=== PATIENT | female | born 1975 | race Hispanic/Latino ===

== ENCOUNTER 2018-03-05 01:47 | Emergency (ER) | payer SELFPAY ==
[2018-03-05] MEDS ORDERED: ONDANSETRON 4 MG/2 ML VIAL ONE (02:27)
[2018-03-05] MEDS ORDERED: NA CHLORIDE 0.9% 1,000 ML ONE (02:32)
[2018-03-05 02:44] LABS: Absolute Lymphocytes (CBC) 1.5 K/uL (0.7-4.9); Absolute Monocytes 0.5 K/uL (0.1-1.3); Absolute Neutrophil 4.4 K/uL (1.8-8.0); Basophils % 0.5 % (0-1.3); Eosinophils % 2.9 % (0-4.4); Hematocrit 39.2 % (36.0-45.0); Lymphocytes % 22.5 % (15.3-44.8); MCH 32.5 pg (27.0-35.0); MCV 94.4 fL (80-100); MPV 9.2 fL (7.6-11.3); RBC Red Blood Cell Count 4.16 M/uL (3.86-4.86)
[2018-03-05 03:16] LABS: Albumin 3.6 g/dL (3.4-5.0); Bilirubin Direct 0.3 mg/dL (0-0.2); Bilirubin Total 0.7 mg/dL (0.2-1.0); Protein, Total 7.5 g/dL (6.4-8.2)
[2018-03-05 03:18] LABS: Urine Blood NEGATIVE (NEG); Urine Glucose NEGATIVE (NEG); Urine Protein NEGATIVE (NEG); Urine pH 5.5 (5.0-7.0)
[2018-03-05 03:23] LABS: Potassium 2.9 mmol/L (3.5-5.1)
[2018-03-05] MEDS ORDERED: POTASSIUM CL SA 10 MEQ TAB PO ONE (04:06)
[2018-03-05] MEDS ORDERED: KCL 20 MEQ/100 mL IVPB 20 MEQ/100 ML BAG IV ONE (04:07)
[2018-03-05] MEDS ORDERED: NA CHLORIDE 0.9% 500 ML ONE (04:13)
[2018-03-05] MEDS ORDERED: KETOROLAC 30 MG/ML INJ ONE (04:15)
[2018-03-05] MEDS ORDERED: MORPHINE 4 MG/ML SYR ONE (04:42)
--- NOTE | 2018-03-05 06:23 | ER ---
Nurse's Notes [facility] Name: Jerrell Rm Age: 43 yrs Sex: Female : 1975 Arrival Date: 03/05/2018 Time: 01:50 Bed 20 Private MD: Diagnosis: Nondisplaced fracture of cuboid bone of right foot Presentation: 03/05 02:01 Presenting complaint: Patient states: right foot pain from great toe up to ankle. pt ak1 also admits to alcohol tonight, pt states she has pancreatitis and has not eaten since due to vomiting. Transition of care: patient was not received from another setting of care. Onset of symptoms was March 05, 2018. Risk Assessment: Do you want to hurt yourself or someone else? Patient reports no desire to harm self or others. Initial Sepsis Screen: Does the patient meet any 2 criteria? No. Patient's initial sepsis screen is negative. Does the patient have a suspected source of infection? No. Patient's initial sepsis screen is negative. Care prior to arrival: None. 02:01 Method Of Arrival: Wheelchair ak1 02:01 Acuity: EDD 4 ak1 Triage Assessment: 03:29 General: Appears in no apparent distress. Behavior is crying, Smells of alcohol. Pain: ak1 Complains of pain in right foot and epigastric area. EENT: No signs and/or symptoms were reported regarding the EENT system. Neuro: No deficits noted. Cardiovascular: No deficits noted. Respiratory: No deficits noted. GI: Abdomen is round non-distended, Bowel sounds present X 4 quads. Abd is soft X 4 quads Reports intolerance of food, nausea, vomiting, since . : No signs and/or symptoms were reported regarding the genitourinary system. Derm: No signs and/or symptoms reported regarding the dermatologic system. Musculoskeletal: Reports pain in dorsum of right foot, right first toe and Right first toenail. Injury Description: dropped pain scraper on foot. 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 - Social history:: Smoking status: Patient/guardian denies using tobacco, Patient uses alcohol. - Ebola Screening: : No symptoms or risks identified at this time. Screenin:10 Abuse screen: Denies threats or abuse. Denies injuries from another. Nutritional ak1 screening: No deficits noted. Tuberculosis screening: No symptoms or risk factors identified. Fall Risk None identified. Assessment: 03:28 Reassessment: Patient appears in no apparent distress at this time. No changes from ak1 previously documented assessment. see triage assessment. 05:21 Reassessment: pt crying. pt stating that the IV potassium jimenez, pt NS increased and IV ak1 potassium rate decreased. pt placed in a short leg posterior splint with morphine given IV for pain. 06:51 Reassessment: Patient and/or family updated on plan of care and expected duration. Pain bb level reassessed. Patient is alert, oriented x 3, equal unlabored respirations, skin warm/dry/pink. splint to right lower leg in place, able to move toes, pt states she has used crutches in the past, pt verbalized understanding of and agrees to plan of care discharge instructions given pt assisted to exit via wheelchair accompanied by spouse. Vital Signs: 02:01 BP 109 / 76; Pulse 98; Resp 20; Temp 99; Pulse Ox 97% on R/A; Weight 77.11 kg (R); ak1 Height 5 ft. 6 in. (167.64 cm) (R); Pain 10/10; 05:51 BP 112 / 73; Pulse 77; Resp 18; Pulse Ox 97% on R/A; ak1 02:01 Body Mass Index 27.44 (77.11 kg, 167.64 cm) ak1 ED Course: 01:50 Patient arrived in ED. do 01:57 Heber Hawkins MD is Attending Physician. tw4 02:00 Yesica Judd, RN is Primary Nurse. ak1 02:03 Triage completed. ak1 02:09 Arm band placed on Patient placed in an exam room, on a stretcher, on pulse oximetry, ak1 Patient notified of wait time. 02:10 Patient has correct armband on for positive identification. Bed in low position. Call ak1 light in reach. Side rails up X 1. Pulse ox on. NIBP on. 02:45 Missed attempt(s): 20 gauge in right antecubital area. Bleeding controlled, band aid oe applied, catheter tip intact. 02:50 Inserted saline lock: 22 gauge in left hand, using aseptic technique. Blood collected. oe 03:24 Notified ED physician of a critical lab result(s). Potassium level of 2.9. jb4 03:38 X-ray completed. Portable x-ray completed in exam room. Patient tolerated procedure kw well. 03:38 XRAY Foot RIGHT 3 View In Process Unspecified. EDMS 06:26 Orthoglass splint: Posterior short lleg splint applied on right leg. oe 06:56 No provider procedures requiring assistance completed. IV discontinued, intact, bb bleeding controlled, No redness/swelling at site. Pressure dressing applied. Administered Medications: 02:48 Drug: NS 0.9% 1000 ml Route: IV; Rate: 1 bolus; Site: left hand; ak1 02:48 Drug: Zofran 4 mg Route: IVP; Site: left hand; ak1 04:28 Follow up: Response: No adverse reaction ak1 04:00 Drug: Potassium Chloride 20 mEq Route: IV; Rate: calculated rate; Site: left hand; ak1 04:25 Drug: Potassium Chloride 40 mEq Route: PO; ak1 04:29 Follow up: Response: No adverse reaction ak1 04:54 Drug: morphine 4 mg Route: IVP; Site: left hand; ak1 05:20 Follow up: Response: No adverse reaction ak1 Outcome: 06:23 Discharge ordered by . tw4 06:56 Discharged to home via wheelchair, with crutches, with family. bb 06:56 Condition: stable 06:56 Discharge instructions given to patient, Instructed on discharge instructions, follow up and referral plans. medication usage, safety practices, crutch walking, Demonstrated understanding of instructions, follow-up care, medications, crutch walking, splint care. 06:57 Patient left the ED. bb Signatures: Dispatcher [employer] EDMS Heather Campbell RN RN bb Whitley, Kimberlee kw Krenek, Amber RN RN ak1 Tashia Parry James, RN RN jb4 Gonzalo Chopra Terrence, MD MD tw4 Corrections: (The following items were deleted from the chart) 04:04 04:03 Missed attempt(s): 20 gauge in right antecubital area. Bleeding controlled, band oe aid applied, catheter tip intact. oe 04:06 04:03 Missed attempt(s): 20 gauge in right antecubital area. Bleeding controlled, band oe aid applied, catheter tip intact. oe 04:07 04:04 Inserted oe oe
--- NOTE | 2018-03-05 06:24 | EDPHYS ---
Physician Documentation [facility] Name: Jerrell Rm Age: 43 yrs Sex: Female : 1975 Arrival Date: 03/05/2018 Time: 01:50 Bed 20 Private MD: ED Physician Heber Hawkins HPI: 03/05 02:26 This 43 yrs old Female presents to ER via Wheelchair with complaints of Foot tw4 Injury, Possible Pancreatitis, Vomiting, Abdominal Swelling. 02:26 The patient presents with pain. The complaints affect the right foot. Context: The tw4 problem was sustained at home. Onset: The symptoms/episode began/occurred today. Modifying factors: The symptoms are alleviated by nothing, the symptoms are aggravated by nothing. Severity of symptoms: At their worst the symptoms were moderate, in the emergency department the symptoms are unchanged. The patient has not experienced similar symptoms in the past. 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 - Social history:: Smoking status: Patient/guardian denies using tobacco, Patient uses alcohol. - Ebola Screening: : No symptoms or risks identified at this time. ROS: 02:26 MS/extremity: Positive for injury or acute deformity, decreased range of motion, tw4 Negative for deformity. 02:26 Constitutional: Negative for fever, chills, and weight loss, Eyes: Negative for injury, pain, redness, and discharge, Cardiovascular: Negative for chest pain, palpitations, and edema, Respiratory: Negative for shortness of breath, cough, wheezing, and pleuritic chest pain. 02:26 Abdomen/GI: Positive for abdominal pain, nausea and vomiting, nausea, vomiting, and diarrhea, nausea, vomiting. Exam: 02:26 Constitutional: This is a well developed, well nourished patient who is awake, alert, tw4 and in no acute distress. Head/Face: Normocephalic, atraumatic. Chest/axilla: Normal chest wall appearance and motion. Nontender with no deformity. No lesions are appreciated. Cardiovascular: Regular rate and rhythm with a normal S1 and S2. No gallops, murmurs, or rubs. Normal PMI, no JVD. No pulse deficits. Respiratory: Lungs have equal breath sounds bilaterally, clear to auscultation and percussion. No rales, rhonchi or wheezes noted. No increased work of breathing, no retractions or nasal flaring. 02:26 Abdomen/GI: Inspection: abdomen appears normal, Bowel sounds: normal, Palpation: mild abdominal tenderness, in the epigastric area. Vital Signs: 02:01 BP 109 / 76; Pulse 98; Resp 20; Temp 99; Pulse Ox 97% on R/A; Weight 77.11 kg (R); ak1 Height 5 ft. 6 in. (167.64 cm) (R); Pain 10/10; 05:51 BP 112 / 73; Pulse 77; Resp 18; Pulse Ox 97% on R/A; ak1 02:01 Body Mass Index 27.44 (77.11 kg, 167.64 cm) ak1 MDM: 01:57 Patient medically screened. tw03/05 01:57 Order name: Basic Metabolic Panel tw4 03/05 01:57 Order name: CBC with Diff; Complete Time: 03:21 tw4 03/05 03:22 Interpretation: Normal except: MCV 94.4. 03/05 01:57 Order name: Creatinine for Radiology; Complete Time: 03:21 tw4 03/05 01:57 Order name: Hepatic Function; Complete Time: 03:44 tw4 03/05 03:44 Interpretation: Normal except: AST 66; ALT 125; BILID 0.3; GLOB 3.9; A/G 0.9. 03/05 01:57 Order name: Lipase; Complete Time: 03:44 tw4 03/05 03:44 Interpretation: Normal except: LIP 494. tw4 03/05 01:58 Order name: Basic Metabolic Panel; Complete Time: 03:44 EDID 03/05 02:55 Order name: XRAY Foot RIGHT 3 View ak1 03/05 02:56 Order name: Urine Dipstick--Ancillary (enter results); Complete Time: 03:21 cc 03/05 02:56 Order name: Urine --Ancillary (enter results); Complete Time: 03:21 cc 03/05 04:33 Order name: ETOH Level tw4 03/05 01:57 Order name: IV Saline Lock; Complete Time: 02:40 tw4 03/05 01:57 Order name: Labs collected and sent; Complete Time: 02:40 tw4 03/05 02:56 Order name: Urine Dipstick-Ancillary (obtain specimen); Complete Time: 02:56 cc 03/05 02:56 Order name: Urine Test (obtain specimen); Complete Time: 02:56 cc 03/05 04:33 Order name: Splint; Complete Time: 05:20 tw4 03/05 06:39 Order name: Crutches; Complete Time: 06:51 tw4 Administered Medications: 02:48 Drug: NS 0.9% 1000 ml Route: IV; Rate: 1 bolus; Site: left hand; ak1 02:48 Drug: Zofran 4 mg Route: IVP; Site: left hand; ak1 04:28 Follow up: Response: No adverse reaction ak1 04:00 Drug: Potassium Chloride 20 mEq Route: IV; Rate: calculated rate; Site: left hand; ak1 04:25 Drug: Potassium Chloride 40 mEq Route: PO; ak1 04:29 Follow up: Response: No adverse reaction ak1 04:54 Drug: morphine 4 mg Route: IVP; Site: left hand; ak1 05:20 Follow up: Response: No adverse reaction ak1 Disposition: 03/05/18 06:23 Discharged to Home. Impression: Nondisplaced fracture of cuboid bone of right foot. - Condition is Stable. - Discharge Instructions: Cuneiform Fracture, Chronic Pancreatitis, Foot Pain. - Prescriptions for Ibuprofen 800 mg Oral Tablet - take 1 tablet by ORAL route every 8 hours As needed take with food; 30 tablet. Tylenol- Codeine #3 300-30 mg Oral Tablet - take 2 tablet by ORAL route every 6 hours As needed; 6 tablet. - Medication Reconciliation Form, Thank You Letter, Antibiotic Education, Prescription Opioid Use form. - Follow up: Private Physician; When: Upon discharge from the Emergency Department; Reason: Further diagnostic work-up, Recheck today's complaints, Re-evaluation by your physician. - Problem is new. - Symptoms have improved. Signatures: Dispatcher [employer] EDMS Heather Campbell, RN RN Ayanna Gil Amber RN RN ak1 Heber Hawkins MD MD tw4 Corrections: (The following items were deleted from the chart) 06:57 06:23 03/05/2018 06:23 Discharged to Home. Impression: Nondisplaced fracture of cuboid bb bone of right foot. Condition is Stable. Forms are Medication Reconciliation Form, Thank You Letter, Antibiotic Education, Prescription Opioid Use. Follow up: Private Physician; When: Upon discharge from the Emergency Department; Reason: Further diagnostic work-up, Recheck today's complaints, Re-evaluation by your physician. Problem is new. Symptoms have improved. tw4
--- NOTE | 2018-03-05 08:46 | RAD REPORT ---
EXAM DESCRIPTION: RAD - Foot Right 3 View - 03/05/2018 3:38 am CLINICAL HISTORY: PAIN COMPARISON: No comparisons FINDINGS: No bone or joint abnormality is detected.
== END 2018-03-05 06:57 | disposition home or self-care (01) ==
LOC: ER 01:47
DX: S92.214A Nondisplaced fracture of cuboid bone of right foot, initial encounter for closed fracture (principal); W19.XXXA Unspecified fall, initial encounter; Y93.9 Activity, unspecified; Y92.009 Unspecified place in unspecified non-institutional (private) residence as the place of occurrence of the external cause; Z88.5 Allergy status to narcotic agent; Z88.8 Allergy status to other drugs, medicaments and biological substances; F41.9 Anxiety disorder, unspecified
CPT/HCPCS: 36415; 80048; 80076; 80320; 81003; 81025; 83690; 85025; 96374; 96375; 99284; J2405; J7030

== ENCOUNTER 2018-04-09 23:35 | Emergency (ER) | payer SELFPAY ==
--- NOTE | 2018-04-10 00:34 | EDPHYS ---
Physician Documentation [facility] Name: Jerrell Rm Age: 43 yrs Sex: Female : 1975 Arrival Date: 04/09/2018 Time: 23:37 Bed 26 Private MD: ED Physician Alirio Lr HPI: 04/10 00:09 This 43 yrs old Female presents to ER via Wheelchair with complaints of Foot snw Injury. 00:09 The patient presents with pain, that is acute. The complaints affect the dorsum of snw right foot. Context: The problem was sustained at home, resulted from the patient falling, while walking, the patient is able to ambulate. Onset: The symptoms/episode began/occurred injured foot recently and has an appt with ortho. Pt states she fell today and her foot hurts even more. Associated signs and symptoms: The patient has no apparent associated signs or symptoms. Treatment prior to arrival includes: [place], Pt states it did not help much. Severity of symptoms: At their worst the symptoms were moderate. The patient has experienced a previous episode. The patient has been recently seen by a physician: The patient has been recently seen at the [facility] Emergency Department, for similar complaints was given a prescription for pain medications. 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 - Social history:: Smoking status: Patient/guardian denies using tobacco, Patient uses alcohol, occasionally. Patient/guardian denies using street drugs. - Ebola Screening: : No symptoms or risks identified at this time. ROS: 04/10 00:09 Constitutional: Negative for fever, chills, and weight loss, Eyes: Negative for injury, snw pain, redness, and discharge, ENT: Negative for injury, pain, and discharge, Neck: Negative for injury, pain, and swelling, Cardiovascular: Negative for chest pain, palpitations, and edema, Respiratory: Negative for shortness of breath, cough, wheezing, and pleuritic chest pain, Abdomen/GI: Negative for abdominal pain, nausea, vomiting, diarrhea, and constipation, Back: Negative for injury and pain, : Negative for injury, bleeding, discharge, and swelling, Skin: Negative for injury, rash, and discoloration, Neuro: Negative for headache, weakness, numbness, tingling, and seizure, Psych: Negative for depression, anxiety, suicide ideation, homicidal ideation, and hallucinations. MS/extremity: Positive for injury or acute deformity, decreased range of motion, pain, tenderness, of the dorsum of right foot. Exam: 00:08 Constitutional: This is a well developed, well nourished patient who is awake, alert, snw and in no acute distress. Head/Face: Normocephalic, atraumatic. Eyes: Pupils equal round and reactive to light, extra-ocular motions intact. Lids and lashes normal. Conjunctiva and sclera are non-icteric and not injected. Cornea within normal limits. Periorbital areas with no swelling, redness, or edema. ENT: Nares patent. No nasal discharge, no septal abnormalities noted. Tympanic membranes are normal and external auditory canals are clear. Oropharynx with no redness, swelling, or masses, exudates, or evidence of obstruction, uvula midline. Mucous membranes moist. Neck: Trachea midline, no thyromegaly or masses palpated, and no cervical lymphadenopathy. Supple, full range of motion without nuchal rigidity, or vertebral point tenderness. No Meningismus. Chest/axilla: Normal chest wall appearance and motion. Nontender with no deformity. No lesions are appreciated. Cardiovascular: Regular rate and rhythm with a normal S1 and S2. No gallops, murmurs, or rubs. Normal PMI, no JVD. No pulse deficits. Respiratory: Lungs have equal breath sounds bilaterally, clear to auscultation and percussion. No rales, rhonchi or wheezes noted. No increased work of breathing, no retractions or nasal flaring. Abdomen/GI: Soft, non-tender, with normal bowel sounds. No distension or tympany. No guarding or rebound. No evidence of tenderness throughout. Back: No spinal tenderness. No costovertebral tenderness. Full range of motion. Skin: Warm, dry with normal turgor. Normal color with no rashes, no lesions, and no evidence of cellulitis. Neuro: Awake and alert, GCS 15, oriented to person, place, time, and situation. Cranial nerves II-XII grossly intact. Motor strength 5/5 in all extremities. Sensory grossly intact. Cerebellar exam normal. Normal gait. Psych: Awake, alert, with orientation to person, place and time. Behavior, mood, and affect are within normal limits. 00:08 Musculoskeletal/extremity: ROM: limited passive range of motion due to pain, in the dorsum of right foot, Circulation is intact in all extremities. Sensation intact. Vital Signs: 04/09 23:49 BP 116 / 80; Pulse 91; Resp 16 S; Temp 97.3(O); Pulse Ox 99% on R/A; Weight 74.39 kg bb (R); Height 5 ft. 6 in. (167.64 cm) (R); Pain 7/10; 23:49 Body Mass Index 26.47 (74.39 kg, 167.64 cm) bb MDM: 23:48 Patient medically screened. snw 04/10 00:34 Data reviewed: vital signs, nurses notes. Data interpreted: Pulse oximetry: on room air snw is 99 %. Interpretation: normal. Counseling: I had a detailed discussion with the patient and/or guardian regarding: the historical points, exam findings, and any diagnostic results supporting the discharge/admit diagnosis, the presence of at least one elevated blood pressure reading (>120/80) during this emergency department visit, radiology results, the need for outpatient follow up, to return to the emergency department if symptoms worsen or persist or if there are any questions or concerns that arise at home. Special discussion: I have referred the patient to see his PCP for further evaluation of high blood pressure. Based on the history and exam findings, there is no indication for further emergent testing or inpatient evaluation. I discussed with the patient/guardian the need to see the orthopedic surgeon for further evaluation of the symptoms. 04/10 00:20 Order name: Foot Right 3 View EDMS 04/10 00:33 Order name: Servando wrap-joint; Complete Time: 01:00 snw 04/10 00:33 Order name: Post-op Orthopedic Shoe; Complete Time: 00:59 snw Administered Medications: 00:45 Drug: TORadol 60 mg Route: IM; Site: right gluteus; rr5 01:00 Follow up: Response: Medication administered at discharge. rr5 Disposition: 05:14 Co-signature as Attending Physician, Alirio Lr MD. rn Disposition: 04/10/18 00:34 Discharged to Home. Impression: Pain in right foot. - Condition is Stable. - Discharge Instructions: Elastic Bandage and RICE, Foot Contusion, Musculoskeletal Pain, Cryotherapy, Heat Therapy. - Prescriptions for Diclofenac Sodium 75 mg Oral Tablet Sustained Release - take 1 tablet by ORAL route 2 times per day; 30 tablet. - Medication Reconciliation Form, Thank You Letter, Antibiotic Education, Prescription Opioid Use form. - Follow up: Private Physician; When: 2 - 3 days; Reason: Recheck today's complaints, Continuance of care, Re-evaluation by your physician. Follow up: Emergency Department; When: As needed; Reason: Worsening of condition. Signatures: Dispatcher [employer] [facility] Hayde Carmichael, TRACK MOVING MACHINE OPERATOR-C TRACK MOVING MACHINE OPERATOR-Csnw Heather Campbell RN RN Alirio Rosas MD MD rn Roque, Raymond, RN RN rr5 Corrections: (The following items were deleted from the chart) 00:20 00:05 Foot Left 3 View+RAD.RAD.BRZ ordered. [facility] 01:04 00:34 04/10/2018 00:34 Discharged to Home. Impression: Pain in right foot. Condition is rr5 Stable. Forms are Medication Reconciliation Form, Thank You Letter, Antibiotic Education, Prescription Opioid Use. Follow up: Private Physician; When: 2 - 3 days; Reason: Recheck today's complaints, Continuance of care, Re-evaluation by your physician. Follow up: Emergency Department; When: As needed; Reason: Worsening of condition. snw
--- NOTE | 2018-04-10 00:34 | ER ---
Nurse's Notes [facility] Name: Jerrell Rm Age: 43 yrs Sex: Female : 1975 Arrival Date: 04/09/2018 Time: 23:37 Bed 26 Private MD: Diagnosis: Pain in right foot Presentation: 04/09 23:46 Presenting complaint: Patient states: pt states she was here recently with right foot bb injury and has appt with ortho on Monday but she fell again tonight reinjuring the right foot she took a hydrocodone at approx 1630 and it "barely helped with the pain". Transition of care: patient was not received from another setting of care. Onset of symptoms was April 09, 2018. Risk Assessment: Do you want to hurt yourself or someone else? Patient reports no desire to harm self or others. Initial Sepsis Screen: Does the patient meet any 2 criteria? No. Patient's initial sepsis screen is negative. Does the patient have a suspected source of infection? No. Patient's initial sepsis screen is negative. Care prior to arrival: None. 23:46 Method Of Arrival: Wheelchair bb 23:46 Acuity: EDD 4 bb Triage Assessment: 04/10 00:05 Injury Description: swelling right big toe. 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 - Social history:: Smoking status: Patient/guardian denies using tobacco, Patient uses alcohol, occasionally. Patient/guardian denies using street drugs. - Ebola Screening: : No symptoms or risks identified at this time. Screenin:30 Abuse screen: Denies threats or abuse. Denies injuries from another. Nutritional rr5 screening: No deficits noted. Tuberculosis screening: No symptoms or risk factors identified. Fall Risk None identified. Assessment: 23:30 General: Appears in no apparent distress. comfortable, Behavior is calm, cooperative, rr5 appropriate for age. Pain: Complains of pain in right big toe Pain radiates to going up to right foot Pain currently is 6 out of 10 on a pain scale. Quality of pain is described as aching, Pain began suddenly, Is continuous, Aggravated by increased activity. 23:30 Neuro: Level of Consciousness is awake, alert, obeys commands, Oriented to person, rr5 place, time, situation. Cardiovascular: Capillary refill < 3 seconds Patient's skin is warm and dry. Respiratory: Airway is patent. GI: No signs and/or symptoms were reported involving the gastrointestinal system. : No signs and/or symptoms were reported regarding the genitourinary system. EENT: No signs and/or symptoms were reported regarding the EENT system. Derm: No signs and/or symptoms reported regarding the dermatologic system. Derm: No signs and/or symptoms reported regarding the dermatologic system. Musculoskeletal: Circulation, motion, and sensation intact. Capillary refill Range of motion: intact in all extremities, Swelling present in right big toe. 04/10 00:31 Reassessment: Patient appears in no apparent distress at this time. No changes from rr5 previously documented assessment. awaiting for xray report. Vital Signs: 04/09 23:49 BP 116 / 80; Pulse 91; Resp 16 S; Temp 97.3(O); Pulse Ox 99% on R/A; Weight 74.39 kg bb (R); Height 5 ft. 6 in. (167.64 cm) (R); Pain 7/10; 23:49 Body Mass Index 26.47 (74.39 kg, 167.64 cm) bb ED Course: 23:30 Patient has correct armband on for positive identification. Bed in low position. Call rr5 light in reach. 23:37 Patient arrived in ED. al2 23:43 Hayde Carmichael FNP-C is [facility]. snw 23:43 Alirio Lr MD is Attending Physician. snw 23:48 Triage completed. bb 23:49 Arm band placed on Patient placed in an exam room, on a stretcher, on pulse oximetry. bb 04/10 00:06 Gabino Amador, RN is Primary Nurse. rr5 00:26 X-ray completed. Portable x-ray completed in exam room. Patient tolerated procedure kw well. 00:30 Foot Right 3 View In Process Unspecified. EDMS 00:55 Servando wrap to right ankle and right foot Ortho shoe applied to right foot. rr5 00:55 Patient did not have IV access during this emergency room visit. rr5 00:55 No provider procedures requiring assistance completed. rr5 Administered Medications: 00:45 Drug: TORadol 60 mg Route: IM; Site: right gluteus; rr5 01:00 Follow up: Response: Medication administered at discharge. rr5 Outcome: 00:34 Discharge ordered by MD. snw 00:55 Discharged to home via wheelchair. rr5 00:55 Condition: stable 00:55 Discharge instructions given to patient, family, Instructed on discharge instructions, follow up and referral plans. medication usage, Demonstrated understanding of instructions, follow-up care, medications, Prescriptions given X 1. 01:04 Patient left the ED. rr5 Signatures: Dispatcher [employer] EDAL Hayde Carmichael, IT INTERN-C IT INTERN-Csnw Heather Campbell, RN RN bb Alicia Mendez Angelica al2 Roque, Raymond, RN RN rr5
[2018-04-10] MEDS ORDERED: KETOROLAC 30 MG/ML INJ ONE (00:52)
--- NOTE | 2018-04-10 08:25 | RAD REPORT ---
EXAM DESCRIPTION: RAD - Foot Right 3 View - 04/10/2018 12:30 am CLINICAL HISTORY: Right foot pain status post injury FINDINGS: No fracture or dislocation is seen
== END 2018-04-10 01:04 | disposition home or self-care (01) ==
LOC: ER 23:35
DX: M79.671 Pain in right foot (principal); W18.39XA Other fall on same level, initial encounter; Y93.01 Activity, walking, marching and hiking; I42.9 Cardiomyopathy, unspecified; Z79.899 Other long term (current) drug therapy; Z95.810 Presence of automatic (implantable) cardiac defibrillator
CPT/HCPCS: 96372; 99284

== ENCOUNTER 2018-06-04 05:43 | Inpatient (IN) | payer OTHER, SELFPAY ==
[2018-06-04] MEDS ORDERED: LORazepam 2 MG/ML VIAL ONE (07:02)
[2018-06-04 07:03] LABS: Urine Blood TRACE (NEG); Urine Glucose NEGATIVE (NEG); Urine Protein NEGATIVE (NEG); Urine Specific Gravity 1.015 (1.005-1.030); Urine pH 6.5 (5.0-7.0)
[2018-06-04 07:07] LABS: Urine Bacteria 20-50 /HPF (<20); Urine Culture Reflex Order NOT NEEDED; Urine RBC <5 /HPF (NONE SEEN)
[2018-06-04] MEDS ORDERED: ASPIRIN 81 MG CHEWABLE TABLET ONE (07:26)
[2018-06-04] MEDS ORDERED: MAGNESIUM SULFATE 1 gm IVPB 1 GM/100 ML BAG IV ONE (07:26)
--- NOTE | 2018-06-04 07:30 | EDPHYS ---
Physician Documentation [facility] Name: Jerrell Rm Age: 43 yrs Sex: Female : 1975 Arrival Date: 06/04/2018 Time: 05:44 Bed 18 Private MD: ED Physician Valdo Ch HPI: 06/04 06:24 This 43 yrs old Female presents to ER via Ambulatory with complaints of snw Weakness, Dizziness, Probable Seizure. 06:24 The patient presents to the emergency department with episodes of confusion upon snw awakening. Onset: The symptoms/episode began/occurred suddenly, intermittent. Associated signs and symptoms: Pertinent positives: altered mental status, nausea. Severity of symptoms: At their worst the symptoms were moderate in the emergency department the symptoms have improved. Current symptoms: anxiety. The patient has not experienced similar symptoms in the past. It is unknown whether or not the patient has recently seen a physician. hx of anxiety, cardiomyopathy, CHF, pancreatitis. 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:55 LMP 2018, had uterus surgery last period was last year rr5 Historical: - Allergies: 06:05 Heparin; rr5 06:05 Codeine; rr5 - Home Meds: 06:05 Coreg 25 mg Oral tab 1 tab 2 times per day [Active]; Lasix 40 mg Oral tab 1 tab 2 times rr5 per day [Active]; spironolactone 25 mg Oral tab 1 tab once daily [Active]; Pancrease Oral [Active]; - PMHx: 06:05 Anxiety; cardiomyopathy; open heart surgery; Pancreatitis; CHF; rr5 - PSHx: 06:05 gallblader surgery; uterus surgery; pacemaker defibrilator; rr5 - Immunization history:: Adult Immunizations up to date, Pneumococcal vaccine is up to date, Flu vaccine is up to date. - Social history:: Smoking status: . - Ebola Screening: : Patient denies travel to an Ebola-affected area in the 21 days before illness onset. ROS: 06:21 Constitutional: Negative for fever, chills, and weight loss, Eyes: Negative for injury, snw pain, redness, and discharge, ENT: Negative for injury, pain, and discharge, Neck: Negative for injury, pain, and swelling, Cardiovascular: Negative for chest pain, palpitations, and edema, Respiratory: Negative for shortness of breath, cough, wheezing, and pleuritic chest pain, Abdomen/GI: Negative for abdominal pain, nausea, vomiting, diarrhea, and constipation, Back: Negative for injury and pain, : Negative for injury, bleeding, discharge, and swelling, MS/Extremity: Negative for injury and deformity, Skin: Negative for injury, rash, and discoloration. 06:21 Neuro: Positive for shakiness, anxiety, lapses in memory of events of the night when awoken from sleep with flushed feeling, shakiness, pt states Spouse was yelling for her to wake up, she does not remember what happened nor has it ever happened in the past. Exam: 06:21 Head/Face: Normocephalic, atraumatic. Eyes: Pupils equal round and reactive to light, snw extra-ocular motions intact. Lids and lashes normal. Conjunctiva and sclera are non-icteric and not injected. Cornea within normal limits. Periorbital areas with no swelling, redness, or edema. ENT: Nares patent. No nasal discharge, no septal abnormalities noted. Tympanic membranes are normal and external auditory canals are clear. Oropharynx with no redness, swelling, or masses, exudates, or evidence of obstruction, uvula midline. Mucous membranes moist. Neck: Trachea midline, no thyromegaly or masses palpated, and no cervical lymphadenopathy. Supple, full range of motion without nuchal rigidity, or vertebral point tenderness. No Meningismus. Chest/axilla: Normal chest wall appearance and motion. Nontender with no deformity. No lesions are appreciated. Cardiovascular: Regular rate and rhythm with a normal S1 and S2. No gallops, murmurs, or rubs. Normal PMI, no JVD. No pulse deficits. Respiratory: Lungs have equal breath sounds bilaterally, clear to auscultation and percussion. No rales, rhonchi or wheezes noted. No increased work of breathing, no retractions or nasal flaring. Abdomen/GI: Soft, non-tender, with normal bowel sounds. No distension or tympany. No guarding or rebound. No evidence of tenderness throughout. Back: No spinal tenderness. No costovertebral tenderness. Full range of motion. Skin: Warm, dry with normal turgor. Normal color with no rashes, no lesions, and no evidence of cellulitis. MS/ Extremity: Pulses equal, no cyanosis. Neurovascular intact. Full, normal range of motion. Neuro: Awake and alert, GCS 15, oriented to person, place, time, and situation. Cranial nerves II-XII grossly intact. Motor strength 5/5 in all extremities. Sensory grossly intact. Cerebellar exam normal. Normal gait. 06:21 Constitutional: The patient appears alert, awake, anxious, tearful 06:21 Psych: Behavior/mood is pleasant, cooperative, anxious, Affect is tearful. Oriented to person, place, time, Judgement / Insight is normal. Vital Signs: 05:55 BP 124 / 100; Pulse 71; Resp 16; Temp 97.7; Pulse Ox 100% ; Weight 72.57 kg; Height 5 rr5 ft. 6 in. (167.64 cm); Pain 6/10; 06:30 BP 111 / 70; Pulse 69; Resp 16; Pulse Ox 99% ; rr5 07:00 BP 108 / 71; Pulse 63; Resp 18; Pulse Ox 99% ; rr5 05:55 Body Mass Index 25.82 (72.57 kg, 167.64 cm) rr5 MDM: 06:02 Patient medically screened. snw 07:20 Data reviewed: vital signs, nurses notes. Data interpreted: provider network analyst: called to w room for re-assessment and monitor assessment - bigeminy on the monitor. Previous rhythm however shows run of V-tach. Awaiting labs/electrolytes. Aspirin given, pacer pads placed, Magnesium 1 gm iv ordered. Pt allergic to Heparin (HIT). Counseling: I had a detailed discussion with the patient and/or guardian regarding: the historical points, exam findings, and any diagnostic results supporting the discharge/admit diagnosis, the presence of at least one elevated blood pressure reading (>120/80) during this emergency department visit, lab results, radiology results, the need for further work-up and treatment in the hospital. Response to treatment: There is no appreciated change of the patient's symptoms at this time. 07:20 Physician consultation: Wai Charles MD was called at 07:25, was contacted at 07:25, [facility] regarding admission, to the ICU, Pt noted to have defibrillator on CXR. Pt then states she had recent interrogation of that defibrillator and ECHO at [facility]. Pt denies defib firing. 07:48 ED course: Pt with defibrillator already, reports just had interrogated as well as ECHO rn at [facility], no changes in meds, + short runs of Vtach, self-resolving, no defibrillation, will admit for further eval and interrogation. . 06/04 06:05 Order name: Urine Culture snw 06/04 06:05 Order name: Urine Microscopic Only; Complete Time: 07:09 snw 06/04 06:29 Order name: Basic Metabolic Panel snw 06/04 06:29 Order name: CBC with Diff; Complete Time: 07:40 snw 06/04 06:29 Order name: LFT's; Complete Time: 08:00 snw 06/04 06:29 Order name: Magnesium; Complete Time: 08:00 snw 06/04 06:29 Order name: NT PRO-BNP snw 06/04 06:29 Order name: PT-INR; Complete Time: 07:40 snw 06/04 06:29 Order name: Troponin (emerg Dept Use Only); Complete Time: 08:00 snw 06/04 06:29 Order name: Blood Culture Adult (2) snw 06/04 06:29 Order name: Basic Metabolic Panel; Complete Time: 08:00 EDMS 06/04 06:29 Order name: NT PRO-BNP; Complete Time: 08:00 EDMS 06/04 07:01 Order name: Urine Dipstick--Ancillary (enter results); Complete Time: 07:09 eb 06/04 07:01 Order name: Urine --Ancillary (enter results); Complete Time: 07:09 eb 06/04 06:05 Order name: CT Head Brain wo Cont; Complete Time: 09:24 snw 06/04 06:05 Order name: Urine Test (obtain specimen); Complete Time: 07:15 snw 06/04 06:05 Order name: Urine Dipstick-Ancillary (obtain specimen); Complete Time: 07:15 snw 06/04 06:29 Order name: XRAY Chest (1 view); Complete Time: 09:31 snw 06/04 06:29 Order name: EKG; Complete Time: 06:30 snw 06/04 06:29 Order name: Cardiac monitoring; Complete Time: 07:15 snw 06/04 06:29 Order name: EKG - Nurse/Tech; Complete Time: 07:15 snw 06/04 07:09 Order name: Holter Monitor (ORDER); Complete Time: 07:10 snw 06/04 07:52 Order name: Echo with Doppler EDMS 06/04 06:29 Order name: IV Saline Lock; Complete Time: 07:15 snw 06/04 06:29 Order name: Labs collected and sent; Complete Time: 07:15 snw 06/04 06:29 Order name: O2 Per Protocol; Complete Time: 07:15 snw 06/04 06:29 Order name: O2 Sat Monitoring; Complete Time: 07:15 snw Administered Medications: 07:00 Drug: Ativan 1 mg Route: IVP; Site: right forearm; rr5 08:18 Follow up: Response: No adverse reaction tw2 07:20 Drug: Aspirin Chewable Tablet 324 mg Route: PO; tw2 08:17 Follow up: Response: No adverse reaction tw2 07:22 Drug: Magnesium Sulfate 1 grams Route: IVPB; Infused Over: 1 hrs; Site: right tw2 antecubital; 08:25 Follow up: IV Status: Completed infusion tw2 08:30 Drug: Potassium Chloride 20 mEq Route: IV; Rate: calculated rate; Site: right tw2 antecubital; 09:58 Follow up: IV Status: Infusion continued upon admission tw2 08:30 Drug: NS 0.9% 1000 ml Route: IV; Rate: 75 ml/hr; Site: right antecubital; tw2 09:58 Follow up: IV Status: Infusion continued upon admission tw2 08:35 Drug: Phenergan 25 mg Route: PO; tw2 09:58 Follow up: Response: No adverse reaction tw2 09:30 Drug: Potassium Effervescent Tablet 50 mEq Route: PO; tw2 09:58 Follow up: Response: No adverse reaction tw2 Disposition: 06/04/18 07:29 Hospitalization ordered by Wai Charles for Inpatient Admission. Preliminary diagnosis is Ventricular tachycardia - intermittent. - Bed requested for Intensive Care Unit. - Status is Inpatient Admission. tw2 - Condition is Stable. - Problem is new. - Symptoms are unchanged. UTI on Admission? No Signatures: Dispatcher [employer] EDBrittany Suazo RN RN dw Therrien, Shelly, NADIA-C CLINICAL DENTAL TECHNICIAN-Csnw Alirio Lr MD MD rn Wise, Tara, RN RN tw2 Jessica Gtaica Raymond, RN RN rr5 Corrections: (The following items were deleted from the chart) 08:04 07:29 Hospitalization Ordered by Wai Charles MD for Inpatient Admission. Preliminary eb diagnosis is Ventricular tachycardia - intermittent. Bed requested for Intensive Care Unit. Status is Inpatient Admission. Condition is Stable. Problem is new. Symptoms are unchanged. UTI on Admission? No. snw 09:40 08:04 06/04/2018 07:29 Hospitalization Ordered by Wai Charles MD for Inpatient dw Admission. Preliminary diagnosis is Ventricular tachycardia - intermittent. Bed requested for [facility] ER HOLD. Status is Inpatient Admission. Condition is Stable. Problem is new. Symptoms are unchanged. UTI on Admission? No. eb 10:38 09:40 06/04/2018 07:29 Hospitalization Ordered by Wai Charles MD for Inpatient tw2 Admission. Preliminary diagnosis is Ventricular tachycardia - intermittent. Bed requested for Intensive Care Unit. Status is Inpatient Admission. Condition is Stable. Problem is new. Symptoms are unchanged. UTI on Admission? No. dw
--- NOTE | 2018-06-04 07:30 | ER ---
Nurse's Notes [facility] Name: Jerrell Rm Age: 43 yrs Sex: Female : 1975 Arrival Date: 06/04/2018 Time: 05:44 Bed 18 Private MD: Diagnosis: Ventricular tachycardia-intermittent Presentation: 06/04 05:55 Presenting complaint: Patient states: suddenly when I woke up around 0300H today I felt rr5 light headed and feeling hot then had a jerky movement after that i cannot remember what happened. happened 3 episodes timings are (0300, 0420, 0520). Transition of care: patient was not received from another setting of care. Onset of symptoms was June 04, 2018 at 03:00. Risk Assessment: Do you want to hurt yourself or someone else? Patient reports no desire to harm self or others. Initial Sepsis Screen: Does the patient meet any 2 criteria? No. Patient's initial sepsis screen is negative. Does the patient have a suspected source of infection? No. Patient's initial sepsis screen is negative. Note as per the witness jerky movement all over the body lasted less than 5 seconds. Care prior to arrival: Medication(s) given: xanax. 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, had uterus surgery last period was last year rr5 Historical: - Allergies: 06:05 Heparin; rr5 06:05 Codeine; rr5 - Home Meds: 06:05 Coreg 25 mg Oral tab 1 tab 2 times per day [Active]; Lasix 40 mg Oral tab 1 tab 2 times rr5 per day [Active]; spironolactone 25 mg Oral tab 1 tab once daily [Active]; Pancrease Oral [Active]; - PMHx: 06:05 Anxiety; cardiomyopathy; open heart surgery; Pancreatitis; CHF; rr5 - PSHx: 06:05 gallblader surgery; uterus surgery; pacemaker defibrilator; rr5 - Immunization history:: Adult Immunizations up to date, Pneumococcal vaccine is up to date, Flu vaccine is up to date. - Social history:: Smoking status: . - Ebola Screening: : Patient denies travel to an Ebola-affected area in the 21 days before illness onset. Screenin:00 Abuse screen: Denies threats or abuse. Denies injuries from another. Nutritional rr5 screening: No deficits noted. Tuberculosis screening: No symptoms or risk factors identified. Fall Risk Secondary diagnosis (15 points) post jerky movement. IV access (20 points). Total Ng Fall Scale indicates Low Risk Score (25-44 pts). Fall prevention measures have been instituted. Side Rails Up X 2 Frequent Obs/Assesments occuring Family Present and informed to notify staff if they need to leave bedside As available Patient and Family Educated on Fall Prevention Program and strategies. Assessment: 05:55 General: Appears in no apparent distress. comfortable, Behavior is calm, cooperative, rr5 appropriate for age. Pain: Complains of pain in body Pain does not radiate. Pain currently is 6 out of 10 on a pain scale. Quality of pain is described as aching, Pain began gradually, Is intermittent. Neuro: Level of Consciousness is awake, alert, obeys commands, Oriented to person, place, time, situation, Appropriate for age Purchasing Administrative Assistant are equal bilaterally Moves all extremities. Speech is normal. Cardiovascular: Capillary refill < 3 seconds Patient's skin is warm and dry. Rhythm is with pacemaker defibrilator. Respiratory: Airway is patent Respiratory effort is even, unlabored, Respiratory pattern is regular, symmetrical. GI: No signs and/or symptoms were reported involving the gastrointestinal system. : No signs and/or symptoms were reported regarding the genitourinary system. EENT: No signs and/or symptoms were reported regarding the EENT system. Derm: Skin is intact, Skin temperature is warm. Musculoskeletal: Capillary refill < 3 seconds, Range of motion: intact in all extremities. 06:45 Reassessment: Patient appears in no apparent distress at this time. Patient and/or rr5 family updated on plan of care and expected duration. Pain level reassessed. send back from CT scan patient stated she feels like she not okay. 07:27 Reassessment: Patient placed on DEFIB pads as requested by provider. 10:37 Reassessment: report given to KRISTINA Waters icu. tw2 Vital Signs: 05:55 BP 124 / 100; Pulse 71; Resp 16; Temp 97.7; Pulse Ox 100% ; Weight 72.57 kg; Height 5 rr5 ft. 6 in. (167.64 cm); Pain 6/10; 06:30 BP 111 / 70; Pulse 69; Resp 16; Pulse Ox 99% ; rr5 07:00 BP 108 / 71; Pulse 63; Resp 18; Pulse Ox 99% ; rr5 05:55 Body Mass Index 25.82 (72.57 kg, 167.64 cm) rr5 ED Course: 05:44 Patient arrived in ED. ds1 05:54 Gabino Amador, RN is Primary Nurse. rr5 06:00 Arm band placed on. rr5 06:00 Patient has correct armband on for positive identification. Placed in gown. Bed in low rr5 position. Call light in reach. Side rails up X2. 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 Pulse ox on. NIBP on. 06:01 Triage completed. rr5 06:01 [facility]C [facility] snw 06:02 Valdo Ch MD is Attending Physician. snw 06:[address] via stretcher. kw1 06:26 CT completed. Patient tolerated procedure well. Patient moved back from CT. kw1 06:27 CT Head Brain wo Cont In Process Unspecified. EDMS 06:45 Inserted saline lock: 20 gauge in right forearm, using aseptic technique. Blood rr5 collected. 06:58 X-ray completed. Portable x-ray completed in exam room. Patient tolerated procedure jb2 well. 07:15 Primary Nurse role handed off by Gabino Amador, KRISTINA tw2 07:15 Arlet Richardson, KRISTINA is Primary Nurse. tw2 07:15 XRAY Chest (1 view) In Process Unspecified. EDMS 07:28 Wai Charles MD is Hospitalizing Provider. snw 09:57 No provider procedures requiring assistance completed. Patient admitted, IV remains in tw2 place. Administered Medications: 07:00 Drug: Ativan 1 mg Route: IVP; Site: right forearm; rr5 08:18 Follow up: Response: No adverse reaction tw2 07:20 Drug: Aspirin Chewable Tablet 324 mg Route: PO; tw2 08:17 Follow up: Response: No adverse reaction tw2 07:22 Drug: Magnesium Sulfate 1 grams Route: IVPB; Infused Over: 1 hrs; Site: right tw2 antecubital; 08:25 Follow up: IV Status: Completed infusion tw2 08:30 Drug: Potassium Chloride 20 mEq Route: IV; Rate: calculated rate; Site: right tw2 antecubital; 09:58 Follow up: IV Status: Infusion continued upon admission tw2 08:30 Drug: NS 0.9% 1000 ml Route: IV; Rate: 75 ml/hr; Site: right antecubital; tw2 09:58 Follow up: IV Status: Infusion continued upon admission tw2 08:35 Drug: Phenergan 25 mg Route: PO; :58 Follow up: Response: No adverse reaction tw2 09:30 Drug: Potassium Effervescent Tablet 50 mEq Route: PO; 09:58 Follow up: Response: No adverse reaction tw Outcome: 07:29 Decision to Hospitalize by Provider. snw 09:57 [facility] tw07 07:57 Condition: stable 09:57 Instructed on the need for admit. 10:38 Patient left the ED. Signatures: Dispatcher [employer] EDMS Hayde Carmichael, CUSTOMER CONSULTANT-C CUSTOMER CONSULTANT-CsnHarry Negron jbSharmila Rivera ds1 Melinda Kc, KRISTINA RN Arlet Richardson RN RN tw2 Ceci Ha kw1 Gabino Amador, RN RN rr5 Corrections: (The following items were deleted from the chart) 06:11 06:00 Fall Risk Secondary diagnosis (15 points) post jerky movement. IV access (20 rr5 points). rr5
[2018-06-04 07:31] LABS: Absolute Lymphocytes (CBC) 1.3 K/uL (0.7-4.9); Absolute Monocytes 0.6 K/uL (0.1-1.3); Absolute Neutrophil 4.5 K/uL (1.8-8.0); Basophils % 0.7 % (0-1.3); Eosinophils % 5.2 % (0-4.4); Hematocrit 39.9 % (36.0-45.0); Lymphocytes % 19.7 % (15.3-44.8); MPV 10.3 fL (7.6-11.3); Monocytes % 8.4 % (3.3-12.3); RBC Red Blood Cell Count 4.24 M/uL (3.86-4.86)
[2018-06-04 07:35] LABS: Protime INR 0.95
[2018-06-04 07:55] LABS: Albumin 3.5 g/dL (3.4-5.0); Bilirubin Direct 0.2 mg/dL (0-0.2); Bilirubin Total 0.6 mg/dL (0.2-1.0); Magnesium 2.1 mg/dL (1.8-2.4); Troponin (Emerg Dept Use Only) 0.02 ng/mL (0.0-0.045)
[2018-06-04 07:58] LABS: Potassium 2.6 mmol/L (3.5-5.1)
[2018-06-04] MEDS ORDERED: POTASSIUM 25 MEQ EFFERV TAB ONE (08:29)
[2018-06-04] MEDS ORDERED: KCL 20 MEQ/100 mL IVPB 20 MEQ/100 ML BAG IV ONE (08:30)
[2018-06-04] MEDS ORDERED: NA CHLORIDE 0.9% 1,000 ML ONE (08:30)
[2018-06-04] MEDS ORDERED: PROMETHAZINE 25 MG TABLET ONE (08:43)
--- NOTE | 2018-06-04 09:16 | RAD REPORT ---
EXAM DESCRIPTION: CT - Head Brain Wo Cont - 06/04/2018 6:25 am CLINICAL HISTORY: Alteration of awareness/confusion COMPARISON: 2017 TECHNIQUE: Computed axial tomography of the head was obtained. IV contrast was not requested. All CT scans are performed using dose optimization technique as appropriate and may include automated exposure control or mA/KV adjustment according to patient size. FINDINGS: An intracranial bleed is not seen . The ventricles are normal in caliber. No extra-axial fluid collection is noted. Fluid within the sinuses/ mastoids is not seen. IMPRESSION: No acute intracranial abnormality is seen. If patient's symptoms persist MRI of the bra in would be recommended.
--- NOTE | 2018-06-04 09:28 | RAD REPORT ---
EXAM DESCRIPTION: [place] Single View06/04/2018 7:15 am CLINICAL HISTORY: Chest pain COMPARISON: None FINDINGS: The lungs appear clear of acute infiltrate. The heart is mildly enlarged. Pacemaker leads are in place. IMPRESSION: No acute abnormalities displayed
[2018-06-04] MEDS ORDERED: ACETAMINOPHEN 500 MG TAB PO PRN (10:14)
[2018-06-04] MEDS ORDERED: ALPRAZOLAM 0.5 MG TABLET PO ONE (10:54)
[2018-06-04] MEDS ORDERED: NA CHLORIDE 0.9% 1,000 ML IV SCH (11:00)
[2018-06-04] MEDS: LIPASE/PROTEASE/AMYLASE CAP PO SCH ×2 (11:45→17:35)
[2018-06-04] MEDS: FUROSEMIDE 20 MG TABLET PO SCH ×2 (11:46→17:35)
[2018-06-04] MEDS: CARVEDILOL 25 MG TAB PO SCH ×2 (11:47→17:36)
[2018-06-04] MEDS ORDERED: PNEUMOCOCCAL VACCINE 0.5 ML IMVAC ONE (12:00)
--- NOTE | 2018-06-04 12:45 | ECHO ---
HEIGHT: 5 ft 6 in WEIGHT: 159 lb 13.362 oz DATE OF STUDY: 06/04/[address]: Wai Charles MD 2-DIMENSIONAL: YES M.MODE: YES DOPPLER: YES COLOR FLOW: YES TDS: YES PORTABLE: YES DEFINITY: NO BUBBLE STUDY: NO DIAGNOSIS: VENTRICULAR TACHYCARDIA/ EPISODE CARDIAC HISTORY: CATHERIZATION: YES SURGERY: NO PROSTHETIC VALVE: NO PACEMAKER: YES MEASUREMENTS (cm) DIASTOLIC (NORMALS) SYSTOLIC (NORMALS) IVSd 1.1 (0.6-1.2) LA Diam 4.3 (1.9-4.0) LVEF 18% LVIDd 6.3 (3.5-5.7) LVIDs 5.8 (2.0-3.5) %FS 8% LVPWd 1.0 (0.6-1.2) Ao Diam 3.1 (2.0-3.7) 2 DIMENSIONAL ASSESSMENT: RIGHT ATRIUM: DILATED LEFT ATRIUM: DILATED RIGHT VENTRICLE: DILATED LEFT VENTRICLE: DILATED TRICUSPID VALVE: NORMAL MITRAL VALVE: NORMAL PULMONIC VALVE: NORMAL AORTIC VALVE: NORMAL PERICARDIAL EFFUSION: NONE AORTIC ROOT: NORMAL LEFT VENTRICULAR WALL MOTION: SEVERE GLOBAL HYPOKINESIS. DOPPLER/COLOR FLOW: MILD MITRAL AND TRICUSPID REGURGITATION. ESTIMATED RIGHT VENTRICULAR SYSTOLIC PRESSURE 33mmHg (NORMAL). COMMENTS: SEVERELY DEPRESSED LEFT VENTRICULAR EJECTION FRACTION. FOUR CHAMBER DILATATION. MILD MITRAL AND TRICUSPID REGURGITATION. TECHNOLOGIST: KEMI DUKES
[2018-06-04 12:47] LABS: Absolute Lymphocytes (CBC) 1.6 K/uL (0.7-4.9); Absolute Monocytes 0.4 K/uL (0.1-1.3); Basophils % 0.7 % (0-1.3); Eosinophils % 5.9 % (0-4.4); Lymphocytes % 30.2 % (15.3-44.8); MPV 9.8 fL (7.6-11.3); Monocytes % 6.9 % (3.3-12.3); RBC Red Blood Cell Count 4.23 M/uL (3.86-4.86)
--- NOTE | 2018-06-04 12:52 | EKG ---
Test Date: 2018-06-04 Test Time: 07:47:54 Classification Officer: GLO MEASUREMENT RESULTS: Intervals: Rate: 76 OH: 160 QRSD: 108 QT: 534 QTc: 600 [place]: P: 47 OH: 160 QRS: 18 T: 92 INTERPRETIVE STATEMENTS: Sinus rthythm with frequent premature ventricular complexes in bigeminy Low voltage QRS Possible Inferior infarct, age undetermined Cannot rule out Anterior infarct, age undetermined T wave abnormality, consider lateral ischemia Prolonged QT Abnormal ECG Compared to ECG 06/04/2018 07:07:43 Myocardial infarct finding still present T-wave abnormality still present Electronically Signed On 06-04-18 12:52:40 RN CAMP by Nick Quintero
--- NOTE | 2018-06-04 12:53 | EKG ---
Test Date: 2018-06-04 Test Time: 07:07:43 Intern Product Marketing Manager: GLO MEASUREMENT RESULTS: Intervals: Rate: 62 UT: 160 QRSD: 108 QT: 508 QTc: 515 [place]: P: 47 UT: 160 QRS: 30 T: -28 INTERPRETIVE STATEMENTS: Sinus rhythm with occasional premature ventricular complexes Low voltage QRS Cannot rule out Inferior infarct, age undetermined Cannot rule out Anterior infarct, age undetermined T wave abnormality, consider lateral ischemia Prolonged QT Abnormal ECG Compared to ECG 12/15/2016 06:59:59 Ventricular premature complex(es) now present Low QRS voltage now present T-wave abnormality now present Possible ischemia now present Prolonged QT interval now present Myocardial infarct finding still present Electronically Signed On 06-04-18 12:52:56 FLYER BUILDER by Nick Quintero
[2018-06-04 13:18] LABS: Albumin 3.3 g/dL (3.4-5.0); Bilirubin Total 0.7 mg/dL (0.2-1.0); Magnesium 2.3 mg/dL (1.8-2.4); Potassium 3.2 mmol/L (3.5-5.1); Protein, Total 6.9 g/dL (6.4-8.2); Thyroid Stimulating Hormone 2.97 uIU/mL (0.360-3.740)
[2018-06-04] MEDS ORDERED: POTASSIUM CL SA 10 MEQ TAB PO ONE ×2 (13:19→19:00)
[2018-06-04] MEDS: AMIODARONE HCL 200 MG TAB PO SCH ×2 (13:39→20:31)
[2018-06-04] MEDS: MORPHINE 4 MG/ML SYR IV PRN ×3 (14:16→22:14)
[2018-06-04] MEDS ORDERED: LORazepam 2 MG/ML VIAL IV ONE (15:55)
--- NOTE | 2018-06-04 17:49 | P.HP ---
Certification for Inpatient Patient admitted to: Inpatient With expected LOS: >2 Midnights Practitioner: I am a practitioner with admitting privileges, knowledge of patient current condition, hospital course, and medical plan of care. Services: Services provided to patient in accordance with Admission requirements found in Title 42 Section 412.3 of the Code of Federal Regulations Patient History Date of Service: 06/04/18 Reason for admission: Palpitations History of Present Illness: This is a 43-year-old female with history of idiopathic viral cardiomyopathy in [id number] admitted for palpitations, restlessness, anxious feeling and dizziness. Patient has a history of idiopathic viral cardiomyopathy in 2003- 2004 with ejection fraction of 10%, was on the transplant list, status post of VAD which improved ejection fraction of 55%. She then had a pacemaker/ defibrillator put in at [facility] in 2003. All of this was complicated by leading to chronic pancreatitis requiring pancreatic enzyme supplementation. Prior to this admission, patient woke up around 3:00 a.m. with sweating, hot flashes, shaking, episodes. She had about 3-4 episodes that lasted around a min or so. This was all witnessed by her boyfriend. She stated that she took a quarter of the Xanax, this did not help symptoms. She then called the EMS, came to the ER. In the ER, patient was going for a head CT because of their neurological symptoms when she was noted to start having the symptoms again. The ER doctor was called in, it was noted on her tele that she was in V-tach episodes. In the ER, her potassium was noted to be 2.6, it was repleted. At the time of my exam, patient was alert oriented x3, in moderate distress secondary to feeling anxious regarding her condition. She was still tachycardic and was still intermittently having PVCs and VTACh episodes. She was admitted to the ICU for further care Allergies heparin Allergy (Severe, Verified 06/04/18 11:09) HIT Home Medications: Carvedilol [Coreg] 25 mg PO BID 06/04/18 Furosemide [Lasix*] 60 mg PO DAILY 06/04/18 Furosemide [Lasix] 20 mg PO DAILY 06/04/18 Lipase/Protease/Amylase [Praveena Hernandez 2,600 Unit Cap] 1 each PO TID 06/04/18 Multivitamin/Iron/Folic Acid [Centrum Adults Tablet] 1 each PO DAILY 06/04/18 Spironolactone [Aldactone] 25 mg PO DAILY 06/04/18 - Past Medical/Surgical History Has patient received pneumonia vaccine in the past: Yes Diabetic: No -: Cardiomyopathy -: CHF -: Anxiety -: 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 moist/pink, EOMI, Sclerae nonicteric Neck: Supple, 2+ carotid pulse no bruit, No LAD, Without JVD or thyroid abnormality Respiratory: Clear to auscultation bilaterally, Normal air movement Cardiovascular: Irregular heart rate/rhythm Gastrointestinal: Normal bowel sounds, No tenderness Musculoskeletal: No tenderness Integumentary: No rashes Neurological: Normal gait, Normal speech, Normal strength at 5/5 x4 extr, Normal tone, Normal affect - Studies Laboratory Data (last 24 hrs) 06/04/18 07:00: PT 11.2, INR 0.95 06/04/18 07:00: WBC 6.8, Hgb 14.0, Hct 39.9, Plt Count 163 06/04/18 07:00: Sodium 140, Potassium 2.6 L*, BUN 12, Creatinine 0.90, Glucose 122 H, Magnesium 2.1, Total Bilirubin 0.6, AST 98 H, ALT 120 H, Alkaline Phosphatase 77 BMP on recheck: Sodium 139, potassium 3.2, chloride 103, bicarb 29, BUN 11, creatinine 0.83 Troponins negative x2 Imagings Data: 06/04/2017: Echocardiogram Ejection fraction 18% COMMENTS: SEVERELY DEPRESSED LEFT VENTRICULAR EJECTION FRACTION. FOUR CHAMBER DILATATION. MILD MITRAL AND TRICUSPID REGURGITATION. 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 Recommends transferring patient for further local care with information and data architect analyst, possible ablation, etc. Echocardiogram ordered, findings as above. Pacemaker interrogated by [facility] Plan: Patient needs to be transferred to another facility for higher level of care. - Advance Directives Does patient have a Living Will: No Does patient have a Durable POA for Healthcare: No Critical Care: Yes Time Spent Managing Pts Care (In Minutes): 55
[2018-06-04 18:28] LABS: Potassium 3.4 mmol/L (3.5-5.1)
--- NOTE | 2018-06-04 18:52 | CON ---
History Of Present Illness: For 14 years or since 2004, the patient has been aware that she has a ca rdiomyopathy. All of her workup was done in [place]. We do not have any records from then. The patient has lived in our area for about a year and a half, but has not sought any medical care from physicians that work at our hospital or from the Cardiology Services available here. I think she may have seen a facility service associate at [facility] in [place], but we do not have any records from them either. The patient came to the hospital because of near-syncopal spells. Her boyfriend seemed to think that whe n he yelled she would wake up from them, but she was having seizure-like activity, near fainting, and then would wake up suddenly. She did not notice being shocked. She has a defibrillator. Her defib rillator is a [facility] vp platforms and our rhythm strips indicate that it is pace-terminating at rial fibrillation. We do not have a pacemaker interrogation yet. The patient is known to have girish l coronary arteries. She does not have diabetes or hypertension. No problems with drinking too much alcohol. At one point, she was on a transplant list in [place], but no longer is because her ej ection fraction improved. She has been getting medications from the outpatient clinic in [place]. Medications: Outpatient medications have been Lasix, carvedilol, spironolactone, multivitamin with i oliva, and vcsvyx-bhlyyidw-safkdki. Past Medical History: She has a history of cardiomyopathy and pancreatitis. Allergies: SHE IS ALLERGIC TO HEPARIN. Social History: Denies tobacco use, illegal drug use. Alcohol use, minimal 1 or 2 drinks a year. Physical Examination: General: She is 5 feet 6 inches, 159 pounds. HEENT: Within normal limits. Lungs: Do not reveal crackles or wheezes. Heart: Exam reveals a laterally displaced, muffled apical impulse. I do not appreciate any murmur. Abdomen: Soft. Extremities: No edema. Distal pulses palpable. Diagnostic Studies: Her electrocardiogram shows sinus rhythm, PVCs, poor R-wave progression consiste nt with anterior NE. Her last EKG showed bigeminy on the rhythm strip in ICU where she is. She is i n sinus rhythm. Her chest x-ray does not show any infiltrate. An echocardiogram reveals ejection fr action 18%. We do not see any pacemaker leads on the study, I am not sure why. All 4 chambers are s everely dilated. There is mild mitral and tricuspid regurgitation, normal right ventricular systolic pressure estimated. Impression: The patient has ventricular tachycardia causing her spells. She of course needs to main tain a normal potassium level. Potassium has been given. It will be measured again, but so far we d o not have a followup. The presenting potassium when she was having her ventricular tachycardia is 2 .6. Her N-terminal proBNP is 7. The patient probably needs to be loaded on amiodarone. We need to interrogate her device to see if it is really handling this appropriately. I will discuss the ramiro corona's situation with Dr. Najera as well. EVELIO/AYAH Voice ID: [id number] Report ID: [id number]
[2018-06-04] MEDS: LISINOPRIL 5 MG TAB PO SCH (20:32)
[2018-06-05] MEDS: MORPHINE 4 MG/ML SYR IV PRN ×5 (02:03→21:25)
[2018-06-05 05:28] LABS: Magnesium 2.1 mg/dL (1.8-2.4); Phosphorus 3.3 mg/dL (2.5-4.9); Potassium 3.7 mmol/L (3.5-5.1)
[2018-06-05] MEDS ORDERED: POTASSIUM CL SA 10 MEQ TAB PO ONE (05:45)
[2018-06-05] MEDS: CARVEDILOL 25 MG TAB PO SCH ×2 (06:00→18:05)
[2018-06-05] MEDS ORDERED: MORPHINE 4 MG/ML SYR IV ONE (08:15)
[2018-06-05] MEDS: PROMETHAZINE 25 MG/ML VIAL IV PRN ×3 (08:21→21:25)
[2018-06-05] MEDS: FUROSEMIDE 20 MG TABLET PO SCH ×2 (08:29→18:05)
[2018-06-05] MEDS: SPIRONOLACTONE 25 MG TABLET PO SCH (08:30)
[2018-06-05] MEDS: LIPASE/PROTEASE/AMYLASE CAP PO SCH ×3 (08:30→18:05)
[2018-06-05] MEDS: AMIODARONE HCL 200 MG TAB PO SCH ×3 (08:30→21:24)
[2018-06-05] MEDS ORDERED: ENOXAPARIN 40 MG/0.4 ML SQ SCH (09:00)
--- NOTE | 2018-06-05 18:07 | PN ---
Date of Progress Note: 06/05/2018 Subjective: Patient was seen and examined. Chart reviewed and case discussed with RN and Dr. Brenda fernandes. The patient has been complaining of nausea and pain all over. She does have history of chronic p ancreatitis. Medications: List reviewed. Physical Examination: Vital Signs: Heart rate is 73, respirations 20, blood pressure 118/97, O2 99%. Temperature 97. General: Awake, alert, oriented x3, in some moderate distress. Ill-appearing female. CV: S1, S2. Regular rate and rhythm. Peripheral pulses present. Respiratory: Clear to auscultation bilaterally. No wheezing. No stridor. Gastrointestinal: Abdomen is soft. Mild tenderness to palpation. No guarding or rigidity. No rebo und tenderness. Bowel sounds positive. Extremities: No clubbing, cyanosis, or edema. No calf tenderness. Neuro: Cranial nerves 2 through 12 intact grossly. No focal neurological deficit. Speech is normal . Laboratory Data: Sodium 142, potassium 3.7, chloride 107, CO2 27, BUN 14, creatinine 0.78, glucose 9 9, calcium 8.1, phosphorus 3.3, magnesium 2.1. Blood culture shows no growth. Assessment And Plan: A 43-year-old female with; 1.Ventricular tachycardia. 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 EF 18%. 3.Acute on chronic pancreatitis. 4.Status post pacemaker placement, interrogated by [facility]. 5.Cardiac defibrillator in place. 6.Generalized anxiety disorder. Plan: We will continue to monitor the patient in the ICU setting. Appreciate Cardiology input. The patient is awaiting transfer to [facility] for higher level of care for EP, possible ablation. We will adjust pain medications. We will monitor for worsening pancreatitis. SA/MODL Voice ID: [id number] Report ID: [id number]
[2018-06-05] MEDS: LISINOPRIL 5 MG TAB PO SCH (21:24)
[2018-06-06] MEDS: MORPHINE 4 MG/ML SYR IV PRN ×4 (02:47→17:44)
[2018-06-06] MEDS: PROMETHAZINE 25 MG/ML VIAL IV PRN ×3 (04:42→20:05)
[2018-06-06 05:29] LABS: Absolute Lymphocytes (CBC) 2.8 K/uL (0.7-4.9); Absolute Monocytes 0.7 K/uL (0.1-1.3); Absolute Neutrophil 4.4 K/uL (1.8-8.0); Basophils % 1.3 % (0-1.3); Eosinophils % 4.1 % (0-4.4); Hematocrit 37.3 % (36.0-45.0); Lymphocytes % 33.3 % (15.3-44.8); MPV 11.4 fL (7.6-11.3); Monocytes % 8.1 % (3.3-12.3); RBC Red Blood Cell Count 3.91 M/uL (3.86-4.86)
[2018-06-06 05:44] LABS: Albumin 3.1 g/dL (3.4-5.0); Bilirubin Total 0.5 mg/dL (0.2-1.0); Magnesium 1.9 mg/dL (1.8-2.4); Phosphorus 3.1 mg/dL (2.5-4.9); Potassium 3.8 mmol/L (3.5-5.1); Protein, Total 6.4 g/dL (6.4-8.2)
[2018-06-06] MEDS: CARVEDILOL 25 MG TAB PO SCH ×2 (06:00→17:11)
[2018-06-06] MEDS: AMIODARONE HCL 200 MG TAB PO SCH ×2 (08:30→20:11)
[2018-06-06] MEDS: LIPASE/PROTEASE/AMYLASE CAP PO SCH ×3 (08:30→17:12)
[2018-06-06] MEDS: SPIRONOLACTONE 25 MG TABLET PO SCH (08:30)
[2018-06-06] MEDS: FUROSEMIDE 20 MG TABLET PO SCH ×2 (08:31→17:11)
[2018-06-06] MEDS ORDERED: POTASSIUM CL SA 10 MEQ TAB PO ONE (09:00)
[2018-06-06] MEDS: DOCUSATE NA 100 MG CAP PO SCH ×2 (09:23→21:00)
--- NOTE | 2018-06-06 14:50 | PN ---
Ms. Rm has had no VT since potassium and magnesium are corrected and since she has been on amiod arone. Amiodarone causes some nausea, so we will cut down the dose, perhaps after a week, 200 three times a day could be done for several weeks and then 200 once a day. It might be adequate to control her arrhythmia. Ultimately, I think the main thing she needs is to be seen again by a cardiac trans plant team. Her EF would qualify her for that. We need to get her seen by the Disability Services. I think she probably needs an sports attorney to help her manage the government difficulties. She has a ca rdiac condition which would qualify her for disability. I have no doubt in any event with a lower do se of amiodarone, perhaps later today or tomorrow we can move her out of ICU, let her start walking a nd maybe discharge her on a lower dose of amiodarone per outpatient followup. RUSSEL Voice ID: [id number] Report ID: [id number]
--- NOTE | 2018-06-06 17:35 | PN ---
Date of Progress Note: 06/06/2018 Subjective: The patient is seen and examined. Chart reviewed, and case discussed with RN and Dr. Michael tracy. The patient is doing well overall. No further episodes of ventricular tachycardia. She does report pain around her abdomen. Medications: List reviewed. Physical Examination: Vital Signs: Temperature 97, heart rate 68, blood pressure 92/73, respirations 14, O2 of 96% on room air. General: Awake, alert, oriented x3. Some mild distress due to pain. CV: S1, S2. Regular rate and rhythm. Peripheral pulses present. Respiratory: Moving air well bilaterally. No wheezing or stridor. Gastrointestinal: Abdomen is soft. Mild tenderness to palpation. No rebound or guarding. Bowel so unds are positive. Extremities: No clubbing, cyanosis, or edema. Neuro: Cranial nerves 2 through 12 intact grossly. No focal neurological deficit. Laboratory Data: Sodium 139, potassium 3.8, chloride 104, CO2 of 28, BUN 18, creatinine 0.93, glucos e 100, calcium 8, phosphorus 3.1, magnesium 1.9. AST 73, ALT 102, albumin 3.1, lipase 220. WBC 8.3, H and H 12.8 and 37.3, platelets 161. Assessment: A 43-year-old female with: 1.Ventricular tachycardia. No further episodes. We will continue amiodarone, decreased dose. Appr eciate Dr. Quintero' input. 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 The patient will benefit from g etting on transplant list or LVAD. The patient would need to apply for disability first. 3.Lnvcz-gm-eazumaf pancreatitis, resolving. The pain is significantly improved. Lipase is normal. 4.Status post pacemaker placement, interrogated by [facility]. 5.Status post cardiac defibrillator. 6.Generalized anxiety disorder. Plan: We will step down from ICU. Cardiology does not recommend transfer at this point. Was accept ed by at [facility] ICU. The patient likely to be discharged once more stable in the next 24 to 48 hours. SA/MODL Voice ID: [id number] Report ID: [id number]
[2018-06-06] MEDS: LISINOPRIL 5 MG TAB PO SCH (20:11)
[2018-06-07] MEDS: MORPHINE 4 MG/ML SYR IV PRN ×5 (00:01→17:41)
[2018-06-07] MEDS: PROMETHAZINE 25 MG/ML VIAL IV PRN ×3 (02:13→17:32)
[2018-06-07] MEDS: CARVEDILOL 25 MG TAB PO SCH ×2 (05:51→17:42)
[2018-06-07 06:39] LABS: Potassium 3.6 mmol/L (3.5-5.1)
[2018-06-07] MEDS ORDERED: POTASSIUM CL SA 10 MEQ TAB PO ONE (07:30)
[2018-06-07] MEDS: LIPASE/PROTEASE/AMYLASE CAP PO SCH ×3 (08:50→17:32)
[2018-06-07] MEDS: FUROSEMIDE 20 MG TABLET PO SCH ×2 (08:53→17:41)
[2018-06-07] MEDS: AMIODARONE HCL 200 MG TAB PO SCH (08:54)
[2018-06-07] MEDS: SPIRONOLACTONE 25 MG TABLET PO SCH (08:54)
[2018-06-07] MEDS: DOCUSATE NA 100 MG CAP PO SCH (09:03)
--- NOTE | 2018-06-07 17:30 | RAD REPORT ---
EXAM DESCRIPTION: - UPPER EXTREMITY VENOUS UNILATE - 06/07/2018 5:24 pm CLINICAL HISTORY: Left arm pain and swelling COMPARISON: None. TECHNIQUE: Real-time sonographic evaluation of the left upper extremity deep venous systems was perf ormed. FINDINGS: Normal compressibility, flow augmentation, phasic flow and spontaneous flow are identified in the left upper extremity deep venous system. No intraluminal filling defects seen. Internal jugul ar and subclavian veins are normal as well. IMPRESSION: No DVT in the left upper extremity.
--- NOTE | 2018-06-07 18:56 | RAD REPORT ---
EXAM DESCRIPTION: RAD - Abdomen Acute Series - 06/07/2018 6:49 pm CLINICAL HISTORY: Abdominal pain COMPARISON: Chest exam June 04 FINDINGS: No focal lung parenchymal process. Lung markings are similar to comparison. Heart size is borderline to mildly enlarged. Finding is similar to comparison. No vascular engorgement. No pleural effusion, pneumothorax or other acute cardiopulmonary process seen. Defibrillator is in place. Sterno braydon wires are in place. Bowel gas pattern is nonspecific. No bowel obstruction, free air or other acute findings. Round densi ties in the right lower quadrant are believed to be part of bowel content. Appendicolith is not likel y. Cholecystectomy clips are present. Stool volume is moderate. No distention of the rectum. No other suspicious for significant findings. IMPRESSION: No acute chest finding. Heart size is upper normal to slightly enlarged but not clearly different. Moderate stool volume with no obstruction, free air or emergent finding.
--- NOTE | 2018-06-08 00:20 | PN ---
Date of Progress Note: 06/05/2018 Ms. Rm was admitted by Dr. Kaiser on 06/04/[address] Quintero saw the patient on 06/04/2018. She had ventricular tachycardia. She has a defibrillator. AICD check was no rmal. Ejection fraction is 18% by echo. The case was going to be discussed with Dr. Najera as far a s the EP is concerned. We will continue to monitor her on amiodarone 400 b.i.d. for now. She has no t had any further VT. She needs to be considered for heart transplantation considering her age and h er ejection fraction. We will continue to follow her while she is here. It may be reasonable to sen d her to the Transplant Service or Congestive Heart Failure Service up at [facility] for furt her care. This certainly can be done as an outpatient as well if she improves enough. We will keep an eye on her magnesium and her potassium for now. SAMANTHA/AYAH Voice ID: [id number] Report ID: [id number]
--- NOTE | 2018-06-08 03:51 | DS ---
Date of Discharge: 06/07/2018 Consultants: Dr. Quintero and Dr. Kraus with Cardiology. Admitting Diagnoses: 1.Ventricular tachycardia. 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 3.Chronic pancreatitis. 4.Status post pacemaker and defibrillator. Discharge Diagnoses: 1.Ventricular tachycardia, on amiodarone. 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 3.Frqcc-un-pszxoce pancreatitis, resolved. 4.Status post pacemaker and defibrillator. 5.Generalized anxiety disorder. Hospital Course: The patient is an unfortunate 43-year-old female who has a history of idiopathic vi ral cardiomyopathy in [id number], was on the transplant list status post LVAD. However, her ejection fraction improved to 55%. She had a pacemaker/defibrillator placed in 2003 and also has complication s from chronic pancreatitis, who is no longer on disability due to improved EF, comes in with palpita tions. The patient was found to have ventricular tachycardia. The patient was admitted to the [facility]. She was started on amiodarone and beta-blockers. The patient did have severe hypocalcemia, whi ch may be contributing to her arrhythmias. This was corrected. The patient was also seen by Cardiol nayely. The patient was initially referred for transfer to tertiary care facility by admitting physicia n. However, Dr. Quintero did not recommend transfer as the patient will first need to be on disability in order to get on to the transplant list and the CHF service. The patient states that she is in th e process of applying for disability. Her repeat echocardiogram showed an ejection fraction of 18%. Her medications were adjusted. Lipase level was checked to rule out qaxtn-yj-qdlkxwf pancreatitis, was normal. However, clinically the patient behaved as she had pancreatitis due to abdominal pain an d nausea and vomiting. The patient's condition slowly improved. She did not have any further episod es of ventricular tachycardia. She was cleared for discharge from Cardiology standpoint. The patien t was then sent home in a stable condition. Activity: As tolerated. Medications: As per medication reconciliation list. The patient will be on 400 mg of amiodarone twi ce a day for 1 week and then switched to 200 mg daily. Followup: Follow up with primary care physician in 2 to 3 days. Follow up with product development chemist, Dr. Gerard de jesus, in 2 weeks. Return to ER for worsening condition. Diet: Low fat, bland diet. Physical Examination: General: Awake, alert, oriented x3. No acute distress. CV: S1, S2. No murmurs. Respiratory: Moving air well bilaterally. Abdomen: Soft, nontender, nondistended. Positive bowel sounds. Extremities: No clubbing, cyanosis, or edema. Neurologic: Nonfocal. Total time spent discharging the patient was 45 minutes. /AYAH Voice ID: [id number] Report ID: [id number]
== END 2018-06-07 21:25 | disposition home or self-care (01) | DRG 308 ==
LOC: ER 05:43 → ERHOLD 07:48 → 3RD-ICU 10:04 → 4TH 06-06 17:50
PROVIDERS: ADMIT Family Medicine; ATTEND Family Medicine
DX: I47.2 Ventricular tachycardia (principal); I40.0 Infective myocarditis; K85.90 Acute pancreatitis without necrosis or infection, unspecified; I42.0 Dilated cardiomyopathy; K86.1 Other chronic pancreatitis; F41.1 Generalized anxiety disorder; Z95.810 Presence of automatic (implantable) cardiac defibrillator
CPT/HCPCS: 36415; 70450; 71045; 74022; 80048; 80053; 80076; 81003; 81015; 81025; 83690; 83735; 83880; 84100; 84132; 84439; 84443; 84484; 85025; 85610; 87040; 87086; 87088; 93005; 93306; 93971; 96365; 96366; 96367; 96375; 99285; J2550; J3475; J7030

== ENCOUNTER 2018-08-03 03:55 | Emergency (ER) | payer OTHER, SELFPAY ==
--- OUTSIDE RECORDS SUMMARY | 2018-08-03 03:57 | XMS REPORT ---
:1975 [facility] Address [address] [place] [address] Dr. Israel [address] [place] [id number] Care Team Providers Name Role Phone Unavailable Unavailable Unavailable Problems This patient has no known problems. Allergies, Adverse Reactions, Alerts This patient has no known allergies or adverse reactions. Medications This patient has no known medications.
[2018-08-03] MEDS ORDERED: NA CHLORIDE 0.9% 1,000 ML ONE (05:09)
[2018-08-03] MEDS ORDERED: PROMETHAZINE 25 MG/ML VIAL ONE (05:14)
[2018-08-03 05:26] LABS: Protime INR 0.94
[2018-08-03 05:55] LABS: ALT/SGPT 61 U/L (12-78); AST/SGOT 39 U/L (15-37); Albumin 3.5 g/dL (3.4-5.0); Alkaline Phosphatase 86 U/L (45-117); BUN Blood Urea Nitrogen 14 mg/dL (7-18); Bicarbonate 20 mmol/L (21-32); Bilirubin Direct 0.1 mg/dL (0-0.2); Bilirubin Total 0.3 mg/dL (0.2-1.0); Glucose Level 110 mg/dL (74-106); Magnesium 1.6 mg/dL (1.8-2.4); NT PRO-BNP 1140 pg/mL (<125); Potassium 3.5 mmol/L (3.5-5.1); Protein, Total 7.2 g/dL (6.4-8.2); Sodium Level 143 mmol/L (136-145); Troponin (Emerg Dept Use Only) < 0.02 ng/mL (0.0-0.045)
[2018-08-03 06:03] LABS: Absolute Monocytes 0.6 K/uL (0.1-1.3); Absolute Neutrophil 3.3 K/uL (1.8-8.0); Basophils % 0.9 % (0-1.3); Eosinophils % 5.9 % (0-4.4); Hematocrit 38.4 % (36.0-45.0); Lymphocytes % 31.7 % (15.3-44.8); MPV 9.3 fL (7.6-11.3); RBC Red Blood Cell Count 3.99 M/uL (3.86-4.86)
--- NOTE | 2018-08-03 06:26 | ER ---
Nurse's Notes [facility] Name: Jerrell Rm Age: 43 yrs Sex: Female : 1975 Arrival Date: 08/03/2018 Time: 03:58 Bed 3 Private MD: Diagnosis: Alcohol use, unspecified with intoxication, unspecified Presentation: 08/03 04:02 Presenting complaint: EMS states: "We were called for pt that was going in and out of jd3 consciousness with headache and left arm pain that comes up to the left side of her neck. she initially only responded to pain, but after we put a NPA was placed she started to wake up a little.". Transition of care: patient was not received from another setting of care. Onset of symptoms was August 03, 2018. Risk Assessment: Do you want to hurt yourself or someone else? Patient reports no desire to harm self or others. Initial Sepsis Screen: Does the patient meet any 2 criteria? No. Patient's initial sepsis screen is negative. Does the patient have a suspected source of infection? No. Patient's initial sepsis screen is negative. Care prior to arrival: NPA placed then removed IV initiated. 20 GA, in the right hand, Glucose check: 138 Oxygen administered. via nasal cannula. 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 - Social history:: Smoking status: Patient/guardian denies using tobacco, Patient/guardian denies using alcohol, street drugs, The patient lives with family. - Ebola Screening: : Patient negative for fever greater than or equal to 101.5 degrees Fahrenheit, and additional compatible Ebola Virus Disease symptoms. - Family history:: not pertinent. Screenin:28 Abuse screen: Denies threats or abuse. Nutritional screening: No deficits noted. jd3 Tuberculosis screening: No symptoms or risk factors identified. Fall Risk IV access (20 points). Ambulatory Aid- Crutches/Cane/Walker (15 pts). Gait- Weak (10 pts.). Mental Status- Overestimates/Forgets Limitations (15 pts.). Total Ng Fall Scale indicates High Risk Score (45 or more points). Fall prevention measures have been instituted. Side Rails Up X 2 1:1 Attendant Assigned Frequent Obs/Assessments Occuring Family Present and informed to notify staff if the need to leave the bedside. Assessment: 04:23 General: Appears uncomfortable, Behavior is anxious, drowsy, Smells of alcohol. Pain: jd3 Complains of pain in head, left shoulder and neck Quality of pain is described as sharp. Neuro: Level of Consciousness is awake, obeys commands, confused, lethargic, Oriented to person, place, Reports numbness in left arm. Cardiovascular: Heart tones S1 S2 present Capillary refill < 3 seconds Patient's skin is warm and dry. Rhythm is irregular. Respiratory: Airway is patent Respiratory effort is even, unlabored, Respiratory pattern is regular, symmetrical, Breath sounds are clear bilaterally. GI: No signs and/or symptoms were reported involving the gastrointestinal system. : No signs and/or symptoms were reported regarding the genitourinary system. EENT: No signs and/or symptoms were reported regarding the EENT system. Derm: Skin is intact, Skin is dry, Skin is normal, Skin temperature is warm. Musculoskeletal: Circulation, motion, and sensation intact. Range of motion: intact in all extremities. 04:25 Reassessment: notified provider of symptoms of numbness to left arm and headache pain jd3 that radiates through neck and left arm. orders received. 05:30 Reassessment: Patient appears in no apparent distress at this time. No changes from jd3 previously documented assessment. Patient and/or family updated on plan of care and expected duration. Pain level reassessed. Patient is alert, oriented x 3, equal unlabored respirations, skin warm/dry/pink. 06:12 Reassessment: Patient appears in no apparent distress at this time. No changes from jd3 previously documented assessment. Patient and/or family updated on plan of care and expected duration. Pain level reassessed. Patient is alert, oriented x 3, equal unlabored respirations, skin warm/dry/pink. 06:54 Reassessment: Patient appears in no apparent distress at this time. Patient and/or jd3 family updated on plan of care and expected duration. Pain level reassessed. Patient is alert, oriented x 3, equal unlabored respirations, skin warm/dry/pink. pt report anxiety, provider notified. new orders received. 07:15 Reassessment: Patient appears in no apparent distress at this time. Patient is alert, sg oriented x 3, equal unlabored respirations, skin warm/dry/pink. Reassessment: pt reports increased anxiety, reports hx of anxiety for which she takes xanax, pt states the pain has decreased but the anxiety remains the same at this time, pt noted to be standing at the bedside, pt encouraged to have a seat or lay down for pt safety and risk of falls, pt stated understanding. General: Behavior is agitated, anxious, fussy, restless, Smells of alcohol. Neuro: Level of Consciousness is awake, alert, obeys commands. Derm: Skin is dry, Skin is normal, Skin temperature is warm. 07:18 Reassessment: pt encouraged to contact family/friend for transport home, pt has been sg ordered for discharge, pt stated understanding. 07:52 Reassessment: awaiting pt transport to home. sg 10:40 Reassessment: Patient appears in no apparent distress at this time. pt significant sg other contacted, no answer, will attempt to call the number listed for the father, pt has made no other attempts to contact family or friend for transport to home. Vital Signs: 04:09 BP 117 / 80; Pulse 80; Resp 14 S; Temp 98.6(O); Pulse Ox 96% on R/A; Weight 72.57 kg jd3 (R); Height 5 ft. 6 in. (167.64 cm) (R); Pain 9/10; 05:00 BP 126 / 86; Pulse 70; Resp 14 S; Pulse Ox 97% on R/A; jd3 06:12 BP 116 / 97; Pulse 84; Resp 17 S; Pulse Ox 96% on R/A; jd3 06:55 BP 128 / 68; Pulse 67; Resp 22 S; Pulse Ox 97% on R/A; jd3 04:09 Body Mass Index 25.82 (72.57 kg, 167.64 cm) jd3 ED Course: 03:58 Patient arrived in ED. am2 04:02 Johnathan Diaz, RN is Primary Nurse. jd3 04:03 Bonita Gordon MD is Attending Physician. ma2 04:06 Triage completed. jd3 04:23 Arm band placed on. EKG completed in triage. Results shown to MD. jd3 04:30 Patient has correct armband on for positive identification. Bed in low position. Call j light in reach. Side rails up X2. Adult w/ patient. 04:44 X-ray completed. Portable x-ray completed in exam room. Patient tolerated procedure kw well. 04:54 XRAY Chest (1 view) In Process Unspecified. EDMS 05:10 Maintain EMS IV. Dressing intact. Good blood return noted. Site clean \\T\\ dry. Gauge \\T\\ po 3 site: 22 G right hand. 05:32 Lab(s) recollected, by me, sent to lab. aa1 07:19 Primary Nurse role handed off by Johnathan Diaz RN sg 07:19 Kevin Gannon, RN is Primary Nurse. sg 10:40 called [phone] for a Harry the spouse of the patient with no answer. eb 10:41 called [phone] for Speedy the father of the patient/ he says he lives in [facility] and will try and figure something out and call us back. 11:35 No provider procedures requiring assistance completed. IV discontinued, intact, sg bleeding controlled, No redness/swelling at site. Pressure dressing applied. Administered Medications: 05:09 Drug: NS 0.9% 1000 ml Route: IV; Rate: 1 bolus; Site: right hand; jd3 06:53 Follow up: Response: No adverse reaction; IV Status: Completed infusion jd3 05:09 Drug: Phenergan 25 mg Route: IVP; Site: right hand; jd3 06:54 Follow up: Response: No adverse reaction jd3 06:30 Drug: TORadol 30 mg Route: IVP; Site: right hand; jd3 06:54 Follow up: Response: Pain is decreased jd3 06:30 Drug: Flexeril 10 mg Route: PO; jd3 06:54 Follow up: Response: Pain is decreased jd3 06:53 Drug: Ativan 2 mg Route: PO; jd3 07:43 Follow up: Response: No adverse reaction sg Outcome: 06:25 Discharge ordered by . james 11:35 Discharged to home ambulatory, with friend. sg 11:35 Condition: improved 11:35 Discharge instructions given to patient, Instructed on discharge instructions, follow up and referral plans. medication usage, safety practices, Demonstrated understanding of instructions, follow-up care, medications, Prescriptions given X 2. 11:37 Patient left the ED. sg Signatures: Dispatcher [employer] EDMS Kevin Gannon RN RN sg Rupa Nagel RN RN aa1 Alicia Mendez Amanda am2 Davies, Jonathon, RN RN jd3 Alzahri, Mohammad, MD MD ma2 Botello, Elizabeth eb Corrections: (The following items were deleted from the chart) 04:30 04:02 Care prior to arrival: None. jd3 jd3 04:35 04:02 Care prior to arrival: NPA placed then removed IV initiated. 20 GA, in the left jd3 hand, Glucose check: 138 Oxygen administered. via nasal cannula, jd3 04:36 04:23 Neuro: Level of Consciousness is awake, obeys commands, confused, lethargic, jd3 Oriented to person, place, Reports numbness in left hand jd3 06:14 06:12 BP 126 / 86; Pulse 70bpm; Resp 14bpm; Spontaneous; Pulse Ox 97% RA; jd3 jd3 06:33 05:30 Reassessment: Patient appears in no apparent distress at this time. No changes jd3 from previously documented assessment. Patient and/or family updated on plan of care and expected duration. Pain level reassessed. jd3 06:33 06:12 Reassessment: Patient appears in no apparent distress at this time. No changes jd3 from previously documented assessment. Patient and/or family updated on plan of care and expected duration. Pain level reassessed. jd3
--- NOTE | 2018-08-03 06:26 | EDPHYS ---
Physician Documentation [facility] Name: Jerrell Rm Age: 43 yrs Sex: Female : 1975 Arrival Date: 08/03/2018 Time: 03:58 Bed 3 Private MD: ED Physician Bonita Gordon HPI: 08/03 04:09 This 43 yrs old Female presents to ER via EMS with complaints of ams. ma2 04:09 The patient presents with decreased responsiveness. Onset: The symptoms/episode ma2 began/occurred gradually, 5 hour(s) ago. Associated signs and symptoms: Pertinent negatives: ataxia, chest pain, diaphoresis, diarrhea. Current symptoms: In the emergency department the patient's symptoms have improved. has been drinking alcohol and friends called for decreased responsiveness, when ems arrived she started to walking up, on my exam she is aox4, more alert denies drugs . [facility] TECHNICIAN: 04:09 LMP N/A - Irregular menses jd3 Historical: - Allergies: 04:09 Codeine; jd3 04:09 Heparin; jd3 - Home Meds: 04:09 Coreg 25 mg Oral tab 1 tab 2 times per day [Active]; Lasix 40 mg Oral tab 1 tab 2 times jd3 per day [Active]; Pancrease Oral [Active]; spironolactone 25 mg Oral tab 1 tab once daily [Active]; - PMHx: 04:09 Anxiety; cardiomyopathy; CHF; Pancreatitis; open heart surgery; jd3 - PSHx: 04:09 uterus surgery; pacemaker defibrilator; Cholecystectomy; jd3 - Immunization history:: Adult Immunizations up to date. - Social history:: Smoking status: Patient/guardian denies using tobacco, Patient/guardian denies using alcohol, street drugs, The patient lives with family. - Ebola Screening: : Patient negative for fever greater than or equal to 101.5 degrees Fahrenheit, and additional compatible Ebola Virus Disease symptoms. - Family history:: not pertinent. ROS: 04:09 Constitutional: Negative for fever, chills, and weight loss, Abdomen/GI: Negative for ma2 abdominal pain, nausea, diarrhea, and constipation, : Negative for injury, bleeding, discharge, and swelling. 04:09 All other systems are negative. Exam: 04:09 Constitutional: This is a well developed, well nourished patient who is awake, alert, ma2 and in no acute distress. Chest/axilla: Normal chest wall appearance and motion. Nontender with no deformity. No lesions are appreciated. Cardiovascular: Regular rate and rhythm with a normal S1 and S2. No gallops, murmurs, or rubs. Normal PMI, no JVD. No pulse deficits. Respiratory: Lungs have equal breath sounds bilaterally, clear to auscultation and percussion. No rales, rhonchi or wheezes noted. No increased work of breathing, no retractions or nasal flaring. Abdomen/GI: Soft, non-tender, with normal bowel sounds. No distension or tympany. No guarding or rebound. No evidence of tenderness throughout. MS/ Extremity: Pulses equal, no cyanosis. Neurovascular intact. Full, normal range of motion. Neuro: Awake and alert, GCS 15, oriented to person, place, time, and situation. Cranial nerves II-XII grossly intact. Motor strength 5/5 in all extremities. Sensory grossly intact. Cerebellar exam normal. Normal gait. Vital Signs: 04:09 BP 117 / 80; Pulse 80; Resp 14 S; Temp 98.6(O); Pulse Ox 96% on R/A; Weight 72.57 kg jd3 (R); Height 5 ft. 6 in. (167.64 cm) (R); Pain 9/10; 05:00 BP 126 / 86; Pulse 70; Resp 14 S; Pulse Ox 97% on R/A; jd3 06:12 BP 116 / 97; Pulse 84; Resp 17 S; Pulse Ox 96% on R/A; jd3 06:55 BP 128 / 68; Pulse 67; Resp 22 S; Pulse Ox 97% on R/A; jd3 04:09 Body Mass Index 25.82 (72.57 kg, 167.64 cm) jd3 MDM: 04:03 Patient medically screened. ma2 04:09 Differential Diagnosis: electrolyte abnormality, alcohol intoxication, hypoglycemia, ma2 overdose, volume depletion. 06:23 Data reviewed: vital signs, nurses notes. Counseling: I had a detailed discussion with maNavin the patient and/or guardian regarding: the historical points, exam findings, and any diagnostic results supporting the discharge/admit diagnosis, the presence of at least one elevated blood pressure reading (>120/80) during this emergency department visit. Response to treatment: the patient's symptoms have markedly improved after treatment. ED course: patient is aox4, has left sided neck pain and left shoulder muscle tenderness over deltoid and SCM muscle.. pulses intact and sensation unchanged . 06:26 ED course: need refill for her ammiodarone . ma2 08/03 04:04 Order name: Basic Metabolic Panel ma2 08/03 04:04 Order name: CBC with Diff; Complete Time: 06:09 ma2 08/03 04:04 Order name: LFT's; Complete Time: 06:09 ma2 08/03 04:04 Order name: Magnesium; Complete Time: 06:09 ma2 08/03 04:04 Order name: NT PRO-BNP; Complete Time: 06:09 ma2 08/03 04:04 Order name: PT-INR; Complete Time: 06:09 ma2 08/03 04:04 Order name: Troponin (emerg Dept Use Only); Complete Time: 06:09 ma2 08/03 04:04 Order name: XRAY Chest (1 view) 2 08/03 04:05 Order name: Basic Metabolic Panel; Complete Time: 06:09 EDMS 08/03 04:04 Order name: EKG; Complete Time: 04:04 aa1 08/03 04:04 Order name: EKG - Nurse/Tech; Complete Time: 04:04 aa1 08/03 04:04 Order name: Cardiac monitoring; Complete Time: 04:31 ma2 08/03 04:04 Order name: EKG - Nurse/Tech; Complete Time: 04:31 ma2 08/03 04:04 Order name: IV Saline Lock; Complete Time: 05:10 ma2 08/03 04:04 Order name: Labs collected and sent; Complete Time: 06:31 ma2 08/03 04:04 Order name: O2 Per Protocol; Complete Time: 04:31 ma2 08/03 04:04 Order name: O2 Sat Monitoring; Complete Time: 04:31 ma2 Administered Medications: 05:09 Drug: NS 0.9% 1000 ml Route: IV; Rate: 1 bolus; Site: right hand; jd3 06:53 Follow up: Response: No adverse reaction; IV Status: Completed infusion jd3 05:09 Drug: Phenergan 25 mg Route: IVP; Site: right hand; jd3 06:54 Follow up: Response: No adverse reaction jd3 06:30 Drug: TORadol 30 mg Route: IVP; Site: right hand; jd3 06:54 Follow up: Response: Pain is decreased jd3 06:30 Drug: Flexeril 10 mg Route: PO; jd3 06:54 Follow up: Response: Pain is decreased jd3 06:53 Drug: Ativan 2 mg Route: PO; jd3 07:43 Follow up: Response: No adverse reaction sg Disposition: 08/03/18 06:25 Discharged to Home. Impression: Alcohol use, unspecified with intoxication, unspecified. - Condition is Stable. - Discharge Instructions: Alcohol Intoxication, Heart Failure. - Prescriptions for amiodarone 200 mg Oral tablet - take 1 tablet by ORAL route 2 times per day; 60 tablet. Tramadol 50 mg Oral Tablet - take 1 tablet by ORAL route every 8 hours for 8 days as needed; 12 tablet. - Medication Reconciliation Form, Thank You Letter, Antibiotic Education, Prescription Opioid Use form. - Follow up: Private Physician; When: Tomorrow; Reason: Continuance of care. Signatures: Dispatcher [employer] EDMS Kevin Gannon RN RN sg Rupa Nagel RN RN [email or web address] Johnathan Diaz RN RN Bonita Pardo MD MD ma2 Corrections: (The following items were deleted from the chart) 11:37 06:25 08/03/2018 06:25 Discharged to Home. Impression: Alcohol use, unspecified with sg intoxication, unspecified. Condition is Stable. Discharge Instructions: Alcohol Intoxication, Heart Failure. Prescriptions for amiodarone 200 mg Oral tablet - take 1 tablet by ORAL route 2 times per day; 60 tablet, Tramadol 50 mg Oral Tablet - take 1 tablet by ORAL route every 8 hours for 8 days as needed; 12 tablet. and Forms are Medication Reconciliation Form, Thank You Letter, Antibiotic Education, Prescription Opioid Use. Follow up: Private Physician; When: Tomorrow; Reason: Continuance of care. ma2
[2018-08-03] MEDS ORDERED: CYCLOBENZAPRINE 10 MG TAB ONE (06:36)
[2018-08-03] MEDS ORDERED: KETOROLAC 30 MG/ML INJ ONE (06:36)
[2018-08-03] MEDS ORDERED: LORAZEPAM 0.5 MG TABLET ONE (06:58)
--- NOTE | 2018-08-03 08:21 | RAD REPORT ---
EXAM DESCRIPTION: RAD - Chest Single View - 08/03/2018 4:54 am CLINICAL HISTORY: CHEST PAIN Chest pain. COMPARISON: Abdomen Acute Series dated 06/07/2018; Chest Single View dated 06/04/2018 FINDINGS: Portable technique limits examination quality. The lungs are grossly clear. The heart is moderately enlarged with a single lead pacer/ defibrillator device. No displaced fractures.Sternotomy wires noted. IMPRESSION: No acute intrathoracic process suspected.
--- NOTE | 2018-08-03 13:39 | EKG ---
Test Date: 2018-08-03 Test Time: 03:59:30 Operator/Assistant Foreman: JIM MEASUREMENT RESULTS: Intervals: Rate: 79 TN: 152 QRSD: 98 QT: 462 QTc: 529 [place]: P: TN: 152 QRS: -16 T: -56 INTERPRETIVE STATEMENTS: Normal sinus rhythm Low voltage QRS Inferior infarct, age undetermined Possible Anterolateral infarct, age undetermined Abnormal ECG Compared to ECG 06/04/2018 07:47:54 Ventricular premature complex(es) no longer present T-wave abnormality no longer present Prolonged QT interval no longer present Myocardial infarct finding still present Electronically Signed On 08-03-18 13:38:56 FLOW TRADER by Nick Quintero
== END 2018-08-03 11:37 | disposition home or self-care (01) ==
LOC: ER 03:55
DX: F10.929 Alcohol use, unspecified with intoxication, unspecified (principal); F41.9 Anxiety disorder, unspecified; I50.9 Heart failure, unspecified; Z88.5 Allergy status to narcotic agent; Z88.8 Allergy status to other drugs, medicaments and biological substances; Z95.810 Presence of automatic (implantable) cardiac defibrillator
CPT/HCPCS: 36415; 71045; 80048; 80076; 83735; 83880; 84484; 85025; 85610; 93005; 96361; 96374; 96375; 99284; J2550; J7030

== ENCOUNTER 2018-08-08 01:53 | Emergency (ER) | payer SELFPAY ==
--- OUTSIDE RECORDS SUMMARY | 2018-08-08 01:54 | XMS REPORT ---
:1975 Author Organization [facility] Address [address] [place] [address] Dr. Israel [address] [place] [id number] Care Team Providers Name Role Phone Unavailable Unavailable Unavailable Problems This patient has no known problems. Allergies, Adverse Reactions, Alerts This patient has no known allergies or adverse reactions. Medications This patient has no known medications.
[2018-08-08] MEDS ORDERED: FENTANYL CITR 100 MCG/2 ML ONE ×2 (02:54→03:59)
[2018-08-08 03:12] LABS: Protime INR 1.04
[2018-08-08 03:25] LABS: ALT/SGPT 77 U/L (12-78); AST/SGOT 64 U/L (15-37); Albumin 3.8 g/dL (3.4-5.0); Alkaline Phosphatase 92 U/L (45-117); BUN Blood Urea Nitrogen 13 mg/dL (7-18); Bicarbonate 22 mmol/L (21-32); Bilirubin Direct 0.2 mg/dL (0-0.2); Bilirubin Total 0.6 mg/dL (0.2-1.0); Glucose Level 106 mg/dL (74-106); Lipase 113 U/L (73-393); NT PRO-BNP 1395 pg/mL (<125); Potassium 3.8 mmol/L (3.5-5.1); Protein, Total 7.7 g/dL (6.4-8.2); Sodium Level 138 mmol/L (136-145); Troponin (Emerg Dept Use Only) < 0.02 ng/mL (0.0-0.045)
[2018-08-08] MEDS ORDERED: IPRATROPIUM BROM 0.5MG/2.5ML ONE (04:04)
[2018-08-08] MEDS ORDERED: ALBUTEROL 2.5 MG/3 ML NEB SOL ONE (04:04)
[2018-08-08 04:23] LABS: Absolute Lymphocytes (CBC) 2.5 K/uL (0.7-4.9); Absolute Monocytes 0.7 K/uL (0.1-1.3); Absolute Neutrophil 3.3 K/uL (1.8-8.0); Basophils % 1.2 % (0-1.3); Eosinophils % 4.4 % (0-4.4); Hematocrit 41.2 % (36.0-45.0); Lymphocytes % 36.3 % (15.3-44.8); MPV 9.3 fL (7.6-11.3); Monocytes % 9.9 % (3.3-12.3); RBC Red Blood Cell Count 4.23 M/uL (3.86-4.86)
--- NOTE | 2018-08-08 06:15 | ER ---
Nurse's Notes [facility] Name: Jerrell Rm Age: 43 yrs Sex: Female : 1975 Arrival Date: 08/08/2018 Time: 01:56 Bed 17 Private MD: Diagnosis: Epigastric pain;Gastritis, unspecified, without bleeding Presentation: 08/08 02:05 Presenting complaint: Patient states: she started having chest pain about 60 minutes bb ago with upper abdominal pain, difficulty breathing, states defib has been shocking her for the last 2 to 3 days but "it is not the same" she states her abdomen is bloated. Transition of care: patient was not received from another setting of care. Onset of symptoms was August 08, 2018. Risk Assessment: Do you want to hurt yourself or someone else? Patient reports no desire to harm self or others. Initial Sepsis Screen: Does the patient meet any 2 criteria? No. Patient's initial sepsis screen is negative. Does the patient have a suspected source of infection? No. Patient's initial sepsis screen is negative. Care prior to arrival: None. 02:05 Method Of Arrival: Ambulatory bb 02:05 Acuity: EDD 2 bb Historical: - Allergies: 02:09 Codeine; bb 02:09 Heparin; bb - Home Meds: 02:09 Coreg 25 mg Oral tab 1 tab 2 times per day [Active]; Lasix 40 mg Oral tab 1 tab 2 times bb per day [Active]; Pancrease Oral [Active]; spironolactone 25 mg Oral tab 1 tab once daily [Active]; Lisinopril Oral [Active]; multi vitamins [Active]; - PMHx: 02:09 Anxiety; cardiomyopathy; CHF; Pancreatitis; bb - PSHx: 02:09 uterus surgery; pacemaker defibrilator; Cholecystectomy; bb 02:10 open heart surgery; bb - Immunization history:: Adult Immunizations up to date, Flu vaccine is up to date. - Social history:: Smoking status: Patient/guardian denies using tobacco, Patient uses alcohol, occasionally. Patient/guardian denies using street drugs. - Ebola Screening: : No symptoms or risks identified at this time. Screenin:15 Abuse screen: Denies threats or abuse. Denies injuries from another. Nutritional ed1 screening: No deficits noted. Tuberculosis screening: No symptoms or risk factors identified. Fall Risk None identified. Assessment: 02:15 General: Appears distressed, uncomfortable, Behavior is anxious, crying. Pain: ed1 Complains of pain in epigastric area Pain does not radiate. Pain currently is 9 out of 10 on a pain scale. Quality of pain is described as sharp, Pain began 2-3 days ago. Is continuous. Neuro: Level of Consciousness is awake, alert, obeys commands, Oriented to person, place, time, situation. Cardiovascular: Reports since defibrillator "not working right" Denies chest pain, Heart tones S1 S2 present Rhythm is regular. Respiratory: Reports shortness of breath at rest Airway is patent Respiratory effort is even, Respiratory pattern is hyperventilation Breath sounds are clear bilaterally. GI: Abdomen is non-distended, Bowel sounds present X 4 quads. Abd is soft and non tender X 4 quads. Reports nausea. : No signs and/or symptoms were reported regarding the genitourinary system. EENT: No signs and/or symptoms were reported regarding the EENT system. Derm: Skin is intact, is healthy with good turgor, Skin is dry, Skin is normal, Skin temperature is warm. Musculoskeletal: Circulation, motion, and sensation intact. Range of motion: intact in all extremities. 03:03 Reassessment: No changes from previously documented assessment. Patient and/or family ed1 updated on plan of care and expected duration. Pain level reassessed. Patient is alert, oriented x 3, equal unlabored respirations, skin warm/dry/pink. Pt's friend stepped out of room to the nurses station and said that the patient is still really hurting. Provider notified. Patient states symptoms have not improved. 03:33 Reassessment: Pt sitting up on edge of bed. Pt reports feeling hot. Ice pack applied. ed1 Pt's friend came to nurses station and is demanding to speak to provider. 03:44 Reassessment: Dr. Krishnan and Heather, Charge Nurse at bedside to see pt and speak with ed1 visitors. Awaiting orders. 04:25 Reassessment: Notified by Rivera in CT that the pt's IV infiltrated during CT. Pt ed1 returned to room. IV d/c'd. Heather, Charge Nurse, at bedside to attempt ultrasound guided IV. 06:02 Reassessment: Patient appears in no apparent distress at this time. Patient and/or ed1 family updated on plan of care and expected duration. Pain level reassessed. Patient is alert, oriented x 3, equal unlabored respirations, skin warm/dry/pink. Patient states symptoms have not improved. 06:02 Respiratory: Airway is patent Respiratory effort is even, unlabored, Respiratory ed1 pattern is regular, symmetrical, Pt sitting up in bed speaking with visitor at bedside. Vital Signs: 02:10 BP 135 / 92; Pulse 88; Resp 22 S; Temp 98.7(O); Pulse Ox 99% on R/A; Weight 72.57 kg bb (R); Height 5 ft. 6 in. (167.64 cm) (R); Pain 9/10; 03:43 BP 113 / 80; Pulse 82; Resp 31; Pulse Ox 99% on R/A; Pain 9/10; ed1 06:02 BP 100 / 71; Pulse 70; Resp 20; Pulse Ox 93% on R/A; Pain 9/10; ed1 02:10 Body Mass Index 25.82 (72.57 kg, 167.64 cm) bb ED Course: 01:56 Patient arrived in ED. es 01:57 Amy Mercedes, RN is Primary Nurse. ed1 02:03 Matt Krishnan MD is Attending Physician. gs 02:08 Triage completed. bb 02:10 Arm band placed on Patient placed in an exam room, on a stretcher, on dining room attendant, bb on pulse oximetry. EKG completed in triage. Results shown to MD. Family accompanied patient. 02:15 Patient has correct armband on for positive identification. Placed in gown. Bed in low ed1 position. Call light in reach. Side rails up X 1. Adult w/ patient. marble worker on. Pulse ox on. NIBP on. 02:44 Inserted saline lock: 22 gauge in right forearm, using aseptic technique. Blood ea collected. 02:46 X-ray completed. Portable x-ray completed in exam room. Patient tolerated procedure ls3 well. 02:47 XRAY Chest (1 view) In Process Unspecified. EDMS 04:[address] via stretcher. eh 04:49 IV discontinued, intact, bleeding controlled, No redness/swelling at site. Pressure ed1 dressing applied. 05:16 CT completed. Patient tolerated procedure well. Patient moved to CT via stretcher. Patient moved back from CT. 05:21 Chest Abdomen Pelvis W Cont In Process Unspecified. EDMS 06:22 No provider procedures requiring assistance completed. IV discontinued, intact, ed1 bleeding controlled, No redness/swelling at site. Pressure dressing applied. Administered Medications: 02:45 Drug: fentaNYL (PF) 50 mcg Route: IVP; Site: right forearm; ed1 03:02 Follow up: Response: No adverse reaction; Pain is unchanged, physician notified ed1 03:51 Drug: fentaNYL (PF) 50 mcg Route: IVP; Site: right forearm; ed1 03:58 Follow up: Response: No adverse reaction bb 03:58 Drug: AtroVENT Aerosol 0.5 mg Route: Inhalation; bb 04:03 Drug: Albuterol 2.5 mg Route: Inhalation; ed1 Outcome: 06:14 Discharge ordered by MD. 06:22 Discharged to home ambulatory, with significant other. ed1 06:22 Condition: good 06:22 Discharge instructions given to patient, Instructed on discharge instructions, follow up and referral plans. medication usage, Demonstrated understanding of instructions, follow-up care, medications, Prescriptions given X 1. 06:23 Patient left the ED. ed1 Signatures: Dispatcher [employer] EDAL Gia Cahu Ervin Heather Campbell RN RN Amy Sauceda RN RN ed1 Gely Oliva RN RN Matt Lynn MD MD Earl Crook ls3 Corrections: (The following items were deleted from the chart) 06:03 06:02 Reassessment: Patient appears in no apparent distress at this time. Patient ed1 and/or family updated on plan of care and expected duration. Pain level reassessed. Patient is alert, oriented x 3, equal unlabored respirations, skin warm/dry/pink. Patient states symptoms have not improved. ed1
--- NOTE | 2018-08-08 06:15 | EDPHYS ---
Physician Documentation [facility] Name: Jerrell Rm Age: 43 yrs Sex: Female : 1975 Arrival Date: 08/08/2018 Time: 01:56 Bed 17 Private MD: ED Physician Matt Krishnan HPI: 08/08 06:18 This 43 yrs old Female presents to ER via Ambulatory with complaints of gs Breathing Difficulty, Chest Pain, Abdominal Pain. 06:19 The patient or guardian reports chest pain that is located primarily in the epigastric gs area. Onset: yesterday, and became persistent. The pain does not radiate. Associated signs and symptoms: Pertinent positives: shortness of breath. The chest pain is described as burning, sharp. Duration: The patient or guardian reports a single episode, that is still ongoing. Modifying factors: The symptoms are alleviated by nothing. the symptoms are aggravated by nothing. Severity of pain: At its worst the pain was moderate severe in the emergency department the pain is unchanged. The patient has experienced similar episodes in the past, a few times. Historical: - Allergies: 02:09 Codeine; bb 02:09 Heparin; bb - Home Meds: 02:09 Coreg 25 mg Oral tab 1 tab 2 times per day [Active]; Lasix 40 mg Oral tab 1 tab 2 times bb per day [Active]; Pancrease Oral [Active]; spironolactone 25 mg Oral tab 1 tab once daily [Active]; Lisinopril Oral [Active]; multi vitamins [Active]; - PMHx: 02:09 Anxiety; cardiomyopathy; CHF; Pancreatitis; bb - PSHx: 02:09 uterus surgery; pacemaker defibrilator; Cholecystectomy; bb 02:10 open heart surgery; bb - Immunization history:: Adult Immunizations up to date, Flu vaccine is up to date. - Social history:: Smoking status: Patient/guardian denies using tobacco, Patient uses alcohol, occasionally. Patient/guardian denies using street drugs. - Ebola Screening: : No symptoms or risks identified at this time. ROS: 06:19 All other systems are negative. gs Exam: 06:19 Head/Face: Normocephalic, atraumatic. Eyes: Pupils equal round and reactive to light, gs extra-ocular motions intact. Lids and lashes normal. Conjunctiva and sclera are non-icteric and not injected. Cornea within normal limits. Periorbital areas with no swelling, redness, or edema. ENT: Nares patent. No nasal discharge, no septal abnormalities noted. Tympanic membranes are normal and external auditory canals are clear. Oropharynx with no redness, swelling, or masses, exudates, or evidence of obstruction, uvula midline. Mucous membranes moist. Neck: Trachea midline, no thyromegaly or masses palpated, and no cervical lymphadenopathy. Supple, full range of motion without nuchal rigidity, or vertebral point tenderness. No Meningismus. Chest/axilla: Normal chest wall appearance and motion. Nontender with no deformity. No lesions are appreciated. 06:19 Respiratory: Lungs have equal breath sounds bilaterally, clear to auscultation and percussion. No rales, rhonchi or wheezes noted. No increased work of breathing, no retractions or nasal flaring. Back: No spinal tenderness. No costovertebral tenderness. Full range of motion. Skin: Warm, dry with normal turgor. Normal color with no rashes, no lesions, and no evidence of cellulitis. MS/ Extremity: Pulses equal, no cyanosis. Neurovascular intact. Full, normal range of motion. Neuro: Awake and alert, GCS 15, oriented to person, place, time, and situation. Cranial nerves II-XII grossly intact. Motor strength 5/5 in all extremities. Sensory grossly intact. Cerebellar exam normal. Normal gait. 06:19 Constitutional: The patient appears alert, awake, uncomfortable. 06:19 Cardiovascular: Rate: tachycardic, Rhythm: regular, Pulses: no pulse deficits are appreciated, Heart sounds: normal. 06:19 ECG was reviewed by the Attending Physician. 06:19 Abdomen/GI: Palpation: mild abdominal tenderness, in all quadrants. Vital Signs: 02:10 BP 135 / 92; Pulse 88; Resp 22 S; Temp 98.7(O); Pulse Ox 99% on R/A; Weight 72.57 kg bb (R); Height 5 ft. 6 in. (167.64 cm) (R); Pain 9/10; 03:43 BP 113 / 80; Pulse 82; Resp 31; Pulse Ox 99% on R/A; Pain 9/10; ed1 06:02 BP 100 / 71; Pulse 70; Resp 20; Pulse Ox 93% on R/A; Pain 9/10; ed1 02:10 Body Mass Index 25.82 (72.57 kg, 167.64 cm) bb MDM: 02:16 Patient medically screened. 06:19 Differential diagnosis: pancreatitis, thoracic aortic disection, unstable angina. Data gs reviewed: vital signs, old medical records, lab test result(s), EKG, radiologic studies. Counseling: I had a detailed discussion with the patient and/or guardian regarding: the historical points, exam findings, and any diagnostic results supporting the discharge/admit diagnosis, lab results, radiology results, the need for outpatient follow up. Response to treatment: the patient's symptoms have markedly improved after treatment, the patient's condition has returned to base line, and as a result, I will discharge patient. 08/08 02:20 Order name: Basic Metabolic Panel; Complete Time: 03:45 08/08 02:20 Order name: CBC with Diff; Complete Time: 05:58 08/08 02:20 Order name: LFT's; Complete Time: 03:45 08/08 02:20 Order name: Magnesium; Complete Time: 03:45 08/08 02:20 Order name: NT PRO-BNP; Complete Time: 03:45 08/08 02:20 Order name: PT-INR; Complete Time: 03:24 08/08 02:20 Order name: Troponin (emerg Dept Use Only); Complete Time: 03:45 08/08 02:20 Order name: XRAY Chest (1 view) 08/08 02:20 Order name: Lipase; Complete Time: 03:45 08/08 03:24 Order name: ETOH Level; Complete Time: 03:56 08/08 03:47 Order name: CT Aorta for Dissection 08/08 05:16 Order name: Chest Abdomen Pelvis W Cont EDMS 08/08 02:20 Order name: EKG; Complete Time: 02:21 08/08 02:20 Order name: Cardiac monitoring; Complete Time: 02:23 08/08 02:20 Order name: EKG - Nurse/Tech; Complete Time: 02:23 08/08 02:20 Order name: IV Saline Lock; Complete Time: 02:46 08/08 02:20 Order name: Labs collected and sent; Complete Time: 02:46 08/08 02:20 Order name: O2 Per Protocol; Complete Time: 02:23 08/08 02:20 Order name: O2 Sat Monitoring; Complete Time: : EC:19 Rate is 102 beats/min. Rhythm is regular. NH interval is normal. QRS interval is gs normal. QT interval is normal. T waves are Normal. No ST changes noted. Clinical impression: Abnormal EKG without significant change. Interpreted by me. Administered Medications: 02:45 Drug: fentaNYL (PF) 50 mcg Route: IVP; Site: right forearm; ed1 03:02 Follow up: Response: No adverse reaction; Pain is unchanged, physician notified ed1 03:51 Drug: fentaNYL (PF) 50 mcg Route: IVP; Site: right forearm; ed1 03:58 Follow up: Response: No adverse reaction bb 03:58 Drug: AtroVENT Aerosol 0.5 mg Route: Inhalation; bb 04:03 Drug: Albuterol 2.5 mg Route: Inhalation; ed1 Disposition: 08/08/18 06:14 Discharged to Home. Impression: Epigastric pain, Gastritis, unspecified, without bleeding. - Condition is Stable. - Discharge Instructions: Abdominal Pain, Adult, Gastritis, Adult. - Prescriptions for Pepcid 20 mg Oral Tablet - take 1 tablet by ORAL route every 12 hours for 10 days; 20 tablet. - Medication Reconciliation Form, Thank You Letter, Antibiotic Education, Prescription Opioid Use form. - Follow up: Private Physician; When: 1 - 2 days; Reason: Re-evaluation by your physician. Signatures: Dispatcher [employer] [facility] Heather Campbell RN RN Amy Mercedes RN RN ed1 Matt Krishnan MD MD Corrections: (The following items were deleted from the chart) 05:15 03:48 Angio Aorta For Dissection ordered. [facility] 06:15 06:14 08/08/2018 06:14 Discharged to Home. Impression: Epigastric pain. Condition is Stable. Forms are Medication Reconciliation Form, Thank You Letter, Antibiotic Education, Prescription Opioid Use. Follow up: Private Physician; When: 1 - 2 days; Reason: Re-evaluation by your physician. 06:23 06:15 08/08/2018 06:14 Discharged to Home. Impression: Epigastric pain; Gastritis, ed1 unspecified, without bleeding. Condition is Stable. Discharge Instructions: Abdominal Pain, Adult. Prescriptions for Pepcid 20 mg Oral Tablet - take 1 tablet by ORAL route every 12 hours for 10 days; 20 tablet. and Forms are Medication Reconciliation Form, Thank You Letter, Antibiotic Education, Prescription Opioid Use. Follow up: Private Physician; When: 1 - 2 days; Reason: Re-evaluation by your physician. gs
--- NOTE | 2018-08-08 08:11 | RAD REPORT ---
EXAM DESCRIPTION: RAD - Chest Single View - 08/08/2018 2:47 am CLINICAL HISTORY: CHEST PAIN Chest pain. COMPARISON: Chest Single View dated 08/03/2018; Abdomen Acute Series dated 06/07/2018; Chest Single Vie w dated 06/04/2018 FINDINGS: Portable technique limits examination quality. The lungs are grossly clear. The heart is normal in size. Single lead pacer/ defibrillator device not ed. No displaced fractures.Sternotomy wires are present. IMPRESSION: No acute intrathoracic process suspected.
--- NOTE | 2018-08-08 12:02 | RAD REPORT ---
EXAM DESCRIPTION: CT Chest With Intravenous Contrast. CT Abdomen and Pelvis With Intravenous Contr ast. CLINICAL HISTORY: The patient is 43 years old and is Female; CHEST/EPIGASTRIC PAIN TECHNIQUE: Axial computed tomography images of the chest, abdomen and pelvis with intravenous contra st. Sagittal and coronal reformatted images were created and reviewed. This CT exam was performed using one or more of the following dose reduction techniques: automated exposure control, adjustme nt of the mA and/or kV according to patient size, and/or use of iterative reconstruction technique. COMPARISON: No relevant prior studies available. FINDINGS: CHEST: Lungs: The lungs are clear of focal opacity, mass, or consolidation. Pleural space: Unremarkable. No significant effusion. No pneumothorax. Heart: The left ventricle is enlarged. ABDOMEN: Liver: Unremarkable. No mass. Gallbladder and bile ducts: Surgical clips are present in the right upper quadrant, consistent w ith previous cholecystectomy. Pancreas: No ductal dilation. No mass. Spleen: Unremarkable. Adrenals: Unremarkable. No mass. Kidneys and ureters: Unremarkable. No hydronephrosis. No solid mass. Stomach and bowel: The stomach is minimally fluid filled. The small bowel is relatively normal i n caliber. A moderate amount of stool is present throughout the colon. There is no mucosal thickening or evidence of bowel obstruction. PELVIS: Appendix: No findings to suggest acute appendicitis. Bladder: The bladder is well distended. Reproductive: The patient is status post hysterectomy. A 2.1 cm right ovarian cyst is present. No follow-up imaging is recommended. The left ovary is unremarkable. CHEST, ABDOMEN and PELVIS: Intraperitoneal space: Unremarkable. No significant fluid collection. No free air. Bones/joints: Median sternotomy wires are present. Soft tissues: The soft tissues are normal. Vasculature: Unremarkable. No aortic aneurysm. Lymph nodes: Unremarkable. No enlarged lymph nodes. Tubes, lines and devices: A dual lead left-sided pacemaker is present with leads in the right at rial appendage and right ventricle. IMPRESSION: No acute findings on this contrasted CT of the chest, abdomen and pelvis to explain the patient's symptoms. Electronically signed by: Krystle Hoff MD 08/08/2018 5:33 AM CDT Due to temporary technical issues with the PACS/Fluency reporting system, reports are being signed b y the in house radiologist as a courtesy to ensure prompt reporting. The interpreting radiologist is fully responsible for the content of the report.
--- NOTE | 2018-08-09 10:29 | EKG ---
Test Date: 2018-08-08 Test Time: 02:03:44 Pure Culture Operator: DILLON MEASUREMENT RESULTS: Intervals: Rate: 87 ND: 166 QRSD: 94 QT: 414 QTc: 498 Sully: P: 77 ND: 166 QRS: -27 T: 7 INTERPRETIVE STATEMENTS: Normal sinus rhythm Low voltage QRS Possible Lateral infarct, age undetermined Abnormal ECG Compared to ECG 08/03/2018 03:59:30 No significant changes Electronically Signed On 08-08-18 08:08:59 CDT by Nick Quintero
== END 2018-08-08 06:23 | disposition home or self-care (01) ==
LOC: ER 01:53
DX: K29.70 Gastritis, unspecified, without bleeding (principal); I50.9 Heart failure, unspecified; F41.9 Anxiety disorder, unspecified; Z88.5 Allergy status to narcotic agent; Z88.8 Allergy status to other drugs, medicaments and biological substances; Z95.810 Presence of automatic (implantable) cardiac defibrillator
CPT/HCPCS: 36415; 71045; 71260; 74177; 80048; 80076; 80320; 83690; 83735; 83880; 84484; 85025; 85610; 93005; 96374; 99285; J3010; Q9967

== ENCOUNTER 2018-09-20 20:48 | Emergency (ER) | payer SELFPAY ==
--- OUTSIDE RECORDS SUMMARY | 2018-09-20 20:50 | XMS REPORT ---
:1975 [facility] Address [address] [place] [address] Dr. Israel [address] [place] [id number] Care Team Providers Name Role Phone Unavailable Unavailable Unavailable Problems This patient has no known problems. Allergies, Adverse Reactions, Alerts This patient has no known allergies or adverse reactions. Medications This patient has no known medications.
[2018-09-20] MEDS ORDERED: THIAMINE 200 MG/2 ML INJ ONE (21:22)
[2018-09-20] MEDS ORDERED: FOLIC ACID 5 MG/ML VIAL ONE (21:23)
[2018-09-20] MEDS ORDERED: NA CHLORIDE 0.9% 2,000 ML ONE (21:23)
[2018-09-20] MEDS ORDERED: MULTIVITAMINS 10 ML VIAL (INJ) IV ONE (21:23)
[2018-09-20] MEDS ORDERED: FENTANYL CITR 100 MCG/2 ML ONE (22:15)
[2018-09-20 23:24] LABS: Absolute Lymphocytes (CBC) 1.4 K/uL (0.7-4.9); Absolute Monocytes 0.5 K/uL (0.1-1.3); Absolute Neutrophil 5.2 K/uL (1.8-8.0); Basophils % 0.7 % (0-1.3); Hematocrit 39.5 % (36.0-45.0); Lymphocytes % 18.6 % (15.3-44.8); MPV 9.5 fL (7.6-11.3); Monocytes % 6.2 % (3.3-12.3); RBC Red Blood Cell Count 4.16 M/uL (3.86-4.86)
[2018-09-20] MEDS ORDERED: ACETAMINOPHEN 325 MG TABLET ONE (23:36)
[2018-09-20 23:43] LABS: Potassium 3.5 mmol/L (3.5-5.1)
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
--- NOTE | 2018-09-21 07:15 | RAD REPORT ---
EXAM DESCRIPTION: RAD - Knee Right 3 View - 09/20/2018 9:50 pm CLINICAL HISTORY: Knee pain, trauma COMPARISON: None. FINDINGS: No fracture, dislocation or periosteal reaction.No joint effusion seen. No joint space nancy rowing. No foreign body or other soft tissue abnormality. IMPRESSION: Negative right knee. Clinical concerns for internal derangement or occult bony injury could be further assessed with MR im aging.
--- NOTE | 2018-09-21 07:16 | RAD REPORT ---
EXAM DESCRIPTION: RAD - Ankle Right 3 View - 09/20/2018 9:46 pm CLINICAL HISTORY: Ankle pain, trauma COMPARISON: None. FINDINGS: No fracture, dislocation or periosteal reaction. No joint effusion seen. No joint space na rrowing. No soft tissue abnormality. IMPRESSION: Negative right ankle
--- NOTE | 2018-09-21 07:16 | RAD REPORT ---
EXAM DESCRIPTION: RAD - Ankle Left 3 View - 09/20/2018 9:46 pm CLINICAL HISTORY: Ankle pain, trauma COMPARISON: None. FINDINGS: No fracture, dislocation or periosteal reaction. No joint effusion seen. No joint space na rrowing. No soft tissue abnormality. IMPRESSION: Negative left ankle for fracture or other acute finding.
--- NOTE | 2018-09-21 07:16 | RAD REPORT ---
EXAM DESCRIPTION: RAD - Knee Left 3 View - 09/20/2018 9:50 pm CLINICAL HISTORY: Knee pain, trauma COMPARISON: None. FINDINGS: No fracture, dislocation or periosteal reaction.No joint effusion seen. No joint space nancy rowing. No soft tissue abnormality. IMPRESSION: Negative left knee. Clinical concerns for internal derangement or occult bony injury could be further assessed with MR im aging.
--- NOTE | 2018-09-21 07:18 | RAD REPORT ---
EXAM DESCRIPTION: RAD - Hand Left 3 View - 09/20/2018 9:46 pm CLINICAL HISTORY: Hand pain, trauma COMPARISON: None. FINDINGS: No fracture, dislocation or periosteal reaction noted. No air or foreign body in the soft tissues. Mild diffuse soft tissue swelling is present. IMPRESSION: Negative left hand examination for acute bone or joint finding.
--- NOTE | 2018-09-21 07:39 | EKG ---
Test Date: 2018-09-20 Test Time: 22:17:30 Peeled Potato Inspector: DAVINAT MEASUREMENT RESULTS: Intervals: Rate: 84 CT: 158 QRSD: 108 QT: 446 QTc: 527 [place]: P: -80 CT: 158 QRS: 23 T: 5 INTERPRETIVE STATEMENTS: Unusual P axis, possible ectopic atrial rhythm Low voltage QRS Cannot rule out Anterior infarct, age undetermined Prolonged QT Abnormal ECG Compared to ECG 08/08/2018 02:03:44 Prolonged QT interval now present Sinus rhythm no longer present Myocardial infarct finding still present Electronically Signed On 09-21-18 07:38:54 CDT by Bradley Kraus
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
--- NOTE | 2018-09-21 12:26 | RAD REPORT ---
EXAM DESCRIPTION: CT - Facial Bones W/ Mpr - 09/20/2018 10:08 pm CLINICAL HISTORY: Facial pain. COMPARISON: None. TECHNIQUE: CT scan of the facial bones was performed without IV contrast. This exam was performed according to our departmental dose-optimization program, which includes automated exposure control, a djustment of the mA and/or kV according to patient size and/or use of iterative reconstruction techni que. FINDINGS: There is a right periorbital soft tissue swelling. No acute facial bone fracture is seen. No air-fluid levels are seen in the paranasal sinuses. Small retention cyst in the right sphenoid sin us The mastoid air cells are clear. No retrobulbar mass or hematoma is identified. The TMJs are intac t. IMPRESSION: 1. No acute facial bone fracture. 2. Right periorbital soft tissue swelling. Electronically signed by: Ron Murillo MD 09/20/2018 9:49 PM CDT Due to temporary technical issues with the PACS/Fluency reporting system, reports are being signed by the in house radiologist as a courtesy to ensure prompt reporting. The interpreting radiologist is f ully responsible for the content of the report.
== END 2018-09-21 00:43 | disposition home or self-care (01) ==
LOC: ER 20:48
DX: S00.93XA Contusion of unspecified part of head, initial encounter (principal); M25.542 Pain in joints of left hand; M25.562 Pain in left knee; M25.561 Pain in right knee; M25.572 Pain in left ankle and joints of left foot; F41.9 Anxiety disorder, unspecified; I50.9 Heart failure, unspecified; M25.571 Pain in right ankle and joints of right foot; Y04.2XXA Assault by strike against or bumped into by another person, initial encounter; Y93.9 Activity, unspecified; Y92.89 Other specified places as the place of occurrence of the external cause; Z04.71 Encounter for examination and observation following alleged adult physical abuse; Z88.6 Allergy status to analgesic agent
CPT/HCPCS: 36415; 70450; 70486; 71260; 72125; 74177; 76377; 80048; 80320; 85025; 86850; 86900; 86901; 93005; 96365; 96366; 96375; 99285; J3010; J3411; J7030; Q9967

== ENCOUNTER 2018-12-12 01:06 | Emergency (ER) | payer SELFPAY ==
--- OUTSIDE RECORDS SUMMARY | 2018-12-12 01:08 | XMS REPORT ---
:1975 [facility] Address [address] [place] [address] Dr. Israel [address] [place] [id number] Care Team Providers Name Role Phone Unavailable Unavailable Unavailable Problems This patient has no known problems. Allergies, Adverse Reactions, Alerts This patient has no known allergies or adverse reactions. Medications This patient has no known medications.
--- OUTSIDE RECORDS SUMMARY | 2018-12-12 01:08 | XMS REPORT | Clinical Summary ---
:[address] [facility] Address [address] [place] [address] Care Team Providers Name Role Phone Unavailable Primary Care Provider Unavailable Allergies Not on File Medications Not on file Active Problems Not on file Encounters Date Type Specialty Care Team Description 06/06/2018 Telephone Critical Care Medicine Tim Lauren MD after 12/11/2017 Social History Tobacco Use Types Packs/Day Years Used Date Never Assessed Sex Assigned at Date Recorded Not on file Job Start Date Occupation Industry Not on file Not on file Not on file Travel History Travel Start Travel End No recent travel history available. Last Filed Vital Signs Not on file Plan of Treatment Not on file Results Not on fileafter 12/11/2017
[2018-12-12] MEDS ORDERED: THIAMINE 200 MG/2 ML INJ ONE (01:36)
[2018-12-12] MEDS ORDERED: NA CHLORIDE 0.9% 1,000 ML ONE (01:36)
[2018-12-12] MEDS ORDERED: MULTIVITAMINS 10 ML VIAL (INJ) IV ONE (01:36)
[2018-12-12] MEDS ORDERED: FOLIC ACID 5 MG/ML VIAL ONE (01:37)
[2018-12-12] MEDS ORDERED: ONDANSETRON 4 MG/2 ML VIAL ONE (01:59)
[2018-12-12] MEDS ORDERED: ACETAMINOPHEN 500 MG TAB ONE (02:18)
[2018-12-12 04:00] LABS: Barbiturates NEGATIVE (NEGATIVE); Benzodiazepines NEGATIVE (NEGATIVE); Cocaine NEGATIVE (NEGATIVE); METHAMPHETAM NEGATIVE (NEGATIVE); Methadone NEGATIVE (NEGATIVE); Opiates NEGATIVE (NEGATIVE); Phencyclidine NEGATIVE (NEGATIVE); THC Cannibis NEGATIVE (NEGATIVE)
[2018-12-12 04:53] LABS: Absolute Lymphocytes (CBC) 1.7 K/uL (0.7-4.9); Eosinophils % 4.2 % (0-4.4); Hematocrit 40.4 % (36.0-45.0); MPV 9.1 fL (7.6-11.3); Monocytes % 9.2 % (3.3-12.3); RBC Red Blood Cell Count 4.18 M/uL (3.86-4.86)
[2018-12-12 04:56] LABS: Urine Blood NEGATIVE (NEG); Urine Glucose NEGATIVE (NEG); Urine Protein 1+ (NEG); Urine pH 5.5 (5.0-7.0)
[2018-12-12 05:12] LABS: Albumin 3.7 g/dL (3.4-5.0); Bilirubin Direct 0.1 mg/dL (0-0.2); Bilirubin Total 0.2 mg/dL (0.2-1.0); Potassium 3.3 mmol/L (3.5-5.1); Protein, Total 7.2 g/dL (6.4-8.2)
[2018-12-12] MEDS ORDERED: POTASSIUM CL SA 10 MEQ TAB PO ONE (05:49)
[2018-12-12] MEDS ORDERED: LORazepam 2 MG/ML VIAL ONE (12:07)
[2018-12-12] MEDS ORDERED: LORAZEPAM 1 MG TABLET ONE (12:08)
--- NOTE | 2018-12-12 13:42 | ER ---
Nurse's Notes [facility] Name: Jerrell Rm Age: 43 yrs Sex: Female : 1975 Arrival Date: 12/12/2018 Time: 01:08 Bed 8 Private MD: Diagnosis: Anxiety disorder, unspecified;Alcohol abuse with intoxication, unspecified Presentation: 12/12 01:10 Presenting complaint: EMS states: Pt is intoxicated and vomiting. Pt's friends states tr5 that she might have taken some medications, but was not witnessed. Pt states that she want to kill herself because nobody loves her. Transition of care: patient was not received from another setting of care. Onset of symptoms was December 12, 2018. Risk Assessment: Do you want to hurt yourself or someone else? Patient reports desire/thoughts of hurting themselves or someone else. Provider notified. Other: Pt states that she wants to kill herself because nobody loves her. Initial Sepsis Screen: Does the patient meet any 2 criteria? No. Patient's initial sepsis screen is negative. Does the patient have a suspected source of infection? No. Patient's initial sepsis screen is negative. Care prior to arrival: Medication(s) given: zofran 4 mg, IV initiated. 22 GA, in the left antecubital area. 01:10 Method Of Arrival: EMS: [facility] tr5 01:10 Acuity: EDD 4 tr5 07:44 Acuity: EDD 2 iw Triage Assessment: 01:32 General: Appears unkempt, Behavior is crying, inappropriate for age, Smells of alcohol. tr5 Pain: Denies pain. EENT: No deficits noted. Neuro: Level of Consciousness is awake, alert, Oriented to person, place, time, Fixed Wing Pilot are equal bilaterally Moves all extremities. Cardiovascular: Heart tones present Bruits absent Capillary refill < 3 seconds Pulses are all present. Edema is absent. Respiratory: Airway is patent Trachea midline Respiratory effort is even, labored, Respiratory pattern is regular, symmetrical, Breath sounds are clear bilaterally. GI: Reports nausea, vomiting. GI: Abdomen is round Bowel sounds present X 4 quads. Abd is soft X 4 quads. : No signs and/or symptoms were reported regarding the genitourinary system. Derm: No signs and/or symptoms reported regarding the dermatologic system. Musculoskeletal: Capillary refill < 3 seconds, Range of motion: intact in all extremities. Historical: - Allergies: : Codeine; tr5 : Heparin; tr5 - Home Meds: Coreg 25 mg Oral tab 1 tab 2 times per day [Active]; Lasix 40 mg Oral tab 1 tab 2 times tr5 per day [Active]; lisinopril Oral [Active]; multi vitamins [Active]; Pancrease Oral [Active]; spironolactone 25 mg Oral tab 1 tab once daily [Active]; - PMHx: : Anxiety; cardiomyopathy; CHF; Pancreatitis; tr5 - Immunization history:: Adult Immunizations up to date. - Social history:: Smoking status: Patient/guardian denies using tobacco, never smoked. - Ebola Screening: : Patient negative for fever greater than or equal to 101.5 degrees Fahrenheit, and additional compatible Ebola Virus Disease symptoms. Screenin:34 Nutritional screening: No deficits noted. Tuberculosis screening: No symptoms or risk tr5 factors identified. Fall Risk None identified. No fall in past 12 months (0 pts). No secondary diagnosis (0 pts). IV access (20 points). Ambulatory Aid- None/Bed Rest/Nurse Assist (0 pts). Gait- Normal/Bed Rest/Wheelchair (0 pts) Mental Status- Overestimates/Forgets Limitations (15 pts.). Total Ng Fall Scale indicates Low Risk Score (25-44 pts). Side Rails Up X 2 1:1 attendant Assigned to Pt. Frequent Obs/Assesments occuring. :34 Abuse screen: Denies threats or abuse. tr5 Assessment: 02:05 Reassessment: Patient and/or family updated on plan of care and expected duration. Pain tr5 level reassessed. Patient is alert, oriented x 3, equal unlabored respirations, skin warm/dry/pink. 03:00 Reassessment: Patient appears in no apparent distress at this time. Patient and/or tr5 family updated on plan of care and expected duration. Pain level reassessed. Patient is alert, oriented x 3, equal unlabored respirations, skin warm/dry/pink. 04:29 Reassessment: Patient appears in no apparent distress at this time. Patient and/or tr5 family updated on plan of care and expected duration. Pain level reassessed. Patient is alert, oriented x 3, equal unlabored respirations, skin warm/dry/pink. 05:30 Reassessment: Patient and/or family updated on plan of care and expected duration. Pain tr5 level reassessed. Patient is alert, oriented x 3, equal unlabored respirations, skin warm/dry/pink. Patient states symptoms have improved. 06:12 Reassessment: Patient appears in no apparent distress at this time. Patient and/or tr5 family updated on plan of care and expected duration. Pain level reassessed. Patient states symptoms have improved. 07:00 Reassessment: Patient appears in no apparent distress at this time. Patient and/or hb family updated on plan of care and expected duration. Pain level reassessed. Patient is alert, oriented x 3, equal unlabored respirations, skin warm/dry/pink. 08:00 Reassessment: Patient appears in no apparent distress at this time. Patient and/or hb family updated on plan of care and expected duration. Pain level reassessed. Patient is alert, oriented x 3, equal unlabored respirations, skin warm/dry/pink. 09:00 Reassessment: Patient appears in no apparent distress at this time. Patient and/or hb family updated on plan of care and expected duration. Pain level reassessed. Patient is alert, oriented x 3, equal unlabored respirations, skin warm/dry/pink. 10:00 Reassessment: Patient appears in no apparent distress at this time. No changes from previously documented assessment. Patient and/or family updated on plan of care and expected duration. Pain level reassessed. Patient is alert, oriented x 3, equal unlabored respirations, skin warm/dry/pink. 11:00 Reassessment: Patient appears in no apparent distress at this time. Patient and/or hb family updated on plan of care and expected duration. Pain level reassessed. Patient is alert, oriented x 3, equal unlabored respirations, skin warm/dry/pink. 12:00 Reassessment: Pt c/o anxiety, ZABRINA Sandoval notified, Ativan 1 mg PO administered as ordered. hb Sitter remains at bedside. Awaiting [facility] at this time. 13:00 Reassessment: Patient appears in no apparent distress at this time. Patient and/or hb family updated on plan of care and expected duration. Pain level reassessed. Patient is alert, oriented x 3, equal unlabored respirations, skin warm/dry/pink. 14:00 Reassessment: Patient appears in no apparent distress at this time. Patient and/or hb family updated on plan of care and expected duration. Pain level reassessed. Patient is alert, oriented x 3, equal unlabored respirations, skin warm/dry/pink. Vital Signs: 01:10 BP 116 / 89; Pulse 89; Resp 18; Pulse Ox 97% ; tr5 02:05 BP 113 / 98; Pulse 85; Resp 19; Pulse Ox 100% on R/A; tr5 03:00 BP 98 / 63; Pulse 73; Resp 16; Pulse Ox 97% on R/A; tr5 04:00 BP 103 / 76; Pulse 81; Resp 16; Pulse Ox 100% on R/A; tr5 06:12 BP 98 / 72; Pulse 88; Resp 16; Pulse Ox 99% on R/A; tr5 06:46 BP 95 / 65; Pulse 80; Resp 17; Pulse Ox 100% on R/A; tr5 08:30 BP 104 / 73; Pulse 63; Resp 16; Pulse Ox 95% on R/A; dh3 11:25 BP 102 / 67; Pulse 67; Resp 16; Pulse Ox 99% on R/A; dh3 08:30 pt sleeping dh3 ED Course: 01:08 Patient arrived in ED. ds1 01:09 Valdo Ch MD is Attending Physician. pkl 01:10 Oscar Pascual, RN is Primary Nurse. tr5 01:12 Triage completed. tr5 01:36 Bed in low position. Call light in reach. Side rails up X 1. tr5 01:36 Arm band placed on left wrist. tr5 01:45 Safety checks: Items removed: yes. Door open/sign placed on door: yes. Family/friend ar5 present: no. Sitter present: Yes. 02:00 Safety checks: Items removed: yes. Door open/sign placed on door: yes. Family/friend ar5 present: no. Sitter present: Yes. 02:15 Safety checks: Items removed: yes. Door open/sign placed on door: yes. Family/friend ar5 present: no. Sitter present: Yes. 02:30 Safety checks: Items removed: yes. Door open/sign placed on door: yes. Family/friend ar5 present: no. Sitter present: Yes. 02:45 Safety checks: Items removed: yes. Door open/sign placed on door: yes. Family/friend ar5 present: no. Sitter present: Yes. 03:00 Safety checks: Items removed: yes. Door open/sign placed on door: yes. Family/friend ar5 present: no. Sitter present: Yes. 03:15 Safety checks: Items removed: yes. Door open/sign placed on door: yes. Family/friend ar5 present: no. Sitter present: Yes. 03:30 Safety checks: Items removed: yes. Door open/sign placed on door: yes. Family/friend ar5 present: no. Sitter present: Yes. 03:45 Safety checks: Items removed: yes. Door open/sign placed on door: yes. Family/friend ar5 present: no. Sitter present: Yes. 04:00 Safety checks: Items removed: yes. Door open/sign placed on door: yes. Family/friend ar5 present: no. Sitter present: Yes. 04:15 Safety checks: Items removed: yes. Door open/sign placed on door: yes. Family/friend ar5 present: no. Sitter present: Yes. 04:30 Safety checks: Items removed: yes. Door open/sign placed on door: yes. Family/friend ar5 present: no. Sitter present: Yes. 04:45 Safety checks: Items removed: yes. Door open/sign placed on door: yes. Family/friend ar5 present: no. Sitter present: Yes. 05:00 Safety checks: Items removed: yes. Door open/sign placed on door: yes. Family/friend ar5 present: no. Sitter present: Yes. 05:15 Safety checks: Items removed: yes. Door open/sign placed on door: yes. Family/friend ar5 present: no. Sitter present: Yes. 05:30 Safety checks: Items removed: yes. Door open/sign placed on door: yes. Family/friend ar5 present: no. Sitter present: Yes. 05:45 Safety checks: Items removed: yes. Door open/sign placed on door: yes. Family/friend ar5 present: no. Sitter present: Yes. 06:00 Safety checks: Items removed: yes. Door open/sign placed on door: yes. Family/friend ar5 present: no. Sitter present: Yes. 06:15 Safety checks: Items removed: yes. Door open/sign placed on door: yes. Family/friend ar5 present: no. Sitter present: Yes. 06:30 Safety checks: Items removed: yes. Door open/sign placed on door: yes. Family/friend ar5 present: no. Sitter present: Yes. 07:00 Safety checks: Items removed: yes. Door open/sign placed on door: yes. Family/friend dh3 present: no. Sitter present: Yes. 07:15 Safety checks: Items removed: yes. Door open/sign placed on door: yes. Family/friend dh3 present: no. Sitter present: Yes. 07:30 Safety checks: Items removed: yes. Door open/sign placed on door: yes. Family/friend dh3 present: no. Sitter present: Yes. 07:45 Safety checks: Items removed: yes. Door open/sign placed on door: yes. Family/friend dh3 present: no. Sitter present: Yes. 08:00 Safety checks: Items removed: yes. Door open/sign placed on door: yes. Family/friend dh3 present: no. Sitter present: Yes. 08:15 Safety checks: Items removed: yes. Door open/sign placed on door: yes. Family/friend dh3 present: no. Sitter present: Yes. 08:30 Safety checks: Items removed: yes. Door open/sign placed on door: yes. Family/friend dh3 present: no. Sitter present: Yes. 08:43 IV discontinued, intact, bleeding controlled, No redness/swelling at site. Pressure dh3 dressing applied. 08:45 Safety checks: Items removed: yes. Door open/sign placed on door: yes. Family/friend dh3 present: no. Sitter present: Yes. 08:45 Repeat lab(s) drawn. by me, sent to lab. Missed attempt(s): 22 gauge in left forearm. dh3 Bleeding controlled, band aid applied, catheter tip intact. 09:00 Safety checks: Items removed: yes. Door open/sign placed on door: yes. Family/friend dh3 present: no. Sitter present: Yes. 09:15 Safety checks: Items removed: yes. Door open/sign placed on door: yes. Family/friend dh3 present: no. Sitter present: Yes. 09:30 Safety checks: Items removed: yes. Door open/sign placed on door: yes. Family/friend dh3 present: no. Sitter present: Yes. 09:40 Primary Nurse role handed off by Oscar Pascual RN 09:40 Carli Garibay, KRISTINA is Primary Nurse. 09:45 Safety checks: Items removed: yes. Door open/sign placed on door: yes. Family/friend dh3 present: no. Sitter present: Yes. 10:00 Safety checks: Items removed: yes. Door open/sign placed on door: yes. Family/friend dh3 present: no. Sitter present: Yes. 10:15 Safety checks: Items removed: yes. Door open/sign placed on door: yes. Family/friend dh3 present: no. Sitter present: Yes. 10:30 Safety checks: Items removed: yes. Door open/sign placed on door: yes. Family/friend dh3 present: no. Sitter present: Yes. 10:45 Safety checks: Items removed: yes. Door open/sign placed on door: yes. Family/friend dh3 present: no. Sitter present: Yes. 11:00 Safety checks: Items removed: yes. Door open/sign placed on door: yes. Family/friend dh3 present: no. Sitter present: Yes. 11:15 Safety checks: Items removed: yes. Door open/sign placed on door: yes. Family/friend dh3 present: no. Sitter present: Yes. 11:30 Safety checks: Items removed: yes. Door open/sign placed on door: yes. Family/friend dh3 present: no. Sitter present: Yes. 11:45 Safety checks: Items removed: yes. Door open/sign placed on door: yes. Family/friend dh3 present: no. Sitter present: Yes. 11:56 Jaime Edmonds PA is [facility]. [email or web address] 12:00 Safety checks: Items removed: yes. Door open/sign placed on door: yes. Family/friend dh3 present: no. Sitter present: Yes. 12:15 Safety checks: Items removed: yes. Door open/sign placed on door: yes. Family/friend dh3 present: no. Sitter present: Yes. 12:30 Safety checks: Items removed: yes. Door open/sign placed on door: yes. Family/friend dh3 present: no. Sitter present: Yes. 12:45 Safety checks: Items removed: yes. Door open/sign placed on door: yes. Family/friend dh3 present: no. Sitter present: Yes. 13:00 Safety checks: Items removed: yes. Door open/sign placed on door: yes. Family/friend dh3 present: no. Sitter present: Yes. 13:15 Safety Checks: Personal items have been removed. The door is open or patient has been hb placed in a hallway bed/chair. Sitter present at this time. 13:30 Safety Checks: Personal items have been removed. The door is open or patient has been hb placed in a hallway bed/chair. A family member and/or friend is present and encouraged to stay. Sitter present at this time. 13:45 Safety Checks: Personal items have been removed. The door is open or patient has been hb placed in a hallway bed/chair. A family member and/or friend is present and encouraged to stay. Sitter present at this time. 14:00 Safety Checks: Personal items have been removed. The door is open or patient has been hb placed in a hallway bed/chair. A family member and/or friend is present and encouraged to stay. Sitter present at this time. 14:08 No provider procedures requiring assistance completed. hb 14:08 Patient did not have IV access during this emergency room visit. hb Administered Medications: 01:28 Drug: Banana Bag - (NS 0.9% 1000 ml, foLIC Acid 1 mg, Thiamine 100 mg, Multivitamin 1 tr5 amp) Route: IV; Rate: calculated rate; Site: left antecubital; 01:54 Drug: Zofran 4 mg Route: IVP; Site: left antecubital; tr5 02:30 Follow up: Response: No adverse reaction; Blood pressure is lowered; Nausea is decreasedtr5 06:13 Drug: K-Dur 20 mEq Route: PO; tr5 06:47 Follow up: Response: No adverse reaction tr5 12:00 Drug: Ativan 1 mg Route: PO; hb 13:00 Follow up: Response: No adverse reaction; Anxiety decreased hb Outcome: 13:42 Discharge ordered by MD. jones 14:08 Discharged to home ambulatory, with family. hb 14:08 Condition: stable 14:08 Discharge instructions given to patient, family, Instructed on discharge instructions, follow up and referral plans. medication usage, Demonstrated understanding of instructions, follow-up care, medications, Prescriptions given X 1. 14:09 Patient left the ED. hb Signatures: Valdo Ch MD MD pkl Sanford, Demi ds1 Ghazala Elaine RN RN Jaime Edmonds PA PA 8 Carli Garibay RN RN Rosalie Rubio 3 Giselle Moore vt5 Oscar Pascual RN RN tr5 Corrections: (The following items were deleted from the chart) 01:17 01:10 Presenting complaint: EMS states: Pt is intoxicated and vomiting. Pt's friends tr5 states that she might have taken some medications, but was not witnessed. tr5 01:37 01:10 Risk Assessment: Do you want to hurt yourself or someone else? Patient reports no tr5 desire to harm self or others. tr5 01:38 01:10 Risk Assessment: Do you want to hurt yourself or someone else? Patient reports tr5 desire/thoughts of hurting themselves or someone else. Provider notified. tr5
--- NOTE | 2018-12-12 13:43 | EDPHYS ---
Physician Documentation [facility] Name: Jerrell Rm Age: 43 yrs Sex: Female : 1975 Arrival Date: 12/12/2018 Time: 01:08 Bed 8 Private MD: ED Physician Valdo Ch HPI: 12/12 01:32 This 43 yrs old Female presents to ER via EMS with complaints of Vomiting. pkl 01:32 The patient presents to the emergency department with nausea, vomiting. Onset: The pkl symptoms/episode began/occurred just prior to arrival. 01:43 Possible causes: Patient admits to drinking alcohol earlier. Patient has suicidal pkl ideations. Said no body loves her anymore.. Historical: - Allergies: 01:31 Codeine; tr5 01:31 Heparin; tr5 - Home Meds: 01:31 Coreg 25 mg Oral tab 1 tab 2 times per day [Active]; Lasix 40 mg Oral tab 1 tab 2 times tr5 per day [Active]; lisinopril Oral [Active]; multi vitamins [Active]; Pancrease Oral [Active]; spironolactone 25 mg Oral tab 1 tab once daily [Active]; - PMHx: 01:31 Anxiety; cardiomyopathy; CHF; Pancreatitis; tr5 - Immunization history:: Adult Immunizations up to date. - Social history:: Smoking status: Patient/guardian denies using tobacco, never smoked. - Ebola Screening: : Patient negative for fever greater than or equal to 101.5 degrees Fahrenheit, and additional compatible Ebola Virus Disease symptoms. ROS: 01:43 Eyes: Negative for injury, pain, redness, and discharge, ENT: Negative for injury, pkl pain, and discharge, Neck: Negative for injury, pain, and swelling, Cardiovascular: Negative for chest pain, palpitations, and edema, Respiratory: Negative for shortness of breath, cough, wheezing, and pleuritic chest pain. 01:43 Abdomen/GI: Positive for nausea and vomiting. 01:43 Back: Negative for acute changes. 01:43 : Negative for urinary symptoms. 01:43 MS/extremity: Negative for acute changes. 01:43 Skin: Negative for rash. 01:43 Neuro: Negative for altered mental status. Exam: 01:43 Head/Face: Normocephalic, atraumatic. Eyes: Pupils equal round and reactive to light, pkl extra-ocular motions intact. Lids and lashes normal. Conjunctiva and sclera are non-icteric and not injected. Cornea within normal limits. Periorbital areas with no swelling, redness, or edema. ENT: Nares patent. No nasal discharge, no septal abnormalities noted. Tympanic membranes are normal and external auditory canals are clear. Oropharynx with no redness, swelling, or masses, exudates, or evidence of obstruction, uvula midline. Mucous membranes moist. Neck: Trachea midline, no thyromegaly or masses palpated, and no cervical lymphadenopathy. Supple, full range of motion without nuchal rigidity, or vertebral point tenderness. No Meningismus. Chest/axilla: Normal chest wall appearance and motion. Nontender with no deformity. No lesions are appreciated. Cardiovascular: Regular rate and rhythm with a normal S1 and S2. No gallops, murmurs, or rubs. Normal PMI, no JVD. No pulse deficits. Respiratory: Lungs have equal breath sounds bilaterally, clear to auscultation and percussion. No rales, rhonchi or wheezes noted. No increased work of breathing, no retractions or nasal flaring. Abdomen/GI: Soft, non-tender, with normal bowel sounds. No distension or tympany. No guarding or rebound. No evidence of tenderness throughout. Back: No spinal tenderness. No costovertebral tenderness. Full range of motion. Skin: Warm, dry with normal turgor. Normal color with no rashes, no lesions, and no evidence of cellulitis. MS/ Extremity: Pulses equal, no cyanosis. Neurovascular intact. Full, normal range of motion. Neuro: Awake and alert, GCS 15, oriented to person, place, time, and situation. Cranial nerves II-XII grossly intact. Motor strength 5/5 in all extremities. Sensory grossly intact. Cerebellar exam normal. Normal gait. 01:43 Psych: Behavior/mood is anxious, Affect is flat, Patient having thoughts of suicide. Vital Signs: 01:10 BP 116 / 89; Pulse 89; Resp 18; Pulse Ox 97% ; tr5 02:05 BP 113 / 98; Pulse 85; Resp 19; Pulse Ox 100% on R/A; tr5 03:00 BP 98 / 63; Pulse 73; Resp 16; Pulse Ox 97% on R/A; tr5 04:00 BP 103 / 76; Pulse 81; Resp 16; Pulse Ox 100% on R/A; tr5 06:12 BP 98 / 72; Pulse 88; Resp 16; Pulse Ox 99% on R/A; tr5 06:46 BP 95 / 65; Pulse 80; Resp 17; Pulse Ox 100% on R/A; tr5 08:30 BP 104 / 73; Pulse 63; Resp 16; Pulse Ox 95% on R/A; dh3 11:25 BP 102 / 67; Pulse 67; Resp 16; Pulse Ox 99% on R/A; dh3 08:30 pt sleeping dh3 MDM: 01:09 Patient medically screened. pkl 13:39 Data reviewed: vital signs, nurses notes, lab test result(s), EKG. Data interpreted: jr8 Pulse oximetry: on room air is 99 %. Interpretation: normal. Counseling: I had a detailed discussion with the patient and/or guardian regarding: the historical points, exam findings, and any diagnostic results supporting the discharge/admit diagnosis, lab results, the need for outpatient follow up, a psychiatrist, to return to the emergency department if symptoms worsen or persist or if there are any questions or concerns that arise at home. Response to treatment: the patient's symptoms have resolved after treatment. ED course: After talking with myself and [facility], patient feels much better and wants to go home. Patient now sober. No intention of wanting to hurt herself. Stated that she deals with daily anxiety and that everything was just taken out of context. Wants and willing to f/u with [facility] to help improve her anxiety . 12/12 01:14 Order name: Acetaminophen pkl 12/12 01:14 Order name: Basic Metabolic Panel; Complete Time: 05:13 pkl 12/12 01:14 Order name: CBC with Diff; Complete Time: 05:04 pkl 12/12 01:14 Order name: ETOH Level; Complete Time: 05:12 pkl 12/12 01:14 Order name: Hepatic Function; Complete Time: 05:13 pkl 12/12 01:14 Order name: PT-INR; Complete Time: 05:04 pkl 12/12 01:14 Order name: Ptt, Activated; Complete Time: 05:04 pkl 12/12 01:14 Order name: Salicylate; Complete Time: 11:58 pkl 12/12 01:14 Order name: Urine Drug Screen; Complete Time: 04:11 pkl 12/12 01:16 Order name: Acetaminophen Level; Complete Time: 05:13 EDMS 12/12 03:30 Order name: Urine Dipstick--Ancillary (enter results); Complete Time: 05:04 mw2 12/12 08:25 Order name: ETOH Level; Complete Time: 11:58 bd 12/12 01:14 Order name: EKG; Complete Time: 01:16 pkl 12/12 01:14 Order name: EKG - Nurse/Tech; Complete Time: 01:16 pkl 12/12 01:14 Order name: IV Saline Lock; Complete Time: 01:16 pkl 12/12 01:14 Order name: Labs collected and sent; Complete Time: 01:16 pkl 12/12 01:14 Order name: Urine Dipstick-Ancillary (obtain specimen); Complete Time: 06:39 pkl 12/12 08:11 Order name: Diet Regular; Complete Time: 08:12 dh3 12/12 11:07 Order name: Diet Regular; Complete Time: 11:07 dh3 Administered Medications: 01:28 Drug: Banana Bag - (NS 0.9% 1000 ml, foLIC Acid 1 mg, Thiamine 100 mg, Multivitamin 1 tr5 amp) Route: IV; Rate: calculated rate; Site: left antecubital; 01:54 Drug: Zofran 4 mg Route: IVP; Site: left antecubital; tr5 02:30 Follow up: Response: No adverse reaction; Blood pressure is lowered; Nausea is decreasedtr5 06:13 Drug: K-Dur 20 mEq Route: PO; tr5 06:47 Follow up: Response: No adverse reaction tr5 12:00 Drug: Ativan 1 mg Route: PO; hb 13:00 Follow up: Response: No adverse reaction; Anxiety decreased hb Disposition: 19:06 Co-signature as Attending Physician, Valdo Ch MD. pkl Disposition: 12/12/18 13:42 Discharged to Home. Impression: Anxiety disorder, unspecified, Alcohol abuse with intoxication, unspecified. - Condition is Stable. - Discharge Instructions: Alcohol Intoxication, Panic Attacks. - Prescriptions for Hydroxyzine HCl 50 mg Oral Tablet - take 1 tablet by ORAL route every 8 hours As needed; 20 tablet. - Medication Reconciliation Form, Thank You Letter, Antibiotic Education, Prescription Opioid Use form. - Follow up: Private Physician; When: 5 - 6 days; Reason: Recheck today's complaints, Continuance of care, Re-evaluation by your physician. - Problem is new. - Symptoms have improved. Signatures: Dispatcher [employer] EDMS Valdo Ch MD MD pkl Roszak, Josh, PA PA jr8 Carli Garibay RN RN Oscar Pascual RN RN tr5 Corrections: (The following items were deleted from the chart) 14:09 13:42 12/12/2018 13:42 Discharged to Home. Impression: Anxiety disorder, unspecified; hb Alcohol abuse with intoxication, unspecified. Condition is Stable. Forms are Medication Reconciliation Form, Thank You Letter, Antibiotic Education, Prescription Opioid Use. Follow up: Private Physician; When: 5 - 6 days; Reason: Recheck today's complaints, Continuance of care, Re-evaluation by your physician. Problem is new. Symptoms have improved. jr8
--- NOTE | 2018-12-12 15:06 | EKG ---
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
== END 2018-12-12 14:09 | disposition home or self-care (01) ==
LOC: ER 01:06
DX: F41.9 Anxiety disorder, unspecified (principal); I50.9 Heart failure, unspecified; F10.129 Alcohol abuse with intoxication, unspecified; Z88.5 Allergy status to narcotic agent; Z88.8 Allergy status to other drugs, medicaments and biological substances
CPT/HCPCS: 36415; 80048; 80076; 80307; 80320; 80329; 81003; 85025; 85610; 85730; 93005; 96374; 96375; 99284; J2405; J3411; J7030

== ENCOUNTER 2019-01-04 01:27 | Emergency (ER) | payer SELFPAY ==
--- OUTSIDE RECORDS SUMMARY | 2019-01-04 01:29 | XMS REPORT | Clinical Summary ---
:1975 Author Organization [facility] Address [address] [place] [address] Care Team Providers Name Role Phone Unavailable Primary Care Provider Unavailable Allergies Not on File Medications Not on file Active Problems Not on file Encounters Date Type Specialty Care Team Description 06/06/2018 Telephone Critical Care Medicine Tim Lauren MD after 01/03/2018 Social History Tobacco Use Types Packs/Day Years Used Date Never Assessed Sex Assigned at Date Recorded Not on file Job Start Date Occupation Industry Not on file Not on file Not on file Travel History Travel Start Travel End No recent travel history available. Last Filed Vital Signs Not on file Plan of Treatment Not on file Results Not on fileafter 01/03/2018
--- OUTSIDE RECORDS SUMMARY | 2019-01-04 01:29 | XMS REPORT ---
:1975 Author Organization [facility] Address [address] [place] [address] Dr. Israel [address] [place] [id number] Care Team Providers Name Role Phone Unavailable Unavailable Unavailable Problems This patient has no known problems. Allergies, Adverse Reactions, Alerts This patient has no known allergies or adverse reactions. Medications This patient has no known medications.
[2019-01-04] MEDS ORDERED: LORazepam 2 MG/ML VIAL ONE (01:50)
[2019-01-04 01:55] LABS: Absolute Lymphocytes (CBC) 2.1 K/uL (0.7-4.9); Hematocrit 37.3 % (36.0-45.0); Lymphocytes % 31.7 % (15.3-44.8); MPV 9.6 fL (7.6-11.3); RBC Red Blood Cell Count 3.87 M/uL (3.86-4.86)
[2019-01-04] MEDS ORDERED: KETOROLAC 30 MG/ML INJ ONE (01:58)
[2019-01-04 02:14] LABS: ALT/SGPT 63 U/L (12-78); AST/SGOT 48 U/L (15-37); Albumin 3.5 g/dL (3.4-5.0); Alkaline Phosphatase 66 U/L (45-117); BUN Blood Urea Nitrogen 14 mg/dL (7-18); Bicarbonate 23 mmol/L (21-32); Bilirubin Total 0.3 mg/dL (0.2-1.0); Glucose Level 93 mg/dL (74-106); Potassium 3.2 mmol/L (3.5-5.1); Protein, Total 6.9 g/dL (6.4-8.2); Sodium Level 143 mmol/L (136-145); Troponin (Emerg Dept Use Only) < 0.02 ng/mL (0.0-0.045)
--- NOTE | 2019-01-04 03:09 | ER ---
Nurse's Notes [facility] Name: Jerrell Rm Age: 43 yrs Sex: Female : 1975 Arrival Date: 01/04/2019 Time: 01:32 Bed 5 Private MD: Diagnosis: Other chest pain;Anxiety disorder, unspecified Presentation: 01/04 01:38 Presenting complaint: EMS states: "we were toned out for a patient having convulsions jd3 and a defoliator malfunction. when we got there the patient was convulsing in bed, but she was able to talk to us. she expressed that her defibrillator fired and that she was having chest pain. we gave 1 mg of Ativan internasal and she was able to walk to the stretcher. vitals looked clear and 12 lead EKG looked normal. we started a 20 G IV to the right AC.". Transition of care: patient was not received from another setting of care. Onset of symptoms was January 04, 2019. Risk Assessment: Do you want to hurt yourself or someone else? Patient reports no desire to harm self or others. Initial Sepsis Screen: Does the patient meet any 2 criteria? No. Patient's initial sepsis screen is negative. Does the patient have a suspected source of infection? No. Patient's initial sepsis screen is negative. Care prior to arrival: Medication(s) given: Ativan 1 mg IV initiated. 20 GA, in the right antecubital area, Glucose check: 102 Oxygen administered. via nasal cannula. 01:38 Method Of Arrival: EMS: [facility] jd3 01:38 Acuity: EDD 3 jd3 DISTRIBUTOR OF DIRECTORIES: 04:16 LMP N/A - Irregular menses jd3 Historical: - Allergies: 01:44 Heparin; jd3 - Home Meds: 01:44 Coreg 25 mg Oral tab 1 tab 2 times per day [Active]; Lasix 40 mg Oral tab 1 tab 2 times jd3 per day [Active]; spironolactone 25 mg Oral tab 1 tab once daily [Active]; - PMHx: 01:44 Anxiety; cardiomyopathy; CHF; Pancreatitis; jd3 - PSHx: 01:44 Heart Surgery; jd3 - Immunization history:: Adult Immunizations up to date. - Social history:: Smoking status: Patient/guardian denies using tobacco. - Ebola Screening: : Patient negative for fever greater than or equal to 101.5 degrees Fahrenheit, and additional compatible Ebola Virus Disease symptoms. Screenin:46 Abuse screen: Denies threats or abuse. Nutritional screening: No deficits noted. jd3 Tuberculosis screening: No symptoms or risk factors identified. Fall Risk IV access (20 points). Ambulatory Aid- None/Bed Rest/Nurse Assist (0 pts). Gait- Weak (10 pts.). Mental Status- Oriented to own ability (0 pts). Total Ng Fall Scale indicates Low Risk Score (25-44 pts). Fall prevention measures have been instituted. Side Rails Up X 2 Placed close to Nursing Station Frequent Obs/Assesments occuring Family Present and informed to notify staff if they need to leave bedside. Assessment: 02:10 General: Appears uncomfortable, well groomed, well nourished, Behavior is cooperative, jd3 appropriate for age, anxious. Pain: Complains of pain in chest Pain radiates to neck Quality of pain is described as radiating. Neuro: Level of Consciousness is awake, alert, obeys commands, Oriented to person, place, time, situation. Cardiovascular: Capillary refill < 3 seconds Patient's skin is warm and dry. Rhythm is regular. Respiratory: Airway is patent Respiratory effort is even, unlabored, Respiratory pattern is regular, symmetrical, Denies cough, shortness of breath. GI: No signs and/or symptoms were reported involving the gastrointestinal system. : No signs and/or symptoms were reported regarding the genitourinary system. EENT: No signs and/or symptoms were reported regarding the EENT system. Derm: Skin is intact, Skin is dry, Skin is normal, Skin temperature is warm. Musculoskeletal: Circulation, motion, and sensation intact. Range of motion: intact in all extremities. 03:34 Reassessment: Patient appears in no apparent distress at this time. No changes from jd3 previously documented assessment. Patient and/or family updated on plan of care and expected duration. Pain level reassessed. Patient is alert, oriented x 3, equal unlabored respirations, skin warm/dry/pink. 04:14 Reassessment: Patient appears in no apparent distress at this time. Patient and/or jd3 family updated on plan of care and expected duration. Pain level reassessed. Patient is alert, oriented x 3, equal unlabored respirations, skin warm/dry/pink. reported understanding of discharge instructions. assisted patient to vehicle with wheelchair. Vital Signs: 01:44 BP 116 / 79; Pulse 81; Resp 17 S; Temp 98.5(O); Pulse Ox 89% on R/A; Weight 72.57 kg; jd3 Height 5 ft. 6 in. (167.64 cm); Pain 9/10; 01:44 Pulse Ox 95% on 2 lpm NC; jd3 02:25 BP 103 / 68; Pulse 66; Resp 18 S; Pulse Ox 94% on 2 lpm NC; jd3 03:36 BP 92 / 66; Pulse 70; Resp 20 S; Pulse Ox 94% on R/A; jd3 01:44 Body Mass Index 25.82 (72.57 kg, 167.64 cm) jd3 ED Course: 01:32 Patient arrived in ED. jd3 01:37 Felix Blanco MD is Attending Physician. ps1 01:38 Johnathan Diaz, KRISTINA is Primary Nurse. jd3 01:43 Triage completed. jd3 01:45 Arm band placed on. EKG completed in triage. Results shown to MD. jd3 01:45 Maintain EMS IV. Dressing intact. Good blood return noted. Site clean \\T\\ dry. Gauge \\T\\ po 3 site: 20 G right AC. 01:46 Patient has correct armband on for positive identification. Placed in gown. Bed in low jd3 position. Call light in reach. Side rails up X2. Adult w/ patient. 03:36 No provider procedures requiring assistance completed. jd3 04:16 IV discontinued, intact, bleeding controlled, No redness/swelling at site. Pressure jd3 dressing applied. Administered Medications: 01:58 Drug: Ativan 0.5 mg Route: IVP; Site: right antecubital; ea 02:15 Follow up: Response: Marked relief of symptoms ea 02:09 Not Given (Patient Refused; reports it makes her anxious): TORadol - Ketorolac 15 mg ea IVP once 04:15 Drug: [place] 5 mg-325 mg 1 tabs {Note: RASS score of 1..} Route: PO; jd3 04:16 Follow up: Response: Medication administered at discharge. jd3 Outcome: 03:09 Discharge ordered by . ps1 04:14 Discharged to home via wheelchair, with family. jd3 04:14 Condition: stable 04:14 Discharge instructions given to patient, family, Instructed on discharge instructions, follow up and referral plans. Demonstrated understanding of instructions, follow-up care. 04:17 Patient left the ED. jd3 Signatures: Gely Oliva RN Johnathan Olmos ea, RN RN jd3 Singer, Phillip, MD MD ps1 Corrections: (The following items were deleted from the chart) 03:36 03:34 Reassessment: Patient appears in no apparent distress at this time. Patient jd3 and/or family updated on plan of care and expected duration. Pain level reassessed. Patient is alert, oriented x 3, equal unlabored respirations, skin warm/dry/pink. jd3 03:59 01:44 Allergies: Codeine; jd3 jd3 04:15 03:34 Reassessment: Patient appears in no apparent distress at this time. Patient jd3 and/or family updated on plan of care and expected duration. Pain level reassessed. Patient is alert, oriented x 3, equal unlabored respirations, skin warm/dry/pink. Patient states feeling better. jd3
--- NOTE | 2019-01-04 03:10 | EDPHYS ---
Physician Documentation [facility] Name: Jerrell Rm Age: 43 yrs Sex: Female : 1975 Arrival Date: 01/04/2019 Time: 01:32 Bed 5 Private MD: ED Physician Felix Blanco HPI: 01/04 01:37 This 43 yrs old Female presents to ER via Unassigned with complaints of ps1 anxiety, PNES convulsions, and chest pain. 01:37 BIBEMS for chest pain and voluntary convulsions with ability to converse. States she ps1 went to bed in [place] other than stress and SO woke her up reportedly convulsing. She states that she misses her children in [place] and has been under stress with her SO health problems. 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 She states that when her defibrillator goes off it makes her convulse. She has been seen and evaluated for this in past and discussed normal expectations of defibrillator normal function. She states she has had CP for about an hour after the episode, radiates down the left chest towards the abdomen. . 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 - Social history:: Smoking status: Patient/guardian denies using tobacco. - Ebola Screening: : Patient negative for fever greater than or equal to 101.5 degrees Fahrenheit, and additional compatible Ebola Virus Disease symptoms. ROS: 01:37 Constitutional: Negative for fever, chills, and weight loss, Eyes: Negative for injury, ps1 pain, redness, and discharge, Respiratory: Negative for shortness of breath, cough, wheezing, and pleuritic chest pain, Abdomen/GI: Negative for abdominal pain, nausea, vomiting, diarrhea, and constipation, MS/Extremity: Negative for injury and deformity, Skin: Negative for injury, rash, and discoloration. 01:37 Cardiovascular: Positive for chest pain. 01:37 Psych: Positive for anxiety. Exam: 01:37 Constitutional: This is a well developed, well nourished patient who is awake, alert, ps1 and in no acute distress. Head/Face: Normocephalic, atraumatic. Eyes: Pupils equal round and reactive to light, extra-ocular motions intact. Lids and lashes normal. Conjunctiva and sclera are non-icteric and not injected. Cardiovascular: Regular rate and rhythm. No gallops, murmurs, or rubs. Normal PMI, no JVD. No pulse deficits. Respiratory: Lungs have equal breath sounds bilaterally, clear to auscultation and percussion. No rales, rhonchi or wheezes noted. No increased work of breathing, no retractions or nasal flaring. MS/ Extremity: Pulses equal, no cyanosis. Neurovascular intact. Full, normal range of motion. Neuro: Awake and alert, GCS 15, oriented to person, place, time, and situation. Cranial nerves II-XII grossly intact. Sensory grossly intact. 01:37 Chest/axilla: Inspection: midline sternotomy scar, defibrillator in left anterior chest. Vital Signs: 01:44 BP 116 / 79; Pulse 81; Resp 17 S; Temp 98.5(O); Pulse Ox 89% on R/A; Weight 72.57 kg; jd3 Height 5 ft. 6 in. (167.64 cm); Pain 9/10; 01:44 Pulse Ox 95% on 2 lpm NC; jd3 02:25 BP 103 / 68; Pulse 66; Resp 18 S; Pulse Ox 94% on 2 lpm NC; jd3 03:36 BP 92 / 66; Pulse 70; Resp 20 S; Pulse Ox 94% on R/A; jd3 01:44 Body Mass Index 25.82 (72.57 kg, 167.64 cm) jd3 MDM: 01:45 Patient medically screened. ps1 03:06 Data reviewed: vital signs, nurses notes, lab test result(s), EKG, radiologic studies, ps1 and as a result, I will discharge patient. Counseling: I had a detailed discussion with the patient and/or guardian regarding: the historical points, exam findings, and any diagnostic results supporting the discharge/admit diagnosis, lab results, radiology results, the need for outpatient follow up, an medical physiologist, a neurologist, to return to the emergency department if symptoms worsen or persist or if there are any questions or concerns that arise at home. ED course: Symptoms improved. Labs WNL. Normal Lactate. Less anxious. Stable for dc. . 01/04 01:47 Order name: CBC with Diff ps1 01/04 01:47 Order name: CMP ps1 01/04 01:47 Order name: Troponin (emerg Dept Use Only) ps1 01/04 01:47 Order name: Lactate ps1 01/04 01:59 Order name: CBC with Automated Diff; Complete Time: 02:13 EDMS 01/04 02:15 Order name: Comprehensive Metabolic Panel; Complete Time: 02:29 EDMS 01/04 02:15 Order name: Troponin (Emerg Dept Use Only); Complete Time: 02:29 EDMS 01/04 02:25 Order name: Lactate; Complete Time: 02:29 EDMS EC:37 Rate is 81 beats/min. Rhythm is regular. QRS [place] is Normal. QRS interval is prolonged. ps1 QT interval is prolonged. Q waves are Old in leads V1, V2, V3. T waves are Flattened in leads I, II, III, aVL, aVF, V5, V6. No ST changes noted. Clinical impression: NSR w/ Non-specific ST/T Changes and prolonged QT. Old anterior. Interpreted by me. Administered Medications: 01:58 Drug: Ativan 0.5 mg Route: IVP; Site: right antecubital; ea 02:15 Follow up: Response: Marked relief of symptoms ea 02:09 Not Given (Patient Refused; reports it makes her anxious): TORadol - Ketorolac 15 mg ea IVP once 04:15 Drug: [place] 5 mg-325 mg 1 tabs {Note: RASS score of 1..} Route: PO; jd3 04:16 Follow up: Response: Medication administered at discharge. jd3 Disposition: 01/04/19 03:09 Discharged to Home. Impression: Other chest pain, Anxiety disorder, unspecified. - Condition is Stable. - Discharge Instructions: Nonspecific Chest Pain, Panic Attacks, [id number]. - Medication Reconciliation Form, Thank You Letter, Antibiotic Education, Prescription Opioid Use form. - Follow up: Private Physician; When: Tomorrow; Reason: Further diagnostic work-up, Recheck today's complaints, Re-evaluation by your physician. Follow up: Emergency Department; When: As needed; Reason: Fever > 102 F, Worsening of condition. - Problem is an ongoing problem. - Symptoms have improved. Signatures: Dispatcher [employer] EDMS Gely Oliva RN RN ea Davies, Jonathon, RN RN jd3 Singer, Phillip, MD MD ps1 Corrections: (The following items were deleted from the chart) 03:59 01:44 Allergies: Codeine; jd3 jd3 04:17 03:09 01/04/2019 03:09 Discharged to Home. Impression: Other chest pain; Anxiety jd3 disorder, unspecified. Condition is Stable. Forms are Medication Reconciliation Form, Thank You Letter, Antibiotic Education, Prescription Opioid Use. Follow up: Private Physician; When: Tomorrow; Reason: Further diagnostic work-up, Recheck today's complaints, Re-evaluation by your physician. Follow up: Emergency Department; When: As needed; Reason: Fever > 102 F, Worsening of condition. Problem is an ongoing problem. Symptoms have improved. ps1
[2019-01-04] MEDS ORDERED: HYDROCODONE/APAP 5/325 MG TAB ONE (04:00)
--- NOTE | 2019-01-04 07:33 | EKG ---
Test Date: 2019-01-04 Test Time: 01:30:38 [facility] Director: ELLIOTT MEASUREMENT RESULTS: Intervals: Rate: 81 RI: 182 QRSD: 112 QT: 468 QTc: 543 [place]: P: 57 RI: 182 QRS: -10 T: -5 INTERPRETIVE STATEMENTS: Normal sinus rhythm Low voltage QRS Possible Anterolateral infarct, age undetermined Prolonged QT Abnormal ECG Compared to ECG 12/12/2018 01:30:25 No significant changes Electronically Signed On 01-04-19 07:33:11 CDT by Nick Quintero
== END 2019-01-04 04:17 | disposition home or self-care (01) ==
LOC: ER 01:27
DX: F41.9 Anxiety disorder, unspecified (principal); I50.9 Heart failure, unspecified; Z88.8 Allergy status to other drugs, medicaments and biological substances; Z95.810 Presence of automatic (implantable) cardiac defibrillator
CPT/HCPCS: 36415; 80053; 83605; 84484; 85025; 93005; 96374; 99283

== ENCOUNTER 2019-01-21 17:16 | Emergency (ER) | payer SELFPAY ==
--- OUTSIDE RECORDS SUMMARY | 2019-01-21 17:18 | XMS REPORT | Clinical Summary ---
:1975 Author Organization [facility] Address [address] [place] [address] Care Team Providers Name Role Phone Unavailable Primary Care Provider Unavailable Allergies Not on File Medications Not on file Active Problems Not on file Encounters Date Type Specialty Care Team Description 06/06/2018 Telephone Critical Care Medicine Tim Lauren MD after 2018 Social History Tobacco Use Types Packs/Day Years Used Date Never Assessed Sex Assigned at Date Recorded Not on file Job Start Date Occupation Industry Not on file Not on file Not on file Travel History Travel Start Travel End No recent travel history available. Last Filed Vital Signs Not on file Plan of Treatment Not on file Results Not on fileafter 2018
--- OUTSIDE RECORDS SUMMARY | 2019-01-21 17:18 | XMS REPORT ---
:1975 [facility] Address [address] [place] [address] Dr. Israel [address] [place] [id number] Care Team Providers Name Role Phone Unavailable Unavailable Unavailable Problems This patient has no known problems. Allergies, Adverse Reactions, Alerts This patient has no known allergies or adverse reactions. Medications This patient has no known medications.
[2019-01-21] MEDS ORDERED: NA CHLORIDE 0.9% 1,000 ML ONE (17:39)
[2019-01-21] MEDS ORDERED: ONDANSETRON 4 MG/2 ML VIAL ONE (17:39)
[2019-01-21] MEDS ORDERED: PROMETHAZINE 25 MG/ML VIAL ONE (17:45)
[2019-01-21 17:53] LABS: Absolute Lymphocytes (CBC) 1.2 K/uL (0.7-4.9); Basophils % 0.8 % (0-1.3); Lymphocytes % 26.2 % (15.3-44.8); MPV 9.5 fL (7.6-11.3)
[2019-01-21] MEDS ORDERED: FENTANYL CITR 100 MCG/2 ML ONE (18:09)
[2019-01-21 18:20] LABS: Albumin 3.9 g/dL (3.4-5.0); Bilirubin Direct 0.2 mg/dL (0-0.2); Bilirubin Total 0.6 mg/dL (0.2-1.0); Protein, Total 7.6 g/dL (6.4-8.2)
[2019-01-21 18:22] LABS: Potassium 2.9 mmol/L (3.5-5.1)
--- NOTE | 2019-01-21 20:43 | RAD REPORT ---
EXAM DESCRIPTION: CT - Abdomen Pelvis W Contrast - 01/21/2019 8:28 pm CLINICAL HISTORY: ABD PAIN, vomiting, prior history of pancreatitis COMPARISON: None. TECHNIQUE: Biphasic, helical CT imaging of the abdomen and pelvis was performed following 100 ml non -ionic IV contrast. No oral contrast given. All CT scans are performed using dose optimization technique as appropriate and may include automated exposure control or mA/KV adjustment according to patient size. FINDINGS: No suspicious findings in the lung bases. The liver, spleen, and pancreas show no suspicious findings. No pancreatitis findings are currently s een. No focal pancreatic or peripancreatic process. Cholecystectomy clips are present. No biliary bushra e dilatation. Symmetric renal function is seen with no hydronephrosis or suspicious renal mass. No pyelonephritis o r acute parenchymal process. Urinary bladder is fully contracted. No adrenal abnormalities. No dilated bowel loops or bowel wall thickening. No appendicitis findings. No active GI process seen. No free air, free fluid or inflammatory stranding. No hernia, mass or bulky lymphadenopathy. No suspicious bony findings. IMPRESSION: Contrast enhanced CT abdomen and pelvis showing no acute finding.
--- NOTE | 2019-01-21 21:06 | ER ---
Nurse's Notes [facility] Name: Jerrell Rm Age: 44 yrs Sex: Female : 1975 Arrival Date: 01/21/2019 Time: 17:20 Bed 30 Private MD: Diagnosis: Vomiting;Dehydration Presentation: 01/21 17:21 Presenting complaint: Patient states: i have this abd pain and vomiting and diarrhea hj since Monday, denies fever and chills;. Transition of care: patient was not received from another setting of care. Onset of symptoms was January 21, 2019. Risk Assessment: Do you want to hurt yourself or someone else? Patient reports no desire to harm self or others. Initial Sepsis Screen: Does the patient meet any 2 criteria? No. Patient's initial sepsis screen is negative. Does the patient have a suspected source of infection? No. Patient's initial sepsis screen is negative. Care prior to arrival: None. 17:21 Method Of Arrival: Ambulatory 17:21 Acuity: EDD 3 Triage Assessment: 17:52 GI: Reports. rv MENTAL HEALTH THERAPIST: 17:22 LMP N/A - Hysterectomy hj Historical: - Allergies: 17:22 Heparin; hj - PMHx: 17:22 Anxiety; cardiomyopathy; CHF; Pancreatitis; hj - PSHx: 17:22 Heart Surgery; hj - Immunization history:: Adult Immunizations up to date. - Social history:: Smoking status: unknown. - Ebola Screening: : No symptoms or risks identified at this time. Screenin:51 Abuse screen: Denies threats or abuse. Denies injuries from another. Nutritional rv screening: No deficits noted. Tuberculosis screening: No symptoms or risk factors identified. Fall Risk None identified. Assessment: 17:50 General: Appears in no apparent distress. uncomfortable, Behavior is calm, cooperative. rv Pain: Complains of pain in abdomen. Neuro: Level of Consciousness is awake, alert, obeys commands, Oriented to person, place, time, situation. Cardiovascular: Patient's skin is warm and dry. Respiratory: Airway is patent. GI: Abdomen is flat. : No signs and/or symptoms were reported regarding the genitourinary system. EENT: No signs and/or symptoms were reported regarding the EENT system. Derm: Skin is intact. Musculoskeletal: No signs and/or symptoms reported regarding the musculoskeletal system. 20:09 Reassessment: No changes from previously documented assessment. PATIENT IS STILL IN rv PAIN. NAUSEA DECREASED. RESULT OF POTASSIUM IS 2.9. REFERRED AND RELAYED TO DR KRISHNAN. Vital Signs: 17:22 BP 135 / 92; Pulse 82; Resp 18; Temp 98.5(O); Pulse Ox 96% on R/A; Weight 77.11 kg; hj Height 5 ft. 6 in. (167.64 cm); Pain 10/10; 18:00 BP 105 / 81; Pulse 77; Resp 15; Pulse Ox 95% on R/A; rv 19:00 BP 100 / 61; Pulse 74; Resp 16; Pulse Ox 96% on R/A; rv 20:00 BP 121 / 82; Pulse 72; Resp 16; Pulse Ox 96% on R/A; rv 21:00 BP 118 / 76; Pulse 71; Resp 17; Pulse Ox 98% on R/A; rv 21:30 BP 116 / 81; Pulse 81; Resp 18; Pulse Ox 98% on R/A; rv 17:22 Body Mass Index 27.44 (77.11 kg, 167.64 cm) ED Course: 17:20 Patient arrived in ED. mr 17:22 Triage completed. hj 17:22 Arm band placed on right wrist. hj 17:25 Matt Krishnan MD is Attending Physician. gs 17:35 Inserted saline lock: 20 gauge in right antecubital area, using aseptic technique. rv Blood collected. 17:38 Noble Hagan, KRISTINA is Primary Nurse. rv 17:52 Patient has correct armband on for positive identification. Bed in low position. Call rv light in reach. Side rails up X 1. Pulse ox on. NIBP on. 20:05 Inserted saline lock: 22 gauge in left forearm, using aseptic technique. rv 20:29 CT Abd/Pelvis - IV Contrast Only In Process Unspecified. EDMS 21:37 No provider procedures requiring assistance completed. IV discontinued, intact, rv bleeding controlled, No redness/swelling at site. Pressure dressing applied. Administered Medications: 17:40 Drug: NS 0.9% 1000 ml Route: IV; Rate: 1 bolus; Site: right antecubital; rv 21:36 Follow up: IV Status: Completed infusion rv 17:43 CANCELLED (Patient Refused): Zofran 4 mg IVP once; over 2 minutes 17:49 Drug: Phenergan 25 mg {Note: slow administration.} Route: IVP; Site: right antecubital; rv 20:04 Follow up: Response: Marked relief of symptoms; Nausea is decreased rv 18:18 Drug: fentaNYL (PF) 50 mcg {Note: RASS 0.} Route: IVP; Site: right antecubital; rv 20:04 Follow up: Response: Pain is unchanged, physician notified; RASS: Alert and Calm (0) rv 20:02 Drug: fentaNYL (PF) 50 mcg {Note: RASS 0.} Route: IVP; Site: left forearm; rv 21:34 Follow up: Response: Pain is decreased; RASS: Alert and Calm (0) rv Outcome: 21:05 Discharge ordered by MD. 21:37 Discharged to home ambulatory, with family. rv 21:37 Condition: good 21:37 Discharge instructions given to patient, Instructed on discharge instructions, follow up and referral plans. medication usage, Demonstrated understanding of instructions, follow-up care, medications, Prescriptions given X 1. 21:37 Patient left the ED. rv Signatures: Dispatcher [employer] EDWY Sydnie AcunaJamin RN RN Matt Mera MD MD gs Vicente, Ronaldo, RN RN rv Corrections: (The following items were deleted from the chart) 17:24 17:22 Pulse 82bpm; Resp 18bpm; Pulse Ox 96% RA; Temp 98.5F Oral; 77.11 kg; Height 5 ft. hj 6 in.; BMI: 27.4; Pain 10/10; hj 20:03 18:18 fentaNYL (PF) 50 mcg IVP in right antecubital rv rv 20:04 20:02 fentaNYL (PF) 50 mcg IVP in left forearm rv rv
--- NOTE | 2019-01-21 21:06 | EDPHYS ---
Physician Documentation [facility] Name: Jerrell Rm Age: 44 yrs Sex: Female : 1975 Arrival Date: 01/21/2019 Time: 17:20 Bed 30 Private MD: ED Physician Matt Krishnan HPI: 01/21 19:54 This 44 yrs old Female presents to ER via Ambulatory with complaints of gs Vomiting/Diarrhea. 20:34 The patient presents to the emergency department with nausea, vomiting, diarrhea. gs Onset: The symptoms/episode began/occurred 2 day(s) ago. Possible causes: bad food exposure. The symptoms are aggravated by nothing. The symptoms are alleviated by nothing. Associated signs and symptoms: Pertinent positives: abdominal pain. Severity of symptoms: At their worst the symptoms were moderate in the emergency department the symptoms are unchanged. The patient has experienced similar episodes in the past, a few times. The patient has not recently seen a physician. [employer]: 17:22 LMP N/A - Hysterectomy hj Historical: - Allergies: 17:22 Heparin; hj - PMHx: 17:22 Anxiety; cardiomyopathy; CHF; Pancreatitis; hj - PSHx: 17:22 Heart Surgery; hj - Immunization history:: Adult Immunizations up to date. - Social history:: Smoking status: unknown. - Ebola Screening: : No symptoms or risks identified at this time. ROS: 20:34 All other systems are negative. gs Exam: 20:34 Head/Face: Normocephalic, atraumatic. Eyes: Pupils equal round and reactive to light, gs extra-ocular motions intact. Lids and lashes normal. Conjunctiva and sclera are non-icteric and not injected. Cornea within normal limits. Periorbital areas with no swelling, redness, or edema. ENT: Nares patent. No nasal discharge, no septal abnormalities noted. Tympanic membranes are normal and external auditory canals are clear. Oropharynx with no redness, swelling, or masses, exudates, or evidence of obstruction, uvula midline. Mucous membranes moist. Neck: Trachea midline, no thyromegaly or masses palpated, and no cervical lymphadenopathy. Supple, full range of motion without nuchal rigidity, or vertebral point tenderness. No Meningismus. Chest/axilla: Normal chest wall appearance and motion. Nontender with no deformity. No lesions are appreciated. Cardiovascular: Regular rate and rhythm with a normal S1 and S2. No gallops, murmurs, or rubs. Normal PMI, no JVD. No pulse deficits. Respiratory: Lungs have equal breath sounds bilaterally, clear to auscultation and percussion. No rales, rhonchi or wheezes noted. No increased work of breathing, no retractions or nasal flaring. Back: No spinal tenderness. No costovertebral tenderness. Full range of motion. Skin: Warm, dry with normal turgor. Normal color with no rashes, no lesions, and no evidence of cellulitis. MS/ Extremity: Pulses equal, no cyanosis. Neurovascular intact. Full, normal range of motion. Neuro: Awake and alert, GCS 15, oriented to person, place, time, and situation. Cranial nerves II-XII grossly intact. Motor strength 5/5 in all extremities. Sensory grossly intact. Cerebellar exam normal. Normal gait. 20:34 Constitutional: The patient appears alert, awake, uncomfortable. 20:34 Abdomen/GI: Palpation: mild abdominal tenderness, in all quadrants, rebound tenderness, is not appreciated. Vital Signs: 17:22 BP 135 / 92; Pulse 82; Resp 18; Temp 98.5(O); Pulse Ox 96% on R/A; Weight 77.11 kg; hj Height 5 ft. 6 in. (167.64 cm); Pain 10/10; 18:00 BP 105 / 81; Pulse 77; Resp 15; Pulse Ox 95% on R/A; rv 19:00 BP 100 / 61; Pulse 74; Resp 16; Pulse Ox 96% on R/A; rv 20:00 BP 121 / 82; Pulse 72; Resp 16; Pulse Ox 96% on R/A; rv 21:00 BP 118 / 76; Pulse 71; Resp 17; Pulse Ox 98% on R/A; rv 21:30 BP 116 / 81; Pulse 81; Resp 18; Pulse Ox 98% on R/A; rv 17:22 Body Mass Index 27.44 (77.11 kg, 167.64 cm) MDM: 17:54 Patient medically screened. 20:34 Differential diagnosis: Nonspecific abd pain, pancreatitis, appendicitis, gs diverticulitis. Data reviewed: vital signs, nurses notes, lab test result(s), radiologic studies. 21:03 Counseling: I had a detailed discussion with the patient and/or guardian regarding: the gs historical points, exam findings, and any diagnostic results supporting the discharge/admit diagnosis, lab results, radiology results, the need for outpatient follow up. Response to treatment: the patient's symptoms have markedly improved after treatment, the patient's condition has returned to base line, and as a result, I will discharge patient. 01/21 17:26 Order name: Basic Metabolic Panel; Complete Time: 18:42 01/21 17: Order name: CBC with Diff; Complete Time: 18:42 01/21 17: Order name: Hepatic Function; Complete Time: 18:42 01/21 17: Order name: Lipase; Complete Time: 18:42 01/21 19:53 Order name: CT Abd/Pelvis - IV Contrast Only; Complete Time: 20:44 01/21 17:26 Order name: IV Saline Lock; Complete Time: 17:58 01/21 17:26 Order name: Labs collected and sent; Complete Time: 17:58 Administered Medications: 17:40 Drug: NS 0.9% 1000 ml Route: IV; Rate: 1 bolus; Site: right antecubital; rv 21:36 Follow up: IV Status: Completed infusion rv 17:43 CANCELLED (Patient Refused): Zofran 4 mg IVP once; over 2 minutes 17:49 Drug: Phenergan 25 mg {Note: slow administration.} Route: IVP; Site: right antecubital; rv 20:04 Follow up: Response: Marked relief of symptoms; Nausea is decreased rv 18:18 Drug: fentaNYL (PF) 50 mcg {Note: RASS 0.} Route: IVP; Site: right antecubital; rv 20:04 Follow up: Response: Pain is unchanged, physician notified; RASS: Alert and Calm (0) rv 20:02 Drug: fentaNYL (PF) 50 mcg {Note: RASS 0.} Route: IVP; Site: left forearm; rv 21:34 Follow up: Response: Pain is decreased; RASS: Alert and Calm (0) rv Disposition: 01/21/19 21:05 Discharged to Home. Impression: Vomiting, Dehydration. - Condition is Stable. - Discharge Instructions: Nausea and Vomiting, Adult. - Prescriptions for promethazine 25 mg Oral Tablet - take 1 tablet by ORAL route every 8 hours As needed; 15 tablet. - Medication Reconciliation Form, Thank You Letter, Antibiotic Education, Prescription Opioid Use form. - Follow up: Private Physician; When: 2 - 3 days; Reason: Re-evaluation by your physician. Signatures: Dispatcher [employer] EDMS Jamin Arredondo RN RN Matt Krishnan MD MD Noble Hagan RN RN rv Corrections: (The following items were deleted from the chart) 17:43 17:26 Zofran 4 mg IVP once; over 2 minutes ordered. [facility] 20: 19:54 The patient presents to the emergency department with vomiting, abdominal pain, [facility] : 19:54 Onset: The symptoms/episode began/occurred 2 day(s) ago, and became persistent [facility] ::54 Possible causes: RECENT SURGERY [facility] : 19:54 The symptoms are aggravated by food , The symptoms are alleviated by nothing. [facility] 20: 19:54 Severity of symptoms: At their worst the symptoms were moderate in the emergency department the symptoms are unchanged ::54 Associated signs and symptoms: Pertinent negatives: fever, [facility] 20: 19:54 The patient has not experienced similar symptoms in the past, [facility] 20: 19:54 All other systems are negative, [facility] 21:03 20:34 Response to treatment: the patient's symptoms have mildly improved after treatment, 21:37 21:05 01/21/2019 21:05 Discharged to Home. Impression: Vomiting; Dehydration. Condition rv is Stable. Forms are Medication Reconciliation Form, Thank You Letter, Antibiotic Education, Prescription Opioid Use. Follow up: Private Physician; When: 2 - 3 days; Reason: Re-evaluation by your physician.
== END 2019-01-21 21:37 | disposition home or self-care (01) ==
LOC: ER 17:16
DX: E86.0 Dehydration (principal); Z88.8 Allergy status to other drugs, medicaments and biological substances
CPT/HCPCS: 36415; 74177; 80048; 80076; 83690; 85025; 99284; J2405; J2550; J3010; J7030; Q9967

== ENCOUNTER 2019-06-04 07:02 | Emergency (ER) | payer SELFPAY ==
--- OUTSIDE RECORDS SUMMARY | 2019-06-04 07:04 | XMS REPORT ---
:1975 [facility] [address] [place] [address] Dr. Israel [address] [place] [id number] Care Team Providers Name Role Phone Unavailable Unavailable Unavailable Problems This patient has no known problems. Allergies, Adverse Reactions, Alerts This patient has no known allergies or adverse reactions. Medications This patient has no known medications.
[2019-06-04] MEDS ORDERED: METOCLOPRAMIDE 10 MG/2mL INJ ONE (07:35)
[2019-06-04] MEDS ORDERED: DIPHENHYDRAMINE 50 MG/ML VIAL ONE (07:35)
[2019-06-04] MEDS ORDERED: NA CHLORIDE 0.9% 500 ML ONE (07:36)
[2019-06-04 08:14] LABS: Absolute Lymphocytes (CBC) 1.4 K/uL (0.7-4.9); Basophils % 0.6 % (0-1.3); Hematocrit 40.3 % (36.0-45.0); MPV 9.5 fL (7.6-11.3)
[2019-06-04 08:27] LABS: Albumin 3.9 g/dL (3.4-5.0); Bilirubin Total 0.3 mg/dL (0.2-1.0); Potassium 3.9 mmol/L (3.5-5.1); Protein, Total 7.4 g/dL (6.4-8.2)
[2019-06-04] MEDS ORDERED: POTASSIUM CL SA 10 MEQ TAB PO ONE (08:33)
--- NOTE | 2019-06-04 08:48 | RAD REPORT ---
EXAM DESCRIPTION: CT - Head Brain Wo Cont - 06/04/2019 8:33 am CLINICAL HISTORY: Headache COMPARISON: August 2018 TECHNIQUE: Computed axial tomography of the head was obtained. IV contrast was not requested. All CT scans are performed using dose optimization technique as appropriate and may include automated exposure control or mA/KV adjustment according to patient size. FINDINGS: An intracranial bleed is not seen . The ventricles are normal in caliber. No extra-axial fluid collection is noted. Fluid within the sinuses/ mastoids is not seen. IMPRESSION: No acute intracranial abnormality is seen. If patient's symptoms persist MRI of the bra in would be recommended.
[2019-06-04] MEDS ORDERED: dexAMETHasone 10 MG/ML VIAL ONE (09:03)
[2019-06-04] MEDS ORDERED: KETOROLAC 30 MG/ML INJ ONE (09:03)
[2019-06-04 09:38] LABS: Urine Blood NEGATIVE (NEG); Urine Glucose NEGATIVE (NEG); Urine Protein NEGATIVE (NEG); Urine Specific Gravity 1.015 (1.005-1.030); Urine pH 5.5 (5.0-7.0)
--- NOTE | 2019-06-04 10:28 | RAD REPORT ---
EXAM DESCRIPTION: CT - Head angio - 06/04/2019 10:17 am CLINICAL HISTORY: HEADACHE Headache, drowsiness COMPARISON: Head Brain Wo Cont dated 06/04/2019; Facial Bones W/ Mpr dated 09/20/2018; Neck Angio dated 06/04/2019 TECHNIQUE: CT angiography of the head was performed with MIPs. All CT scans are performed using dose optimization technique as appropriate and may include automated exposure control or mA/KV adjustment according to patient size. FINDINGS: No evidence of aneurysm is detected. No flow-limiting stenosis or vascular malformation id entified. Antegrade flow is seen in the vertebral arteries. The vertebral arteries are codominant. The visualized dural venous sinuses are patent. IMPRESSION: No significant flow abnormality is detected.
--- NOTE | 2019-06-04 10:30 | RAD REPORT ---
EXAM DESCRIPTION: CT - Neck Angio - 06/04/2019 10:21 am CLINICAL HISTORY: headache, dizziness Headache, drowsiness, dizziness. COMPARISON: No comparisons TECHNIQUE: CT angiography of the neck vessels was performed with MIPs. All CT scans are performed using dose optimization technique as appropriate and may include automated exposure control or mA/KV adjustment according to patient size. FINDINGS: A left aortic arch is identified with normal three vessel configuration of the great vesse ls. No significant flow abnormality is seen of the common carotid bilaterally. No significant stenosis is identified involving the cervical segments of both internal carotid arteri es. Normal flow is seen within both vertebral arteries. IMPRESSION: No significant flow abnormality of the neck vessels is identified.
--- NOTE | 2019-06-04 10:47 | ER ---
Nurse's Notes [facility] Name: Jerrell Rm Age: 44 yrs Sex: Female : 1975 Arrival Date: 06/04/2019 Time: 07:04 Bed 8 Private MD: Diagnosis: Headache Presentation: 06/04 07:31 Presenting complaint: Patient states: headache X 3 days, +dizziness, pain radiates from iw back of head to front and down neck, mostly on right side, +hx of migraines but this one is worse, also had a cough/cold 5 days ago. Transition of care: patient was not received from another setting of care. Onset of symptoms was June 01, 2018. Risk Assessment: Do you want to hurt yourself or someone else? Patient reports no desire to harm self or others. Initial Sepsis Screen: Does the patient meet any 2 criteria? No. Patient's initial sepsis screen is negative. Does the patient have a suspected source of infection? No. Patient's initial sepsis screen is negative. Care prior to arrival: None. 07:31 Method Of Arrival: Wheelchair iw 07:31 Acuity: EDD 3 iw Triage Assessment: 09:38 Headache History: The patient has had previous headaches and this one is more severe mg2 than previous episodes. General: Appears in no apparent distress. comfortable, Behavior is calm, cooperative. Pain: Complains of pain in right religious Quality of pain is described as aching, Pain began gradually, Also complains of no other associated symptoms. 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 - Social history:: Smoking status: Patient/guardian denies using tobacco. - Ebola Screening: : Patient negative for fever greater than or equal to 101.5 degrees Fahrenheit, and additional compatible Ebola Virus Disease symptoms Patient denies exposure to infectious person Patient denies travel to an Ebola-affected area in the 21 days before illness onset No symptoms or risks identified at this time. Screenin:11 Abuse screen: Denies threats or abuse. Denies injuries from another. Nutritional hb screening: No deficits noted. Tuberculosis screening: No symptoms or risk factors identified. Fall Risk None identified. Assessment: 07:45 General: Appears in no apparent distress. Behavior is calm, cooperative. Pain: Pain hb currently is 10 out of 10 on a pain scale. Neuro: Level of Consciousness is awake, alert, obeys commands, Oriented to person, place, time, situation. Cardiovascular: Capillary refill < 3 seconds Patient's skin is warm and dry. Respiratory: Airway is patent Respiratory effort is even, unlabored, Respiratory pattern is regular, symmetrical, Breath sounds are clear bilaterally. GI: No signs and/or symptoms were reported involving the gastrointestinal system. : No signs and/or symptoms were reported regarding the genitourinary system. EENT: No signs and/or symptoms were reported regarding the EENT system. Derm: Skin is pink, warm \T\ dry. Musculoskeletal: No signs and/or symptoms reported regarding the musculoskeletal system. 08:46 Reassessment: Pt c/o anxiety, headache 10. ZABRINA Silva notified, no new orders at this hb time. 08:54 Reassessment: Patient appears in no apparent distress at this time. No changes from previously documented assessment. Patient and/or family updated on plan of care and expected duration. Pain level reassessed. Patient is alert, oriented x 3, equal unlabored respirations, skin warm/dry/pink. 09:45 Reassessment: Patient appears in no apparent distress at this time. Patient and/or hb family updated on plan of care and expected duration. Pain level reassessed. Patient is alert, oriented x 3, equal unlabored respirations, skin warm/dry/pink. 10:45 Reassessment: Patient appears in no apparent distress at this time. Patient and/or hb family updated on plan of care and expected duration. Pain level reassessed. Patient is alert, oriented x 3, equal unlabored respirations, skin warm/dry/pink. Vital Signs: 07:35 BP 120 / 94; Pulse 72; Resp 16; Temp 98.2; Pulse Ox 100% on R/A; Weight 77.11 kg; iw Height 5 ft. 6 in. (167.64 cm); Pain 10/10; 08:45 BP 124 / 88; Pulse 70; Resp 15; Pulse Ox 100% on R/A; Pain 10/10; hb 10:00 BP 126 / 86; Pulse 74; Resp 15; Pulse Ox 100% on R/A; Pain 1/10; hb 07:35 Body Mass Index 27.44 (77.11 kg, 167.64 cm) iw ED Course: 07:04 Patient arrived in ED. ds1 07:05 Ricardo Stringer PA is PHCP. jmm 07:05 Valdo Ch MD is Attending Physician. jmm 07:28 Carli aGribay, RN is Primary Nurse. hb 07:34 Triage completed. iw 07:35 Arm band placed on. iw 07:48 Missed attempt(s): 24 gauge in right forearm. Bleeding controlled, band aid applied, hb catheter tip intact. 07:58 Missed attempt(s): 22 gauge in right antecubital area. Bleeding controlled, band aid hb applied, catheter tip intact. 08:08 Inserted saline lock: 22 gauge in left antecubital area, using aseptic technique. Blood hb collected. 08:11 Patient has correct armband on for positive identification. Bed in low position. Call hb light in reach. Side rails up X 1. 08:32 CT Head Brain wo Cont In Process Unspecified. EDMS 09:23 EKG done, by lead quality control technician. reviewed by Ricardo GERBER. at1 09:38 No provider procedures requiring assistance completed. mg2 10:19 CT Head Angio In Process Unspecified. EDMS 10:19 CT Neck Angio In Process Unspecified. EDMS 10:45 Elbert Hunter MD is Referral Physician. jmm 10:55 IV discontinued, intact, bleeding controlled, No redness/swelling at site. Pressure hb dressing applied. Administered Medications: 08:09 Drug: diphenhydrAMINE 25 mg Route: IVP; Site: left antecubital; hb 08:45 Follow up: Response: No adverse reaction hb 08:10 Drug: Reglan 10 mg Route: IVP; Site: left antecubital; hb 08:45 Follow up: Response: No adverse reaction hb 08:11 Drug: NS 0.9% 500 ml Route: IV; Rate: bolus; Site: left antecubital; hb 08:50 Follow up: Response: No adverse reaction; IV Status: Completed infusion; IV Intake: hb 500ml 08:36 Not Given (Duplicate Order): Potassium Chloride 40 mEq PO once [facility] 09:04 Drug: Ketorolac 30 mg Route: IVP; Site: left antecubital; hb 09:38 Follow up: Response: No adverse reaction; Marked relief of symptoms mg2 09:05 Drug: Decadron - Dexamethasone 10 mg Route: IVP; Site: left antecubital; hb 09:38 Follow up: Response: No adverse reaction; Marked relief of symptoms mg2 Intake: 08:50 IV: 500ml; Total: 500ml. hb Outcome: 10:46 Discharge ordered by . [facility] 10:55 Discharged to home ambulatory. hb 10:55 Condition: stable 10:55 Discharge instructions given to patient, Instructed on discharge instructions, follow up and referral plans. medication usage, Demonstrated understanding of instructions, follow-up care, medications. 10:56 Patient left the ED. hb Signatures: Dispatcher [employer] EDMS Ricardo Stringer PA PA Sharmila Price ds1 Ghazala Elaine RN RN iw Bibi Kilgore, laborer carpentry dock EKG Tat1 Carli Garibay RN RN Darius Arizmendi RN RN mg2 Corrections: (The following items were deleted from the chart) 10:54 10:00 BP 126 / 86; Pulse 74bpm; Resp 15bpm; Pulse Ox 100% RA; hb hb 10:55 10:00 IV discontinued, intact, bleeding controlled, No redness/swelling at site. hb Pressure dressing applied, hb
--- NOTE | 2019-06-04 10:48 | EDPHYS ---
Physician Documentation [facility] Name: Jerrell Rm Age: 44 yrs Sex: Female : 1975 Arrival Date: 06/04/2019 Time: 07:04 Bed 8 Private MD: ED Physician Valdo Ch HPI: 06/04 07:37 This 44 yrs old Female presents to ER via Wheelchair with complaints of jmm Headache. 07:37 The patient complains of pain to the right amish, right frontal area, right side of jmm the back of head, right occipital area and right base of the skull. Onset: The symptoms/episode began/occurred gradually, 3 day(s) ago. Associated signs and symptoms: Pertinent positives: dizziness. Headache History: The patient has had previous headaches. The symptoms are alleviated by nothing. the symptoms are aggravated by lights, movement. This is a 44 year old female with a history of cardiomyopathy, CHF, that presents to the ED with complaints of gradual onset right sided headache over the past 3 days. Patient states she developed cough, congestion 5 days prior. Denies fever. Headache radiates to the base of her skull. Patient has had migraines in the past. This episode has last longer and is more intense than previous. . 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 - Social history:: Smoking status: Patient/guardian denies using tobacco. - Ebola Screening: : Patient negative for fever greater than or equal to 101.5 degrees Fahrenheit, and additional compatible Ebola Virus Disease symptoms Patient denies exposure to infectious person Patient denies travel to an Ebola-affected area in the 21 days before illness onset No symptoms or risks identified at this time. ROS: 07:37 Constitutional: Negative for fever, chills, and weight loss, Cardiovascular: Negative jmm for chest pain, palpitations, and edema. 07:37 ENT: Positive for sinus congestion. 07:37 Respiratory: Positive for cough. 07:37 Neuro: Positive for headache. 07:37 All other systems are negative. Exam: 07:37 Constitutional: This is a well developed, well nourished patient who is awake, alert, jmm and in no acute distress. Head/Face: atraumatic. Eyes: EOMI, no conjunctival erythema appreciated ENT: Moist Mucus Membranes Neck: Trachea midline, Supple Chest/axilla: Normal chest wall appearance and motion. Cardiovascular: Regular rate and rhythm. No edema appreciated Respiratory: Normal respirations, no respiratory distress appreciated Abdomen/GI: Non distended, soft Back: Normal ROM Skin: General appearance color normal MS/ Extremity: Moves all extremities, no obvious deformities appreciated, no edema noted to the lower extremities Neuro: Awake and alert, normal gait Psych: Behavior is normal, Mood is normal, Patient is cooperative and pleasant Vital Signs: 07:35 BP 120 / 94; Pulse 72; Resp 16; Temp 98.2; Pulse Ox 100% on R/A; Weight 77.11 kg; iw Height 5 ft. 6 in. (167.64 cm); Pain 10/10; 08:45 BP 124 / 88; Pulse 70; Resp 15; Pulse Ox 100% on R/A; Pain 10/10; hb 10:00 BP 126 / 86; Pulse 74; Resp 15; Pulse Ox 100% on R/A; Pain 1/10; hb 07:35 Body Mass Index 27.44 (77.11 kg, 167.64 cm) iw MDM: 07:19 Patient medically screened. [facility] 10:44 Data reviewed: vital signs, nurses notes. Counseling: I had a detailed discussion with [facility] the patient and/or guardian regarding: the historical points, exam findings, and any diagnostic results supporting the discharge/admit diagnosis, lab results, radiology results, the need for outpatient follow up, to return to the emergency department if symptoms worsen or persist or if there are any questions or concerns that arise at home. ED course: Pain relieved in the ED. CT and CTA negative. Patient's neck is supple. I do not suspect SAH or meningitis. Patient advised to follow up with neuro for reevaluation. patient understood and agrees with the plan of care. . 06/04 07:29 Order name: CBC with Diff; Complete Time: 08:29 [facility] 06/04 07:29 Order name: CMP; Complete Time: 08:29 [facility] 06/04 07:29 Order name: Flu; Complete Time: 08:50 [facility] 06/04 07:30 Order name: CT Head Brain wo Cont; Complete Time: 08:50 [facility] 06/04 08:50 Order name: Urine Dipstick--Ancillary (enter results); Complete Time: 09:41 06/04 08:52 Order name: CT Head Angio; Complete Time: 10:52 [facility] 06/04 07:29 Order name: Saline Lock; Complete Time: 08:11 [facility] 06/04 08:52 Order name: CT Neck Angio; Complete Time: 10:52 [facility] 06/04 07:30 Order name: Urine Dipstick-Ancillary (obtain specimen); Complete Time: 08:43 [facility] 06/04 08:53 Order name: EKG - Nurse/Tech; Complete Time: 09:04 jm Administered Medications: 08:09 Drug: diphenhydrAMINE 25 mg Route: IVP; Site: left antecubital; hb 08:45 Follow up: Response: No adverse reaction hb 08:10 Drug: Reglan 10 mg Route: IVP; Site: left antecubital; hb 08:45 Follow up: Response: No adverse reaction hb 08:11 Drug: NS 0.9% 500 ml Route: IV; Rate: bolus; Site: left antecubital; hb 08:50 Follow up: Response: No adverse reaction; IV Status: Completed infusion; IV Intake: hb 500ml 08:36 Not Given (Duplicate Order): Potassium Chloride 40 mEq PO once [facility] 09:04 Drug: Ketorolac 30 mg Route: IVP; Site: left antecubital; hb 09:38 Follow up: Response: No adverse reaction; Marked relief of symptoms mg2 09:05 Drug: Decadron - Dexamethasone 10 mg Route: IVP; Site: left antecubital; hb 09:38 Follow up: Response: No adverse reaction; Marked relief of symptoms mg2 Disposition: 06/04/19 10:46 Discharged to Home. Impression: Headache. - Condition is Stable. - Discharge Instructions: Migraine Headache. - Medication Reconciliation Form, Thank You Letter, Antibiotic Education, Prescription Opioid Use form. - Follow up: Elbert Hunter MD; When: 2 - 3 days; Reason: Recheck today's complaints, Continuance of care, Re-evaluation by your physician. Addendum: 06/06/2019 22:58 Co-signature as Attending Physician, Valdo marin Signatures: Dispatcher [employer] EDValdo Gilbert MD MD pkl Mickail, Joel, PA PA [facility] Ghazala Elaine RN RN Carli Garibay RN RN Darius Arizmendi RN mg2 Corrections: (The following items were deleted from the chart) 06/04 08:43 07:30 Urine Test ordered. [facility] 10:56 10:46 06/04/2019 10:46 Discharged to Home. Impression: Headache. Condition is Stable. hb Forms are Medication Reconciliation Form, Thank You Letter, Antibiotic Education, Prescription Opioid Use. Follow up: Elbert Hunter; When: 2 - 3 days; Reason: Recheck today's complaints, Continuance of care, Re-evaluation by your physician. [facility]
[2019-06-04 11:14] VITALS: TEMP 98.2; O2SAT 100
[2019-06-04 11:19] VITALS: BP 126/86
--- NOTE | 2019-06-04 16:40 | EKG ---
Test Date: 2019-06-04 Test Time: 10:02:14 Manager Sales Training: SHAKEEL MEASUREMENT RESULTS: Intervals: Rate: 74 AR: 156 QRSD: 104 QT: 450 QTc: 499 Loving: P: 267 AR: 156 QRS: 88 T: -56 INTERPRETIVE STATEMENTS: Unusual P axis, possible ectopic atrial rhythm Low voltage QRS Cannot rule out Anterior infarct, age undetermined T wave abnormality, consider lateral ischemia Abnormal ECG Compared to ECG 01/04/2019 01:30:38 T-wave abnormality now present Possible ischemia now present Sinus rhythm no longer present Prolonged QT interval no longer present Myocardial infarct finding still present Electronically Signed On 06-04-19 16:39:57 VICE PRESIDENT [employer] by Bradley Kraus
== END 2019-06-04 10:56 | disposition home or self-care (01) ==
LOC: ER 07:02
DX: R51 Headache (principal); F41.9 Anxiety disorder, unspecified; I50.9 Heart failure, unspecified; Z88.8 Allergy status to other drugs, medicaments and biological substances
CPT/HCPCS: 36415; 70450; 70496; 70498; 80053; 81003; 85025; 87804; 93005; 96361; 96374; 96375; 99284; J1100; J1200; J2765; J7040; Q9967

== ENCOUNTER 2019-09-14 00:09 | Emergency (ER) | payer SELFPAY ==
--- OUTSIDE RECORDS SUMMARY | 2019-09-14 00:11 | XMS REPORT ---
:[address] [facility] t Address [address] [place] [address] Dr. Israel [address] [place] [id number] Care Team Providers Name Role Phone Unavailable Unavailable Unavailable Problems This patient has no known problems. Allergies, Adverse Reactions, Alerts This patient has no known allergies or adverse reactions. Medications This patient has no known medications.
--- OUTSIDE RECORDS SUMMARY | 2019-09-14 00:13 | XMS REPORT | Summary of Care ---
:1975 Author Organization [facility] - [facility] Address [address] [place] [id number] Care Team Providers Name Role Phone Edgardo Noyola [facility] Primary Care Provid er Reason for Referral MRI/CAT Scan (STAT) Status Reason Specialty Diagnoses / Referred By Referred To Procedures Contact Contact New Request Diagnostic Diagnoses Abdominal pain, unspecified abdominal location Robert Jordan, Radiology Procedures CT ABDOMEN PELVIS W CONTRAST [address] [place] [address] [address] [place] [address] Reason for Visit Reason Comments Epigastric Pain pancreatitis Vomiting Auth/Cert Status Reason Specialty Diagnoses / Referred By Referred To Procedures Contact Contact Emergency Medicine Adc Em ergency Dept 132 [facility] [place] [phone] Fax: Encounter Details Date Type Department Care Team Description 06/12/2019 Emergency ADC-Emergency Robert Jordan MD Abdominal pain, unspecified abdominal lo cation (Primary Dx); Department [address] [facility] Acute alcoholic gastritis without hemorr doug; 132 [facility] [address] Alcoholism [place] [phone] [place] [phone] Allergies Active Allergy Reactions Severity Noted Date Comments Heparin Other - See comments 12/07/2017 thrombo cytopenia Ondansetron Hcl (Pf) Other - See comments 03/02/2019 Prolonged QT documented as of this encounter (statuses as of 06/12/2019) Medications Medication Sig Dispensed Refills Start Date End Date Status docusate 100 mg Take 1 capsule by 60 capsule 0 12/13/2017 Active capsule mouth 2 (two) times daily as needed for Constipation. pantoprazole Take 40 mg by 0 Act yancy (PROTONIX) 40 mg EC mouth daily. tablet albuterol 90 Inhale 2 Puffs 8.5 g 0 03/23/2018 A ctive mcg/actuation inhaler every 4 (four) hours as needed for Wheezing or Shortness of Breath. dicyclomine (BENTYL) Take 1 tablet by 20 tablet 0 03/02/2019 Active 20 mg mouth every 6 tabletIndications: (six) hours as Abdominal pain, needed for unspecified abdominal Abdominal pain. location ibuprofen 800 mg Take 1 tablet by 30 tablet 0 04/21/2019 Active tabletIndications: mouth every 8 Weakness, Infectious (eight) hours. mononucleosis without complication, infectious mononucleosis due to unspecified organism proMETHazine 25 mg Take 1 tablet by 20 tablet 0 04/25/2019 Active tabletIndications: mouth every 6 Infectious (six) hours as mononucleosis without needed for Nausea complication, and Vomiting infectious (N/V). mononucleosis due to unspecified organism naproxen sodium Take 1 tablet by 30 tablet 0 04/25/2019 Active (ANAPROX DS) 550 mg mouth 2 (two) tabletIndications: times daily with Infectious meals. mononucleosis without complication, infectious mononucleosis due to unspecified organism sucralfate 1 gram Take 1 tablet by 30 tablet 0 06/12/2019 Active tabletIndications: mouth before Abdominal pain, meals and at unspecified abdominal bedtime. location, Acute alcoholic gastritis without hemorrhage, Alcoholism Pantoprazole Take 40 mg by 30 mg 0 06/12/2019 Ac tive (PROTONIX) 40 mg mouth daily. delayed-release suspensionIndications: Abdominal pain, unspecified abdominal location, Acute alcoholic gastritis without hemorrhage, Alcoholism metoclopramide HCl 10 Take 1 tablet by 20 tablet 0 06/12/2019 Active mg tabletIndications: mouth every 6 Abdominal pain, (six) hours. 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 12/09/2017 ICD (implantable cardioverter-defibrillator) in place 12/09/2017 HTN (hypertension) 12/09/2017 Pancreatitis 12/08/2017 documented as of this encounter (statuses as of 06/12/2019) Immunizations Name Administration Dates Next Due Influenza Virus Vaccine Quad .5 mL IM 6+ MO 03/23/2018 documented as of this encounter Social History Tobacco Use Types Packs/Day Years Used Date Former Smoker Smokeless Tobacco: Never Used Alcohol Use Drinks/Week oz/Week Comments Yes social drink Sex Assigned at Date Recorded Not on file Job Start Date Occupation Industry Not on file Not on file Not on file Travel History Travel Start Travel End No recent travel history available. documented as of this encounter Last Filed Vital Signs Vital Sign Reading Time Taken Comments Blood Pressure 91/61 06/12/2019 6:13 AM PRODUCT SCIENTIST Pulse 80 06/12/2019 6:13 AM PRODUCT SCIENTIST Temperature 36.9 C (98.5 F) 06/12/2019 4:52 AM PRODUCT SCIENTIST Respiratory Rate 15 06/12/2019 6:13 AM PRODUCT SCIENTIST Oxygen Saturation 94% 06/12/2019 6:13 AM PRODUCT SCIENTIST Inhaled Oxygen Concentration - - Weight 81.6 kg (180 lb) 06/12/2019 4:52 AM PRODUCT SCIENTIST Height - - Body Mass Index 29.95 04/21/2019 3:48 PM PRODUCT SCIENTIST documented in this encounter Discharge Instructions InstructionsNeRobert morrell MD - 06/12/2019 RETURN FOR ANY QUESTIONS OR CONCERNS Today you were seen by Robert Jordan Jr., MD You were seen today for Chief Complaint Patient presents with Epigastric Pain pancreatitis Vomiting Your ER diagnosis was ICD-10-CM ICD-9-CM 1. Abdominal pain, unspecified abdominal location R10.9 789.00 2. Acute alcoholic gastritis without hemorrhage K29.20 535.30 3. Alcoholism F10.20 303.90 NO LIFE-THREATENING FINDINGS ON TODAY'S EXAM. YOUR PRESCRIPTIONS : Check out [employer] for medication discounts Medication List ASK your doctor about these medications albuterol 90 mcg/actuation inhaler Commonly known as: VENTOLIN Inhale 2 Puffs every 4 (four) hours as needed for Wheezing or Shortness of Breath. dicyclomine 20 mg tablet Commonly known as: BENTYL Take 1 tablet by mouth every 6 (six) hours as needed for Abdominal pain. docusate 100 mg capsule Commonly known as: COLACE Take 1 capsule by mouth 2 (two) times daily as needed for Constipation. ibuprofen 800 mg tablet Commonly known as: IBU Take 1 tablet by mouth every 8 (eight) hours. naproxen sodium 550 mg tablet Commonly known as: ANAPROX DS Take 1 tablet by mouth 2 (two) times daily with meals. proMETHazine 25 mg tablet Commonly known as: PHENERGAN Take 1 tablet by mouth every 6 (six) hours as needed for Nausea and Vomiting (N/V). PROTONIX 40 mg EC tablet Generic drug: pantoprazole ER precautions and follow up : 1. Return to ER if your symptoms should worsen or fail to improve within 72 hours. 2. The care provided in the emergency room was for acute problems only. 3. You should follow up with your primary care provider within 72 hours. 4. Fill and take all your medications as prescribed. 5. Make sure you are staying adequately hydrated. Busque attencion immediatamente si usted tiene los sitomas sigue, vuelve peor o si hay sitomas nuevas o para cualquiera preoccupacion incluyendo dolor del pecho, falta aire, se siente debile, mas fievre, mas dolor, nausea, vomitando, sangrando que no es normal, confusion, baja or pierdas conciencia. MAY FOLLOW-UP WITH A PROVIDER OF YOUR CHOICE, SUCH : 1. A PHYSICIAN OF YOUR CHOICE 2. [facility], . LOCATIONS IN [facility] 3. [facility], [address] [place] [address]; [phone] OR, IF YOU WISH TO FOLLOW-UP WITHIN THE [facility], MAY TRY THESE OPTIONS (CLINIC APPOINTMENTS AVAILABLE ON TYKO-CA-RWNB BASIS): 1. SCHEDULE AN APPOINTMENT ONLINE AT WWW.[facility] 2. OR CALL THE [facility] AT OR 3. OR CALL YOUR [facility] PHYSICIAN'S OFFICE DIRECTLY IF YOU ARE ALREADY AN ESTABLISHED [facility] PATIENT. [facility] RETURN TO WORK / SCHOOL EXCUSE Jerrell Rm WAS SEEN IN THE ER AND DISCHARGED 06/12/2019 TODAY, 6:11 AM & May return to Work / School / Incarceration on X with activity as tolerated indicated below. ___The following limitations apply until pt is seen by Physician and cleared to return to normal activity. _X_ Off for two days and return to activity as tolerated at work or school ___ No Sports ___ No work ___ Do not return until fever free for 24 hours. ___ No school ROBERT JORDAN Jr., MD [facility] EMERGENCY DEPRTMENT [address] [place] [address] [place] [address] ### The patient may have been given Narcotic pain medications during their stay in the ED that may show up on a Drug Screen. The hospital discharge paper work will identify these medications. AttachmentsThe following attachments cannot be sent through Care Everywhere. Getting Help, Alcoholism (Pakistani)Gastritis (Adult) (Pakistani)documented in this encounter Plan of Treatment Name Type Priority Associated Diagnoses Date/Ti me aPTT LAB STAT Abdominal pain, 06/12/2019 5:56 AM unspecified abdominal PRODUCT SCIENTIST location Prothrombin Time (PT) / LAB STAT Abdominal pain, 0 06/12/2019 5:56 AM INR unspecified abdominal PRODUCT SCIENTIST location Name Type Priority Associated Diagnoses Order S chedule aPTT LAB Routine Abdominal pain, ONCE for 1 O ccurrences unspecified abdominal starti ng 06/12/2019 location until 0 Prothrombin Time (PT) / LAB STAT Abdominal pain, S TAT for 1 Occurrences INR unspecified abdominal starti ng 06/12/2019 location until 0 Health Maintenance Due Date Last Done Comments PNEUMOCOCCAL 0-64 YEARS COMBINED SERIES (1 of 1 - 01/19/1982 PPSV23) DTaP,Tdap,and Td Vaccines (1 - Tdap) 01/19/1987 PAP SMEAR 01/19/1997 Breast Cancer Screening (MAMMOGRAM) 2016 INFLUENZA VACCINE (#1) 2019 03/23/2018 documented as of this encounter Implants Implanted Type Area Poultry Picker Device Shelf Model / Identifier Expiration Serial / Date Lot Defibrillator DEFIBRILLATOR documented as of this encounter Procedures Procedure Name Priority Date/Time Associated Diagnosis Comme nts CT ABDOMEN PELVIS W STAT 06/12/2019 5:50 Abdominal pain, R esults for this CONTRAST AM PRODUCT SCIENTIST unspecified procedure are i n abdominal location the resul ts section. ADC / LCC - DRUG STAT 06/12/2019 5:30 Abdominal pain, Resu lts for this SCREEN TRIAGE AM PRODUCT SCIENTIST unspecified procedure are in abdominal location the resul ts section. POCT TEST JONAS 06/12/2019 5:30 Abdominal pain, R esults for this AM PRODUCT SCIENTIST unspecified procedure are i n abdominal location the resul ts section. URINALYSIS STAT 06/12/2019 5:30 Abdominal pain, Results for this AM PRODUCT SCIENTIST unspecified procedure are i n abdominal location the resul ts section. CBC WITH DIFFERENTIAL STAT 06/12/2019 5:03 Abdominal pain, Results for this AM PRODUCT SCIENTIST unspecified procedure are i n abdominal location the resul ts section. CBC WITH DIFFERENTIAL Routine 06/12/2019 5:03 Abdominal pain, Results for this AM PRODUCT SCIENTIST unspecified procedure are i n abdominal location the resul ts section. ETHANOL STAT 06/12/2019 5:03 Abdominal pain, Results for this AM PRODUCT SCIENTIST unspecified procedure are i n abdominal location the resul ts section. BASIC METABOLIC PANEL STAT 06/12/2019 5:03 Abdominal pain, Results for this (NA, K, CL, CO2, AM PRODUCT SCIENTIST unspecified procedure a re in GLUCOSE, BUN, abdominal location the resu lts CREATININE, CA) section. HEPATIC FUNCTION STAT 06/12/2019 5:03 Abdominal pain, Resu lts for this PANEL ([id number]) AM PRODUCT SCIENTIST unspecified procedure are in (ALB,T.PRO,BILI abdominal location the re sults T,BU/BC,ALT,AST,ALK section. PHOS) TROPONIN I STAT 06/12/2019 5:03 Abdominal pain, Results for this AM PRODUCT SCIENTIST unspecified procedure are i n abdominal location the resul ts section. LIPASE STAT 06/12/2019 5:03 Abdominal pain, Results for this AM PRODUCT SCIENTIST unspecified procedure are i n abdominal location the resul ts section. EKG-12 LEAD STAT 06/12/2019 4:53 AM PRODUCT SCIENTIST CONSENT/REFUSAL FOR Routine 06/12/2019 4:43 DIAGNOSIS AND AM PRODUCT SCIENTIST TREATMENT documented in this encounter Results CT ABDOMEN PELVIS W CONTRAST (06/12/2019 5:50 AM PRODUCT SCIENTIST) Specimen Impressions Performed At 1. No acute intraabdominal pathology. PACS/VR/DOSE 2. Rim-enhancing follicle in the right o vary, likely physiologic. RL: [id number] AFC: [id number] End of Report Electronically signed by Efrain Meyers MD at 05/29 6:01 AM Narrative Performed At EXAM: CT ABDOMEN PELVIS W CONTRAST PACS/VR/DOSE Ordering Physician: ROBERT Sepulveda HISTORY: Abdominal Pain. Abdominal diste ntion. COMPARISON: none TECHNIQUE: CT of the abdomen and pelvis with IV contrast. Coronal and sagittal reformatted images were obtained. CT performe d according to ALARA principles. CT OF THE ABDOMEN WITH IV CONTRAST: There is minimal basilar atelectasis. The liver is n ormal. The patient is post cholecystectomy. The spleen is norm al. The pancreas is normal. The adrenals are normal. The kidneys are normal. The int raabdominal large and small bowel are normal. The appendix is seen in the right lower quadrant and is normal. The intra-abdominal vasculature is norm al. There is no free air, free fluid, or pathologic lymphaden opathy. CT OF THE PELVIS WITH IV CONTRAST: The rectum and sigmoid are normal. The d istal ureters and bladder are normal. There is no free fluid or path ologic lymphadenopathy in the pelvis. The patient is post hysterectomy . The ovaries remain present and appear unremarkable. There is a 15 mm rim-enhancing fo llicle in the right ovary, likely physiologic. Fatty infiltration noted of the right rectus femoris m uscle. The patient is post median sternotomy. Procedure Note [facility], Radiant Results Inft User - 2019 6:02 AM PRODUCT SCIENTIST EXAM: CT ABDOMEN PELVIS W CONTRAST Ordering Physician: ROBERT JORDAN HISTORY: Abdominal Pain. Abdominal diste ntion. COMPARISON: none TECHNIQUE: CT of the abdomen and pelvis with IV contrast. Coronal and sagittal reformatted images were obtaine d. CT performed according to ALARA principles. CT OF THE ABDOMEN WITH IV CONTRAST: There is minimal basilar atelectasis. T he liver is normal. The patient is post cholecystectomy. The spleen is norm al. The pancreas is normal. The adrenals are normal. The kidneys are no rmal. The intraabdominal large and small bowel are normal. The appendix is seen in the right lower quadrant and is normal. The intra-abdominal vascu lature is normal. There is no free air, free fluid, or pathologic lymphaden opathy. CT OF THE PELVIS WITH IV CONTRAST: The rectum and sigmoid are normal. The d istal ureters and bladder are normal. There is no free fluid or patho logic lymphadenopathy in the pelvis. The patient is post hysterectomy . The ovaries remain present and appear unremarkable. There is a 15 mm ri m-enhancing follicle in the right ovary, likely physiologic. Fatty infiltration noted of the right re ctus femoris muscle. The patient is post median sternotomy. IMPRESSION 1. No acute intraabdominal pathology. 2. Rim-enhancing follicle in the right o vary, likely physiologic. RL: [id number] AFC: [id number] End of Report Performing Organization Address City/[facility] Phone Number PACS/VR/DOSE ADC / LCC - DRUG SCREEN TRIAGE (06/12/2019 5:30 AM PRODUCT SCIENTIST) BENZO U Negative Negative [facility] SARA U Negative Negative [facility] AMPHET Negative Negative [facility] THC Negative Negative [facility] METHADONE Negative Negative [facility] Meth U Presumptive Negative [facility] Positive (A) HOSPITAL [facility] OPIATES Negative Negative [facility] Cocaine Metabolite Negative Negative [facility] PROPOXY Negative Negative [facility] Tric U Negative Negative [facility] PCP Negative Negative [facility] OXYCOD Negative Negative [facility] Specimen Urine - URINE, CLEAN CATCH Narrative Performed At Urine Drug Cutoff Ranges [facility] Benzodiazepines: 150 ng/mL Barbiturates: 200 ng/mL Amphetamine: 500 ng/mL Cannabinoids: 50 ng/mL Methadone: 200 ng/mL Methamphetamine: 500 ng/mL Opiates: 100 ng/mL or 2000 ng/mL Cocaine: 150 ng/mL Propoxyphene: 300 ng/mL Tricyclics: 300 ng/mL Oxycodone: 100 ng/mL PCP: 25 ng/mL The results are to be used only for medical (i.e., treatment) purposes. Unconfirmed screening results must not be used for non-medical purposes (e.g., employment testing, legal testing). Performing Organization Address [facility] Phone Number [facility] CLIA: [id number], [address] [place], [place] [address] URINALYSIS (06/12/2019 5:30 AM PRODUCT SCIENTIST) Pathologist Sig nature APPEARANCE Clear Clear [facility] COLOR Yellow Yellow [facility] PH 5.0 4.8 - 8.0 [facility] SP GRAVITY 1.020 1.003 - 1.030 [facility] GLU U QUAL Normal Normal [facility] BLOOD Negative Negative [facility] KETONES Negative Negative [facility] PROTEIN Negative Negative [facility] UROBILIN Normal Normal [facility] BILIRUBIN Negative Negative [facility] NITRITE Negative Negative [facility] LEUK LAINEY Negative Negative [facility] RBC/HPF 2 0 - 3 HPF [facility] WBC/HPF 1 0 - 5 HPF [facility] BACTERIA Negative Negative [facility] MUCOUS Slight (A) Negative LPF [facility] SQ EPITH 1 HPF [facility] HYAL CAST 10 (H) <=2 LPF [facility] Specimen Urine - URINE, CLEAN CATCH Performing Organization Address City/[facility] Phone Number [facility] CLIA: [id number], [address] [place] [address] POCT TEST (06/12/2019 5:30 AM PRODUCT SCIENTIST) Pathologist Sig nature POCT PREG negative On board controls acceptable present with C Line POCT PREG LOT # [id number] POCT PREG TEST DATE 12/26/2020 Specimen Urine - URINE, CLEAN CATCH ETHANOL (06/12/2019 5:03 AM PRODUCT SCIENTIST) Pathologist Sig nature ALCOHOL 103 mg/dL [facility] Specimen Blood - VENOUS Narrative Performed At <10 Negative [facility] 50-100 Toxic >100 Depression of PRE BILLING SPECIALIST >400 Fatalities Reported Performing Organization Address City/[facility] Phone Number [facility] CLIA: [id number], [address] [place] [address] Troponin I (06/12/2019 5:03 AM PRODUCT SCIENTIST) Pathologist Sig nature TROPONIN I 0.000 <=0.034 ng/mL [facility] Specimen Blood - VENOUS Narrative Performed At Equal or Less than 0.034 ng/ml---Normal [facility] Note: Cardiac troponin begins to rise 3-4 hours after the onset of ischemia. Repeat in 4-6 hours if the sample was drawn within 3-4 hours of the onset of the symptom and found normal. Between 0.035 and 0.120 ng/mL--- Borderline. Questionable myocardial injury or necros is Note: Serial measurement may be necessary to confirm or exclude the diagnosis of myocardial injury or necrosis; Clinical correlation (symptoms, EKGs, imaging studies, and others) required; Repeat in 4-6 hours if clinically indicated. Equal or Higher than 0.121 ng/mL---Abnormal. Myocardial Injury or Necrosis Likely Biotin has been reported to cause a negative bias, interpret results relative to patient's use of biotin. Performing Organization Address City/State/Zipcode Phone Number [facility] CLIA: [id number], [address] [place], [place] [address] CBC WITH DIFFERENTIAL (06/12/2019 5:03 AM PRODUCT SCIENTIST) Pathologist Sig nature WBC 7.27 4.30 - 11.10 [facility] 10*3/L [facility] RBC 4.00 3.93 - 5.25 [facility] 10*6/L [facility] HGB 12.9 11.6 - 15.0 [facility] g/dL [facility] HCT 37.7 35.7 - 45.2 % [facility] MCV 94.3 80.6 - 95.5 fL [facility] MCH 32.3 25.9 - 32.8 pg [facility] MCHC 34.2 31.6 - 35.1 [facility] g/dL [facility] RDW-SD 42.0 39.0 - 49.9 fL [facility] RDW-CV 12.1 12.0 - 15.5 % [facility] PLT 213 166 - 358 [facility] 10*3/L [facility] MPV 11.0 9.5 - 12.9 fL [facility] NRBC/100 WBC 0.0 0.0 - 10.0 /100 [facility] WBCs [facility] NRBC x10^3 <0.01 10*3/L [facility] GRAN MAT (NEUT) % 48.6 % [facility] IMM GRAN % 0.30 % [facility] LYMPH % 34.7 % [facility] MONO % 9.4 % [facility] EOS % 6.6 % [facility] BASO % 0.4 % [facility] GRAN MAT x10^3(ANC) 3.54 1.88 - 7.09 [facility] 10*3/uL [facility]PITAL [facility] IMM GRAN x10^3 <0.03 0.00 - 0.06 [facility] 10*3/uL [facility] LYMPH x10^3 2.52 1.32 - 3.29 [facility] 10*3/uL [facility] MONO x10^3 0.68 0.33 - 0.92 [facility] 10*3/uL [facility] EOS x10^3 0.48 (H) 0.03 - 0.39 [facility] 10*3/uL [facility] BASO x10^3 0.03 0.01 - 0.[address]/[facility] LABORATORY Specimen Blood - VENOUS Performing Organization Address [facility] Phone Number [facility] CLIA: [id number], [address] [place] [address] Lipase Serum (06/12/2019 5:03 AM PRODUCT SCIENTIST) Pathologist Sig nature LIPASE 238 (H) 0 - 220 U/L [facility] Specimen Blood - VENOUS Performing Organization Address [facility] Phone Number [facility] CLIA: [id number], [address] [place] [address] Hepatic Function Panel (ALB, T.PRO, BILI T, BU/BC, ALT, AST, ALK PHOS) (06/12/2019 5:03 AM PRODUCT SCIENTIST) Pathologist Sig nature TOTAL BILI 0.4 0.1 - 1.1 mg/dL [facility] BILI UNCON 0.1 0.1 - 1.1 mg/dL [facility] BILI CONJ 0.0 0.0 - 0.3 mg/dL [facility] T PROTEIN 7.5 6.3 - 8.2 g/dL [facility] ALBUMIN 4.4 3.5 - 5.0 g/dL [facility] ALK PHOS 61 34 - 122 U/L [facility] ALTv 127 (H) 5 - 35 U/L [facility] AST(SGOT) 235 (H) 13 - 40 U/L [facility] Specimen Blood - VENOUS Performing Organization Address City/State/Zipcode Phone Number [facility] CLIA: [id number], [address] [place], [place] [address] Basic Metabolic Panel (NA, K, CL, CO2, GLUCOSE, BUN, CREATININE, CA) (06/12/2019 5:03 AM PRODUCT SCIENTIST) [facility] NA 141 135 - 145 [facility] mmol/L [facility] K 3.3 (L) 3.5 - 5.0 [facility] mmol/L [facility] CL 107 98 - 108 mmol/L [facility] CO2 TOTAL 21 (L) 23 - 31 mmol/L [facility] AGAP 13 2 - 16 [facility] BUN 19 7 - 23 mg/dL [facility] GLUCOSE 117 (H) 70 - 110 mg/dL [facility] CREATININE 0.89 0.50 - 1.04 [facility] mg/dL [facility] CALCIUM 9.2 8.6 - 10.6 [facility] mg/dL [facility] eGFR Calculation 69.2 mL/min/1.73m2 [facility] (Non-[facility] LABORATORY [place]) eGFR Calculation 83.9 mL/min/1.73m2 [facility] () [facility] Specimen Blood - VENOUS Narrative Performed At Association of Glomerular Filtration Rate (GFR) [facility] and Staging of Kidney Disease* + + +- + | GFR (mL/min/1.73 m2) | With Kidney Damage | Without Kidney Damage + + +- + | >90 | Stage one | Normal + + +- + | 60-89 | Stage two | Decreased GFR + + +- + | 30-59 | Stage three | Stage three + + +- + | 15-29 | Stage four | Stage four + + +- + | <15 (or dialysis) | Stage five | Stage five + + +- + *Each stage assumes the associated GFR level has been in effect for at least three months. Stages 1 to 5, with or without kidney disease, indicate chronic kidney disease. Notes: Determination of stages one and two (with eGFR >59mL/min/1.73 m2) requires estimation of kidney damage for at least three months as defined by structural or functional abnormalities of the kidney, manifested by either: Pathological abnormalities or Markers of kidney damage (including abnormalities in the composition of the blood or urine or abnormalities in imaging tests). Performing Organization Address City/State/Zipcode Phone Number [facility] CLIA: [id number], [address] [place], [place] [address] documented in this encounter Visit Diagnoses Diagnosis Abdominal pain, unspecified abdominal lo cation - Primary Acute alcoholic gastritis without hemorr doug Alcoholism Other and unspecified alcohol dependence , unspecified drinking behavior documented in this encounter Administered Medications Medication Order MAR Action Action Date Dose Rate Site morpHINE injection 4 mg 4 mg, Slow IV Push, ONCE, 1 dose, 06/12/19 at 0715, STAT Medication Order MAR Action Action Date Dose Rate Site FENTanyl PF (SUBLIMAZE (PF)) Given 06/12/2019 5:32 AM PRODUCT SCIENTIST 75 mc g injection 75 mcg 75 mcg, Slow IV Push, ONCE, 1 dose, 06/12/19 at 0600, STAT iohexol (OMNIPAQUE 350 BULK-150 mL) Given 06/12/2019 5:45 AM CS T 115 mL injection 115 mL 115 mL, Intravenous, ONCE, 1 dose, 06/12/19 at 0600, Routine metoclopramide HCl (REGLAN) injection 10 mg Given 06/12/2019 5:32 AM PRODUCT SCIENTIST 10 mg 10 mg, Slow IV Push, ONCE, 1 dose, 06/12/19 at 0600, JONAS documented in this encounter"
--- OUTSIDE RECORDS SUMMARY | 2019-09-14 00:14 | XMS REPORT | Summary of Care ---
:[address] [facility] - [facility] Address [address] [place] [id number] Care Team Providers Name Role Phone Edgardo Noyola [facility] Primary Care Provid er Reason for Visit Reason Comments Body Aches Sore Throat Ear Pain L Auth/Cert Status Reason Specialty Diagnoses / Referred By Referred To Procedures Contact Contact Emergency Medicine Adc Em ergency Dept [address] [place] [address] [place] [address] Fax: Encounter Details Date Type Department Care Team Description 07/28/2019 Emergency ADC-Emergency Kami Pederson, Viral URI with cough (Primary Dx); Department PAC Sore throat; [address] [place] [address] [address] [facility] [place] [address] [facility] [address] [place] [address] Allergies Active Allergy Reactions Severity Noted Date Comments Heparin Other - See comments 12/07/2017 thrombo cytopenia Ondansetron Hcl (Pf) Other - See comments 03/02/2019 Prolonged QT documented as of this encounter (statuses as of 07/28/2019) Medications Medication Sig Dispensed Refills Start Date [...] location, Acute alcoholic gastritis without hemorrhage, Alcoholism benzonatate 100 mg Take 1 capsule by 20 capsule 0 07/28/2019 Active capsuleIndications: mouth 3 (three) Flu-like symptoms, times daily as Viral URI with cough needed for Cough. ibuprofen 600 mg Take 1 tablet by 30 tablet 0 07/28/2019 Active tabletIndications: mouth every 6 Flu-like symptoms, (six) hours as Viral URI with cough needed for Pain (scale 4-6). proMETHazine 25 mg Take 1 tablet by 12 tablet 0 07/28/2019 Active tabletIndications: mouth every 6 Flu-like symptoms, (six) hours as Viral URI with cough needed for Nausea and Vomiting (N/V). 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 12/09/2017 ICD (implantable cardioverter-defibrillator) in place 12/09/2017 HTN (hypertension) 12/09/2017 Pancreatitis 12/08/2017 documented as of this encounter (statuses as of 07/28/2019) Immunizations Name Administration Dates Next Due Influenza [...] Sign Reading Time Taken Comments Blood Pressure 126/97 07/28/2019 8:19 PM MANAGER OF COMPENSATION Pulse 83 07/28/2019 8:19 PM MANAGER OF COMPENSATION Temperature 37.1 C (98.8 F) 07/28/2019 7:02 PM MANAGER OF COMPENSATION Respiratory Rate 18 07/28/2019 8:19 PM MANAGER OF COMPENSATION Oxygen Saturation 98% 07/28/2019 8:19 PM MANAGER OF COMPENSATION Inhaled Oxygen Concentration - - Weight 77.1 kg (170 lb) 07/28/2019 7:02 PM MANAGER OF COMPENSATION Height 167.6 cm (5' 6") 07/28/2019 7:02 PM MANAGER OF COMPENSATION Body Mass Index 27.44 07/28/2019 7:02 PM MANAGER OF COMPENSATION documented in this encounter Discharge Instructions AttachmentsThe following attachments cannot be sent through Care Everywhere.URI, Viral, No Abx (Adult) ([place])(Influenza), The Flu ([place]er)documented in this encounter Plan of Treatment Name Type Priority Associated Diagnoses Date/Ti me THROAT CULTURE LAB STAT Sore throat 07/28/2019 7 :06 PM MANAGER OF COMPENSATION Name Type Priority Associated Diagnoses Order S chedule THROAT CULTURE LAB Routine Sore throat ONCE for 1 Oc currences starting 07/28/2019 unti l 07/28/2019 Health Maintenance Due Date Last Done Comments PNEUMOCOCCAL 0-64 YEARS COMBINED SERIES (1 of 1 - 01/19/1982 PPSV23) DTaP,Tdap,and Td Vaccines (1 - Tdap) 01/19/1987 PAP SMEAR 01/19/1997 Breast Cancer Screening (MAMMOGRAM) 2016 INFLUENZA VACCINE (#1) 2019 03/23/2018 documented as of this encounter Implants Implanted Type Area Steam Fitter Supervisor Device Shelf Model / Identifier Expiration Serial / Date Lot Defibrillator DEFIBRILLATOR documented as of this encounter Procedures Procedure Name Priority Date/Time Associated Diagnosis Comme nts [facility] OR [facility] ONLY STAT 07/28/2019 7:06 PM Sore throat R esults for this - INFLUENZA A & B MANAGER OF COMPENSATION procedure are in DIRECT ANTIGEN the results section. RAPID STREP SCREEN STAT 07/28/2019 7:06 PM Sore throat Re sults for this FOR GROUP A MANAGER OF COMPENSATION procedure are i n the results section. CONSENT/REFUSAL FOR Routine 07/28/2019 6:43 PM DIAGNOSIS AND MANAGER OF COMPENSATION TREATMENT documented in this encounter Results RAPID STREP SCREEN FOR GROUP A (07/28/2019 7:06 PM MANAGER OF COMPENSATION) Pathologist Sig nature Streptococcus pyogenes Negative Negative [facility] (group A) antigen [facility] Specimen Swab - THROAT Performing Organization Address City/[facility]/Zipcode Phone Number [facility] CLIA: [id number], [address] [place], [place] [address] [facility] OR [facility] ONLY - INFLUENZA A & B DIRECT ANTIGEN (07/28/2019 7:06 PM MANAGER OF COMPENSATION) Pathologist Sig nature Influenza A Negative Negative [facility] Influenza B Negative Negative [facility] Specimen Swab - NARE, LEFT SIDE Performing Organization Address City/[facility]/Zipcode Phone Number [facility] CLIA: [id number], [address] [place], [place] [address] documented in this encounter Visit Diagnoses Diagnosis Viral URI with cough - Primary Acute upper respiratory infections of un specified site Sore throat Acute pharyngitis Flu-like symptoms Influenza with other respiratory manifes tations documented in this encounter
--- OUTSIDE RECORDS SUMMARY | 2019-09-14 00:14 | XMS REPORT | Summary of Care ---
:1975 Author Organization [facility] - Health Address [address] [place] [address] Care Team Providers Name Role Phone Edgardo Noyola [facility] Primary Care Provid er Reason for Referral Radiology Services (STAT) Status Reason Specialty Diagnoses / Referred By Referred To Procedures Contact Contact New Request Diagnostic Diagnoses Pain of right hand Robert Jordan, Radiology Procedures XR HAND 3+ VW RIGHT [address] [place] [address] [address] [place] [address] Reason for Visit Reason Comments Hand Pain Encounter Details Date Type Department Care Team Description 07/30/2019 Emergency ADC-Emergency Robert Jordan MD Pain of right hand (Primary Dx); Department [address] [facility] Contusion of right hand, initial encount er [address] [facility] [address] [place] [address] [place], [place] [id number] Allergies Active Allergy Reactions Severity Noted Date Comments Heparin Other - See comments 12/07/2017 thrombo cytopenia Ondansetron Hcl (Pf) Other - See comments 03/02/2019 Prolonged QT documented as of this encounter (statuses as of 07/30/2019) Medications Medication Sig Dispensed Refills Start Date [...] cough needed for Nausea and Vomiting (N/V). ibuprofen 800 mg Take 1 tablet by 30 tablet 0 07/30/2019 Active tabletIndications: mouth every 8 Contusion of right (eight) hours. hand, initial encounter documented as of this encounter (statuses as of 07/30/2019) Active Problems Problem Noted Date Intractable nausea and vomiting 03/20/2018 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 12/09/2017 ICD (implantable cardioverter-defibrillator) in place 12/09/2017 HTN (hypertension) 12/09/2017 Pancreatitis 12/08/2017 documented as of this encounter (statuses as of 07/30/2019) Immunizations Name Administration Dates Next Due Influenza [...] Sign Reading Time Taken Comments Blood Pressure 131/107 07/30/2019 5:12 AM OLIVE PICKER Pulse 79 07/30/2019 5:12 AM OLIVE PICKER Temperature 36.2 C (97.1 F) 07/30/2019 5:12 AM OLIVE PICKER Respiratory Rate 20 07/30/2019 5:12 AM OLIVE PICKER Oxygen Saturation 98% 07/30/2019 5:12 AM OLIVE PICKER Inhaled Oxygen Concentration - - Weight 77.1 kg (170 lb) 07/30/2019 5:12 AM OLIVE PICKER Height 167.6 cm (5' 6") 07/30/2019 5:12 AM OLIVE PICKER Body Mass Index 27.44 07/30/2019 5:12 AM OLIVE PICKER documented in this encounter Discharge Instructions InstructionsNeRobert morrell MD - 07/30/2019 RETURN FOR ANY QUESTIONS OR CONCERNS Today you were seen by Robert Jordan Jr., MD You were seen today for Chief Complaint Patient presents with Hand Pain Your ER diagnosis was ICD-10-CM ICD-9-CM 1. Pain of right hand M79.641 729.5 2. Contusion of right hand, initial encounter S60.221A 923.20 NO LIFE-THREATENING FINDINGS ON TODAY'S EXAM. YOUR PRESCRIPTIONS : Check out [employer] for medication discounts Medication List ASK your doctor about these medications albuterol 90 mcg/actuation inhaler Commonly known as: VENTOLIN Inhale 2 Puffs every 4 (four) hours as needed for Wheezing or Shortness of Breath. benzonatate 100 mg capsule Commonly known as: TESSALON PERLES Take 1 capsule by mouth 3 (three) times daily as needed for Cough. dicyclomine 20 mg tablet Commonly known as: BENTYL Take 1 tablet by mouth every 6 (six) hours as needed for Abdominal pain. docusate 100 mg capsule Commonly known as: COLACE Take 1 capsule by mouth 2 (two) times daily as needed for Constipation. * ibuprofen 800 mg tablet Commonly known as: IBU Take 1 tablet by mouth every 8 (eight) hours. * ibuprofen 600 mg tablet Commonly known as: IBU Take 1 tablet by mouth every 6 (six) hours as needed for Pain (scale 4-6). metoclopramide HCl 10 mg tablet Commonly known as: REGLAN Take 1 tablet by mouth every 6 (six) hours. naproxen sodium 550 mg tablet Commonly known as: ANAPROX DS Take 1 tablet by mouth 2 (two) times daily with meals. * proMETHazine 25 mg tablet Commonly known as: PHENERGAN Take 1 tablet by mouth every 6 (six) hours as needed for Nausea and Vomiting (N/V). * proMETHazine 25 mg tablet Commonly known as: PHENERGAN Take 1 tablet by mouth every 6 (six) hours as needed for Nausea and Vomiting (N/V). * PROTONIX 40 mg EC tablet Generic drug: pantoprazole * Pantoprazole 40 mg delayed-release suspension Commonly known as: PROTONIX Take 40 mg by mouth daily. sucralfate 1 gram tablet Commonly known as: CARAFATE Take 1 tablet by mouth before meals and at bedtime. * This list has 6 medication(s) that are the same as other medications prescribed for you. Read thedirections carefully, and ask your doctor or other care provider to review them with you. ER precautions and follow up : 1. [...] 1. A PHYSICIAN OF YOUR CHOICE 2. [facility], . LOCATIONS IN [facility] 3. [facility], [address] [place] [address]; [phone] OR, IF YOU WISH TO FOLLOW-UP WITHIN THE [facility], MAY TRY THESE OPTIONS (CLINIC APPOINTMENTS AVAILABLE ON [id number] BASIS): 1. SCHEDULE AN APPOINTMENT ONLINE AT WWW.[facility] 2. OR CALL THE [facility] ACCESS [facility] AT OR 3. OR CALL YOUR [facility] PHYSICIAN'S OFFICE DIRECTLY IF YOU ARE ALREADY AN ESTABLISHED [facility] PATIENT. [facility] RETURN TO WORK / SCHOOL EXCUSE Brittnee Rm WAS SEEN IN THE ER AND DISCHARGED 07/30/2019 TODAY, 6:21 AM & May return to Work / [...] ___ No school ROBERT JORDAN Jr., MD [facility]PRT[facility] [address] [place] [address] [place] [address] ### The patient may have been given Narcotic pain medications during their stay in the ED that may show up on a Drug Screen. The hospital discharge paper work will identify these medications. AttachmentsThe following attachments cannot be sent through Care Everywhere.Hand Contusion (Citizen Of [place])documented in this encounter Plan of Treatment Health Maintenance Due Date Last Done Comments PNEUMOCOCCAL 0-64 YEARS COMBINED SERIES (1 of 1 - 01/19/1982 PPSV23) DTaP,Tdap,and Td Vaccines (1 - Tdap) 01/19/1987 PAP SMEAR 01/19/1997 Breast Cancer Screening (MAMMOGRAM) 2016 INFLUENZA VACCINE (#1) 2019 03/23/2018 documented as of this encounter Implants Implanted Type Area Burn Out Scarfing Operator Device Shelf Model / Identifier Expiration Serial / Date Lot Defibrillator DEFIBRILLATOR documented as of this encounter Procedures Procedure Name Priority Date/Time Associated Diagnosis Comme nts XR HAND 3+ VW RIGHT STAT 07/30/2019 5:56 AM Pain of right hand Results for this OLIVE PICKER procedure are i n the results section. NOTICE OF PRIVACY Routine 07/30/2019 5:04 AM PRACTICES OLIVE PICKER CONSENT/REFUSAL FOR Routine 07/30/2019 5:04 AM DIAGNOSIS AND OLIVE PICKER TREATMENT documented in this encounter Results XR HAND 3+ VW RIGHT (07/30/2019 5:56 AM OLIVE PICKER) Specimen Impressions Performed At No acute fracture or dislocation of the right hand. PACS/VR/DOSE RL: [id number] AFC: [id number] 6: 11 AM Narrative Performed At Patient name: BRITTNEE RM PACS/VR/DOSE : 1975 44 years EXAMINATION: XR HAND 3+ VW RIGHT Ordering Physician: ROBERT JORDAN CLINICAL HISTORY: hand pain COMPARISON: None TECHNIQUE: Frontal, oblique, and lateral views of t he right hand were performed. FINDINGS: No acute fracture or dislocation is identified. No gretchen nt space narrowing or osseous lesions. Mild soft tissue swelli ng suspected. Procedure Note [facility], Radiant Results Inft User - 2019 6:14 AM OLIVE PICKER Patient name: BRITTNEE RM : 1975 44 years EXAMINATION: XR HAND 3+ VW RIGHT Ordering Physician: ROBERT JORDAN CLINICAL HISTORY: hand pain COMPARISON: None TECHNIQUE: Frontal, oblique, and lateral views of t he right hand were performed. FINDINGS: No acute fracture or dislocation is iden tified. No joint space narrowing or osseous lesions. Mild soft tissue swelli ng suspected. IMPRESSION No acute fracture or dislocation of the right hand. RL: [id number] AFC: [id number] Performing Organization Address City/State/Zipcode Phone Number PACS/VR/DOSE documented in this encounter Visit Diagnoses Diagnosis Pain of right hand - Primary Pain in limb Contusion of right hand, initial encount er documented in this encounter Administered Medications Medication Order MAR Action Action Date Dose Rate Site acetaminophen (TYLENOL) tablet Given 07/30/2019 5:23 AM OLIVE PICKER 1,0 00 mg 1,000 mg 1,000 mg, Oral, ONCE, 1 dose, 07/30/19 at 0630, JONAS ibuprofen (IBU) tablet 800 mg Given 07/30/2019 6:18 AM OLIVE PICKER 800 mg 800 mg, Oral, ONCE, 1 dose, 07/30/19 at 0715, JONAS documented in this encounter
--- OUTSIDE RECORDS SUMMARY | 2019-09-14 00:16 | XMS REPORT | Summary of Care ---
:1975 Author Organization [facility] - Health Address [address] [place] [id number] Care Team Providers Name Role Phone Edgardo Noyola [facility] Primary Care Provid er Reason for Referral Radiology Services (STAT) Status Reason Specialty Diagnoses / Referred By Referred To Procedures Contact Contact New Request Diagnostic Diagnoses Generalized abdominal pain Becca Elaine Radiology Procedures XR WRIST 3+ VW RIGHT J, DO [address] [place] [address] Reason for Visit Reason Comments Epigastric Pain Vomiting Auth/Cert Status Reason Specialty Diagnoses / Referred By Referred To Procedures Contact Contact Emergency Medicine Adc Em ergency Dept [address] [facility] [place] [place] [address] Fax: Encounter Details Date Type Department Care Team Description 08/10/2019 Emergency ADC-Emergency Becca Elaine, General ized abdominal Department DO pain (Primary Dx) 132 [facility] [address] [place], [place] [id number] [place] [address] Allergies Active Allergy Reactions Severity Noted Date Comments Heparin Other - See comments 12/07/2017 thrombo cytopenia Ondansetron Hcl (Pf) Other - See comments 03/02/2019 Prolonged QT documented as of this encounter (statuses as of 08/10/2019) Medications Medication Sig Dispensed Refills Start Date [...] as of this encounter (statuses as of 08/10/2019) Active Problems Problem Noted Date Intractable nausea and vomiting 03/20/2018 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 12/09/2017 ICD (implantable cardioverter-defibrillator) in place 12/09/2017 HTN (hypertension) 12/09/2017 Pancreatitis 12/08/2017 documented as of this encounter (statuses as of 08/10/2019) Immunizations Name Administration Dates Next Due Influenza [...] Sign Reading Time Taken Comments Blood Pressure 101/57 08/10/2019 5:00 AM CDT Pulse 75 08/10/2019 5:00 AM CDT Temperature 36.7 C (98.1 F) 08/10/2019 3:02 AM CDT Respiratory Rate 16 08/10/2019 3:02 AM CDT Oxygen Saturation 96% 08/10/2019 5:00 AM CDT Inhaled Oxygen Concentration - - Weight 77.1 kg (170 lb) 08/10/2019 3:02 AM CDT Height 167.6 cm (5' 6") 08/10/2019 3:02 AM CDT Body Mass Index 27.44 08/10/2019 3:02 AM CDT documented in this encounter Discharge Instructions Becca Laguna, DO - 08/10/2019DIAGNOSIS 1. Abdominal Pain 2. Gastritis 3. Alcohol intoxication NO LIFE-THREATENING FINDINGS ON TODAY'S EXAM. PROCEDURES IN THE ER TODAY: Blood work Urine test Xray wrist MEDICATIONS ADMINISTERED IN THE ER TODAY: IV fluids Morphine Reglan GI cocktail YOUR PRESCRIPTIONS AND [id number] MEDICATION RECOMMENDATIONS: None SPECIAL CARE INSTRUCTIONS: None FOLLOW-UP RECOMMENDATIONS: RECOMMEND FOLLOW-UP WITH A PRIMARY CARE PROVIDER OR SPECIALIST IN 2-5 DAYS, ESPECIALLY IF NO IMPROVEMENT IN SYMPTOMS. TO FOLLOW-UP WITHIN THE [facility], TRY THESE OPTIONS (CLINIC APPOINTMENTS AVAILABLE ON [id number] BASIS): 1. SCHEDULE AN APPOINTMENT ONLINE AT WWW.[facility] 2. OR CALL THE [facility] AT OR 3. OR CALL YOUR [facility] PHYSICIAN'S OFFICE DIRECTLY IF YOU ARE ALREADY AN ESTABLISHED [facility] PATIENT. OR, YOU MAY FOLLOW-UP WITH A PROVIDER OF YOUR CHOICE, SUCH : 1. A PHYSICIAN OF YOUR CHOICE 2. [facility], . LOCATIONS IN [facility] 3. [facility], [address] [place] [address]; [phone] RETURN TO ER FOR WORSENING OF SYMPTOMS. AttachmentsThe following attachments cannot be sent through Care Everywhere. Abdominal Pain, Adult (Niuean)Alcohol Intoxication (Niuean)Gastritis (Adult) (Niuean)documented in this encounter Plan of Treatment Name Type Priority Associated Diagnoses Date/Ti me XR WRIST 3+ VW RIGHT IMAGING STAT Generalized abdomina l 08/10/2019 3:50 AM CDT pain Health Maintenance Due Date Last Done Comments PNEUMOCOCCAL 0-64 YEARS COMBINED SERIES (1 of 1 - 01/19/1982 PPSV23) DTaP,Tdap,and Td Vaccines (1 - Tdap) 01/19/1987 PAP SMEAR 01/19/1997 Breast Cancer Screening (MAMMOGRAM) 2016 INFLUENZA VACCINE (#1) 2019 03/23/2018 documented as of this encounter Implants Implanted Type Area Special Education Bus Driver Device Shelf Model / Identifier Expiration Serial / Date Lot Defibrillator DEFIBRILLATOR documented as of this encounter Procedures Procedure Name Priority Date/Time Associated Diagnosis Comme nts ETHANOL STAT 08/10/2019 4:00 AM Generalized Results for this CDT abdominal pain procedure are in the results section. BASIC METABOLIC STAT 08/10/2019 4:00 AM Generalized Resul ts for this PANEL (NA, K, CL, CDT abdominal pain procedur e are in CO2, GLUCOSE, BUN, the resul ts CREATININE, CA) section. HEPATIC FUNCTION STAT 08/10/2019 4:00 AM Generalized Resu lts for this PANEL (59789) CDT abdominal pain procedure ar e in (ALB,T.PRO,BILI the results T,BU/BC,ALT,AST,ALK section. PHOS) LIPASE STAT 08/10/2019 4:00 AM Generalized Results for this CDT abdominal pain procedure are in the results section. XR WRIST 3+ VW STAT 08/10/2019 3:50 AM Generalized RIGHT CDT abdominal pain Procedure Note - [facility], Radia nt Results Inft User - 08/10/2019 3:56 AM CDT EXAM: XR WRIST 3+ VW RIGHT HISTORY: right wrist pain COMPARISON: None available. FINDINGS: Radiographs of the right wri st demonstrate no fracture or dislocation. The soft tissues are unremarkabl e. IMPRESSION No acute bony abnormality. Preliminary Report Dictated by Resident: Toy Palmerwuagwu POCT TEST JONAS 08/10/2019 3:26 AM Generalized R esults for this CDT abdominal pain procedure are in the results section. URINALYSIS STAT 08/10/2019 3:26 AM Generalized Results for this CDT abdominal pain procedure are in the results section. CBC WITH DIFFERENTIAL STAT 08/10/2019 3:17 AM Generalized Results for this CDT abdominal pain procedure are in the results section. PROTHROMBIN TIME / STAT 08/10/2019 3:17 AM Generalized Re sults for this INR CDT abdominal pain procedure are in the results section. CBC WITH DIFFERENTIAL Routine 08/10/2019 3:17 AM Generalized Results for this CDT abdominal pain procedure are in the results section. CONSENT/REFUSAL FOR Routine 08/10/2019 2:54 AM DIAGNOSIS AND CDT TREATMENT documented in this encounter Results ETHANOL (08/10/2019 4:00 AM CDT) Pathologist Sig nature ALCOHOL 193 mg/dL [facility] Specimen Blood - VENOUS Narrative Performed At <10 Negative [facility] 50-100 Toxic >100 Depression of ACADEMIC COUNSELOR >400 Fatalities Reported Performing Organization Address City/State/Zipcode Phone Number [facility] CLIA: [id number], [address] [place] [address] Lipase Serum (08/10/2019 4:00 AM CDT) Pathologist Sig nature LIPASE 241 (H) 0 - 220 U/L [facility] Specimen Blood - VENOUS Performing Organization Address [facility] Phone Number [facility] CLIA: [id number], [address] [place] [address] Hepatic Function Panel (ALB, T.PRO, BILI T, BU/BC, ALT, AST, ALK PHOS) (08/10/2019 4:00 AM CDT) Pathologist Sig nature TOTAL BILI 0.9 0.1 - 1.1 mg/dL [facility] BILI UNCON 0.7 0.1 - 1.1 mg/dL [facility] BILI CONJ 0.0 0.0 - 0.3 mg/dL [facility] T PROTEIN 7.6 6.3 - 8.2 g/dL [facility] ALBUMIN 4.6 3.5 - 5.0 g/dL [facility] ALK PHOS 56 34 - 122 U/L [facility] ALTv 64 (H) 5 - 35 U/L [facility] AST(SGOT) 95 (H) 13 - 40 U/L [facility] Specimen Blood - VENOUS Performing Organization Address [facility] Phone Number [facility] CLIA: [id number], [address] [place] [address] Basic Metabolic Panel (NA, K, CL, CO2, GLUCOSE, BUN, CREATININE, CA) (08/10/2019 4:00 AM CDT) Pathologist Sig nature NA 141 135 - 145 [facility] mmol/L [facility] K 3.7 3.5 - 5.0 [facility] mmol/L [facility] CL 105 98 - 108 mmol/L [facility] CO2 TOTAL 22 (L) 23 - 31 mmol/L [facility] AGAP 14 2 - 16 [facility] BUN 13 7 - 23 mg/dL [facility] GLUCOSE 101 70 - 110 mg/dL [facility] CREATININE 0.77 0.50 - 1.04 [facility] mg/dL [facility] CALCIUM 9.3 8.6 - 10.6 [facility] mg/dL [facility] eGFR Calculation 81.8 mL/min/1.73m2 [facility] (Non-) [facility] LABORATOR Y eGFR Calculation 99.2 mL/min/1.73m2 [facility] () [facility] Specimen Blood - VENOUS Narrative Performed At [facility] of Glomerular Filtration Rate (GFR) [facility] and Staging of Kidney Disease* [...] tests). Performing Organization Address City/State/Zipcode Phone Number [facility] CLIA: [id number], [address] [place], [place] [address] POCT Test, Urine (08/10/2019 3:26 AM CDT) Pathologist Sig nature POCT PREG negative On board controls acceptable positive with C Line POCT PREG LOT # [id number] POCT PREG TEST DATE 12/26/2020 Specimen Urine - URINE, CLEAN CATCH Urinalysis (08/10/2019 3:26 AM CDT) Pathologist Sig nature APPEARANCE Clear Clear [facility] COLOR Straw (A) Yellow [facility] PH 6.0 4.8 - 8.0 [facility] SP GRAVITY 1.002 (L) 1.003 - 1.030 [facility] GLU U QUAL Normal Normal [facility] BLOOD Negative Negative [facility] KETONES Negative Negative [facility] PROTEIN Negative Negative [facility] UROBILIN Normal Normal [facility] BILIRUBIN Negative Negative [facility] NITRITE Negative Negative [facility] LEUK LAINEY Negative Negative [facility] RBC/HPF 1 0 - 3 HPF [facility] WBC/HPF <1 0 - 5 HPF [facility] BACTERIA Many (A) Negative [facility] SQ EPITH 1 HPF [facility] Specimen Urine - URINE, CLEAN CATCH Performing Organization Address City/State/Zipcode Phone Number [facility] CLIA: [id number], [address] [place], [place] [address] CBC WITH DIFFERENTIAL (08/10/2019 3:17 AM CDT) Pathologist Sig nature WBC 7.32 4.30 - 11.10 [facility] 10*3/L [facility] RBC 4.39 3.93 - 5.25 [facility] 10*6/L [facility] HGB 14.1 11.6 - 15.0 g/dL [facility] HCT 41.1 35.7 - 45.2 % [facility] MCV 93.6 80.6 - 95.5 fL [facility] MCH 32.1 25.9 - 32.8 pg [facility] MCHC 34.3 31.6 - 35.1 g/dL [facility] RDW-SD 43.4 39.0 - 49.9 fL [facility] RDW-CV 12.6 12.0 - 15.5 % [facility] PLT 220 166 - 358 [facility] 10*3/L [facility] MPV 11.0 9.5 - 12.9 fL [facility] NRBC/100 WBC 0.0 0.0 - 10.0 /100 [facility] NRBC x10^3 <0.01 10*3/L [facility] GRAN MAT (NEUT) % 45.3 % [facility] IMM GRAN % 0.30 % [facility] LYMPH % 39.9 % [facility] MONO % 8.9 % [facility] EOS % 4.9 % [facility] BASO % 0.7 % [facility] GRAN MAT x10^3(ANC) 3.32 1.88 - 7.09 [facility] 103/[facility] LABORATORY IMM GRAN x10^3 <0.03 0.00 - 0.06 [facility] 103/[facility] LABORATORY LYMPH x10^3 2.92 1.32 - 3.[address] LABORATORY MONO x10^3 0.65 0.33 - 0.92 [place] [address]/[facility] LABORATORY EOS x10^3 0.36 0.03 - 0.[address]/[facility] LABORATORY BASO x10^3 0.05 0.01 - 0.[address] LABORATORY Specimen Blood - VENOUS Performing Organization Address City/[facility]/Zipcode Phone Number [facility] CLIA: [id number], [address] [place] [address] Prothrombin Time (PT) / INR (08/10/2019 3:17 AM CDT) PROTIME PATIENT 12.6 12.0 - 14.7 Health system LABORATORY INR 1.0Comment: Normal [facility] INR <1.1; Warfarin [facility] Therapeutic range LABORATORY 2.0 to 3.0 or 2.5 to 3.5, depending upon the indications. Specimen Blood - VENOUS Performing Organization Address City/[facility] Phone Number [facility] CLIA: [id number], [address] [place] [address] documented in this encounter Visit Diagnoses Diagnosis Generalized abdominal pain - Primary Abdominal pain, generalized documented in this encounter Administered Medications Medication Order MAR Action Action Date Dose Rate Site maalox:diphenhydrAMINE:lidocaine 2 Given 08/10/2019 4:55 AM CDT 15 mL % viscous 1:1:1 (FIRST-MOUTHWASH BLM) oral suspension 15 mL 15 mL, Oral, ONCE, 1 dose, 08/10/19 at 0500, JONAS metoclopramide HCl (REGLAN) injection 10 mg Given 08/10/2019 3:16 AM CDT 10 mg 10 mg, Slow IV Push, ONCE, 1 dose, 08/10/19 at 0415, JONAS morpHINE injection 4 mg Given 08/10/2019 3:16 AM CDT 4 mg 4 mg, Slow IV Push, ONCE, 1 dose, 08/10/19 at 0415, STAT NaCl 0.9% (NS) bolus infusion New Bag 08/10/2019 3:15 AM CDT 1,000 mL 999 mL/hr 1,000 mL at 999 mL/hr, 1,000 mL, IV Infusion, ONCE, 1 dose, 08/10/19 at 0315, JONAS documented in this encounter
[2019-09-14 00:30] LABS: MPV 9.5 fL (7.6-11.3)
[2019-09-14 00:35] LABS: Absolute Lymphocytes (CBC) 2.4 K/uL (0.7-4.9); Basophils % 1.2 % (0-1.3); Hematocrit 40.4 % (36.0-45.0); Lymphocytes % 34.6 % (15.3-44.8); RBC Red Blood Cell Count 4.24 M/uL (3.86-4.86)
[2019-09-14 00:51] LABS: BUN Blood Urea Nitrogen 9 mg/dL (7-18); Bicarbonate 21 mmol/L (21-32); CKMB Creatine Kinase MB < 1.0 ng/mL (0.3-3.6); Glucose Level 97 mg/dL (74-106); Sodium Level 143 mmol/L (136-145); Troponin (Emerg Dept Use Only) < 0.02 ng/mL (0.0-0.045)
[2019-09-14 01:03] LABS: Blood Morphology Comment NOT SEEN (NOT SEEN); Platelet Estimate ADEQ; Urine White Blood Cell Casts OK
--- NOTE | 2019-09-14 01:33 | EDPHYS ---
Physician Documentation [facility] Name: Jerrell Rm Age: 44 yrs Sex: Female : 1975 Arrival Date: 09/14/2019 Time: 00:11 Bed 6 Private MD: ED Physician Heber Hawkins HPI: 09/13 01:18 This 44 yrs old Female presents to ER via EMS with complaints of Fall Injury. tw4 01:18 Details of fall: The patient fell from an upright position, while walking. Onset: The tw4 symptoms/episode began/occurred today. Associated injuries: The patient sustained anterior aspect of left shoulder, decreased range of motion, left hip. Severity of symptoms: At their worst the symptoms were moderate, in the emergency department the symptoms are unchanged. The patient has not experienced similar symptoms in the past. 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 - Social history:: Smoking status: Patient denies any tobacco usage or history of. Patient uses alcohol, occasionally. Patient/guardian denies using street drugs. - Immunization history: Last tetanus immunization: unknown. ROS: 01:18 Constitutional: Negative for fever, chills, and weight loss, Eyes: Negative for injury, tw4 pain, redness, and discharge, Cardiovascular: Negative for chest pain, palpitations, and edema, Respiratory: Negative for shortness of breath, cough, wheezing, and pleuritic chest pain, Abdomen/GI: Negative for abdominal pain, nausea, vomiting, diarrhea, and constipation, Back: Negative for injury and pain, Skin: Negative for injury, rash, and discoloration, Neuro: Negative for headache, weakness, numbness, tingling, and seizure. 01:18 MS/extremity: Positive for injury or acute deformity, decreased range of motion. Exam: 01:19 Constitutional: This is a well developed, well nourished patient who is awake, alert, tw4 and in no acute distress. Head/Face: Normocephalic, atraumatic. Chest/axilla: Normal chest wall appearance and motion. Nontender with no deformity. No lesions are appreciated. Cardiovascular: Regular rate and rhythm with a normal S1 and S2. No gallops, murmurs, or rubs. Normal PMI, no JVD. No pulse deficits. Respiratory: Lungs have equal breath sounds bilaterally, clear to auscultation and percussion. No rales, rhonchi or wheezes noted. No increased work of breathing, no retractions or nasal flaring. Abdomen/GI: Soft, non-tender, with normal bowel sounds. No distension or tympany. No guarding or rebound. No evidence of tenderness throughout. Neuro: Awake and alert, GCS 15, oriented to person, place, time, and situation. Cranial nerves II-XII grossly intact. Motor strength 5/5 in all extremities. Sensory grossly intact. Cerebellar exam normal. Normal gait. 01:19 Musculoskeletal/extremity: Extremities: noted in the anterior aspect of left shoulder: decreased ROM, pain, noted in the left upper thigh: decreased ROM, pain. Vital Signs: 00:17 BP 118 / 77; Pulse 77; Resp 18 S; Temp 98.4(O); Pulse Ox 97% on R/A; Weight 65.77 kg bb (R); Height 5 ft. 6 in. (167.64 cm) (R); Pain 10/10; 01:10 BP 95 / 64; Pulse 77; Resp 16; Pulse Ox 98% on R/A; rv 01:51 BP 99 / 67; Pulse 77; Resp 16 S; Temp 97.8(O); Pulse Ox 100% on R/A; bb 00:17 Body Mass Index 23.40 (65.77 kg, 167.64 cm) bb Marcel Coma Score: 00:17 Eye Response: spontaneous(4). Verbal Response: oriented(5). Motor Response: obeys bb commands(6). Total: 15. 01:51 Eye Response: spontaneous(4). Verbal Response: oriented(5). Motor Response: obeys bb commands(6). Total: 15. Trauma Score (Adult): 00:17 Eye Response: spontaneous(1); Verbal Response: oriented(1); Motor Response: obeys bb commands(2); Systolic BP: > 89 mm Hg(4); Respiratory Rate: 10 to 29 per min(4); Marcel Score: 15; Trauma Score: 12 01:15 Eye Response: spontaneous(1); Verbal Response: oriented(1); Motor Response: obeys bb commands(2); Systolic BP: > 89 mm Hg(4); Respiratory Rate: 10 to 29 per min(4); Marcel Score: 15; Trauma Score: 12 MDM: 00:14 Patient medically screened. tw4 01:33 Differential diagnosis: abrasion, closed head injury, contusion. Data reviewed: vital tw4 signs, nurses notes, lab test result(s), cardiac enzymes, CBC, electrolytes, hepatic panel, EKG, radiologic studies, CT scan, plain films. Data interpreted: Pulse oximetry: Interpretation: normal. Counseling: I had a detailed discussion with the patient and/or guardian regarding: the historical points, exam findings, and any diagnostic results supporting the discharge/admit diagnosis, lab results, radiology results. Medication response: Toradol relieved patient's pain. The symptoms have resolved. Response to treatment: the patient's symptoms have markedly improved after treatment, and as a result, I will discharge patient. Special discussion: Based on the patient's history, exam and DX evaluation, there is no indication for emergent intervention or inpatient [place]. It is understood by the patient/guardian that if the SXs persist or worsen they need to return immediately for re-evaluation. I discussed with the patient/guardian in detail that at this point there is no indication for admission to the hospital. It is understood, however, that if the symptoms persist or worsen the patient needs to return immediately for re-evaluation. 09/13 00:14 Order name: Basic Metabolic Panel; Complete Time: 4 09/13 00: Interpretation: Normal except: K 3.0; CL 112; GFR 65. tw09/13 00:14 Order name: CBC with Diff; Complete Time: 4 09/13 00: Interpretation: Within normal limits. tw09/13 00:14 Order name: Creatinine for Radiology 09/13 00:14 Order name: Alcohol Level; Complete Time: 01:20 tw4 09/13 01:20 Interpretation: Normal except: ETOH 169. tw4 09/13 00:15 Order name: Troponin (emerg Dept Use Only); Complete Time: 01:27 tw4 09/13 01:27 Interpretation: Within normal limits: TROPED < 0.02. tw4 09/13 00:14 Order name: CT Head C Spine tw4 09/13 00:14 Order name: Shoulder Left (2 View) XRAY tw4 09/13 00:14 Order name: CT Pelvis wo Cont tw4 09/13 00:15 Order name: EKG; Complete Time: 00:16 4 09/13 00:15 Order name: Ckmb; Complete Time: 01:29 tw4 09/13 01:29 Interpretation: CKMB < 1.0. 09/13 01:03 Order name: CBC Smear Scan EDOR 09/13 00:14 Order name: Labs collected and sent; Complete Time: 00:24 09/13 00:15 Order name: EKG - Nurse/Tech; Complete Time: 00:24 tw4 EC:32 Rate is 73 beats/min. Rhythm is regular. QRS [place] is Normal. HI interval is normal. QRS tw4 interval is normal. QT interval is prolonged. No Q waves. T waves are Normal. No ST changes noted. Clinical impression: Abnormal EKG without significant change. Reviewed by me. Administered Medications: 01:35 Drug: Potassium Effervescent Tablet 50 mEq Route: PO; bb 01:47 Follow up: Response: Medication administered at discharge. bb 01:35 Drug: TORadol 30 mg Route: IVP; Site: right antecubital; bb 01:47 Follow up: Response: No adverse reaction bb Disposition: 09/14/19 01:32 Discharged to Home. Impression: Contusion of left shoulder, Contusion of left hip, Contusion of unspecified part of head, Alcohol use, unspecified with intoxication. - Condition is Stable. - Discharge Instructions: Alcohol Intoxication, Contusion, Shoulder Pain, Hip Pain, Head Injury, Adult, [id number]. - Prescriptions for Ibuprofen 800 mg Oral Tablet - take 1 tablet by ORAL route every 8 hours As needed take with food; 30 tablet. - Medication Reconciliation Form, Thank You Letter, Antibiotic Education, Prescription Opioid Use form. - Follow up: Private Physician; When: Upon discharge from the Emergency Department; Reason: Recheck today's complaints, Continuance of care, Re-evaluation by your physician. - Problem is new. - Symptoms have improved. Signatures: Dispatcher [employer] EDMS Nerissa Harris RN RN Heather Amso RN RN Heber Harrison MD MD tw4 Corrections: (The following items were deleted from the chart) 01:52 01:32 09/14/2019 01:32 Discharged to Home. Impression: Contusion of left shoulder; bb Contusion of left hip; Contusion of unspecified part of head; Alcohol use, unspecified with intoxication. Condition is Stable. Forms are Medication Reconciliation Form, Thank You Letter, Antibiotic Education, Prescription Opioid Use. Follow up: Private Physician; When: Upon discharge from the Emergency Department; Reason: Recheck today's complaints, Continuance of care, Re-evaluation by your physician. Problem is new. Symptoms have improved. tw4
--- NOTE | 2019-09-14 01:33 | ER ---
Nurse's Notes [facility] Name: Jerrell Rm Age: 44 yrs Sex: Female : 1975 Arrival Date: 09/14/2019 Time: 00:11 Bed 6 Private MD: Diagnosis: Contusion of left shoulder;Contusion of left hip;Contusion of unspecified part of head;Alcohol use, unspecified with intoxication Presentation: 09/13 00:06 Method Of Arrival: EMS: [facility] 00:06 Care prior to arrival: None. Mechanism of Injury: Fall from standing position. fc 00:17 Chief complaint: EMS states: EMS states they were toned out for report of fall pt bb told them she went to do the laundry at 2200 and woke up at 2340. Care prior to arrival: None. Mechanism of Injury: Fall. Trauma event details: Injury occurred in the [facility], Injury occurred: at home. Injury occurred: September 14, 2019. 00:17 Acuity: EDD 2 bb 00:17 Method Of Arrival: EMS: [facility] 00:27 Coronavirus screen: Proceed with normal triage. Ebola Screen: No symptoms or risks bb identified at this time. Initial Sepsis Screen: Does the patient meet any 2 criteria? No. Patient's initial sepsis screen is negative. Does the patient have a suspected source of infection? No. Patient's initial sepsis screen is negative. Risk Assessment: Do you want to hurt yourself or someone else? Patient reports no desire to harm self or others. Onset of symptoms was September 13, 2019. 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 N/A - Hysterectomy bb Trauma Activation: Alert Physician: ED Physician; Name: Ross; Notified At: 00:06; Arrived At: 00:06 Physician: General Surgeon; Name: ; Notified At: 00:06; Arrived At: Physician: Radiology; Name: ; Notified At: 00:06; Arrived At: Physician: Respiratory; Name: ; Notified At: 00:06; Arrived At: Physician: Lab; Name: ; Notified At: 00:06; Arrived At: Historical: - Allergies: 00:21 Heparin; fc - Home Meds: 00:21 amiodarone 200 mg oral tab 1 tab once daily [Active]; Lasix 40 mg oral tab 1 tab 2 fc times per day [Active]; Coreg 25 mg oral tab 1 tab 2 times per day [Active]; - PMHx: 00:21 Anxiety; cardiomyopathy; CHF; Pancreatitis; fc - PSHx: 00:21 Cholecystectomy; Hysterectomy; Heart Surgery; Ventricular Assisted Device; fc - Immunization history:: Last tetanus immunization: unknown, Flu vaccine is up to date. - Social history:: Smoking status: Patient denies any tobacco usage or history of. Patient uses alcohol, occasionally. Patient/guardian denies using street drugs. - Immunization history: Last tetanus immunization: unknown. Screenin:17 Abuse screen: Denies threats or abuse. Tuberculosis screening: No symptoms or risk bb factors identified. 00:28 Nutritional screening: No deficits noted. Fall Risk Fall in past 12 months (25 points). bb Secondary diagnosis (15 points) impaired mobility, IV access (20 points). Ambulatory Aid- None/Bed Rest/Nurse Assist (0 pts). Mental Status- Overestimates/Forgets Limitations (15 pts.). Total Ng Fall Scale indicates High Risk Score (45 or more points). Fall prevention measures have been instituted. Side Rails Up X 2 As available patient and family educated on Fall Prevention Program and Strategies. Primary Survey: 00:17 NO uncontrolled hemorrhage observed. A: The patient is alert. Breathing/Chest: bb Respiratory pattern: regular, Respiratory effort: spontaneous, unlabored, Breath sounds: clear, bilaterally. Chest inspection: symmetrical rise and fall of the chest. Circulation: Heart tones present. Pulses: palpable right radial artery, right dorsalis pedis artery, left radial artery and left dorsalis pedis artery. Skin color: pink. Disability Alert. Exposure/Environment: All clothing and personal items were removed. Forensic evidence collection is not deemed to be indicated at this time. Items placed in patient belonging bag. A warming method has been applied: A warm blanket has been provided to the patient. 01:16 Reassessment Airway Airway Patent Breathing/Chest Respiratory pattern Regular bb Respiratory effort Spontaneous Unlabored Breath sounds Clear Chest inspection Symmetrical Circulation Heart tones Present Disability Alert. Secondary Survey: 00:17 HEENT: Face Other abrasion to chin. Gastrointestinal: Abdomen is soft, Bowel sounds bb present in all quadrants. : No signs and/or symptoms were reported regarding the genitourinary system. Musculoskeletal: Capillary refill < 3 seconds, Reports pain in left hip, left shoulder, neck. Assessment: 00:17 General: Appears in no apparent distress. uncomfortable, Behavior is crying. Pain: bb Complains of pain in left shoulder, hip, neck Pain currently is 10 out of 10 on a pain scale. Neuro: Level of Consciousness is awake, alert, obeys commands, Oriented to person, place, situation. EENT: abrasion to chin. Cardiovascular: Heart tones S1 S2 present Capillary refill < 3 seconds Patient's skin is warm and dry. Pulses are all present. Edema is absent. Respiratory: Airway is patent Respiratory effort is even, unlabored, Respiratory pattern is regular, Breath sounds are clear bilaterally. GI: Abdomen is round Bowel sounds present X 4 quads. Abd is soft X 4 quads Abdomen is tender to palpation in left upper quadrant. Derm: Skin is pink, warm \T\ dry. Musculoskeletal: Capillary refill < 3 seconds, Reports pain in left shoulder and hip. Injury Description: fall. 00:25 Reassessment: patient in CT scan. rv 01:00 Reassessment: patient back from radiology department. rv 01:17 Reassessment: pt is on telephone, crying, resp unlabored, IV site intact, awaiting bb diagnostic results. 01:47 Reassessment: Patient is alert, oriented x 3, equal unlabored respirations, skin bb warm/dry/pink. pt verbalized understanding of and agrees to plan of care discharge instructions given pt ambulated with steady gait to exit, states friend is picking her up. Vital Signs: 00:17 BP 118 / 77; Pulse 77; Resp 18 S; Temp 98.4(O); Pulse Ox 97% on R/A; Weight 65.77 kg bb (R); Height 5 ft. 6 in. (167.64 cm) (R); Pain 10/10; 01:10 BP 95 / 64; Pulse 77; Resp 16; Pulse Ox 98% on R/A; rv 01:51 BP 99 / 67; Pulse 77; Resp 16 S; Temp 97.8(O); Pulse Ox 100% on R/A; bb 00:17 Body Mass Index 23.40 (65.77 kg, 167.64 cm) bb Carpio Coma Score: 00:17 Eye Response: spontaneous(4). Verbal Response: oriented(5). Motor Response: obeys bb commands(6). Total: 15. 01:51 Eye Response: spontaneous(4). Verbal Response: oriented(5). Motor Response: obeys bb commands(6). Total: 15. Trauma Score (Adult): 00:17 Eye Response: spontaneous(1); Verbal Response: oriented(1); Motor Response: obeys bb commands(2); Systolic BP: > 89 mm Hg(4); Respiratory Rate: 10 to 29 per min(4); Marcel Score: 15; Trauma Score: 12 01:15 Eye Response: spontaneous(1); Verbal Response: oriented(1); Motor Response: obeys bb commands(2); Systolic BP: > 89 mm Hg(4); Respiratory Rate: 10 to 29 per min(4); Carpio Score: 15; Trauma Score: 12 ED Course: 00:11 Patient arrived in ED. ds1 00:12 Heber Hawkins MD is Attending Physician. tw4 00:17 Patient maintains SpO2 saturation greater than 95% on room air. bb 00:17 Patient has correct armband on for positive identification. Placed in gown. Bed in low bb position. Call light in reach. Side rails up X2. 00:19 Triage completed. bb 00:21 Initial lab(s) drawn, by me, sent to lab. Inserted saline lock: 18 gauge in right rv antecubital area, using aseptic technique. Blood collected. 00:23 Noble Hagan RN is Primary Nurse. rv 00:27 Arm band placed on Patient placed in an exam room, on a stretcher, on pulse oximetry. bb 00:29 Thermoregulation: warm blanket given to patient. bb 00:35 Noble Hagan, KRISTINA is Primary Nurse. rv 00:46 Shoulder Left (2 View) XRAY In Process Unspecified. EDMS 00:50 CT Head C Spine In Process Unspecified. EDMS 01:01 CT Pelvis wo Cont In Process Unspecified. EDMS 01:48 No provider procedures requiring assistance completed. IV discontinued, intact, bb bleeding controlled, No redness/swelling at site. Pressure dressing applied. Administered Medications: 01:35 Drug: Potassium Effervescent Tablet 50 mEq Route: PO; bb 01:47 Follow up: Response: Medication administered at discharge. bb 01:35 Drug: TORadol 30 mg Route: IVP; Site: right antecubital; bb 01:47 Follow up: Response: No adverse reaction bb Intake: 00:17 PO: 0ml; Total: 0ml. bb Outcome: 01:32 Discharge ordered by . tw4 01:52 Discharged to home ambulatory, with friend. bb 01:52 Condition: stable 01:52 Discharge instructions given to patient, Instructed on discharge instructions, follow up and referral plans. medication usage, Demonstrated understanding of instructions, follow-up care, medications, Prescriptions given X 1. 01:52 Patient's length of stay was not longer than 2 hours. bb 01:52 Patient left the ED. bb Signatures: Dispatcher [employer] EDMS Nerissa Harris, RN RN Sharmila Best ds1 Heather Campbell RN RN Heber Harrison MD MD tw4 Noble Hagan RN RN rv
[2019-09-14] MEDS ORDERED: KETOROLAC 30 MG/ML INJ ONE (01:40)
[2019-09-14] MEDS ORDERED: POTASSIUM 25 MEQ EFFERV TAB ONE (01:40)
[2019-09-14 02:01] VITALS: BP 99/67; TEMP 97.8; O2SAT 100
--- NOTE | 2019-09-14 12:04 | RAD REPORT ---
EXAM DESCRIPTION: RAD - Shoulder Left 2 View - 09/14/2019 12:51 am CLINICAL HISTORY: PAIN COMPARISON: No comparisons FINDINGS: Pacer device obscures a portion of the upper left lateral rib cage. No acute fracture or d islocation is seen.
--- NOTE | 2019-09-15 07:40 | EKG ---
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
--- NOTE | 2019-09-15 11:47 | RAD REPORT ---
EXAM DESCRIPTION: Pelvis Wo Cont CLINICAL HISTORY: BLUNT TRAUMA COMPARISON: None. TECHNIQUE: CT PELVIS WITHOUT IV CONTRAST on 09/14/2019 12:14 AM CDT This exam was performed according to our departmental dose-optimization program, which includes autom ated exposure control, adjustment of the mA and/or kV according to patient size and/or use of iterati ve reconstruction technique. FINDINGS: There is no bowel obstruction. Urinary bladder is unremarkable. There is no free fluid. Hy sterectomy was performed. Appendix is normal. Skeleton: There are no acute osseous findings. No suspicious bony lesions. IMPRESSION: No definite acute fracture. Electronically signed by: Nik Rodriguez MD 09/14/2019 1:21 AM CDT Due to temporary technical issues with the PACS/Fluency reporting system, reports are being signed by the in house radiologist as a courtesy to ensure prompt reporting. The interpreting radiologist is f ully responsible for the content of the report.
--- NOTE | 2019-09-15 11:49 | RAD REPORT ---
EXAM DESCRIPTION: Head C Spine Mpr Wo Con CLINICAL HISTORY: PAIN COMPARISON: None. TECHNIQUE: CT Head and Cervical spine WO contrast on 09/14/2019 12:14 AM CDT This exam was performed according to our departmental dose-optimization program, which includes autom ated exposure control, adjustment of the mA and/or kV according to patient size and/or use of iterati ve reconstruction technique. FINDINGS: Brain: There is no acute hemorrhage, mass effect or midline shift. Vasquez-white differentiat ion is preserved. There is no hydrocephalus. There is no significant volume loss for age. The calvarium is intact. Orbits and globes are unremarkable. The paranasal sinuses are clear. Mastoid air cells are clear. Cervical Spine: There is no acute fracture. Alignment is anatomic. Disc spaces are maintained. Vertebral body heights are preserved. Soft tissues are unremarkable. IMPRESSION: No acute postraumatic findings. Electronically signed by: Nik Rodriguez MD 09/14/2019 1:15 AM CDT Due to temporary technical issues with the PACS/Fluency reporting system, reports are being signed by the in house radiologist as a courtesy to ensure prompt reporting. The interpreting radiologist is f ully responsible for the content of the report.
== END 2019-09-14 01:52 | disposition home or self-care (01) ==
LOC: ER 00:09
DX: S00.93XA Contusion of unspecified part of head, initial encounter (principal); S70.02XA Contusion of left hip, initial encounter; F10.129 Alcohol abuse with intoxication, unspecified; W19.XXXA Unspecified fall, initial encounter; Y93.01 Activity, walking, marching and hiking; Y92.9 Unspecified place or not applicable; I50.9 Heart failure, unspecified; F41.9 Anxiety disorder, unspecified; Z88.8 Allergy status to other drugs, medicaments and biological substances
CPT/HCPCS: 36415; 70450; 72125; 72192; 80048; 80320; 82553; 84484; 85025; 93005; 96374; 99284

== ENCOUNTER 2020-06-12 03:27 | Emergency (ER) | payer SELFPAY ==
--- OUTSIDE RECORDS SUMMARY | 2020-06-12 03:29 | XMS REPORT | Continuity of Care Document ---
:1975 Author Organization [facility] t Address [address] [place] [address] Care Team Providers Name Role Phone Bentley Elaine DO Attending Clinician Kevin COWART Attending Clinician Dolly York Attending Clinician Problems This patient has no known problems. Allergies, Adverse Reactions, Alerts This patient has no known allergies or adverse reactions. Social History Social Habit Start Date Stop Date Quantity Comments Source Sex Assigned At [facility] Medications This patient has no known medications. Procedures This patient has no known procedures. Encounters Start End Encounter Admission Attending Care Care Encounter Source Date/Time Date/Time Type Type Clinicians Facility Department ID 2019-08-10 2019-08-10 Emergency [facility] [id number] 02:55:15 05:33:00 Becca Wharton [id number] [place] [id number] [place] [id number] 2019-07-30 2019-07-30 [id number] 05:04:07 06:28:00 Robert Wharton [id number] [place] [id number] [place] [id number] 2019-07-28 2019-07-28 Emergency Kami Pederson [facility] [id number] 20:16:51 21:15:00 Dolly Wharton [id number] [place] [id number] [place] [id number] 2019-06-12 2019-06-12 [facility] [id number] 04:46:07 06:33:00 Robert Wharton [id number] [place] [id number] [place] [id number] Results This patient has no known results.
--- OUTSIDE RECORDS SUMMARY | 2020-06-12 03:29 | XMS REPORT | Clinical Summary ---
:1975 Author Organization [facility] Address [address] [place] [address] Care Team Providers Name Role Phone Unavailable Primary Care Provider Unavailable Allergies Not on File Medications Not on file Active Problems Not on file Social History Tobacco Use Types Packs/Day Years Used Date Never Assessed Sex Assigned at Date Recorded Not on file Last Filed Vital Signs Not on file Plan of Treatment Not on file Results Not on fileafter 06/12/2019
--- NOTE | 2020-06-12 04:51 | ER ---
Nurse's Notes [facility] Name: Jerrell Rm Age: 45 yrs Sex: Female : 1975 Arrival Date: 06/12/2020 Time: 03:29 Bed 7 Private MD: Diagnosis: Laceration without foreign body of other part of head-scalp Presentation: 06/12 04:20 Chief complaint: Patient states: I fell backward when I slipped in a puddle in my sg bedroom, I have a new rottweiler puppy and she peed in the floor and I was trying to clean it up but I slipped in it and hit my head on something in my bedroom, Im not really sure what it was that I hit my head on. Coronavirus screen: Client denies travel out of the [place] in the last 14 days. Ebola Screen: Patient negative for fever greater than or equal to 101.5 degrees Fahrenheit, and additional compatible Ebola Virus Disease symptoms Patient denies exposure to infectious person. Patient denies travel to an Ebola-affected area in the 21 days before illness onset. No symptoms or risks identified at this time. Initial Sepsis Screen: Does the patient meet any 2 criteria? No. Patient's initial sepsis screen is negative. Does the patient have a suspected source of infection? No. Patient's initial sepsis screen is negative. Risk Assessment: Do you want to hurt yourself or someone else? Patient reports no desire to harm self or others. Note pt denies LOC. Onset of symptoms was June 12, 2020. Care prior to arrival: None. Transition of care: patient was not received from another setting of care. 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 - Social history:: Smoking status: Patient denies any tobacco usage or history of. - Family history:: not pertinent. Screenin:30 Abuse screen: Denies threats or abuse. Denies injuries from another. Nutritional sg screening: No deficits noted. Tuberculosis screening: No symptoms or risk factors identified. Never had TB. Fall Risk None identified. Assessment: 04:20 General: Appears in no apparent distress. well groomed, well developed, well nourished, sg Behavior is calm, cooperative, appropriate for age. Pain: Complains of pain in back of head Quality of pain is described as throbbing. Neuro: No deficits noted. Cardiovascular: Patient's skin is warm and dry. Chest pain is denied. Respiratory: Airway is patent Respiratory effort is even, unlabored, Respiratory pattern is regular, symmetrical. GI: No signs and/or symptoms were reported involving the gastrointestinal system. : No signs and/or symptoms were reported regarding the genitourinary system. EENT: No signs and/or symptoms were reported regarding the EENT system. Derm: Skin temperature is warm. Musculoskeletal: Circulation, motion, and sensation intact. Range of motion: intact in all extremities. Injury Description: Laceration sustained to back of head is clean, full thickness, 0.5 to 2.5 cm long, bleeding moderately, was sustained 30-60 minutes ago. a small amount of bleeding noted at this time. Vital Signs: 04:44 BP 136 / 70; Pulse 78; Resp 18; Temp 97.7; Pulse Ox 100% on R/A; Pain 6/10; sg Marcel Coma Score: 04:48 Eye Response: spontaneous(4). Verbal Response: oriented(5). Motor Response: obeys tru commands(6). Total: 15. ED Course: 03:29 Patient arrived in ED. ag3 03:30 Josue Mancilla MD is Attending Physician. tru 04:25 Patient has correct armband on for positive identification. Bed in low position. Call sg light in reach. Side rails up X2. Pulse ox on. NIBP on. Warm blanket given. Head of bed elevated. 04:30 Assist provider with laceration repair on back of head that was 2.5 cm. or less using sg armando. Set up tray. Performed by Josue Mancilla MD Patient tolerated well. Patient did not have IV access during this emergency room visit. Wound care: to laceration located on scalp was cleaned with Hibiclens, Patient tolerated well. 04:43 Arm band placed on. sg 04:44 Triage completed. sg 04:45 Kevin Gannon, RN is Primary Nurse. sg 04:50 Surya Rdz MD is Referral Physician. tru Administered Medications: 05:02 Drug: KeFLEX 500 mg Route: PO; ea Outcome: 04:51 Discharge ordered by . [facility] 05:08 Discharged to home ambulatory, with family. 05:08 Condition: good 05:08 Discharge instructions given to patient, Instructed on discharge instructions, follow up and referral plans. no drinking with medication, no driving heavy equipment, safety practices, wound care, Demonstrated understanding of instructions, follow-up care, medications, wound care, Prescriptions given X 1. 05:10 Patient left the ED. sg Signatures: Kevin Gannon, RN RN Josue Schumacher MD MD cha Antunez, Elena RN Kina Browning ea3
--- NOTE | 2020-06-12 04:51 | EDPHYS ---
Physician Documentation [facility] Name: Jerrell Rm Age: 45 yrs Sex: Female : 1975 Arrival Date: 06/12/2020 Time: 03:29 Bed 7 Private MD: KOSTA Physician Josue Mancilla HPI: 06/12 04:42 This 45 yrs old Female presents to ER via Unassigned with complaints of tru LACERATION TO HEAD, Fall Injury. 04:42 Details of fall: The patient fell from an upright position, while standing. Onset: The tru symptoms/episode began/occurred just prior to arrival. Associated injuries: The patient sustained injury to the head. Severity of symptoms: At their worst the symptoms were mild, this morning. The patient has not experienced similar symptoms in the past. 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 - Social history:: Smoking status: Patient denies any tobacco usage or history of. - Family history:: not pertinent. ROS: 04:43 Constitutional: Negative for fever, chills, and weight loss, Eyes: Negative for injury, tru pain, redness, and discharge, ENT: Negative for injury, pain, and discharge, Neck: Negative for injury, pain, and swelling, Cardiovascular: Negative for chest pain, palpitations, and edema, Respiratory: Negative for shortness of breath, cough, wheezing, and pleuritic chest pain, Abdomen/GI: Negative for abdominal pain, nausea, vomiting, diarrhea, and constipation, Back: Negative for injury and pain, : Negative for injury, bleeding, discharge, and swelling, MS/Extremity: Negative for injury and deformity, Skin: Negative for injury, rash, and discoloration, Neuro: Negative for headache, weakness, numbness, tingling, and seizure, Psych: Negative for depression, anxiety, suicide ideation, homicidal ideation, and hallucinations, Allergy/Immunology: Negative for hives, rash, and allergies, Endocrine: Negative for neck swelling, polydipsia, polyuria, polyphagia, and marked weight changes, Hematologic/Lymphatic: Negative for swollen nodes, abnormal bleeding, and unusual bruising. Exam: 04:43 Constitutional: This is a well developed, well nourished patient who is awake, alert, tru and in no acute distress. Eyes: Pupils equal round and reactive to light, extra-ocular motions intact. Lids and lashes normal. Conjunctiva and sclera are non-icteric and not injected. Cornea within normal limits. Periorbital areas with no swelling, redness, or edema. ENT: Nares patent. No nasal discharge, no septal abnormalities noted. Tympanic membranes are normal and external auditory canals are clear. Oropharynx with no redness, swelling, or masses, exudates, or evidence of obstruction, uvula midline. Mucous membranes moist. Neck: Trachea midline, no thyromegaly or masses palpated, and no cervical lymphadenopathy. Supple, full range of motion without nuchal rigidity, or vertebral point tenderness. No Meningismus. Chest/axilla: Normal chest wall appearance and motion. Nontender with no deformity. No lesions are appreciated. Cardiovascular: Regular rate and rhythm with a normal S1 and S2. No gallops, murmurs, or rubs. Normal PMI, no JVD. No pulse deficits. Respiratory: Lungs have equal breath sounds bilaterally, clear to auscultation and percussion. No rales, rhonchi or wheezes noted. No increased work of breathing, no retractions or nasal flaring. Abdomen/GI: Soft, non-tender, with normal bowel sounds. No distension or tympany. No guarding or rebound. No evidence of tenderness throughout. Back: No spinal tenderness. No costovertebral tenderness. Full range of motion. Skin: Warm, dry with normal turgor. Normal color with no rashes, no lesions, and no evidence of cellulitis. MS/ Extremity: Pulses equal, no cyanosis. Neurovascular intact. Full, normal range of motion. Neuro: Awake and alert, GCS 15, oriented to person, place, time, and situation. Cranial nerves II-XII grossly intact. Motor strength 5/5 in all extremities. Sensory grossly intact. Cerebellar exam normal. Normal gait. Psych: Awake, alert, with orientation to person, place and time. Behavior, mood, and affect are within normal limits. 04:43 Head/face: Noted is hematoma, a laceration(s), that is deep, .5 cm(s). Vital Signs: 04:44 BP 136 / 70; Pulse 78; Resp 18; Temp 97.7; Pulse Ox 100% on R/A; Pain 6/10; sg Fifield Coma Score: 04:48 Eye Response: spontaneous(4). Verbal Response: oriented(5). Motor Response: obeys [facility] commands(6). Total: 15. Laceration: 04:43 Wound Repair of 0.5cm ( 0.2in ) subcutaneous laceration to right parietal area. tru Irregularly shaped.. Distal neuro/vascular/tendon intact. Anesthesia: Local anesthetic administered with 0 mls of 1% lidocaine. Wound prep: Copious irrigation. Skin closed with 4 1-0 Prolene using staple gun. Dressed with pressure dressing. Patient tolerated well. MDM: 04:09 Patient medically screened. tru 04:48 Differential diagnosis: Hematoma on head, Laceration of scalp. Differential diagnosis: tru closed head injury, laceration. Data reviewed: vital signs, nurses notes. Data interpreted: live in housekeeper: rate is 78 beats/min, rhythm is regular. Test interpretation: by ED physician or midlevel provider:. Counseling: I had a detailed discussion with the patient and/or guardian regarding: the historical points, exam findings, and any diagnostic results supporting the discharge/admit diagnosis, the need for outpatient follow up, for definitive care, a general surgeon. 06/12 04:41 Order name: Wound Care; Complete Time: 04:45 [facility] 06/12 04:41 Order name: Dressing - Wound: guaze pressure; Complete Time: 04:45 [facility] 06/12 04:42 Order name: Dressing - Wound; Complete Time: 04:45 [facility] 06/12 04:42 Order name: Gloves, Sterile; Complete Time: 04:45 [facility] 06/12 04:42 Order name: Setup Suture Tray; Complete Time: 04:45 [facility] Administered Medications: 05:02 Drug: KeFLEX 500 mg Route: PO; ea Disposition: 06/12/20 04:51 Discharged to Home. Impression: Laceration without foreign body of other part of head - scalp. - Condition is Stable. - Discharge Instructions: Head Injury, Adult, Laceration Care, Adult, Laceration Care, Adult, [id number], Head Injury, Adult, [id number]. - Prescriptions for Keflex 500 mg Oral Capsule - take 1 capsule by ORAL route every 6 hours for 7 days; 28 capsule. - Medication Reconciliation Form, Thank You Letter, Antibiotic Education, Prescription Opioid Use form. - Follow up: Private Physician; When: 1 week; Reason: Recheck today's complaints, Continuance of care, Re-evaluation by your physician. Follow up: Surya Rdz MD; When: 2 - 3 days; Reason: Recheck today's complaints, Continuance of care, Re-evaluation by your physician. - Problem is new. - Symptoms have improved. Signatures: Kevin Gannon RN RN Josue Schumacher MD MD cha Antunez, Elena, RN RN ginette Corrections: (The following items were deleted from the chart) 05:10 04:51 06/12/2020 04:51 Discharged to Home. Impression: Laceration without foreign body sg of other part of head - scalp. Condition is Stable. Forms are Medication Reconciliation Form, Thank You Letter, Antibiotic Education, Prescription Opioid Use. Follow up: Private Physician; When: 1 week; Reason: Recheck today's complaints, Continuance of care, Re-evaluation by your physician. Follow up: Surya Rdz; When: 2 - 3 days; Reason: Recheck today's complaints, Continuance of care, Re-evaluation by your physician. Problem is new. Symptoms have improved. tru
[2020-06-12] MEDS ORDERED: CEPHALEXIN 250 MG CAP ONE (05:13)
[2020-06-12 05:15] VITALS: BP 136/70; TEMP 97.7; O2SAT 100
== END 2020-06-12 05:10 | disposition home or self-care (01) ==
LOC: ER 03:27
PROC: 0JQ00ZZ Repair Scalp Subcutaneous Tissue and Fascia, Open Approach (ICD-10-PCS; principal; 2020-06-12)
DX: S01.01XA Laceration without foreign body of scalp, initial encounter (principal); W01.0XXA Fall on same level from slipping, tripping and stumbling without subsequent striking against object, initial encounter; Y93.89 Activity, other specified; Y92.003 Bedroom of unspecified non-institutional (private) residence as the place of occurrence of the external cause; Z88.8 Allergy status to other drugs, medicaments and biological substances
CPT/HCPCS: 99284

== ENCOUNTER 2020-06-29 06:07 | Emergency (ER) | payer SELFPAY ==
--- OUTSIDE RECORDS SUMMARY | 2020-06-29 06:09 | XMS REPORT | Clinical Summary ---
:1975 Author Organization [facility] Address [address] [place] [address] Care Team Providers Name Role Phone Unavailable Primary Care Provider Unavailable Allergies Not on File Medications Not on file Active Problems Not on file Social History Tobacco Use Types Packs/Day Years Used Date Never Assessed Sex Assigned at Date Recorded Not on file Last Filed Vital Signs Not on file Plan of Treatment Not on file Results Not on fileafter 06/29/2019
--- OUTSIDE RECORDS SUMMARY | 2020-06-29 06:09 | XMS REPORT | Continuity of Care Document ---
:1975 Author Organization [facility] t Address [address] [place] [address] Care Team Providers Name Role Phone Bentley Elaine DO Attending Clinician Kevin COWART Attending Clinician Dolly York Attending Clinician Problems This patient has no known problems. Allergies, Adverse Reactions, Alerts This patient has no known allergies or adverse reactions. Social History Social Habit Start Date Stop Date Quantity Comments Source Sex Assigned At [facility] Medications This patient has no known medications. Procedures This patient has no known procedures. Encounters Start End Encounter Admission Attending Care Care Encounter Source Date/Time Date/Time Type Type Clinicians Facility Department ID 2019-08-10 2019-08-10 Emergency [facility] [id number] 02:55:15 05:33:00 Becca Wharton [id number] [place] [id number] [place] [id number] 2019-07-30 2019-07-30 [facility] [id number] 05:04:07 06:28:00 Robert Wharton [id number] [place] [id number] [place] [id number] 2019-07-28 2019-07-28 Emergency Kami Pederson [facility] [id number] 20:16:51 21:15:00 Dolly Wharton [id number] [place] [id number] [place] [id number] [id number] 2019-06-12 2019-06-12 [facility] [id number] 04:46:07 06:33:00 Robert Wharton [id number] [place] [id number] [place] [id number] Results This patient has no known results.
--- NOTE | 2020-06-29 06:34 | ER ---
Nurse's Notes [facility] Name: Jerrell Rm Age: 45 yrs Sex: Female : 1975 Arrival Date: 06/29/2020 Time: 06:09 Bed 20 Private MD: Diagnosis: Staple removal-Scalp Presentation: 06/29 06:22 Chief complaint: Patient states: had armando placed on after dog tripped her. em Coronavirus screen: Client denies travel out of the [place] in the last 14 days. Ebola Screen: Patient negative for fever greater than or equal to 101.5 degrees Fahrenheit, and additional compatible Ebola Virus Disease symptoms Patient denies exposure to infectious person. Patient denies travel to an Ebola-affected area in the 21 days before illness onset. No symptoms or risks identified at this time. Initial Sepsis Screen: Does the patient meet any 2 criteria? No. Patient's initial sepsis screen is negative. Does the patient have a suspected source of infection? No. Patient's initial sepsis screen is negative. Risk Assessment: Do you want to hurt yourself or someone else? Patient reports no desire to harm self or others. Onset of symptoms was June 12, 2020. 06:22 Method Of Arrival: Ambulatory em 06:22 Acuity: EDD 5 em Historical: - Allergies: 06:26 Heparin; em - PMHx: 06:26 Anxiety; cardiomyopathy; CHF; Pancreatitis; em - PSHx: 06:26 Cholecystectomy; Heart Surgery; Ventricular Assisted Device; Hysterectomy; em - Immunization history:: Adult Immunizations up to date. - Social history:: Smoking status: Patient denies any tobacco usage or history of. Screenin:22 Abuse screen: Denies threats or abuse. Nutritional screening: No deficits noted. em Tuberculosis screening: No symptoms or risk factors identified. Fall Risk None identified. Assessment: 06:26 General: Appears in no apparent distress. comfortable, Behavior is calm, cooperative, em appropriate for age. Pain: Denies pain. Neuro: Level of Consciousness is awake, alert, obeys commands, Oriented to person, place, time, situation, Appropriate for age. Cardiovascular: Capillary refill < 3 seconds Patient's skin is warm and dry. Respiratory: Airway is patent Respiratory effort is even, unlabored, Respiratory pattern is regular, symmetrical. Derm: Skin is intact, is healthy with good turgor, Skin is pink, warm \T\ dry. Musculoskeletal: Capillary refill < 3 seconds, Range of motion: intact in all extremities. Vital Signs: 06:22 BP 140 / 101; Pulse 84; Resp 18; Pulse Ox 99% on R/A; Weight 62.6 kg; Height 4 ft. 6 em in. (137.16 cm); Pain 0/10; 06:22 Body Mass Index 33.27 (62.60 kg, 137.16 cm) em ED Course: 06:09 Patient arrived in ED. bp1 06:17 Kyle Knight, RN is Primary Nurse. em 06:19 Florian Burger MD is Attending Physician. 7 06:22 Patient has correct armband on for positive identification. em 06:25 Triage completed. em 06:26 Arm band placed on. em 06:42 No provider procedures requiring assistance completed. Patient did not have IV access em during this emergency room visit. Administered Medications: No medications were administered Outcome: 06:34 Discharge ordered by . 7 06:42 Discharged to home ambulatory. em 06:42 Condition: good 06:42 Discharge instructions given to patient, Instructed on discharge instructions, follow up and referral plans. Demonstrated understanding of instructions, follow-up care. 06:42 No charge visit due to suture removal. 06:42 Patient left the ED. em Signatures: Kyle Knight, RN RN Zeny Rivas [facility] Florian Burger MD MD [facility]
--- NOTE | 2020-06-29 06:35 | EDPHYS ---
Physician Documentation [facility] Name: Jerrell Rm Age: 45 yrs Sex: Female : 1975 Arrival Date: 06/29/2020 Time: 06:09 Bed 20 Private MD: ED Physician Florian Burger HPI: 06/29 06:28 This 45 yrs old Female presents to ER via Ambulatory with complaints of Staple mh7 Removal. 06:28 The patient has armando on the scalp. Previous treatment: The patient was initially mh7 treated 16 day(s) ago, the care was rendered at [facility], Treatment type: The patient's original treatment included armando. Sutures/armando progress: The patient has no c/o's. The wound is well-healing with no redness, swelling, discharge, or dehiscence reported. Historical: - Allergies: 06:26 Heparin; em - PMHx: 06:26 Anxiety; cardiomyopathy; CHF; Pancreatitis; em - PSHx: 06:26 Cholecystectomy; Heart Surgery; Ventricular Assisted Device; Hysterectomy; em - Immunization history:: Adult Immunizations up to date. - Social history:: Smoking status: Patient denies any tobacco usage or history of. ROS: 06:28 Constitutional: Negative for fever, chills, and weight loss, Eyes: Negative for injury, mh7 pain, redness, and discharge, ENT: Negative for injury, pain, and discharge, Neck: Negative for injury, pain, and swelling, Cardiovascular: Negative for chest pain, palpitations, and edema, Respiratory: Negative for shortness of breath, cough, wheezing, and pleuritic chest pain, Abdomen/GI: Negative for abdominal pain, nausea, vomiting, diarrhea, and constipation, Back: Negative for injury and pain, : Negative for injury, bleeding, discharge, and swelling, MS/Extremity: Negative for injury and deformity, Neuro: Negative for headache, weakness, numbness, tingling, and seizure, Psych: Negative for depression, anxiety, suicide ideation, homicidal ideation, and hallucinations, Allergy/Immunology: Negative for hives, rash, and allergies, Endocrine: Negative for neck swelling, polydipsia, polyuria, polyphagia, and marked weight changes, Hematologic/Lymphatic: Negative for swollen nodes, abnormal bleeding, and unusual bruising. Exam: 06:28 Constitutional: This is a well developed, well nourished patient who is awake, alert, mh7 and in no acute distress. 06:28 Neuro: Awake and alert, GCS 15, oriented to person, place, time, and situation. Cranial nerves II-XII grossly intact. Motor strength 5/5 in all extremities. Sensory grossly intact. Cerebellar exam normal. Normal gait. Psych: Awake, alert, with orientation to person, place and time. Behavior, mood, and affect are within normal limits. 06:28 Head/face: Noted is Healing wound posterior scalp with 4 armando. 06:28 Head/face: Exam is negative for ecchymosis, erythema, hematoma, swelling, tenderness. 06:28 Skin: Wound recheck: Staple laceration closure: the wound is healing well, the edges are well approximated, no evidence of dehiscence, no drainage, no erythema, no swelling. Vital Signs: 06:22 BP 140 / 101; Pulse 84; Resp 18; Pulse Ox 99% on R/A; Weight 62.6 kg; Height 4 ft. 6 em in. (137.16 cm); Pain 0/10; 06:22 Body Mass Index 33.27 (62.60 kg, 137.16 cm) em Procedures: 06:28 Suture/Staple removal: Removed 4 armando, from posterior scalp, site appears well mh7 healed, dressed with Patient tolerated well. MDM: 06:28 Data reviewed: vital signs, nurses notes. Data interpreted: Pulse oximetry: on room air mh7 is 99 %. Interpretation: normal. Counseling: I had a detailed discussion with the patient and/or guardian regarding: the historical points, exam findings, and any diagnostic results supporting the discharge/admit diagnosis, the presence of at least one elevated blood pressure reading (>120/80) during this emergency department visit, the need for outpatient follow up, to return to the emergency department if symptoms worsen or persist or if there are any questions or concerns that arise at home. Response to treatment: the patient's symptoms have markedly improved after treatment. 06:34 Patient medically screened. mh7 Administered Medications: No medications were administered Disposition: 06/29/20 06:34 Discharged to Home. Impression: Staple removal-Scalp. - Condition is Stable. - Discharge Instructions: Wound Check, Wound Closure Removal. - Medication Reconciliation Form, Thank You Letter, Antibiotic Education, Prescription Opioid Use form. - Follow up: Private Physician; When: 1 - 2 days; Reason: Worsening of condition, Recheck today's complaints, Continuance of care, Re-evaluation by your physician. - Problem is an ongoing problem. - Symptoms have improved. Signatures: Kyle Knight RN RN em Florian Burger MD MD mh7 Corrections: (The following items were deleted from the chart) 06:42 06:34 06/29/2020 06:34 Discharged to Home. Impression: Staple removal-Scalp. Condition em is Stable. Forms are Medication Reconciliation Form, Thank You Letter, Antibiotic Education, Prescription Opioid Use. Follow up: Private Physician; When: 1 - 2 days; Reason: Worsening of condition, Recheck today's complaints, Continuance of care, Re-evaluation by your physician. Problem is an ongoing problem. Symptoms have improved. mh7
[2020-06-29 06:57] VITALS: BP 140/101; O2SAT 99
== END 2020-06-29 06:42 | disposition home or self-care (01) ==
LOC: ER 06:07
DX: Z48.02 Encounter for removal of sutures (principal)

== ENCOUNTER 2020-08-06 14:13 | Emergency (ER) | payer SELFPAY ==
--- OUTSIDE RECORDS SUMMARY | 2020-08-06 14:16 | XMS REPORT | Continuity of Care Document ---
:1975 Author Organization [facility] t Address [address] [place] [address] Care Team Providers Name Role Phone Bentley Elaine DO Attending Clinician Kevin COWART Attending Clinician Dolly York Attending Clinician Problems This patient has no known problems. Allergies, Adverse Reactions, Alerts This patient has no known allergies or adverse reactions. Social History Social Habit Start Date Stop Date Quantity Comments Source Sex Assigned At [facility] Medications This patient has no known medications. Procedures This patient has no known procedures. Encounters Start End Encounter Admission Attending Care Care Encounter Source Date/Time Date/Time Type Type Clinicians Facility Department ID 2019-08-10 2019-08-10 [facility] [id number] 02:55:15 05:33:00 Becca Wharton [id number] [place] [id number] [place] [id number] 2019-07-30 2019-07-30 [facility] [id number] 05:04:07 06:28:00 Robert Wharton [id number] [place] [id number] [place] [id number] 2019-07-28 2019-07-28 Emergency Kami Pederson [facility] [id number] 20:16:51 21:15:00 Dolly Wharton [id number] [place] [id number] [place] [id number] 2019-06-12 2019-06-12 [facility] [id number] 04:46:07 06:33:00 Robert Wharton [id number] [place] [id number] [place] [id number] Results This patient has no known results.
--- NOTE | 2020-08-06 15:15 | ER ---
Nurse's Notes [facility] Name: Jerrell Rm Age: 45 yrs Sex: Female : 1975 Arrival Date: 08/06/2020 Time: 14:20 Bed Waiting Private MD: Diagnosis: Presentation: 08/06 15:14 Note Called phone number on record, no answer. ca1 ED Course: 14:20 Patient arrived in ED. am2 15:06 Patient's name was called from [facility]. No response. Unable to locate patient. Will ca1 disposition as left without being seen by a provider. Administered Medications: No medications were administered Outcome: 15:15 Patient left the ED. ca1 Signatures: Bibi Salazar am2 Ronda Amaya RN RN ca1
== END 2020-08-06 15:15 | disposition left against medical advice (07) ==
LOC: ER 14:13
DX: Z02.9 Encounter for administrative examinations, unspecified (principal)

== ENCOUNTER 2020-10-26 21:11 | Emergency (ER) | payer SELFPAY ==
--- OUTSIDE RECORDS SUMMARY | 2020-10-26 21:14 | XMS REPORT | Continuity of Care Document ---
:1975 Author Organization [facility] t Address [address] [place] [address] Care Team Providers Name Role Phone Bentley Elaine DO Attending Clinician Kevin COWART Attending Clinician Dolly York Attending Clinician Problems This patient has no known problems. Allergies, Adverse Reactions, Alerts This patient has no known allergies or adverse reactions. Social History Social Habit Start Date Stop Date Quantity Comments Source Sex Assigned At [facility] Medications This patient has no known medications. Procedures This patient has no known procedures. Encounters Start End Encounter Admission Attending Care Care Encounter Source Date/Time Date/Time Type Type Clinicians Facility Department ID 2019-08-10 2019-08-10 [place] [id number] 02:55:15 05:33:00 Becca Wharton [id number] [place] [id number] [place] [id number] 2019-07-30 2019-07-30 [facility] [id number] 05:04:07 06:28:00 Robert Wharton [id number] [place] [id number] [place] [id number] 2019-07-28 2019-07-28 Emergency Kami Pederson [facility] [id number] 20:16:51 21:15:00 Dolly Wharton [id number] [place] [id number] [place] [id number] 2019-06-12 2019-06-12 [facility] [id number] 04:46:07 06:33:00 Robert Wharton [id number] [place] [id number] [place] [id number] Results This patient has no known results.
--- NOTE | 2020-10-26 22:36 | ER ---
Nurse's Notes [facility] Name: Jerrell Rm Age: 45 yrs Sex: Female : 1975 Arrival Date: 10/26/2020 Time: 21:14 Bed 17 Private MD: Diagnosis: Contusion of left hand Presentation: 10/26 21:23 Chief complaint: Patient states: About a month in a half ago patient hit Left fifth vg1 digit on table. States has been putting it off to be looked at, pain has become worse and sometimes radiates to wrist. Slight swelling and bruising noted. Coronavirus screen: Client denies travel out of the [place] in the last 14 days. Ebola Screen: Patient negative for fever greater than or equal to 101.5 degrees Fahrenheit, and additional compatible Ebola Virus Disease symptoms. Initial Sepsis Screen: Does the patient meet any 2 criteria? No. Patient's initial sepsis screen is negative. Does the patient have a suspected source of infection? No. Patient's initial sepsis screen is negative. Risk Assessment: Do you want to hurt yourself or someone else? Patient reports no desire to harm self or others. Onset of symptoms was September 12, 2020. 21:23 Method Of Arrival: Ambulatory vg1 21:23 Acuity: EDD 4 vg1 Triage Assessment: 21:26 General: Appears in no apparent distress. comfortable, Behavior is calm, cooperative. vg1 Pain: Complains of pain in dorsal aspect of middle phalanx of left little finger, dorsal aspect of proximal phalanx of left little finger and left little fingernail. Musculoskeletal: Swelling present in left fifth digit. Injury Description: Pt hit left fifth digit on table. 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 - Social history:: Smoking status: Patient denies any tobacco usage or history of. Screenin:54 Abuse screen: Denies threats or abuse. Denies injuries from another. Nutritional ad5 screening: No deficits noted. Tuberculosis screening: No symptoms or risk factors identified. Fall Risk None identified. Assessment: 21:31 Reassessment: Received VO from Dr Hawkins for Xray of left hand. vg1 21:57 General: Appears in no apparent distress. comfortable, Behavior is calm, cooperative, ad5 appropriate for age. Pain: Complains of pain in L fifth digit that radiates to L wrist. Neuro: No deficits noted. Level of Consciousness is awake, alert, obeys commands, Oriented to person, place, time, situation, Appropriate for age Supervisor Seaming are equal bilaterally Moves all extremities. Cardiovascular: No deficits noted. Capillary refill < 3 seconds Patient's skin is warm and dry. Pulses are all present. Respiratory: No deficits noted. Airway is patent Respiratory effort is even, unlabored, Respiratory pattern is regular, symmetrical. GI: No deficits noted. : No deficits noted. EENT: No deficits noted. Derm: No deficits noted. Skin is intact, Skin is pink, warm \\T\\ dry. Musculoskeletal: Reports pain in L fifth finger that radiates to L wrist. 21:59 Injury Description: Pt reports "hit a table" causing pain, edema, bruising to L fifth ad5 finger. Pt reports recent pain that radiates to L wrist, worse with mvmt. Vital Signs: 21:23 BP 109 / 87; Pulse 80; Resp 16; Temp 98.4; Pulse Ox 99% ; Weight 67.13 kg; Height 5 ft. vg1 6 in. (167.64 cm); Pain 5/10; 22:50 BP 112 / 84; Pulse 76; Resp 16; Pulse Ox 99% on R/A; jm8 21:23 Body Mass Index 23.89 (67.13 kg, 167.64 cm) vg1 ED Course: 21:14 Patient arrived in ED. es 21:25 Triage completed. vg1 21:26 Arm band placed on. vg1 21:54 Gautam Lee is Primary Nurse. ad5 21:54 Patient has correct armband on for positive identification. Bed in low position. Call ad5 light in reach. Side rails up X 1. Door closed. Noise minimized. Warm blanket given. Head of bed elevated. 21:55 Melo Jaquez NP is PHCP. pm1 21:55 Heber Hawkins MD is Attending Physician. pm1 22:00 No provider procedures requiring assistance completed. ad5 22:00 XRAY Hand LEFT 3 View Sent. ad5 22:36 XRAY Hand LEFT 3 View In Process Unspecified. EDMS 22:51 Patient did not have IV access during this emergency room visit. jm8 Administered Medications: No medications were administered Outcome: 22:36 Discharge ordered by MD. pm1 22:51 Discharged to home ambulatory. jm8 22:51 Condition: good 22:51 Discharge instructions given to patient, Instructed on discharge instructions, follow up and referral plans. Demonstrated understanding of instructions, follow-up care, splint care. 22:51 Patient left the ED. marissa Signatures: Dispatcher [employer] EDNY Gia Chau Patrick, MARY LATEX THREAD MACHINE OPERATOR pm1 Lidia Pena, RN RN vg1 Germain Torres RN RN jm8 Gautam Lee ad5
--- NOTE | 2020-10-26 22:36 | EDPHYS ---
Physician Documentation [facility] Name: Jerrell Rm Age: 45 yrs Sex: Female : 1975 Arrival Date: 10/26/2020 Time: 21:14 Bed 17 Private MD: ED Physician Heber Hawkins HPI: 10/26 22:20 This 45 yrs old Female presents to ER via Ambulatory with complaints of Finger pm1 Injury. 22:20 The patient or guardian reports pain. The complaints affect the left little finger. pm1 Context: resulted from hitting hand against a table 6 weeks ago. Reports occasional pain that comes and goes to little finger. Patient with FROM intact to little finger. Onset: The symptoms/episode began/occurred 6 week(s) ago. Modifying factors: The symptoms are alleviated by nothing, the symptoms are aggravated by palpation. Associated signs and symptoms: Pertinent negatives: cyanosis distally, decreased sensation distally, numbness distally, tingling distally. Severity of symptoms: in the emergency department the symptoms have improved. The patient has not experienced similar symptoms in the past. The patient has not recently seen a physician. 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 - Social history:: Smoking status: Patient denies any tobacco usage or history of. ROS: 22:20 Constitutional: Negative for fever, chills, and weight loss. pm1 22:20 Cardiovascular: Negative for chest pain, palpitations, and edema, Respiratory: Negative for shortness of breath, cough, wheezing, and pleuritic chest pain, Skin: Negative for injury, rash, and discoloration, Neuro: Negative for headache, weakness, numbness, tingling, and seizure. 22:20 MS/extremity: Positive for pain, of the left little finger. 22:20 All other systems are negative. Exam: 22:20 Constitutional: This is a well developed, well nourished patient who is awake, alert, pm1 and in no acute distress. Head/Face: Normocephalic, atraumatic. 22:20 Eyes: Exam is negative for acute changes, Extraocular movements: no acute changes. 22:20 ENT: Exam is negative for acute changes, Mouth: Lips: normal, Oral mucosa: normal, pink and intact, moist. 22:20 Cardiovascular: Rate: normal, Rhythm: regular, Pulses: no pulse deficits are appreciated. 22:20 Respiratory: Exam negative for acute changes, respiratory distress, shortness of breath. 22:20 Musculoskeletal/extremity: Extremities: grossly normal except: noted in the dorsal aspect of proximal phalanx of left little finger and dorsal aspect of middle phalanx of left little finger: swelling, There is no evidence of decreased ROM, deformity, swelling. Vital Signs: 21:23 BP 109 / 87; Pulse 80; Resp 16; Temp 98.4; Pulse Ox 99% ; Weight 67.13 kg; Height 5 ft. vg1 6 in. (167.64 cm); Pain 5/10; 22:50 BP 112 / 84; Pulse 76; Resp 16; Pulse Ox 99% on R/A; jm8 21:23 Body Mass Index 23.89 (67.13 kg, 167.64 cm) vg1 MDM: 21:55 Patient medically screened. pm1 22:35 Data reviewed: vital signs. Data interpreted: Pulse oximetry: on room air is 99 %. pm1 Interpretation: normal. Counseling: I had a detailed discussion with the patient and/or guardian regarding: the historical points, exam findings, and any diagnostic results supporting the discharge/admit diagnosis, radiology results, the need for outpatient follow up, a family practitioner, a hand specialist, to return to the emergency department if symptoms worsen or persist or if there are any questions or concerns that arise at home. 10/26 21:30 Order name: XRAY Hand LEFT 3 View vg1 10/26 22:35 Order name: Finger Splint; Complete Time: 22:50 pm1 Administered Medications: No medications were administered Disposition: 10/26/20 22:36 Discharged to Home. Impression: Contusion of left hand. - Condition is Stable. - Discharge Instructions: Cast or Splint Care, Adult, Hand Contusion. - Medication Reconciliation Form, Thank You Letter, Antibiotic Education, Prescription Opioid Use form. - Follow up: Emergency Department; When: As needed; Reason: Worsening of condition. Follow up: Private Physician; When: 2 - 3 days; Reason: Recheck today's complaints, Continuance of care, Re-evaluation by your physician. - Problem is new. - Symptoms have improved. Signatures: Dispatcher [employer] EDMS Melo Jaquez NP PRICING SUPERVISOR pm1 Lidia Pena RN RN vg1 Germain Torres RN RN jm8 Corrections: (The following items were deleted from the chart) 22:51 22:36 10/26/2020 22:36 Discharged to Home. Impression: Contusion of left hand. jm8 Condition is Stable. Forms are Medication Reconciliation Form, Thank You Letter, Antibiotic Education, Prescription Opioid Use. Follow up: Emergency Department; When: As needed; Reason: Worsening of condition. Follow up: Private Physician; When: 2 - 3 days; Reason: Recheck today's complaints, Continuance of care, Re-evaluation by your physician. Problem is new. Symptoms have improved. pm1
[2020-10-26 23:01] VITALS: TEMP 98.4; O2SAT 99
[2020-10-26 23:02] VITALS: BP 112/84
--- NOTE | 2020-10-27 07:47 | RAD REPORT ---
EXAM DESCRIPTION: RAD -Hand Left 3 View - 10/26/2020 10:36 pm CLINICAL HISTORY: Left hand pain FINDINGS: No fracture or dislocation is seen.
== END 2020-10-26 22:51 | disposition home or self-care (01) ==
LOC: ER 21:11
DX: S60.222A Contusion of left hand, initial encounter (principal); W22.03XA Walked into furniture, initial encounter; I50.9 Heart failure, unspecified; F41.9 Anxiety disorder, unspecified; Z88.8 Allergy status to other drugs, medicaments and biological substances
CPT/HCPCS: 99283

== ENCOUNTER 2021-01-27 13:06 | Emergency (ER) | payer SELFPAY ==
--- OUTSIDE RECORDS SUMMARY | 2021-01-27 13:08 | XMS REPORT | Continuity of Care Document ---
:1975 Author Organization [facility] t Address [address] [place] [address] Care Team Providers Name Role Phone Bentley Elaine DO Attending Clinician Kevin COWART Attending Clinician Dolly York Attending Clinician Problems This patient has no known problems. Allergies, Adverse Reactions, Alerts This patient has no known allergies or adverse reactions. Social History Social Habit Start Date Stop Date Quantity Comments Source Sex Assigned At [facility] Medications This patient has no known medications. Procedures This patient has no known procedures. Encounters Start End Encounter Admission Attending Care Care Encounter Source Date/Time Date/Time Type Type Clinicians Facility Department ID 2019-08-10 2019-08-10 [id number] 02:55:15 05:33:00 Becca Wharton [id number] [place] [id number] [place] [id number] 2019-07-30 2019-07-[address] [facility] [id number] 05:04:07 06:28:00 Robert Wharton [id number] [place] [id number] [place] [id number] 2019-07-28 2019-07-28 Emergency Kami Pederson [facility] [id number] 20:16:51 21:15:00 Dolly [place] [id number] [place] [id number] [place] [id number] 2019-06-12 2019-06-[address] [facility] [id number] 04:46:07 06:33:00 Robert Wharton [id number] [place] [id number] [place] [id number] Results This patient has no known results.
[2021-01-27] MEDS ORDERED: HYDROCODONE/CHLORPHEN 5 ML/OSYR ONE (13:51)
--- NOTE | 2021-01-27 14:13 | RAD REPORT ---
EXAM DESCRIPTION: RAD - Chest Pa And Lat (2 Views) - 01/27/2021 1:50 pm CLINICAL HISTORY: COUGH, dizziness COMPARISON: None TECHNIQUE: Frontal and lateral views of the chest were obtained. FINDINGS: The lungs are clear of a peripheral mass or consolidation. Lung base interstitial pattern is slightly increased over comparison. Defibrillator is in place. Sternotomy wires are in place, both similar to comparison. Borderline to mild cardiomegaly is present without vascular engorgement. Tra fannie is midline. Small bilateral pleural effusions are seen in the lung bases with small amount of fl uid seen along the major and minor fissures. No acute bony finding noted. No aortic abnormality. IMPRESSION: Borderline to mild cardiomegaly without other findings for acute failure or volume overl oad. No focal mass or consolidation. Bibasilar interstitial pattern is increased slightly from comparison. Small bilateral pleural effusions. A mild failure or volume overload is questionable. Interstitial infiltrate is possible as well. These etiologies have a similar appearance early in the disease course.
[2021-01-27 15:29] LABS: SARS-COV-2 RT PCR POSITIVE (NEGATIVE)
--- NOTE | 2021-01-27 15:41 | ER ---
Nurse's Notes [facility] Name: Jerrell Rm Age: 46 yrs Sex: Female : 1975 Arrival Date: 01/27/2021 Time: 13:06 Bed DX3 Private MD: Diagnosis: Coronavirus infection, unspecified Presentation: 01/27 13:08 Chief complaint: EMS states: Cough x 1 week. Care prior to arrival: None. 13:08 Method Of Arrival: EMS: [facility] 13:22 Chief complaint: Patient states: cough, sore throat, sri ear pain, dizziness when sv walking x 1 week. Saw her PCP yesterday and said her ear drum was ruptured. PCP ordered Augmentin and Bromfed. COVID, flu, RSV (-) a few days ago. Coronavirus screen: Vaccine status: Patient reports being unvaccinated. Ebola Screen: No symptoms or risks identified at this time. Initial Sepsis Screen: Does the patient meet any 2 criteria? No. Patient's initial sepsis screen is negative. Does the patient have a suspected source of infection? No. Patient's initial sepsis screen is negative. Risk Assessment: Do you want to hurt yourself or someone else? Patient reports no desire to harm self or others. Onset of symptoms was December 2020. 13:22 Acuity: EDD 3 sv Triage Assessment: 13:24 General: Appears in no apparent distress. uncomfortable, Behavior is calm, cooperative, sv appropriate for age. Neuro: Level of Consciousness is awake, alert, obeys commands, Oriented to person, place, time, situation, Gait is steady. Respiratory: Reports cough that is Respiratory effort is even, unlabored, Respiratory pattern is regular, symmetrical. Historical: - Allergies: 13:09 Heparin; ss - PMHx: 13:09 Anxiety; cardiomyopathy; CHF; Pancreatitis; ss - Immunization history:: Adult Immunizations not up to date, Client reports having NOT received the Covid vaccine. - Social history:: Smoking status: unknown. Screenin:48 Abuse screen: Denies threats or abuse. Denies injuries from another. Nutritional kg screening: No deficits noted. Tuberculosis screening: No symptoms or risk factors identified. Fall Risk None identified. Vital Signs: 13:22 BP 103 / 77; Pulse 68; Resp 20; Temp 98.1(TE); Pulse Ox 96% ; Weight 68.04 kg; Height 5 sv ft. 6 in. (167.64 cm); 15:48 BP 103 / 72; Pulse 63; Resp 20; Pulse Ox 95% on R/A; kg 13:22 Body Mass Index 24.21 (68.04 kg, 167.64 cm) sv ED Course: 13:06 Patient arrived in ED. ds1 13:19 Arm band placed on. sv 13:24 Triage completed. sv 13:26 Crissy Luu FNP-C is PHCP. kb 13:26 Alirio Lr MD is Attending Physician. kb 13:32 COVID swab sent to lab. Flu and/or RSV swab sent to lab. sv 13:50 Chest Pa And Lat (2 Views) XRAY In Process Unspecified. EDMS 14:38 Farzaneh Polanco, RN is Primary Nurse. kg 15:48 Patient has correct armband on for positive identification. kg 15:48 No provider procedures requiring assistance completed. Patient did not have IV access kg during this emergency room visit. Administered Medications: 13:35 Drug: Tussionex Pennkinetic ER (chlorpheniramine-hydrocodone) Suspension 5 ml Route: PO;sv 15:53 Follow up: Response: No adverse reaction; Marked relief of symptoms kg Outcome: 15:41 Discharge ordered by MD. kb 15:48 Discharged to home ambulatory. kg 15:48 Condition: good 15:48 Discharge instructions given to patient, Instructed on discharge instructions, follow up and referral plans. Demonstrated understanding of instructions, follow-up care. 15:54 Patient left the ED. kg Signatures: Dispatcher [employer] EDNC Crissy Luu FNP-C FNP-Ckb Verde, Stephanie, RN KRISTINA Sharmila Marquez ds1 Melinda Kc RN RN Farzaneh Polanco, KRISTINA RN kg Corrections: (The following items were deleted from the chart) 13:24 13:22 Pulse 68bpm; Resp 20bpm; Pulse Ox 96%; Temp 98.1F Temporal; 68.04 kg; Height 5 sv ft. 6 in.; BMI: 24.2; sv 13:25 13:22 Chief complaint: Patient states: cough, sore throat, sri ear pain, dizziness when sv walking x 1 week. Saw her PCP yesterday and said her ear drum was ruptured. PCP ordered Augmentin and Bromfed. sv
--- NOTE | 2021-01-27 15:41 | EDPHYS ---
Physician Documentation [facility] Name: Jerrell Rm Age: 46 yrs Sex: Female : 1975 Arrival Date: 01/27/2021 Time: 13:06 Bed DX3 Private MD: ED Physician Alirio Lr HPI: 01/27 15:09 This 46 yrs old Female presents to ER via EMS with complaints of Cough. kb 15:09 The patient or guardian reports cough. Onset: The symptoms/episode began/occurred 1 kb week(s) ago. Severity of symptoms: At their worst the symptoms were moderate, in the emergency department the symptoms are unchanged. Modifying factors: The symptoms are alleviated by nothing, the symptoms are aggravated by nothing. Associated signs and symptoms: The patient has no apparent associated signs or symptoms. The patient has not experienced similar symptoms in the past. The patient has not recently seen a physician. Historical: - Allergies: 13:09 Heparin; ss - PMHx: 13:09 Anxiety; cardiomyopathy; CHF; Pancreatitis; ss - Immunization history:: Adult Immunizations not up to date, Client reports having NOT received the Covid vaccine. - Social history:: Smoking status: unknown. ROS: 15:09 Constitutional: Negative for fever, chills, and weight loss. kb 15:09 Respiratory: Positive for cough, Negative for dyspnea on exertion, hemoptysis, orthopnea, pleurisy, shortness of breath, sputum production, wheezing. 15:09 All other systems are negative. Exam: 15:09 Constitutional: This is a well developed, well nourished patient who is awake, alert, kb and in no acute distress. Head/Face: Normocephalic, atraumatic. ENT: Moist Mucous membranes Cardiovascular: Regular rate and rhythm with a normal S1 and S2. No gallops, murmurs, or rubs. No pulse deficits. Respiratory: Respirations even and unlabored. No increased work of breathing, no retractions or nasal flaring. Skin: Warm, dry with normal turgor. Normal color. MS/ Extremity: Pulses equal, no cyanosis. Neurovascular intact. Full, normal range of motion. Neuro: Awake and alert, GCS 15, oriented to person, place, time, and situation. Moves all extremities. Normal gait. Psych: Awake, alert, with orientation to person, place and time. Behavior, mood, and affect are within normal limits. Vital Signs: 13:22 BP 103 / 77; Pulse 68; Resp 20; Temp 98.1(TE); Pulse Ox 96% ; Weight 68.04 kg; Height 5 sv ft. 6 in. (167.64 cm); 15:48 BP 103 / 72; Pulse 63; Resp 20; Pulse Ox 95% on R/A; kg 13:22 Body Mass Index 24.21 (68.04 kg, 167.64 cm) sv MDM: 13:27 Patient medically screened. kb 15:09 Data reviewed: vital signs, nurses notes. Data interpreted: Pulse oximetry: on room air kb is 96 %. Interpretation: normal. 15:41 Counseling: I had a detailed discussion with the patient and/or guardian regarding: the kb historical points, exam findings, and any diagnostic results supporting the discharge/admit diagnosis, lab results, radiology results, the need for outpatient follow up, a family practitioner, to return to the emergency department if symptoms worsen or persist or if there are any questions or concerns that arise at home. 15:44 ED course: Regeneron offered to pt. Pt declines at this time. kb 01/27 13:27 Order name: Chest Pa And Lat (2 Views) XRAY; Complete Time: 14:16 kb 01/27 15:30 Order name: COVID-19/FLU A+B; Complete Time: 15:41 EDMS Administered Medications: 13:35 Drug: Tussionex Pennkinetic ER (chlorpheniramine-hydrocodone) Suspension 5 ml Route: PO;sv 15:53 Follow up: Response: No adverse reaction; Marked relief of symptoms kg Disposition: 17:10 Co-signature as Attending Physician, Alirio Lr MD I agree with the assessment and rn plan of care. Attestation: The patient's history, exam findings, diagnostics, and a summary of any interventions or procedures was reviewed in detail with Crissy AGUILAR. Disposition Summary: 01/27/21 15:41 Discharge Ordered Location: Home kb Condition: Stable kb Diagnosis - Coronavirus infection, unspecified kb Followup: kb - With: Emergency Department - When: As needed - Reason: Worsening of condition Followup: kb - With: Private Physician - When: 2 - 3 days - Reason: Recheck today's complaints, Continuance of care, Re-evaluation by your physician Discharge Instructions: - Discharge Summary Sheet kb - Viral Respiratory Infection, Sgav-Wm-Lvaw kb - COVID-19 kb Forms: - Medication Reconciliation Form kb - Thank You Letter kb - Antibiotic Education kb - Prescription Opioid Use kb Signatures: Dispatcher [employer] EDMS Crissy Luu, Lorie Benoit RN RN sv Alirio Lr MD MD rn Smirch, Shelby, RN RN Farzaneh Polanco RN RN kg Corrections: (The following items were deleted from the chart) 14:01 13:26 CORONAVIRUS+MR.LAB.BRZ ordered. EDMS EDMS 14:04 13:26 Influenza Screen (A \T\ B)+BA.LAB.BRZ ordered. EDMS EDMS
[2021-01-27 15:58] VITALS: TEMP 98.1
[2021-01-27 16:00] VITALS: BP 103/72; O2SAT 95
== END 2021-01-27 15:54 | disposition home or self-care (01) ==
LOC: ER 13:06
DX: U07.1 COVID-19 (principal); Z88.8 Allergy status to other drugs, medicaments and biological substances
CPT/HCPCS: 0240U; 71046; 99284

== ENCOUNTER 2021-01-30 07:10 | Emergency (ER) | payer SELFPAY ==
--- OUTSIDE RECORDS SUMMARY | 2021-01-30 07:19 | XMS REPORT | Continuity of Care Document ---
:1975 Author Organization [facility] t Address [address] [place] [address] Care Team Providers Name Role Phone Bentley Elaine DO Attending Clinician Kevin COWART Attending Clinician Dolly York Attending Clinician Problems This patient has no known problems. Allergies, Adverse Reactions, Alerts This patient has no known allergies or adverse reactions. Social History Social Habit Start Date Stop Date Quantity Comments Source Sex Assigned At [facility] Medications This patient has no known medications. Procedures This patient has no known procedures. Encounters Start End Encounter Admission Attending Care Care Encounter Source Date/Time Date/Time Type Type Clinicians Facility Department ID 2019-08-10 2019-08-[facility] [id number] 02:55:15 05:33:00 Becca Wharton [id number] [place] [id number] [place] [id number] 2019-07-30 2019-07-30 [facility] [id number] 05:04:07 06:28:00 Robert [place]arton [id number] [place] [id number] [place] [id number] 2019-07-28 2019-07-28 Emergency Kami Pederson [facility] [id number] 20:16:51 21:15:00 Dolly [place] [id number] [place] [id number] [place] [id number] 2019-06-12 2019-06-12 [facility] [id number] 04:46:07 06:33:00 Robert [place] [id number] [place] [id number] [place] [id number] [id number] Results This patient has no known results.
[2021-01-30 08:23] LABS: Basophils % 0.4 % (0-1.3); Hematocrit 37.3 % (36.0-45.0); Lymphocytes % 18.8 % (15.3-44.8); MPV 9.3 fL (7.6-11.3); RBC Red Blood Cell Count 3.86 M/uL (3.86-4.86)
[2021-01-30 08:35] LABS: ALT/SGPT 129 U/L (12-78); AST/SGOT 82 U/L (15-37); Albumin 3.1 g/dL (3.4-5.0); Alkaline Phosphatase 157 U/L (45-117); BUN Blood Urea Nitrogen 16 mg/dL (7-18); Bicarbonate 22 mmol/L (21-32); Bilirubin Direct 0.2 mg/dL (0-0.2); Bilirubin Total 0.5 mg/dL (0.2-1.0); Glucose Level 96 mg/dL (74-106); Lipase 649 U/L (73-393); Potassium 3.6 mmol/L (3.5-5.1); Protein, Total 7.2 g/dL (6.4-8.2); Sodium Level 135 mmol/L (136-145); Troponin (Emerg Dept Use Only) < 0.02 ng/mL (0.0-0.045)
[2021-01-30 08:40] LABS: Protime INR 1.01
[2021-01-30] MEDS ORDERED: ALBUTEROL INHALER 60 PUFF/8 GM IH ONE (08:47)
[2021-01-30] MEDS ORDERED: ACETAMINOPHEN 500 MG TAB ONE (08:47)
--- NOTE | 2021-01-30 08:54 | RAD REPORT ---
EXAM DESCRIPTION: [place] Single View01/30/2021 8:14 am CLINICAL HISTORY: Chest pain COMPARISON: January 27, 2021 FINDINGS: Lungs are mildly hazy. Heart is moderately enlarged. Pacemaker leads are in place. IMPRESSION: Lungs are mildly which may mild pneumonia
[2021-01-30] MEDS ORDERED: CASIRIVIMAB/IMDEVIMAB 10 ML VIAL ONE (11:25)
[2021-01-30] MEDS ORDERED: NA CHLORIDE 0.9% 250 ML ONE (11:26)
--- NOTE | 2021-01-30 12:15 | ER ---
Nurse's Notes [facility] Name: Jerrell Rm Age: 46 yrs Sex: Female : 1975 Arrival Date: 01/30/2021 Time: 07:15 Bed 14 Private MD: Diagnosis: Coronavirus infection, unspecified;Abdominal pain, unspecified Presentation: 01/30 07:15 Chief complaint: Patient states: brought in for COVID SHOB. Coronavirus screen: Vaccine ch5 status: Patient reports being unvaccinated. Client denies travel out of the [place] in the last 14 days. Ebola Screen: Patient negative for fever greater than or equal to 101.5 degrees Fahrenheit, and additional compatible Ebola Virus Disease symptoms Patient denies exposure to infectious person. Patient denies travel to an Ebola-affected area in the 21 days before illness onset. 07:15 Method Of Arrival: EMS: [facility] 07:18 Initial Sepsis Screen: Does the patient meet any 2 criteria? No. Patient's initial [facility] sepsis screen is negative. Does the patient have a suspected source of infection? Yes: Productive cough/pneumonia. Risk Assessment: Do you want to hurt yourself or someone else? Patient reports no desire to harm self or others. Onset of symptoms is unknown. 07:18 Acuity: EDD 3 5 Triage Assessment: 07:21 General: Appears uncomfortable, Behavior is cooperative. Pain: Complains of pain in 5 chest. Historical: - Immunization history:: Adult Immunizations unknown, Client reports having NOT received the Covid vaccine. - Social history:: Smoking status: Patient denies any tobacco usage or history of. Screenin:24 Abuse screen: Denies threats or abuse. Denies injuries from another. Nutritional 5 screening: No deficits noted. Tuberculosis screening: No symptoms or risk factors identified. Fall Risk None identified. Assessment: 07:24 Reassessment: No changes from previously documented assessment. 5 10:40 Reassessment: No changes from previously documented assessment. Pt refusing CAT Scan. 5 COLD SAW OPERATOR alerting Provider. 11:00 Reassessment: Regen pulled to thaw at 1100 am. [facility] Vital Signs: 07:18 BP 120 / 94; Pulse 95; Resp 20; Temp 100.7; Pulse Ox 97% ; Weight 68.04 kg; Height 5 ch5 ft. 6 in. (167.64 cm); Pain 5/10; 07:25 BP 120 / 94; Pulse 94; Resp 20; Temp 100.7; Pulse Ox 98% on R/A; Pain 5/10; ch5 10:38 BP 105 / 81; Pulse 66; Resp 18; Pulse Ox 98% ; ch5 07:18 Body Mass Index 24.21 (68.04 kg, 167.64 cm) 5 ED Course: 07:15 Patient arrived in ED. ch5 07:18 Ruy Pool, RN is Primary Nurse. ch5 07:18 Melo Jaquez NP is PHCP. pm1 07:18 Josue Mancilla MD is Attending Physician. pm1 07:21 Triage completed. ch5 07:21 Arm band placed on right wrist. ch5 07:24 Patient has correct armband on for positive identification. Bed in low position. Call [facility] light in reach. Side rails up X2. 07:24 No provider procedures requiring assistance completed. ch5 08:00 Inserted saline lock: 22 gauge in right forearm, using aseptic technique. ch5 08:14 CXR XRAY In Process Unspecified. EDMS 08:46 Urine collected: EKG done, by ED staff, reviewed by Josue Mancilla MD. [facility] Administered Medications: 08:26 Drug: Albuterol HFA Inhaler 2 puffs Route: Inhalation; ch5 08:26 Drug: Tylenol 1000 mg Route: PO; ch5 11:24 Drug: REGEN-COV Dose Pack 120 mg/mL-120 mg/mL (EUA) 1 vials Route: IV; Rate: per 5 protocol; Site: right forearm; 12:30 Follow up: IV Status: Completed infusion ch5 15:01 Follow up: IV Status: Completed infusion 5 Outcome: 12:14 Discharge ordered by . pm1 16:08 Patient left the ED. iw Signatures: Dispatcher [employer] EDMS Ghazala Elaine RN RN Melo Jaquez NP KIT PLANNER pm1 Cary Ritchie [facility] Ruy Pool RN RN [facility] Corrections: (The following items were deleted from the chart) 07:22 07:21 PMHx: Anxiety; ch5 ch5 07:22 07:21 PMHx: Pancreatitis; ch5 ch5 07:22 07:21 PMHx: cardiomyopathy; ch5 ch5 07: 07:21 PMHx: CHF; ch5 ch5
--- NOTE | 2021-01-30 12:15 | EDPHYS ---
Physician Documentation [facility] Name: Jerrell Rm Age: 46 yrs Sex: Female : 1975 Arrival Date: 01/30/2021 Time: 07:15 Bed 14 Private MD: ED Physician Josue Mancilla HPI: 01/30 07:36 This 46 yrs old Female presents to ER via EMS with complaints of shortness of pm1 breath. 07:36 The patient has shortness of breath at rest. Onset: The symptoms/episode began/occurred pm1 2 day(s) ago. Duration: The symptoms are continuous. The patient's shortness of breath is aggravated by nothing, is alleviated by nothing. Associated signs and symptoms: Pertinent positives: non-productive cough, fever, Pertinent negatives: chest pain, nausea, vomiting, Diarrhea. Severity of symptoms: in the emergency department the symptoms are worse. The patient has not experienced similar symptoms in the past. The patient has been recently seen at the [facility], for similar complaints X-rays were performed, 3 days ago. Offered Regeneron but patient refused at that time. Historical: - Immunization history:: Adult Immunizations unknown, Client reports having NOT received the Covid vaccine. - Social history:: Smoking status: Patient denies any tobacco usage or history of. ROS: 07:36 Eyes: Negative for injury, pain, redness, and discharge, ENT: Negative for injury, pm1 pain, and discharge, Neck: Negative for injury, pain, and swelling, Cardiovascular: Negative for chest pain, palpitations, and edema. 07:36 Abdomen/GI: Negative for abdominal pain, nausea, vomiting, diarrhea, and constipation, Back: Negative for injury and pain, MS/Extremity: Negative for injury and deformity, Skin: Negative for injury, rash, and discoloration, Neuro: Negative for headache, weakness, numbness, tingling, and seizure. 07:36 Constitutional: Positive for body aches, fever, Negative for poor PO intake. 07:36 Respiratory: Positive for cough, shortness of breath. Exam: 07:36 Constitutional: This is a well developed, well nourished patient who is awake, alert, pm1 and in no acute distress. Head/Face: Normocephalic, atraumatic. 07:36 Skin: Warm, dry with normal turgor. Normal color with no rashes, no lesions, and no evidence of cellulitis. MS/ Extremity: Pulses equal, no cyanosis. Neurovascular intact. Full, normal range of motion. 07:36 Eyes: Exam is negative for acute changes, Extraocular movements: no acute changes, Conjunctiva: no acute changes, no injection. 07:36 ENT: Exam is negative for acute changes, Mouth: Lips: normal, Oral mucosa: normal, pink and intact, moist. 07:36 Cardiovascular: Rate: normal, Rhythm: regular, Pulses: no pulse deficits are appreciated, Heart sounds: normal, Edema: is not appreciated. 07:36 Respiratory: Exam negative for acute changes, respiratory distress, shortness of breath, Breath sounds: are clear throughout. 07:36 Abdomen/GI: Inspection: abdomen appears normal, Palpation: abdomen is soft and non-tender, in all quadrants. 07:36 Back: Exam negative for acute changes, pain, is absent, ROM is normal, normal spinal alignment noted. 07:36 Neuro: Exam negative for acute changes, Orientation: is normal, Mentation: is normal, Motor: is normal, moves all fours, Sensation: no obvious gross deficits. Vital Signs: 07:18 BP 120 / 94; Pulse 95; Resp 20; Temp 100.7; Pulse Ox 97% ; Weight 68.04 kg; Height 5 ch5 ft. 6 in. (167.64 cm); Pain 5/10; 07:25 BP 120 / 94; Pulse 94; Resp 20; Temp 100.7; Pulse Ox 98% on R/A; Pain 5/10; ch5 10:38 BP 105 / 81; Pulse 66; Resp 18; Pulse Ox 98% ; ch5 07:18 Body Mass Index 24.21 (68.04 kg, 167.64 cm) ch5 MDM: 07:21 Patient medically screened. pm1 10:44 Refusal of service: The patient/guardian displays adequate decision making capability pm1 and despite a detailed discussion of alternatives, benefits, risks, and consequences refuses: CT Scan. 10:44 ED course: Patient aware that her lipase and liver enzymes are elevated, but she does pm1 not want to CT scan to evaluate abnormal labs and abdominal pain. She is requesting to just get the monoclonal antibodies and then would like to go home. 12:13 Data reviewed: vital signs. Data interpreted: Pulse oximetry: on room air is 98 %. pm1 Interpretation: normal. Counseling: I had a detailed discussion with the patient and/or guardian regarding: the historical points, exam findings, and any diagnostic results supporting the discharge/admit diagnosis, the need for outpatient follow up, to return to the emergency department if symptoms worsen or persist or if there are any questions or concerns that arise at home. 01/30 07:33 Order name: BMP; Complete Time: 08:41 pm01/30 07:33 Order name: Blood Culture Adult (2) pm1 01/30 07:33 Order name: C-Reactive Protein; Complete Time: 08:41 pm1 01/30 07:33 Order name: CBC with Diff; Complete Time: 08:41 pm01/30 07:33 Order name: Flu; Complete Time: 09:29 pm01/30 07:33 Order name: LFT's; Complete Time: 08:41 pm01/30 07:33 Order name: Lipase; Complete Time: 08:41 pm1 01/30 07:33 Order name: PT-INR; Complete Time: 08:44 pm01/30 07:33 Order name: Ptt, Activated; Complete Time: 08:44 pm1 01/30 07:33 Order name: Strep; Complete Time: 08:41 pm01/30 07:33 Order name: Troponin (emerg Dept Use Only); Complete Time: 08:41 pm1 01/30 07:33 Order name: CXR XRAY; Complete Time: 08:58 pm01/30 08:37 Order name: Throat Culture EDDE 01/30 07:33 Order name: EKG; Complete Time: 07:34 pm01/30 07:33 Order name: Cardiac monitoring; Complete Time: 08:26 pm1 01/30 07:33 Order name: Droplet/Contact Precautions; Complete Time: 08:27 pm01/30 07:33 Order name: EKG - Nurse/Tech; Complete Time: 08:27 pm01/30 07:33 Order name: IV Start; Complete Time: 08:27 pm1 01/30 07:33 Order name: Labs collected and sent; Complete Time: 08:27 pm01/30 07:33 Order name: O2 Per Protocol; Complete Time: 08:27 pm01/30 07:33 Order name: O2 Sat Monitoring; Complete Time: 08:27 pm1 01/30 07:33 Order name: Urine Dipstick-Ancillary (obtain specimen) pm1 01/30 07:33 Order name: Urine Test (obtain specimen) pm1 Administered Medications: 08:26 Drug: Albuterol HFA Inhaler 2 puffs Route: Inhalation; ch5 08:26 Drug: Tylenol 1000 mg Route: PO; ch5 11:24 Drug: REGEN-COV Dose Pack 120 mg/mL-120 mg/mL (EUA) 1 vials Route: IV; Rate: per ch5 protocol; Site: right forearm; 12:30 Follow up: IV Status: Completed infusion ch5 15:01 Follow up: IV Status: Completed infusion ch5 Disposition Summary: 01/30/21 12:14 Discharge Ordered Location: Home pm1 Problem: new pm1 Symptoms: have improved pm1 Condition: Stable pm1 Diagnosis - Coronavirus infection, unspecified pm1 - Abdominal pain, unspecified pm1 Followup: pm1 - With: Emergency Department - When: As needed - Reason: Worsening of condition Followup: pm1 - With: Private Physician - When: 2 - 3 days - Reason: Recheck today's complaints, Continuance of care, Re-evaluation by your physician Discharge Instructions: - Discharge Summary Sheet pm1 - Abdominal Pain, Adult pm1 - COVID-19 pm1 - COVID-19 Frequently Asked Questions pm1 - 10 Things You Can Do to Manage Your COVID-19 Symptoms at Home - [facility] [place] pm1 Forms: - Medication Reconciliation Form pm1 - Thank You Letter pm1 - Antibiotic Education pm1 - Prescription Opioid Use pm1 Prescriptions: - Ventolin HFA 90 mcg/actuation Inhalation HFA aerosol inhaler - inhale 2 puff by INHALATION route every 4-6 hours As needed; 1 Inhaler; pm1 Refills: 0, Product Selection Permitted Addendum: 02/01/2021 15:10 Co-signature as Attending Physician, Josue Mancilla MD I agree with the assessment and c galvan plan of care. Signatures: Dispatcher [employer] Josue Liu MD MD cha Marinas, Patrick, ACCOUNT FINANCIAL MANAGER ACCOUNT FINANCIAL MANAGER pm1 Ruy Pool RN RN 5 Corrections: (The following items were deleted from the chart) 01/30 07:22 07:21 PMHx: Anxiety; 5 [facility] 07:21 PMHx: Pancreatitis; 5 [facility] 07:21 PMHx: cardiomyopathy; 5 [facility] 07:21 PMHx: CHF; 5 [facility] 10:43 10:10 Abdomen Pelvis W Con+CT.RAD.BRZ ordered. EDMS EDMS
[2021-01-30 16:18] VITALS: TEMP 100.7
[2021-01-30 16:20] VITALS: O2SAT 98
[2021-01-30 16:21] VITALS: BP 105/81
--- NOTE | 2021-02-01 17:02 | EKG ---
Test Date: 2021-01-30 Test Time: 08:28:17 Car Dropper: MARIUM MEASUREMENT RESULTS: Intervals: Rate: 82 LA: 184 QRSD: 98 QT: 460 QTc: 537 Barton: P: 59 LA: 184 QRS: 59 T: 64 INTERPRETIVE STATEMENTS: Normal sinus rhythm Low voltage QRS Possible Anterolateral infarct, age undetermined Prolonged QT Abnormal ECG Compared to ECG 09/14/2019 00:24:49 No significant changes Electronically Signed On 02-01-21 16:57:16 CDT by Bradley Kraus
== END 2021-01-30 16:08 | disposition home or self-care (01) ==
LOC: ER 07:10
DX: U07.1 COVID-19 (principal); R10.9 Unspecified abdominal pain
CPT/HCPCS: 36415; 71045; 80048; 80076; 83690; 84484; 85025; 85610; 85730; 86140; 87040; 87070; 87081; 87804; 93005; 96365; 99284; J7050

== ENCOUNTER 2021-02-19 03:06 | Inpatient (IN) | payer SELFPAY ==
[2021-02-19 03:45] LABS: Absolute Lymphocytes (CBC) 1.6 K/uL (0.7-4.9); Lymphocytes % 23.5 % (15.3-44.8); MPV 9.2 fL (7.6-11.3); RBC Red Blood Cell Count 4.17 M/uL (3.86-4.86)
[2021-02-19] MEDS ORDERED: MORPHINE 4 MG/ML SYR ONE (03:45)
[2021-02-19] MEDS ORDERED: NA CHLORIDE 0.9% 1,000 ML ONE (03:46)
[2021-02-19] MEDS ORDERED: FAMOTIDINE 20 MG/2 ML VIAL IV ONE (03:46)
[2021-02-19] MEDS ORDERED: ONDANSETRON 4 MG/2 ML VIAL ONE (03:46)
[2021-02-19 03:59] LABS: Albumin 3.9 g/dL (3.4-5.0); Bilirubin Direct 0.3 mg/dL (0-0.2); Bilirubin Total 1.1 mg/dL (0.2-1.0); Potassium 3.6 mmol/L (3.5-5.1); Protein, Total 7.3 g/dL (6.4-8.2)
[2021-02-19] MEDS ORDERED: HYDROMORPHONE HCL 1 MG/ML INJ ONE (04:58)
[2021-02-19 05:32] LABS: Urine Blood Negative (Negative); Urine Glucose Negative (Negative); Urine Protein 1+ (Negative); Urine Specific Gravity >=1.030 (1.005-1.030)
--- NOTE | 2021-02-19 05:43 | ER ---
Nurse's Notes [facility] Name: Jerrell Rm Age: 46 yrs Sex: Female : 1975 Arrival Date: 02/19/2021 Time: 03:11 Bed 8 Private MD: Diagnosis: Acute Pancreatitis;Nausea with vomiting, unspecified Presentation: 02/19 03:12 Chief complaint: Patient states: Abd pain since Mon night. Occasional N/V, no diarrhea. wg Pt states she has a hx of pancreatitis and this feels like previous episodes. Pt states she had covid 2 weeks ago. Pt denies SOB, CP, and dizziness. Pt states she consumed alcohol 2 days ago due to recent stress. Coronavirus screen: Vaccine status: Patient reports being unvaccinated. Client reports previous positive COVID test result. Date of collection: February 05, 2021. Ebola Screen: Patient negative for fever greater than or equal to 101.5 degrees Fahrenheit, and additional compatible Ebola Virus Disease symptoms Patient denies exposure to infectious person. Patient denies travel to an Ebola-affected area in the 21 days before illness onset. No symptoms or risks identified at this time. Initial Sepsis Screen: Does the patient meet any 2 criteria? No. Patient's initial sepsis screen is negative. Does the patient have a suspected source of infection? Yes:. Risk Assessment: Do you want to hurt yourself or someone else? Patient reports no desire to harm self or others. Onset of symptoms was February 17, 2021. 03:12 Method Of Arrival: EMS: [facility] 03:12 Acuity: EDD 3 wg Triage Assessment: 03:15 General: Appears uncomfortable, well developed, Behavior is cooperative, agitated, wg restless. Pain: Complains of pain in abdomen Pain radiates to RUQ/Flank Pain currently is 8 out of 10 on a pain scale. Quality of pain is described as sharp. HIGH TENSION TESTER: 03:15 LMP N/A - Hysterectomy wg Historical: - Allergies: 03:15 Codeine; wg 03:15 Heparin; wg - Home Meds: 03:15 None [Active]; wg - PMHx: 03:15 Pancreatitis; wg - Immunization history:: Adult Immunizations up to date. - Social history:: Smoking status: Patient reports the use of cigarette tobacco products, smokes one pack cigarettes per day. Screenin:20 Abuse screen: Denies threats or abuse. Nutritional screening: No deficits noted. cw2 Tuberculosis screening: No symptoms or risk factors identified. Fall Risk None identified. IV access (20 points). Assessment: 03:21 General: Appears uncomfortable, Behavior is calm, cooperative. Pain: Complains of pain cw2 in right upper quadrant Pain radiates to left mid back. Neuro: No deficits noted. Cardiovascular: No deficits noted. Rhythm is. Respiratory: No deficits noted. GI: No deficits noted. 07:00 Reassessment: Report received from KRISTINA Ivory. Room assignment just received, called to lissa give report and 4th floor staff reports the room has not been assigned a nurse yet. Pt's VSS on monitor. Vital Signs: 03:12 BP 150 / 96; Pulse 104; Resp 18; Temp 98.7; Pulse Ox 99% on R/A; Weight 63.5 kg; Height wg 5 ft. 6 in. (167.64 cm); Pain 8/10; 05:35 BP 115 / 94; Pulse 98; Resp 17; Temp 98.3; Pulse Ox 91% on R/A; Pain 4/10; mr2 07:00 BP 104 / 85; Pulse 92; Resp 15; Pulse Ox 93% on R/A; jl7 07:30 BP 107 / 78; Pulse 92; Resp 17; Pulse Ox 94% ; jl7 03:12 Body Mass Index 22.60 (63.50 kg, 167.64 cm) ED Course: 03:11 Patient arrived in ED. 03:12 Florian Burger MD is Attending Physician. [facility] 03:15 Triage completed. 03:15 Arm band placed on right wrist. 03:20 No provider procedures requiring assistance completed. cw2 03:23 Patient has correct armband on for positive identification. Allergy band placed. Bed in cw2 low position. Call light in reach. Side rails up X2. business programmer on. Pulse ox on. NIBP on. Door closed. Noise minimized. Lights dimmed. Diet: Patient is NPO. 03:24 Cachorro Small RN is Primary Nurse. mr2 03:29 Initial lab(s) drawn, by ED staff, sent to lab. Inserted saline lock: 20 gauge in right cw2 forearm, using aseptic technique. Blood collected. 04:31 CT Abd/Pelvis - IV Contrast Only In Process Unspecified. EDMS 05:41 Germain Stevens is Hospitalizing Provider. [facility] 06:03 Ankle Right 3 View XRAY In Process Unspecified. EDMS 07:45 Patient admitted, IV remains in place. jl7 Administered Medications: 03:24 Drug: Pepcid (famotidine) 20 mg Route: IVP; Site: right antecubital; mr2 03:25 Drug: NS 0.9% 1000 ml Route: IV; Rate: 1000 ml; Site: right antecubital; mr2 03:25 Drug: morphine 4 mg Route: IVP; Site: right antecubital; mr2 03:25 Drug: Zofran (Ondansetron) 4 mg Route: IVP; Site: right antecubital; mr2 05:25 Drug: Dilaudid (HYDROmorphone) 1 mg Route: IVP; Site: right forearm; mr2 Outcome: 03:21 Condition: good cw2 05:42 Decision to Hospitalize by Provider. 7 07:45 Admitted to Tele accompanied by [facility], via wheelchair, room 423, with chart, Report jlCampbell called to KRISTINA Miles 07:45 Discharge instructions given to patient, Instructed on the need for admit, Demonstrated understanding of instructions. 08:26 Patient left the ED. jl7 Signatures: Dispatcher [employer] Vick Harris RN RN jl7 Florian Burger MD MD 7 Abdoul Boudreaux RN wg Reynard, Mike, RN RN mr2 Ruy Elaine RN RN cw2
--- NOTE | 2021-02-19 05:43 | EDPHYS ---
Physician Documentation [facility] Name: Jerrell Rm Age: 46 yrs Sex: Female : 1975 Arrival Date: 02/19/2021 Time: 03:11 Bed 8 Private MD: ED Physician Florian Burger HPI: 02/19 03:16 This 46 yrs old Female presents to ER via EMS with complaints of Abdominal mh7 Pain. 03:16 The patient presents with abdominal pain in the epigastric area. Onset: The mh7 symptoms/episode began/occurred 2 day(s) ago. The symptoms do not radiate. Associated signs and symptoms: Pertinent positives: nausea and vomiting, Pertinent negatives: anorexia, blood in stools, chest pain, constipation, diarrhea, dysuria, fever, headache, hematuria, palpitations, shortness of breath, vaginal discharge, vomiting blood. The symptoms are described as intermittent, vague, waxing/waning. Modifying factors: The symptoms are alleviated by nothing, the symptoms are aggravated by nothing. Severity of pain: At its worst the pain was moderate yesterday, in the emergency department the pain is unchanged. 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 - Social history:: Smoking status: Patient reports the use of cigarette tobacco products, smokes one pack cigarettes per day. ROS: 03:16 Constitutional: Negative for fever, chills, and weight loss, Eyes: Negative for injury, mh7 pain, redness, and discharge, ENT: Negative for injury, pain, and discharge, Neck: Negative for injury, pain, and swelling, Cardiovascular: Negative for chest pain, palpitations, and edema, Respiratory: Negative for shortness of breath, cough, wheezing, and pleuritic chest pain, Back: Negative for injury and pain, : Negative for injury, bleeding, discharge, and swelling, MS/Extremity: Negative for injury and deformity, Skin: Negative for injury, rash, and discoloration, Neuro: Negative for headache, weakness, numbness, tingling, and seizure, Psych: Negative for depression, anxiety, suicide ideation, homicidal ideation, and hallucinations, Allergy/Immunology: Negative for hives, rash, and allergies, Endocrine: Negative for neck swelling, polydipsia, polyuria, polyphagia, and marked weight changes, Hematologic/Lymphatic: Negative for swollen nodes, abnormal bleeding, and unusual bruising. Exam: 03:16 Head/Face: Normocephalic, atraumatic. Eyes: Pupils equal round and reactive to light, mh7 extra-ocular motions intact. Lids and lashes normal. Conjunctiva and sclera are non-icteric and not injected. Cornea within normal limits. Periorbital areas with no swelling, redness, or edema. Neck: Trachea midline, no thyromegaly or masses palpated, and no cervical lymphadenopathy. Supple, full range of motion without nuchal rigidity, or vertebral point tenderness. No Meningismus. Chest/axilla: Normal chest wall appearance and motion. Nontender with no deformity. No lesions are appreciated. 03:16 Respiratory: Lungs have equal breath sounds bilaterally, clear to auscultation and percussion. No rales, rhonchi or wheezes noted. No increased work of breathing, no retractions or nasal flaring. 03:16 Back: No spinal tenderness. No costovertebral tenderness. Full range of motion. Skin: Warm, dry with normal turgor. Normal color with no rashes, no lesions, and no evidence of cellulitis. MS/ Extremity: Pulses equal, no cyanosis. Neurovascular intact. Full, normal range of motion. Neuro: Awake and alert, GCS 15, oriented to person, place, time, and situation. Cranial nerves II-XII grossly intact. Motor strength 5/5 in all extremities. Sensory grossly intact. Cerebellar exam normal. Normal gait. Psych: Awake, alert, with orientation to person, place and time. Behavior, mood, and affect are within normal limits. 03:16 Constitutional: The patient appears in no acute distress, alert, awake, uncomfortable. 03:16 Cardiovascular: Rate: tachycardic, Rhythm: regular, Pulses: no pulse deficits are appreciated, Heart sounds: normal, normal S1and S2, Edema: is not appreciated, JVD: is not appreciated. 03:16 Abdomen/GI: Inspection: abdomen appears normal, Bowel sounds: normal, in all quadrants, Palpation: moderate abdominal tenderness, in the epigastric area, mass, is not appreciated, rebound tenderness, is not appreciated, voluntary guarding, is not appreciated, involuntary guarding, is not appreciated, no appreciated organomegaly, Rectal exam: the exam is deferred, because of patient request, Indicators: McBurney's point is not tender, Dennis's sign is negative, Rovsing's sign is negative, Obturator sign is negative, Psoas sign is negative, Liver: no appreciated palpable abnormalities, Hernia: not appreciated. Vital Signs: 03:12 BP 150 / 96; Pulse 104; Resp 18; Temp 98.7; Pulse Ox 99% on R/A; Weight 63.5 kg; Height wg 5 ft. 6 in. (167.64 cm); Pain 8/10; 05:35 BP 115 / 94; Pulse 98; Resp 17; Temp 98.3; Pulse Ox 91% on R/A; Pain 4/10; mr2 07:00 BP 104 / 85; Pulse 92; Resp 15; Pulse Ox 93% on R/A; jl7 07:30 BP 107 / 78; Pulse 92; Resp 17; Pulse Ox 94% ; jl7 03:12 Body Mass Index 22.60 (63.50 kg, 167.64 cm) wg MDM: 05:39 Differential diagnosis: bowel obstruction, diverticulitis, gastritis, gastroesophageal mh7 reflux disease, non-specific abd pain, pancreatitis, Peptic Ulcer Disease, Pyelonephritis, Ureterolithiasis, urinary tract infection. Data reviewed: vital signs, nurses notes, old medical records, lab test result(s), CBC, electrolytes, urinalysis, EKG, radiologic studies, CT scan. Counseling: I had a detailed discussion with the patient and/or guardian regarding: the historical points, exam findings, and any diagnostic results supporting the discharge/admit diagnosis, lab results, radiology results, the need for further work-up and treatment in the hospital. Response to treatment: the patient's symptoms have markedly improved after treatment. 05:42 Patient medically screened. 02/19 03:16 Order name: Basic Metabolic Panel; Complete Time: 04:04 [facility] 02/19 03:16 Order name: CBC with Diff; Complete Time: 04:04 [facility] 02/19 03:16 Order name: Hepatic Function; Complete Time: 04:04 [facility] 02/19 03:16 Order name: Lipase; Complete Time: 04:04 [facility] 02/19 05:32 Order name: Urine Dipstick-Ancillary; Complete Time: 05:33 [facility] 02/19 03:20 Order name: CT Abd/Pelvis - IV Contrast Only [facility] 02/19 04:44 Order name: Ankle Right 3 View XRAY [facility] 02/19 06:29 Order name: SARS-COV-2 RT PCR; Complete Time: 06:36 [facility] 02/19 03:16 Order name: IV Saline Lock; Complete Time: 03:35 [facility] 02/19 03:16 Order name: Labs collected and sent; Complete Time: 03:35 [facility] 02/19 03:16 Order name: Urine Dipstick-Ancillary (obtain specimen); Complete Time: 05:10 [facility] 02/19 03:16 Order name: EKG; Complete Time: 03:16 [facility] 02/19 03:16 Order name: EKG - Nurse/Tech; Complete Time: 03:37 [facility] Administered Medications: 03:24 Drug: Pepcid (famotidine) 20 mg Route: IVP; Site: right antecubital; mr2 03:25 Drug: NS 0.9% 1000 ml Route: IV; Rate: 1000 ml; Site: right antecubital; mr2 03:25 Drug: morphine 4 mg Route: IVP; Site: right antecubital; mr2 03:25 Drug: Zofran (Ondansetron) 4 mg Route: IVP; Site: right antecubital; mr2 05:25 Drug: Dilaudid (HYDROmorphone) 1 mg Route: IVP; Site: right forearm; mr2 Disposition Summary: 02/19/21 05:42 Hospitalization Ordered Hospitalization Status: Inpatient Admission [facility] Provider: Germain Stevens Campbell Location: Telemetry/MedSur (Inpatient) [facility] Condition: Stable [facility] Problem: an acute exacerbation [facility] Symptoms: have improved [facility] Bed/Room Type: Standard [facility] Room Assignment: 423(02/19/21 07:01) tl1 Diagnosis - Acute Pancreatitis [facility] - Nausea with vomiting, unspecified [facility] Forms: - Medication Reconciliation Form [facility] - SBAR form [facility] Signatures: Dispatcher [employer] EDMS Salma Rodney RN RN tl1 Florian Burger MD MD 7 Abdoul Boudreaux RN Cachorro Small RN RN mr2 Corrections: (The following items were deleted from the chart) 05:38 05:22 CORONAVIRUS+BRZ ordered. EDMS EDMS 07:01 05:42 mh7 tl1
--- NOTE | 2021-02-19 05:59 | P.HP ---
Certification for Inpatient Patient admitted to: Observation With expected LOS: <2 Midnights Patient will require the following post-hospital care: None Practitioner: I am a practitioner with admitting privileges, knowledge of patient current condition, hospital course, and medical plan of care. Services: Services provided to patient in accordance with Admission requirements found in Title 42 Section 412.3 of the Code of Federal Regulations <Felipe Jordan - Last Filed: 02/19/21 05:53> Patient History Date of Service: 02/19/21 Reason for admission: pancreatitis History of Present Illness: Ms. Rm is a 46 yo F with VT and history of chronic pancreatitis who presents with nausea, vomiting, anorexia and 10/10 epigastric abdominal pain beginning on Monday. Lipase 2834. CT scan shows peripancreatic fat stranding mostly around the pancreatic head/duodenum with fluid tracking down into the right paracolic gutter suggestive of acute pancreatitis. Patient had last pancreatitis flare over 2 years ago. Normally she take pancreaze but was recently fired from her job after she got COVID and has no longer been able to a fford the medication. 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 -: Chronic Pancreatitis -: LVAD-left and right 2003 -: Pacemaker/AICD- -: Cholecystectomy -: Hysterectomy-uterus only - Family History Father -: Heart disease - Social History Smoking Status: Never smoker Alcohol use: Yes CD- Drugs: No Caffeine use: Yes Place of Residence: Home <Felipe Jordan - Last Filed: 02/19/21 05:53> Date of Service: 02/19/21 <Bonita Brian - Last Filed: 02/20/21 02:12> Allergies heparin Allergy (Severe, Verified 06/04/18 11:09) HIT Home Medications: Furosemide [Lasix*] 20 mg PO DAILY 06/04/18 Furosemide [Lasix*] 60 mg PO DAILY 06/04/18 Lipase/Protease/Amylase [Pancreaze Dr 2,600 Unit Cap] 1 each PO TID 06/04/18 Multivitamin/Iron/Folic Acid [Centrum Adults Tablet] 1 each PO DAILY 06/04/18 Spironolactone [Aldactone*] 25 mg PO DAILY 06/04/18 carvediloL [Coreg*] 25 mg PO BID 06/04/18 Amiodarone HCl [Cordarone*] 400 mg PO BID #28 tab 06/07/18 lisinopriL [Prinivil*] 5 mg PO BEDTIME #30 tab 06/07/18 Review of Systems 10-point ROS is otherwise unremarkable Gastrointestinal: Nausea, Vomiting, Abdominal Pain <Felipe Jordan - Last Filed: 02/19/21 05:53> Physical Examination - Physical Exam General: Alert, In no apparent distress HEENT: Atraumatic, PERRLA, Mucous membr. moist/pink, EOMI, Sclerae nonicteric Neck: Supple, 2+ carotid pulse no bruit, No LAD, Without JVD or thyroid abnormality Respiratory: Clear to auscultation bilaterally, Normal air movement Cardiovascular: Regular rate/rhythm, Normal S1 S2 Gastrointestinal: Normal bowel sounds, Soft and benign, Non-distended, No ascites, No masses, No rebound, No guarding, Tenderness Musculoskeletal: No tenderness Integumentary: No rashes Neurological: Normal gait, Normal speech, Normal strength at 5/5 x4 extr, Normal tone, Normal affect Lymphatics: No axilla or inguinal lymphadenopathy - Studies Laboratory Data (last 24 hrs) 02/19/21 03:30: WBC 6.70, Hgb 13.3, Hct 40.0, Plt Count 227 02/19/21 03:30: Sodium 138, Potassium 3.6, BUN 30 H, Creatinine 0.72, Glucose 120 H, Total Bilirubin 1.1 H, AST 63 H, ALT 52, Alkaline Phosphatase 90, Lipase 2834 H <Felipe Jordan - Last Filed: 02/19/21 05:53> - Studies Laboratory Data (last 24 hrs) 02/19/21 03:30: Triglycerides 200 H, Cholesterol 196, HDL Cholesterol 46, Cholesterol/HDL Ratio 4.26, Amylase 253 H* 02/19/21 03:30: WBC 6.70, Hgb 13.3, Hct 40.0, Plt Count 227 02/19/21 03:30: Sodium 138, Potassium 3.6, BUN 30 H, Creatinine 0.72, Glucose 120 H, Total Bilirubin 1.1 H, AST 63 H, ALT 52, Alkaline Phosphatase 90, Lipase 2834 H <Bonita Brian - Last Filed: 02/20/21 02:12> Assessment and Plan - Problems (Diagnosis) (1) Cardiac LV ejection fraction 10-20% Onset Date: 06/05/18 Current Visit: No Status: Chronic (2) Cardiac defibrillator in place Onset Date: 06/05/18 Current Visit: No Status: Chronic (3) Chronic pancreatitis Onset Date: 06/05/18 Current Visit: No Status: Acute Qualifiers: Pancreatitis type: unspecified pancreatitis type Qualified Code(s): K86.1 - Other chronic pancreatitis (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 Onset Date: 06/05/18 Current Visit: No Status: Chronic (5) Pacemaker Onset Date: 06/05/18 Current Visit: No Status: Chronic (6) Ventricular tachycardia Onset Date: 06/05/18 Current Visit: No Status: Chronic - Plan continue gentle IVF hydration antiemetics and pain management as needed NPO, advance diet as tolerated [employer]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 Lungs: Within normal limits Abdomen: EPIGASTRIC TENDERNESS Neuro: Awake, alert, oriented to person place and time Assessment: 1. ACUTE PANCREATITIS Plan: 1. Continue with current plan of care <Bonita Brian - Last Filed: 02/20/21 02:12>
--- NOTE | 2021-02-19 07:36 | RAD REPORT ---
EXAM DESCRIPTION: RAD - Ankle Right 3 View - 02/19/2021 6:03 am CLINICAL HISTORY: Right ankle pain status post fall FINDINGS: No fracture or dislocation is seen. Soft tissue swelling
[2021-02-19] MEDS: INSULIN -REGULAR HUMAN 50 UNIT/0.5 ML ML SQ SCH ×4 (08:19→19:42)
[2021-02-19] MEDS ORDERED: ACETAMINOPHEN 500 MG TAB PO PRN (08:19)
[2021-02-19] MEDS: NA CHLORIDE 0.9% 1,000 ML IV SCH ×2 (08:45→21:39)
[2021-02-19] MEDS: MORPHINE 4 MG/ML SYR IV PRN ×3 (08:46→22:08)
[2021-02-19 09:31] LABS: C-Reactive Protein 7.36 mg/L (<3.00)
[2021-02-19] MEDS: AMYLASE/LIPASE/PROTEASE CAP PO SCH ×4 (09:42→19:43)
[2021-02-19] MEDS: ONDANSETRON 4 MG/2 ML VIAL IV PRN ×3 (11:16→20:21)
[2021-02-19] MEDS: HYDROMORPHONE HCL 0.5 MG/0.5 ML INJ IV PRN ×2 (12:07→19:43)
[2021-02-19 15:08] LABS: Urine Appearance CLEAR (Clear); Urine Blood NEGATIVE (Negative); Urine Color DK YELLOW (Yellow); Urine Glucose NEGATIVE (Negative); Urine Protein 1+ (Negative); Urine Specific Gravity >=1.030 (1.005-1.030)
[2021-02-19 15:50] LABS: Urine Bilirubin 1+ (Negative); Urine Microscopic Reflex ORDER UMIC
[2021-02-19 16:05] LABS: Urine Bacteria <20 /HPF (<20); Urine Mucus 2+ /HPF (NONE SEEN); Urine RBC <5 /HPF (NONE SEEN)
--- NOTE | 2021-02-19 19:39 | RAD REPORT ---
EXAM DESCRIPTION: CT - Abdomen Pelvis W Contrast - 02/19/2021 6:41 am CLINICAL HISTORY: The patient is 46 years old and is Female; Abd pain;Nausea / vomiting TECHNIQUE: Axial computed tomography images of the abdomen and pelvis with intravenous contrast. S agittal and coronal reformatted images were created and reviewed. This CT exam was performed using one or more of the following dose reduction techniques: automated exposure control, adjustment of t he mA and/or kV according to patient size, and/or use of iterative reconstruction technique. COMPARISON: CT abdomen and pelvis January 21, 2019. FINDINGS: Lung bases: Partially visualized consolidation in the dependent lung bases. Heart: The heart appears enlarged. ABDOMEN: Liver: Unremarkable. No mass. Gallbladder and bile ducts: Gallbladder is surgically absent. No ductal dilation. Pancreas: Peripancreatic fat stranding mostly around the pancreatic head/duodenum. There is flui d tracking down into the right paracolic gutter. No ductal dilation. Spleen: Unremarkable. No splenomegaly. Adrenals: Unremarkable. No mass. Kidneys and ureters: Unremarkable. No solid mass. No hydronephrosis. Stomach and bowel: Unremarkable. No obstruction. No mucosal thickening. PELVIS: Appendix: No findings to suggest acute appendicitis. Bladder: Unremarkable. No mass. Reproductive: Unremarkable as visualized. ABDOMEN and PELVIS: Intraperitoneal space: Unremarkable. No free air. No significant fluid collection. Bones/joints: No acute fracture. No dislocation. Soft tissues: Unremarkable. Vasculature: Unremarkable. No abdominal aortic aneurysm. Lymph nodes: Unremarkable. No enlarged lymph nodes. IMPRESSION: 1. Peripancreatic fat stranding mostly around the pancreatic head/duodenum. There is f luid tracking down into the right paracolic gutter. Findings are suggestive of acute pancreatitis. 2. Partially visualized consolidation in the dependent lung bases. Electronically signed by: Juan J Haas MD 02/19/2021 5:14 AM CDT Due to temporary technical issues with the PACS/Fluency reporting system, reports are being signed by the in house radiologists without review as a courtesy to insure prompt reporting. The interpreting radiologist is fully responsible for the content of the report.
[2021-02-19] MEDS: HYDROMORPHONE HCL 1 MG/ML INJ IV PRN (23:59)
[2021-02-20] MEDS: NA CHLORIDE 0.9% 1,000 ML IV SCH ×2 (00:01→08:37)
[2021-02-20] MEDS: HYDROMORPHONE HCL 1 MG/ML INJ IV PRN ×2 (03:56→08:36)
[2021-02-20] MEDS: PROMETHAZINE INJ 25 MG/ML AMP IV PRN ×4 (03:57→20:45)
[2021-02-20 07:21] LABS: Absolute Lymphocytes (CBC) 0.9 K/uL (0.7-4.9); Basophils % 0.6 % (0-1.3); Hematocrit 44.5 % (36.0-45.0); MPV 9.8 fL (7.6-11.3); RBC Red Blood Cell Count 4.51 M/uL (3.86-4.86)
[2021-02-20] MEDS: INSULIN -REGULAR HUMAN 50 UNIT/0.5 ML ML SQ SCH ×4 (07:30→21:00)
[2021-02-20 07:51] LABS: Albumin 3.9 g/dL (3.4-5.0); Bilirubin Total 2.1 mg/dL (0.2-1.0); Magnesium 2.1 mg/dL (1.8-2.4); Phosphorus 3.4 mg/dL (2.5-4.9); Potassium 4.9 mmol/L (3.5-5.1); Protein, Total 7.7 g/dL (6.4-8.2)
[2021-02-20 07:58] LABS: Thyroid Stimulating Hormone 4.74 uIU/mL (0.360-3.740)
[2021-02-20] MEDS: AMYLASE/LIPASE/PROTEASE CAP PO SCH ×4 (08:36→20:41)
[2021-02-20] MEDS ORDERED: ACETAMINOPHEN 500 MG TAB PO PRN (11:30)
--- NOTE | 2021-02-20 11:38 | P.PN ---
Subjective Date of Service: 02/20/21 Chief Complaint: pancreatitis Review of Systems 10-point ROS is otherwise unremarkable Gastrointestinal: Abdominal Pain Musculoskeletal: Foot Pain (right ankle) Physical Examination - Vital Signs Temperature: 97.4 F Blood Pressure: 111/82 Pulse: 97 Respirations: 20 Pulse Ox (%): 96 - Physical Exam General: Alert, Moderate distress HEENT: Atraumatic, PERRLA, EOMI Neck: Supple, JVD not distended Respiratory: Clear to auscultation bilaterally, Normal air movement Cardiovascular: Regular rate/rhythm, Normal S1 S2 Gastrointestinal: Normal bowel sounds, No tenderness Musculoskeletal: No tenderness Integumentary: No rashes Neurological: Normal speech, Normal tone, Normal affect Lymphatics: No axilla or inguinal lymphadenopathy Assessment & Plan - Problems (Diagnosis) (1) Ventricular tachycardia Onset Date: 06/05/18 Current Visit: No Status: Chronic Plan: restart amiodarone and coreg (2) Right ankle sprain Current Visit: Yes Status: Acute Plan: tylenol and rest Qualifiers: Encounter type: subsequent encounter (3) Pancreatitis, acute Current Visit: Yes Status: Acute Plan: most likely secondary to not having her medications. Keep npo. Increase her pain managment. Her pain level is 10/10. Reduces to an 8/10 with her pain shot. Qualifiers: Pancreatitis type: other Acute pancreatitis complication: unspecified Qualified Code(s): K85.80 - Other acute pancreatitis without necrosis or infection (4) Cardiac LV ejection fraction 10-20% Onset Date: 06/05/18 Current Visit: No Status: Chronic Discharge Plan: Home Plan to discharge in: Greater than 2 days - Code Status/Comfort Care Code Status Assessed: No Critical Care: No Time Spent Managing Pts Care (In Minutes): 20
[2021-02-20] MEDS: ONDANSETRON 4 MG/2 ML VIAL IV PRN (13:11)
[2021-02-20] MEDS: HYDROMORPHONE HCL 2 MG/ML inj IV PRN ×3 (13:11→20:44)
[2021-02-20] MEDS: carvediloL 25 MG TAB PO SCH ×2 (20:41→21:00)
[2021-02-20] MEDS: AMIODARONE HCL 200 MG TAB PO SCH (20:43)
[2021-02-21] MEDS: NA CHLORIDE 0.9% 1,000 ML IV SCH (00:55)
[2021-02-21] MEDS: ONDANSETRON 4 MG/2 ML VIAL IV PRN ×2 (00:56→08:27)
[2021-02-21] MEDS: HYDROMORPHONE HCL 2 MG/ML inj IV PRN ×2 (04:05→08:37)
[2021-02-21] MEDS: INSULIN -REGULAR HUMAN 50 UNIT/0.5 ML ML SQ SCH (07:30)
[2021-02-21] MEDS: AMYLASE/LIPASE/PROTEASE CAP PO SCH (08:30)
[2021-02-21] MEDS: AMIODARONE HCL 200 MG TAB PO SCH (08:30)
[2021-02-21] MEDS: carvediloL 25 MG TAB PO SCH (08:31)
[2021-02-21 08:34] VITALS: BP 120/80; TEMP 96.6
[2021-02-21 08:46] VITALS: O2SAT 96
[2021-02-21] MEDS: PROMETHAZINE INJ 25 MG/ML AMP IV PRN (10:29)
[2021-02-21] MEDS ORDERED: BISACODYL E.C. 5 MG TAB PO PRN (10:53)
--- NOTE | 2021-02-21 10:59 | P.PN ---
Subjective Date of Service: 02/21/21 Chief Complaint: pancreatitis Subjective: No new changes Review of Systems Gastrointestinal: Nausea, Abdominal Pain Physical Examination - Vital Signs Temperature: 96.6 F Blood Pressure: 120/80 Pulse: 88 Respirations: 18 Pulse Ox (%): 98 - Physical Exam General: Alert, In no apparent distress HEENT: Atraumatic, PERRLA, EOMI Neck: Supple, JVD not distended Respiratory: Clear to auscultation bilaterally, Normal air movement Cardiovascular: Regular rate/rhythm, Normal S1 S2 Gastrointestinal: Normal bowel sounds, Tenderness Musculoskeletal: No tenderness Integumentary: No rashes Neurological: Normal speech, Normal tone, Normal affect Lymphatics: No axilla or inguinal lymphadenopathy Assessment & Plan - Problems (Diagnosis) (1) Pancreatitis, acute Current Visit: Yes Status: Acute Plan: most likely secondary to not having her medications. Keep npo. Increase her pain managment. Her pain level is 10/10. Reduces to an 8/10 with her pain shot. 02/21 Will treat her with symptomatic care. bismuth and dulcolax for the constipation. Qualifiers: Pancreatitis type: other Acute pancreatitis complication: unspecified Qualified Code(s): K85.80 - Other acute pancreatitis without necrosis or infection (2) Right ankle sprain Current Visit: Yes Status: Acute Plan: tylenol and rest Qualifiers: Encounter type: subsequent encounter (3) Cardiac LV ejection fraction 10-20% Onset Date: 06/05/18 Current Visit: No Status: Chronic (4) Ventricular tachycardia Onset Date: 06/05/18 Current Visit: No Status: Resolved Plan: restart amiodarone and coreg Discharge Plan: Home Plan to discharge in: 24 Hours - Code Status/Comfort Care Code Status Assessed: No Physician Review: Patient Assessed, Agree with Above Assessment and Plan Critical Care: No Time Spent Managing Pts Care (In Minutes): 20
[2021-02-21] MEDS ORDERED: NALOXONE 0.4 MG/ML VIAL ONE (12:08)
[2021-02-21] MEDS ORDERED: RSI MEDICATION KIT IV ONE (12:13)
--- NOTE | 2021-02-21 12:26 | P.DS ---
Admission Date: 02/19/21 Discharge Date: 02/21/21 Discharge Condition: Reason for Admission: pancreatitis - Problems (1) Pancreatitis, acute Current Visit: Yes Status: Acute Qualifiers: Pancreatitis type: other Acute pancreatitis complication: unspecified Qualified Code(s): K85.80 - Other acute pancreatitis without necrosis or infection (2) Right ankle sprain Current Visit: Yes Status: Acute Qualifiers: Encounter type: subsequent encounter (3) Cardiac LV ejection fraction 10-20% Onset Date: 06/05/18 Current Visit: No Status: Chronic (4) Ventricular tachycardia Onset Date: 06/05/18 Current Visit: No Status: Resolved Brief History of Present Illness: Patient admitted for acute pancreatitis Hospital Course: Patient coded at 11:42. Spent 30min coding the patient. She had pulseless electrical activity. She recieved 4 rounds of epinepherine. Was intubated by Dr. Rascon. Ultrasound showed mild fasiculations. She hand no blood flow through her carotids. Code was called at 12:13. Thank you for allowing me to take part in the patients care. Vital Signs/Physical Exam: Temp Pulse Resp BP Pulse Ox 96.6 F L 88 18 120/80 98 02/21/21 10:59 02/21/21 10:59 02/21/21 10:59 02/21/21 10:59 02/21/21 10:59 Cardiovascular: Abnormal pulses (no pulse on palpation or auscultation. ) Laboratory Data at Discharge: WBC 11.00 K/uL (4.3-10.9) H D 02/20/21 06:53 Hgb 14.5 g/dL (12.0-15.0) 02/20/21 06:53 Hct 44.5 % (36.0-45.0) 02/20/21 06:53 Plt Count 223 K/uL (152-406) 02/20/21 06:53 Sodium 136 mmol/L (136-145) 02/20/21 06:53 Potassium 4.9 mmol/L (3.5-5.1) 02/20/21 06:53 BUN 32 mg/dL (7-18) H 02/20/21 06:53 Creatinine 1.01 mg/dL (0.55-1.3) 02/20/21 06:53 Glucose 112 mg/dL (74-106) H 02/20/21 06:53 Phosphorus 3.4 mg/dL (2.5-4.9) 02/20/21 06:53 Magnesium 2.1 mg/dL (1.8-2.4) 02/20/21 06:53 Total Bilirubin 2.1 mg/dL (0.2-1.0) H 02/20/21 06:53 AST 358 U/L (15-37) H* D 02/20/21 06:53 ALT 162 U/L (12-78) H D 02/20/21 06:53 Alkaline Phosphatase 117 U/L (45-117) 02/20/21 06:53 Triglycerides 200 mg/dL (<150) H 02/19/21 03:30 Cholesterol 196 mg/dL (<200) 02/19/21 03:30 HDL Cholesterol 46 mg/dL (40-60) 02/19/21 03:30 Cholesterol/HDL Ratio 4.26 02/19/21 03:30 Amylase 253 U/L (25-115) H* 02/19/21 03:30 Lipase 3528 U/L (73-393) H 02/20/21 06:53 Home Medications: Furosemide [Lasix*] 20 mg PO DAILY 06/04/18 Furosemide [Lasix*] 60 mg PO DAILY 06/04/18 Lipase/Protease/Amylase [Pancreaze Dr 2,600 Unit Cap] 1 each PO TID 06/04/18 Multivitamin/Iron/Folic Acid [Centrum Adults Tablet] 1 each PO DAILY 06/04/18 Spironolactone [Aldactone*] 25 mg PO DAILY 06/04/18 carvediloL [Coreg*] 25 mg PO BID 06/04/18 Amiodarone HCl [Cordarone*] 400 mg PO BID #28 tab 06/07/18 lisinopriL [Prinivil*] 5 mg PO BEDTIME #30 tab 06/07/18 Time spent managing pt's care (in minutes): 35
[2021-02-21] MEDS ORDERED: BISMUTH SUBSALICYL 262MG/15ML-240 ML BTL PO SCH (17:00)
[2021-02-21] MEDS ORDERED: SUCCINYLCHOLINE 20 MG/ML (10 ML) IV ONE (20:44)
[2021-02-21] MEDS ORDERED: ETOMIDATE 20 MG/10 ML VIAL IV ONE (20:44)
[2021-02-21] MEDS ORDERED: EPINEPHrine 1 MG/10 ML SYR IV ONE (20:44)
[2021-02-21] MEDS ORDERED: NA CHLORIDE 0.9% 1,000 ML IV ONE (20:44)
[2021-02-21] MEDS ORDERED: D50W 25 GM/50 ML SYRINGE IV ONE (20:44)
== END 2021-02-21 20:45 | disposition expired | DRG 439 ==
LOC: ER 03:06 → ERHOLD 06:33 → 4TH 07:50
PROVIDERS: ADMIT Hospitalist; ATTEND Internal Medicine
PROC: 0BH17EZ Insertion of Endotracheal Airway into Trachea, Via Natural or Artificial Opening (ICD-10-PCS; principal; 2021-02-21)
PROC: 5A12012 Performance of Cardiac Output, Single, Manual (ICD-10-PCS; 2021-02-21)
DX: K85.90 Acute pancreatitis without necrosis or infection, unspecified (principal); I47.2 Ventricular tachycardia; I50.22 Chronic systolic (congestive) heart failure; I42.9 Cardiomyopathy, unspecified; K86.1 Other chronic pancreatitis; F41.9 Anxiety disorder, unspecified; Z95.810 Presence of automatic (implantable) cardiac defibrillator; S93.401D Sprain of unspecified ligament of right ankle, subsequent encounter; B94.8 Sequelae of other specified infectious and parasitic diseases
CPT/HCPCS: 36415; 74177; 80048; 80053; 80061; 80076; 81003; 81015; 82150; 82947; 83690; 83735; 84100; 84439; 84443; 85025; 86140; 93005; 94760; 99285; J0171; J0330; J1170; J2310; J2405; J2550; J7030; Q9967; U0003